=== PATIENT | male | born 1950 | race Caucasian/White ===

== ENCOUNTER → 2017-10-31 08:17 | Outpatient (CLI) | payer MEDICARE, OTHER, SELFPAY ==
[2017-10-31 10:15] LABS: Absolute Neutrophil Count 2.2 X10^3/uL (2.0-7.7); Basophil# 0.02 X10^3/uL; Basophil% 0.5 % (0-1); Eosinophil# 0.15 X10^3/uL; Eosinophils% 3.7 % (0-5); Hematocrit 39.2 % (40-54); Hemoglobin 13.5 g/dl (13.0-16.5); Lymphocyte % 29.5 % (19-41); Mean Corp Hgb Conc 34.4 g/gl (32-36); Mean Corpuscular Hgb 33.9 pg (27.0-32.0); Mean Corpuscular Volume 98.5 fL (80-94); Mean Platelet Vol. 11.6 fl (6.2-12.0); Monocyte# 0.45 X10^3/uL; Monocyte% 11.1 % (0-10); Neutrophil # 2.24 X10^3/uL (2.7-7.7); Platelet Count 102 K/mm3 (150-450); RBC Distribution Width SD 45.2 fl (35.1-43.9); Red Blood Count 3.98 M/mm3 (4.6-6.2); White Blood Count 4.1 K/mm3 (4.4-11.0)
[2017-10-31 10:28] LABS: POSITIVE COUNT NO; POSITIVE DIFFERENTIAL NO; POSITIVE MORPHOLOGY NO
[2017-10-31 10:29] LABS: Anion Gap 5 (5-15); BUN 17 mg/dL (7-18); BUN/Creat Ratio 14.7 RATIO (10-20); Calcium,Total 9.1 mg/dL (8.5-10.1); Chloride 104 mmol/L (98-107); Cholesterol 194 mg/dL (200); Creatinine, Serum 1.16 mg/dL (0.70-1.30); EST Glomerular Filtration Rate 66 mL/min (>60); Est Glom Filt Rate - Afr Amer 80 mL/min (>60); Glucose 87 mg/dL (74-106); High Density Lipoprotein 56 mg/dL; PSA,Total - Annual Screen 1.18 ng/mL (0.00-4.00); Potassium 4.5 mmol/L (3.5-5.1); Sodium Level 141 mmol/L (136-145); Triglycerides 114 mg/dL; Very Low Density Lipoprotein 23 mg/dL (5-40)
== END ==
PROVIDERS: Family Provider Family Medicine; PCP Family Medicine; Visit Provider Family Medicine
DX: D69.6 Thrombocytopenia, unspecified (principal); E78.00 Pure hypercholesterolemia, unspecified; Z12.5 Encounter for screening for malignant neoplasm of prostate; I34.0 Nonrheumatic mitral (valve) insufficiency
CPT/HCPCS: 36415; 80048; 80061; 84153; 85025; G0103

== ENCOUNTER → 2018-10-27 | Outpatient (CLI) | payer MEDICARE, OTHER, SELFPAY ==
[2018-07-28 15:37] VITALS: BMI 21.4
[2018-10-27 12:14] LABS: Absolute Lymphocyte Count 1.08 X10^3/uL (0.83-4.51); Absolute Neutrophil Count 2.2 X10^3/uL (2.0-7.7); Basophil# 0.02 X10^3/uL; Basophil% 0.5 % (0-1); Eosinophil# 0.15 X10^3/uL; Eosinophils% 3.9 % (0-5); Hematocrit 39.3 % (40-54); Hemoglobin 13.5 g/dL (13.0-16.5); Lymphocyte # 1.08 X10^3/ul (4.0); Lymphocyte % 28.3 % (19-41); Mean Corp Hgb Conc 34.4 g/dL (32-36); Mean Corpuscular Hgb 34.4 pg (27.0-32.0); Mean Platelet Vol. 11.4 fl (6.2-12.0); Monocyte# 0.39 X10^3/uL; Monocyte% 10.2 % (0-10); NRBC Flagged by Analyzer 0 % (0-5); Neutrophil # 2.16 X10^3/uL (2.7-7.7); Neutrophil % 56.8 % (47-70); Platelet Count 94 K/mm3 (150-450); RBC Distribution Width CV 12.6 % (11.6-14.6); RBC Distribution Width SD 46.4 fl (35.1-43.9); Red Blood Count 3.93 M/mm3 (4.6-6.2); White Blood Count 3.8 K/mm3 (4.4-11.0)
[2018-10-27 12:24] LABS: Anion Gap 7 (5-15); BUN 17 mg/dL (7-18); BUN/Creat Ratio 15.9 RATIO (10-20); Calcium,Total 8.7 mg/dL (8.5-10.1); Chloride 104 mmol/L (98-107); Cholesterol 192 mg/dL (200); Creatinine, Serum 1.07 mg/dL (0.70-1.30); EST Glomerular Filtration Rate 73 mL/min (>60); Est Glom Filt Rate - Afr Amer 88 mL/min (>60); Glucose 96 mg/dL (74-106); High Density Lipoprotein 60 mg/dL; Potassium 4.2 mmol/L (3.5-5.1); Sodium Level 141 mmol/L (136-145); Triglycerides 111 mg/dL; Very Low Density Lipoprotein 22 mg/dL (5-40)
== END | disposition home or self-care (01) ==
LOC: MFPLAB 09:54
PROVIDERS: Family Provider Family Medicine; PCP Family Medicine; Referring Provider Family Medicine; Visit Provider Family Medicine
DX: D69.6 Thrombocytopenia, unspecified (principal); I34.0 Nonrheumatic mitral (valve) insufficiency; E78.00 Pure hypercholesterolemia, unspecified
CPT/HCPCS: 36415; 80048; 80061; 85025

== ENCOUNTER → 2018-11-13 | Outpatient (CLI) | payer MEDICARE, OTHER, SELFPAY ==
[2018-07-28 15:37] VITALS: BMI 21.4
[2018-11-13 14:08] LABS: PSA,Total - Annual Screen 1.26 ng/mL (0.00-4.00)
== END | disposition home or self-care (01) ==
LOC: LAB.FUTURE 11:31
PROVIDERS: Family Provider Family Medicine; PCP Family Medicine; Referring Provider Family Medicine; Visit Provider Family Medicine
DX: Z12.5 Encounter for screening for malignant neoplasm of prostate (principal)
CPT/HCPCS: 36415; 84153; G0103

== ENCOUNTER → 2019-08-06 14:35 | Outpatient (CLI) | payer MEDICARE, OTHER, SELFPAY ==
[2019-06-11 15:25] VITALS: BMI 21.3
--- NOTE | 2019-08-06 14:39 | PCM.CR.ITP ---
Diagnosis - General Information Admitting Diagnosis: S/P VALVE REPAIR REPLACEMENT Secondary Diagnosis: I34.0, I27.21, I34.1, I44.0, I45.10, I25.10, Personal Learning Style:: Audio/Visual, Written Barriers to Learning: Cognitive/Learning Impairment, Cultural/Spiritual, Decreased Motivation, Emotional/Anxiety, Hearing Impairment, Language, Low Literacy, Mental Status, No Barriers, Physical Condition/Sensory Deficit, Vision Impairment Gave educational material for:: Treating Heart Disease, Emotions & Heart Disease, Stress Management & Relaxation, Sleep Disorders & Heart Disease, How The Heart Works, What it means to have Heart Disease, How Coronary Artery Disease is Diagnosed, Heart Procedures, What Heart Medications Do, Risk Factors & Modifications, Living an Active Life, Nutrition - Education/Goals Individual Counseling: Initial Assessment: Abnormal Cholesterol Levels, High Blood Pressure Cardiac Rehabilitation Goals: 1. Maintain the individual as the primary focus of care. 2. To improve the patient's quality of life. 3. Identification of cardiac risk factors and provide cardiac risk factor management. 4. Enhance the psychosocial status of the patient. 5. Reconditioning enough to allow the patient to resume customary activities. 6. Control symptoms of cardiac disease Personal Goals: Initial Assessment: Participate in home exercise program, Improve muscle strength and endurance Scale for measuring improvement of personal goals: Enter appropriate number in Comments. 2 = Unchanged. 3 = Slightly Better. 4 = Moderate Improvement. 5 = Met my Goal - Diagnosis & Disease Process Outcomes/Goals: Pt IDs own risk factors & lifestyle modifications by Session 10, Verbalizes symptoms of angina & response by session 3., Pt independently manages Plan/Interventions: Assist Pt to ID & engage in lifestyle modification to reduce CVD risk, Instruct on individual risk factors, Review symptoms of angina & emergency actions, Review secondary diagnosis & identify educational needs. - Safety Referral to Physical Therapy: No Referral to [facility] Case Management: No Fall Risk Assessed:: No Assistive Devices:: None Exercise - Initial Assessment - Visit Date of Eval: 08/06/19 - SCHEDULED OT START CR ON Session #:: 0 - INITIAL EVALUATION. Mets: Pre-: >7 METS for 30 minutes by discharge - Physician Prescribed Exercise Modalities: Treadmill, Rower, Airdyne, NuStep Frequency: 3x/week for 12 weeks [36 sessions] Intensity: 60-80% of age predicted maximum heart rate reserve Current METSs:: 4 Target Heart Rate:: 97-126 Resting Blood Pressure: 112/72 EKG Type: SR W/ 1ST DEGREE AV BLOCK, INCOMPLETE RBBB - Outcomes & Goals Goals:: Verbalizes understanding of THR, RPE & goal METS by session 6, Documents in home exercise log/reports 30 min aerobic 5 day/wk by DC, Demonstrates accurate pulse taking by DC - Intervention & Plan Exercise Program Goals: Instruct on personal THR & RPE, Instruct on MET level & personal MET goal, Show patient to take own pulse /validate performance until accurate, Instruct on home exercise - Physical Activity Home Exercise Physical Activity - Home Exercise: Safe Exercise, Warm-up, Self-monitoring, Cool-Down, Home Exercise > 30 min Daily, Sitting Time <3 hours/daily - Outcomes & Goals Outcomes/Goals: Demonstrates correct Warm-up/exercise Cool-Down (S3) if = 2.5 METs, Verbalizes symptoms of exercise intolerance by Session 3 (S3), Demonstrate safe equipment use (S3) & follows exercise prescrition (6) - Intervention & Plan Plan/Intervention: Instruct warm-up & cool-down if exercising at > 2 METs, Instruct on symptoms of exercise intolerance & actions to take, Instruct & monitor on saf Nutrition - Initial Assessment - Program Goals Nutrition Program Goals: LDL <100 optimal. 100 - 129 Near optimal. 130 - 159 Borderline High. 160 - 189 High. Total Cholesterol <200 desirable. 200 - 239 Borderline High. >/= 240 High. HDL < 40 Low >/=60 High. Triglycerides <150 desirable. <199 optimal. VlDL 5 - 40. HgbA1C <7%. BMI <25 - Visit Date of Assessment:: 08/06/19 Session #:: 0 - INITIAL EVALUATION - Cholesterol/Lipids Triglycerides (mg/dL): 111 Total Cholesterol (mg/dL): 192 LDL Cholesterol (mg/dL): 110 HDL Cholesterol (mg/dL): 60 Determine presence & major risk factors that modify LDL goal: Hypertension or hypertensive medication, Age men > 45 years; women >/= 55 years Outcomes/Goals: Pt IDs own risk factors & lifestyle modifications by Session 10, Verbalizes symptoms of angina & response by session 3., Pt independently manages Intervention/Plan: Instruct on personal lipid levels & lipid goals/NCEP guidelines, Instruct on cholesterol - Diabetes (Other Core Measures) Diabetes Type: Not Applicable - Weight Mgt (Other Care) Not Applicable: Yes Height: 6 ft 1 in Weight:: 162 lb BMI: 21.3 Diagnosis Overweight/Obesity BMI> 30% ICD-10 E66: No Diagnosis High BMI/Morbid Obesity BMI> 35% ICD-10 Z68: No Outcomes/Goals: Pt sets, maintains & shows weight loss goal & trend during rehab Intervention/Plan: Instruct on ideal BMI & set weight loss goal w/patient - Healthy Eating Habits Outcomes/Goals:: Consume diet rich in vegs,fruits,whole grain/high fiber,fish,lean meat, Limit sat/trans fats,cholesterol & added salts & sugars Intervention/Plan:: Assess current eating habits - Education Gave educational materials for:: Healthy eating Medical - Initial Assessment - Visit Date of Eval: 08/06/19 Session #:: 0 - INITIAL EVALUATION - Medication Compliance Preventative Medication(s):: Aspirin, Statin/lipid, Beta shannen H/O mental health issues: depression, anxiety, or addiction?: No Doesn?t believe in the benefits of treatment?: No Believes medications are unnecessary or harmful?: No Has a concern about medication side effects?: No Expresses concern over the cost of medications?: No Outcomes/Goals: Verbalizes medications,desired effect & common side effects @ DC, Pt self-reports following medication regimen, Keeps card in wallet w/medications listed by DC Interventions/plans: Instruct on medication effects & side effects, Review medication list w/patient every two weeks, Instruct importance of taking meds as ordered & assist problem solving - Tobacco Use Tobacco Use: Non-smoker Do you use smokeless tobacco?: No - Hypertension Hypertension Diagnosis:: Hypertension ICD-10 I10 Resting Blood Pressure:: 112/72 Citizen [place] Heart Association Hypertension Guidelines: Citizen [place] Heart Association Hypertension Guidelines. Normal BP Less than 120/80. Elevated BP 120/80. Hypertension Stage 1: BP 130-139/80-89. Hypertesnion Stage 2: BP 140 or higher/90 or higher. Hypertension Crisis: BP higher than 180/120 Outcomes/Goals: Able to verbalize/achieve optimal blood pressure <130/80, Incorporates diet changes & exercise for blood pressure control by DC Interventions/plan: Instruct on optimal blood pressure, hypertension & medications, Instruct on effects of sodium, alcohol, stress, exercise &hypertension - Tobacco Cessation Referral Smoking Cessation Referral:: No Individual Education/Counseling:: No Education Schedule Given:: Yes Psychosocial - Initial Assess - VIsit Date of Eval: 08/06/19 Session #:: 0 - INITIAL EVALUATION Not Applicable: Yes History of previous Mental disease:: No - Target Goals Target Goals: Assess presence or absence of depression. Using a valid screening tool, maximizes coping skills. Positive support system - Psychosocial Test Tool Used:: Jassi Valencia QOL Cardiac, PHQ-9 Questionnaire phq-9 Severity: Severity. 1-4 Minimal Depression. 5-9 Mild Depression. 10-14 Moderate Depression. 15-19 Moderately Sever Depression. 20-27 Severe Depression. Rule: - Referral to Behavioral Health PS - Interventions: Yes Attend Stress Management Classes, No Referral to Behavioral Health if PHQ-9 score >9:, No Referral to [facility], No Referral to Physician if PHQ-9 if score is 5-9: - Outcomes/Goals: See list Psychosocial Outcomes/Goals:: ID's personal stressors & 2 strategies to manage stress by discharge - Intervention/Plan: See List Interventions/Plan:: Assess stressors,coping strategies & signs of derpression on admission Patient Health Questionnaire Initial Assessment 1. Little interest or pleasure in doing things: Not at all 2. Feeling down, depressed, or hopeless: Not at all 3. Trouble falling or staying asleep, or sleeping too much: Not at all 4. Feeling tired or having little energy: Not at all 5. Poor appetite or overeating: Not at all 6. Feeling bad about yourself -- or that you are a failure or have let yourself or your family down: Not at all 7. Trouble concentrating on things, such as reading the newspaper or watching television: Not at all 8. Moving or speaking so slowly that other people could have noticed. Or the opposite - being so fidgety or restless that you have been moving around a lot more than usual: Not at all 9. Thoughts that you would be better off , or of hurting yourself in some way: Not at all How difficult have these problems made it for you to do your work, take care of things at home, or get along with other people?: Not difficult at all Total Score: 0 DOROTEO-Q SV Test - Statements CAD is a disease of the arteries in the heart: False Examples of risk factors for heart disease: True Angina is chest pain or discomfort: I Don't Know The benefits of resistance training include: True Eating more meat and dairy products: False Anti-platelet medications such as aspirin are important: I Don't Know The only effective way to manage stress: False An exercise warm-up slowly increases heart rate: I Don't Know Prepared, processed foods usually have high sodium: True Depression is common after a heart attack: I Don't Know The statin medications lower cholesterol: I Don't Know To control blood pressure, lower the amount of sodium: I Don't Know If someone gets chest discomfort during walking: I Don't Know Transfats are partially hydrogenated vegetable oils: True Sleep apnea that is not treated increases the risk: I Don't Know To control cholesterol, one should become a vegetarian: False Someone knows if he/she is exercising at the right level: I Don't Know Diabetes cannot be prevented with exercise & health eating: False Stress is a large risk for heart attack: I Don't Know A diet that can help lower blood pressure is rich in: True - Total Score Total Correct Responses: 10 Self-Efficacy Initial Assessment We would like to know how confident you are in doing certain activities. Please select your confidence level for:: Select your confidence level for the following using the scale 1-10 where 1 is not at all confident and 10 is totally confident. Your score is the average of all 6 responses. Fatigue: How confident are you that you can keep the fatigue caused by your disease from interfering with the things you want to do? Select Number: 10 Physical Discomfort or Pain: How confident are you that you can keep the physical discomfort or pain of your disease from interfering with the things you want to do? Select Number: 10 Emotional Distress: How confident are you that you can keep the emotional distress caused by your disease from interfering with the things you want to do? Select Number: 10 Other Symptoms or Health Problems: How confident are you that you can keep other symptoms or health problems from interfering with the things you want to do? Select Number: 10 Different Tasks and Activities: How confident are you that you can do the different tasks and activities needed to manage your health condition so as to reduce your need to see a doctor? Select Number: 10 Medication: How confident are you that you can do things other than just taking medication to reduce how much your illness affects your everyday life? Select Number: 10 Total Score:: 10 Nutrition Survey - Nutrition Survey Instructions Scoring Instructions: Scoring is as follows: Yes = 1 points. No = 0 point. Patient score that is >/=12 is considered to be at potential nutritional risk and could benefit from a referral to a registered dietitian. - Nutrition Survey Initial Have you lost >10 lbs over the past 2 months without trying?: No Are you following a special diet at home for diabetes, low fat, or low salt?: Yes Are you interested in meeting with a dietitian for help understanding your diet?: No Do you eat less than 3 meals a day?: No Do you eat fatty meats (barakat, sausage, ribs, etc), fried foods, desserts, large amounts of salad dressings, margarine, butter, or cheese most days?: No Do you have food allergies? [Enter types in comment field]: No Do you eat in restaurants more than 3 times a week?: Yes Do you season food with salt, seasoning salt, or garlic salt?: Yes Do you used canned, boxed, frozen meals, or soups, seasoning packets?: No Total Score:: 3
--- NOTE | 2019-08-06 14:39 | PCM.CR.HP2 ---
CR - History & Physical - General Arrival date:: 08/06/19 Arrival time:: 14:42 Date of Referral:: 05/17/19 Date of CR Evaluation:: 08/06/19 Referring Physician: DR. MICHEAL BRITT Primary Diagnosis: S/P CABG - History of Present Cardiac Event Onset Date: Enter Onset Date of cardiac illnesses in Comment field below Heart valve replacement or repair:: Yes - 05/10/19 Type of Symptoms:: REFERRED TO [facility] FOR REPEAT ECHO LVEF 63%, FOUND SEVERE MITRAL VALVE REGURGITATION, A MYOXATOUS MITRAL VALVE WITH SEVERE POSTERIOR LEAFLET PROLAPSE, DILATED AORTIC ROOT, WENT TO [facility] FOR SECOND OPINION AND HE UNDERWENT MITRAL VALVE REPAIR AND TRICUSPID VALVE REPAIR. - Medications Home Medications: Ambulatory Orders Medication Instructions Recorded Aspirin [Adult Low Dose Aspirin EC] 81 mg PO DAILY 06/29/15 Biotin 1 mg PO DAILY 06/29/15 Cholecalciferol (VIT D3) [Vitamin 1,000 unit PO DAILY 06/29/15 D] Cyanocobalamin [Vitamin B12] 500 mcg PO DAILY@0800 06/29/15 Multivitamin [Daily Multiple 1 ea PO DAILY 06/29/15 Vitamin] Olopatadine HCl [Patanol] 1 drp EACH EYE UD PRN 06/29/15 Sildenafil Citrate [Viagra] 50 mg PO UD 06/29/15 metoprolol tartrate 25 mg tablet 12.5 mg PO BID tab 05/19/19 polysaccharide iron complex 150 mg 150 mg PO BID cap 05/19/19 iron capsule - Allergies Allergies/Adverse Reactions: Allergies No Known Allergies Allergy (Verified 02/16/19 12:46) - Sleep Disorder Evaluation Hx of Sleep Apnea: No Do you snore loudly (louder than talking or can be heard through closed doors)?: Yes Do you often feel tired/ fatigued/ sleepy during daytime?: Yes Has anyone observed you stop breathing during sleep?: No History of Hypertension (for STOP score): Yes STOP Results: Positive Advanced Directives - Advanced Directives 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 DNR Order?:: No - MOLST See MOLST form: No Past Medical History - Past Medical Illness Medical History: Past Medical History (Last Reviewed 06/11/19 @ 15:[address] Micheal Britt MD) Nonrheumatic mitral (valve) insufficiency (Chronic) I34.0 Nonrheumatic mitral (valve) prolapse (Chronic) I34.1 MV repair neochord P2 #35 [place] Band Non-rheumatic tricuspid valve insufficiency (Chronic) I36.1 Secondary pulmonary arterial hypertension (Chronic) I27.21 First degree atrioventricular block by electrocardiogram (Chronic) I44.0 Right bundle branch block (Chronic) I45.10 Nonrheumatic aortic (valve) insufficiency (Inactive) I35.1 Mild per cath 01/2017 @ [facility] Nonrheumatic tricuspid valve regurgitation (Inactive) I36.1 Mild to moderate per cath 01/2017 @ [facility] - Past Surgical History Surgical History: Past Surgical History (Last Reviewed 06/11/19 @ 15:[address] Micheal Britt MD) History of mitral valve repair (Resolved) Onset Date: 05/10/19 Z98.890 MV repair neochord P2 #35 [place] History of tricuspid valve repair (Resolved) Onset Date: 05/10/19 Z98.890 TV repair remodeling annuloplasty #25 [place]rough Band H/O right and left heart catheterization Onset Date: 02/10/17 Z98.890 06/30/2015 and 02/10/17 History of right heart catheterization Onset Date: 06/16/18 Z98.890 - Family History Summary Family History: Family History (Last Reviewed 06/11/19 @ 15:[address] Micheal Britt MD) Mother H/O heart valve replacement with bioprosthetic valve Social History - Smoking History Smoking Status: Former smoker - QUIT IN 1979 NO RECENT TOBACCO USE. - Occupation Occupation (List type of work in comments):: Employed Hours worked per day:: 8 - WORKING FROM HOME. - Hobbies, Recreation, Social Activities Hobbies: Exercise - after 6 weeks post-operative valve surgery began running again. No complications with resuming exercise., Other - golf, run two to three times a week, lift weights. Recreational Activities: I am able to engage in all my recreational activities Social Environment - Status Marital Status: - Current Living Arrangements Living Environment:: Spouse - Children How many children do you have?: 3 - boys Do any of your children live nearby?: Yes - one in area two are out of state. - Safety Do you feel safe in your surroundings?: Yes - Assistance Do you need any assistance at home?: yes Review of Systems - Review of Systems Hints: Right click = Denies (Slash). Left click = Reports ([place]) Review of Present Symptoms: Reports: Shortness of Breath with Exertion - [place] carrying 40# gaolf bag strenuous., Wound Healing, Dizziness/Lightheadedness - only if laying down or planting [place] and stand up rapidly or too rapidly. only happens on occasions not routine., Appetite - Normal, Appetite - Special Diet - had stents years ago and keep danny on a good cardiac based diet.. Denies: Shortness of Breath at Rest, Fatigue - Pain Is Patient Pain Free?: Yes Pain Location: none Pain Level: 0/10 Risk Factor Assessment - Vital Signs Temperature: 97.8 F Respiratory Rate: 16 Pulse Ox: 98 Blood Pressure: 112/70 - Pulse Pulse Rate: 64 Pulse Rhythm: Regular - Hypertension Blood Pressure Sitting - Left Arm: 112/70 - Blood Cholesterol/Lipids Total Cholesterol (mg/dL) Goal = less than 200 mg/dL: 192 HDL Cholesterol (mg/dL) Goal = less than 40 mg/dL: 60 LDL Cholesterol (mg/dL) Goal = less than 70 mg/dL: 110 Triglycerides (mg/dL) Goal = less than 150 mg/dL: 111 - Diabetes Nutrition Referral for Diabetes: No - Obesity Height: 6 ft 1 in Weight:: 162 lb Weight in Pounds: 162.0 lbs Weight Source: Standing Scale Body Mass Index (BMI): 21.3 Nutritional Referral for Obesity: No - Physical Inactivity Physical Inactivity: Recreational activity - Risk Stratification Risk Guidelines: Lowest Risk: Risk Factor for Smoking, Risk Factor for Dyslipidemia, Risk Factor for Diabetes, Risk Factor for Obesity, Risk Factor for Hypertension, Risk Factor for Sedentary Lifestyle, Risk Factor for Depression - For Smoking Smoking Risk Guidelines: Smoking Low Risk: None or quit greater than 6 months ago. Smoking Moderate Risk: Smoker or quit 6 months or less ago. Smoking High Risk: Smoker - For Dyslipidemia Dyslipidemia Risk Guidelines: Low Risk: Moderate Risk: High Risk: 15-25% fat 25.1-29% fat >/= 30% fat. <7% sat fat 7-9% sat fat >9% sat fat. <150 mg chol 150-299 mg chol >/= 300 mg chol. LDL <100 LDL 100-129 LDL >/= 130. Chol/HDL ratio <5.0 Chol/HDL ratio 5.0-6.0 Chol/HDL ratio >6.0. Triglycerides <100 Triglycerides 100-149 Triglycerides >/= 150 - For Diabetes Mellitus Diabetes Risk Guidelines: Diabetes Low Risk: HgA1c <6.5% and/or FBG <120. Diabetes Moderate Risk: HgA1c 6.6-7.9% and/or FBG 120-180. Diabetes High Risk: HgA1c >/= 8% and/or FBG >180 - For Obesity/Overweight Obesity/Overweight Risk Guidelines: Obesity Low Risk: BMI <25.0. Obesity Moderate Risk: BMI 25-29.9. Obesity High Risk: BMI >/= 30.0 - For Hypertension Hypertension Risk Guidelines: Hypertension Low Risk: Systolic <120 and Diastolic <80. Hypertension Moderate Risk: Systolic 120-139 and Diastolic 80-89. Hypertension High Risk: Systolic >/= 140 and Diastolic >/= 90 - For Sedentary Lifestyle Sedentary Lifestyle Risk Guidelines: Sedentary Lifestyle Low Risk: >/= 1,500 kcal/week. Sedentary Lifestyle Moderate Risk: 700-1,499 kcal/week. Sedentary Lifestyle High Risk: < 700 kcal/week - For Depression Depression Risk Guidelines: Depression Low Risk: Not clinically depressed. Depression Moderate Risk: Mildly depressed. Depression High Risk: Clinically depressed - Family History Family History: Family History (Last Reviewed 06/11/19 @ 15:[address] Micheal Britt MD) Mother H/O heart valve replacement with bioprosthetic valve Motivation - Motivation to Participate On a scale of 1 to 10, how prepared are you to commit to attending program?: 6 - More interested in a truncated 4-6 weeks to be able to resume running at home safely. What do you see as barriers to successfully being able to complete the program?: getting back to normal daily ewxercise, running lifting weights at home. Do you have a spouse or signficant other, family or friends who will help support you to complete the program?: yes
[2019-08-06 15:10] VITALS: BP 112/70; PULSE 64; RESP 16; TEMP 36.6; O2SAT 98; BMI 21.3
[2019-08-06 15:31] VITALS: BP 112/72; BMI 21.3
== END ==
PROVIDERS: PCP Family Medicine; Visit Provider Internal Medicine Cardiovascular Disease
DX: I34.0 Nonrheumatic mitral (valve) insufficiency (principal); I27.21 Secondary pulmonary arterial hypertension; I34.1 Nonrheumatic mitral (valve) prolapse; I44.0 Atrioventricular block, first degree; I45.10 Unspecified right bundle-branch block; I25.10 Atherosclerotic heart disease of native coronary artery without angina pectoris; Z95.1 Presence of aortocoronary bypass graft

== ENCOUNTER 2019-08-27 14:15 | Outpatient (RCR) | payer MEDICARE, OTHER, SELFPAY ==
[2019-08-06 15:10] VITALS: BMI 21.3
[2019-08-06 15:31] VITALS: BMI 21.3
== END 2019-08-29 23:59 ==
LOC: CR 14:15
PROVIDERS: PCP Family Medicine; Visit Provider Internal Medicine Cardiovascular Disease
DX: Z95.1 Presence of aortocoronary bypass graft (principal)
CPT/HCPCS: 93798

== ENCOUNTER 2019-08-30 07:06 | Outpatient (RCR) | payer MEDICARE, OTHER, SELFPAY ==
[2019-08-06 15:10] VITALS: BMI 21.3
[2019-08-06 15:31] VITALS: BMI 21.3
== END 2019-09-28 23:59 ==
LOC: CR 07:06
PROVIDERS: PCP Family Medicine; Visit Provider Internal Medicine Cardiovascular Disease
DX: I25.10 Atherosclerotic heart disease of native coronary artery without angina pectoris (principal); I27.21 Secondary pulmonary arterial hypertension; I34.1 Nonrheumatic mitral (valve) prolapse; Z95.1 Presence of aortocoronary bypass graft; I34.0 Nonrheumatic mitral (valve) insufficiency; I44.0 Atrioventricular block, first degree; I45.10 Unspecified right bundle-branch block
CPT/HCPCS: 93798

== ENCOUNTER → 2019-11-03 13:33 | Outpatient (CLI) | payer MEDICARE, OTHER, SELFPAY ==
[2019-08-06 15:10] VITALS: BMI 21.3
[2019-08-06 15:31] VITALS: BMI 21.3
== END ==
PROVIDERS: PCP Family Medicine; Referring Provider Family Medicine; Visit Provider Family Medicine
DX: Z11.59 Encounter for screening for other viral diseases (principal)
CPT/HCPCS: 87635; U0003

== ENCOUNTER → 2020-03-01 10:53 | Outpatient (CLI) | payer MEDICARE, OTHER, SELFPAY ==
[2019-08-06 15:31] VITALS: BMI 21.3
[2019-12-23 15:45] VITALS: BMI 21.2
[2020-03-01 12:38] LABS: Hematocrit 42.4 % (40-54); Hemoglobin 14.1 g/dL (13.0-16.5); Mean Corp Hgb Conc 33.3 g/dL (32-36); Mean Corpuscular Hgb 33.1 pg (27.0-32.0); Mean Corpuscular Volume 99.5 fL (80-94); Mean Platelet Vol. 11.1 fl (6.2-12.0); Platelet Count 120 K/mm3 (150-450); RBC Distribution Width CV 12.7 % (11.6-14.6); RBC Distribution Width SD 46.5 fl (35.1-43.9); Red Blood Count 4.26 M/mm3 (4.6-6.2); White Blood Count 4.4 K/mm3 (4.4-11.0)
[2020-03-01 13:05] LABS: Anion Gap 5 (5-15); BUN 17 mg/dL (7-18); Calcium,Total 9.6 mg/dL (8.5-10.1); Chloride 104 mmol/L (98-107); Cholesterol 193 mg/dL (200); Creatinine, Serum 1.06 mg/dL (0.70-1.30); EST Glomerular Filtration Rate 73 mL/min (>60); Est Glom Filt Rate - Afr Amer 88 mL/min (>60); Glucose 90 mg/dL (74-106); High Density Lipoprotein 57 mg/dL; PSA,Total - Annual Screen 1.17 ng/mL (0.00-4.00); Potassium 4.2 mmol/L (3.5-5.1); Sodium Level 139 mmol/L (136-145); Triglycerides 109 mg/dL; Very Low Density Lipoprotein 22 mg/dL (5-40)
== END ==
PROVIDERS: PCP Family Medicine; Referring Provider Family Medicine; Visit Provider Family Medicine
DX: D69.6 Thrombocytopenia, unspecified (principal); E78.00 Pure hypercholesterolemia, unspecified; Z13.1 Encounter for screening for diabetes mellitus; Z12.5 Encounter for screening for malignant neoplasm of prostate
CPT/HCPCS: 36415; 80048; 80061; 84153; 85027; G0103

== ENCOUNTER → 2021-01-16 12:53 | Outpatient (CLI) | payer MEDICARE, OTHER, SELFPAY ==
[2019-08-06 15:31] VITALS: BMI 21.3
--- NOTE | 2021-01-16 12:57 | ECHOD_ITS ---
Reason For Study: MVP-S/P MV Repair Procedure This was a 2D Doppler, Color Flow transthoracic echocardiogram. Exam performed in department. Left Ventricle Normal LV size. Left ventricular systolic function is normal. The estimated ejection fraction is 65 %. Stage 1 diastolic dysfunction. No regional wall motion abnormalities noted. Right Ventricle Normal RV size. Normal systolic function. Atria Normal left atrium. Normal right atrium. Mitral Valve Status post mitral valve repair with annuloplasty ring. Tricuspid Valve An annuloplasty ring is noted in the tricuspid position. Aortic Valve Trisinus/trileaflet aortic valve. Pulmonic Valve Normal pulmonic valve. Great Vessels Normal aortic root. The pulmonary artery is normal size. Normal inferior vena cava. Pericardium/Pleural No pericardial effusion. MMode/2D Measurements & Calculations LVIDd: 4.1 cm IVSd: 1.2 cm Ao root diam: 3.7 cm LVIDs: 2.1 cm LVPWd: 1.1 cm RVDd: 3.3 cm FS: 47.4 % LAV(MOD-bp): 62.4 ml LVAd ap4: 28.6 cm2 LVAd ap2: 30.0 cm2 LAV(MOD-bp) Indexed: 32.2 ml/m2 LVLd ap4: 8.4 cm LVLd ap2: 8.3 cm LAV(MOD-sp2): 77.7 ml EDV(MOD-sp4): 82.0 ml EDV(MOD-sp2): 90.3 ml LAV(MOD-sp4): 44.3 ml EDV(sp4-el): 82.9 ml EDV(sp2-el): 92.0 ml LVAs ap4: 17.0 cm2 LVAs ap2: 17.2 cm2 LVLs ap4: 7.2 cm LVLs ap2: 7.5 cm ESV(MOD-sp4): 33.4 ml ESV(MOD-sp2): 32.8 ml ESV(sp4-el): 33.9 ml ESV(sp2-el): 33.4 ml EF(MOD-sp4): 59.3 % EF(MOD-sp2): 63.6 % EF(sp4-el): 59.1 % SV(MOD-sp4): 48.6 ml SV(MOD-sp2): 57.5 ml SV(sp4-el): 49.0 ml LA dimension(2D): 4.1 cm LA A4 area: 16.0 cm2 RA A4 area: 20.1 cm2 Doppler Measurements & Calculations MV E max leo: 109.0 cm/sec Lat Peak E' Leo: 9.0 cm/sec Med Peak E' Leo: 5.4 cm/sec MV A max leo: 148.4 cm/sec E/E' lat: 12.1 E/E' med: 20.3 MV E/A: 0.73 MV V2 max: 159.9 cm/sec MV P1/2t max leo: 130.2 cm/sec Ao V2 max: 135.7 cm/sec MV max P.2 mmHg MV P1/2t: 76.7 msec Ao max P.6 mmHg MV V2 mean: 117.0 cm/sec MV dec slope: 496.9 cm/sec2 MV mean P.7 mmHg MV V2 VTI: 35.0 cm MVA(P1/2t): 2.9 cm2 LV V1 max: 130.5 cm/sec PA V2 max: 128.2 cm/sec LV V1 max P.8 mmHg ECHO/Echo Complete Interpretation Summary Status post mitral valve repair with annuloplasty ring. Normal LV size. Left ventricular systolic function is normal. The estimated ejection fraction is 65 %. Stage 1 diastolic dysfunction. Ordering Physician: Micheal Trujillo Referring Physician: Carlitos Johnson MD Performed By: Corina Rasheed RDCS
== END ==
PROVIDERS: PCP Family Medicine; Referring Provider Internal Medicine Cardiovascular Disease; Visit Provider Internal Medicine Cardiovascular Disease
DX: I34.1 Nonrheumatic mitral (valve) prolapse (principal)
CPT/HCPCS: 93306

== ENCOUNTER → 2021-03-06 09:23 | Outpatient (CLI) | payer MEDICARE, OTHER, SELFPAY ==
[2019-08-06 15:31] VITALS: BMI 21.3
[2021-03-06 12:44] LABS: Absolute Lymphocyte Count 1.46 X10^3/uL (0.83-4.51); Absolute Neutrophil Count 2.4 X10^3/uL (2.0-7.7); Basophil# 0.02 X10^3/uL; Basophil% 0.4 % (0-1); Eosinophil# 0.17 X10^3/uL; Eosinophils% 3.8 % (0-5); Hematocrit 41.2 % (40-54); Hemoglobin 13.8 g/dL (13.0-16.5); Lymphocyte # 1.46 X10^3/ul (0.83-4.51); Lymphocyte % 32.3 % (19-41); Mean Corp Hgb Conc 33.5 g/dL (32-36); Mean Corpuscular Hgb 32.9 pg (27.0-32.0); Mean Corpuscular Volume 98.3 fL (80-94); Mean Platelet Vol. 11.3 fl (6.2-12.0); Monocyte# 0.48 X10^3/uL; Monocyte% 10.6 % (0-10); NRBC Flagged by Analyzer 0 % (0-5); Neutrophil # 2.38 X10^3/uL (2.7-7.7); Neutrophil % 52.7 % (47-70); Platelet Count 135 K/mm3 (150-450); RBC Distribution Width CV 13.1 % (11.6-14.6); RBC Distribution Width SD 47.1 fl (35.1-43.9); Red Blood Count 4.19 M/mm3 (4.6-6.2); White Blood Count 4.5 K/mm3 (4.4-11.0)
[2021-03-06 13:10] LABS: ALB/GLOB Ratio 1.1 RATIO (0.9-2.4); AST(SGOT) 20 U/L (15-37); Alanine Aminotransfer ALT/SGPT 22 U/L (16-61); Albumin, Serum 3.7 g/dL (3.2-5.0); Alkaline Phosphatase 58 U/L (45-117); Anion Gap 8 (5-15); BUN 16 mg/dL (7-18); BUN/Creat Ratio 14.4 RATIO (10-20); Calcium,Total 9.1 mg/dL (8.5-10.1); Chloride 103 mmol/L (98-107); Cholesterol 200 mg/dL (200); Creatinine, Serum 1.11 mg/dL (0.70-1.30); EST Glomerular Filtration Rate 69 mL/min (>60); Est Glom Filt Rate - Afr Amer 84 mL/min (>60); Globulin 3.3 g/dL (2.2-4.2); Glucose 96 mg/dL (74-106); High Density Lipoprotein 61 mg/dL; PSA,Total - Annual Screen 1.33 ng/mL (0.00-4.00); Potassium 4.1 mmol/L (3.5-5.1); Sodium Level 139 mmol/L (136-145); Triglycerides 112 mg/dL; Very Low Density Lipoprotein 22 mg/dL (5-40)
== END ==
PROVIDERS: PCP Family Medicine; Referring Provider Family Medicine; Visit Provider Family Medicine
DX: E78.00 Pure hypercholesterolemia, unspecified (principal); D69.6 Thrombocytopenia, unspecified; Z12.5 Encounter for screening for malignant neoplasm of prostate
CPT/HCPCS: 36415; 80053; 80061; 84153; 85025; G0103

== ENCOUNTER → 2022-03-06 | Outpatient (CLI) | payer MEDICARE, OTHER, SELFPAY ==
[2019-08-06 15:31] VITALS: BMI 21.3
[2022-03-06 12:14] LABS: Mean Corp Hgb Conc 33.3 g/dL (32-36); Mean Corpuscular Volume 99.1 fL (80-94); Mean Platelet Vol. 10.9 fl (6.2-12.0); Platelet Count 128 K/mm3 (150-450); RBC Distribution Width SD 46.8 fl (35.1-43.9); Red Blood Count 4.24 M/mm3 (4.6-6.2); White Blood Count 4.6 K/mm3 (4.4-11.0)
[2022-03-06 12:32] LABS: Anion Gap 3 (5-15); BUN 17 mg/dL (7-18); BUN/Creat Ratio 16.3 RATIO (10-20); Calcium,Total 9.5 mg/dL (8.5-10.1); Chloride 103 mmol/L (98-107); Creatinine, Serum 1.04 mg/dL (0.70-1.30); EST Glomerular Filtration Rate 74 mL/min (>60); Est Glom Filt Rate - Afr Amer 90 mL/min (>60); Glucose 114 mg/dL (74-106); PSA,Total - Annual Screen 1.34 ng/mL (0.00-4.00); Potassium 4.6 mmol/L (3.5-5.1); Sodium Level 138 mmol/L (136-145)
== END | disposition home or self-care (01) ==
LOC: MFPLAB 09:56
PROVIDERS: PCP Family Medicine; Referring Provider Family Medicine; Visit Provider Family Medicine
DX: Z13.220 Encounter for screening for lipoid disorders (principal); D69.6 Thrombocytopenia, unspecified; Z12.5 Encounter for screening for malignant neoplasm of prostate; Z13.1 Encounter for screening for diabetes mellitus
CPT/HCPCS: 36415; 80048; 84153; 85027; G0103

== ENCOUNTER → 2023-03-12 | Outpatient (CLI) | payer MEDICARE, OTHER, SELFPAY ==
[2019-08-06 15:31] VITALS: BMI 21.3
[2023-03-12 12:00] LABS: Hematocrit 43.1 % (40-54); Mean Corp Hgb Conc 32.5 g/dL (32-36); Mean Corpuscular Hgb 32.6 pg (27.0-32.0); Mean Corpuscular Volume 100.5 fL (80-94); Mean Platelet Vol. 10.5 fl (6.2-12.0); Platelet Count 166 K/mm3 (150-450); RBC Distribution Width CV 13.2 % (11.6-14.6); Red Blood Count 4.29 M/mm3 (4.6-6.2); White Blood Count 6.4 K/mm3 (4.4-11.0)
[2023-03-12 13:33] LABS: Anion Gap 7 (5-15); BUN 14 mg/dL (7-18); Calcium,Total 9.5 mg/dL (8.5-10.1); Chloride 105 mmol/L (98-107); Cholesterol 220 mg/dL (200); EST Glomerular Filtration Rate 78 mL/min (>60); Est Glom Filt Rate - Afr Amer 94 mL/min (>60); Glucose 93 mg/dL (74-106); High Density Lipoprotein 58 mg/dL; PSA,Total - Annual Screen 1.94 ng/mL (0.00-4.00); Potassium 4.1 mmol/L (3.5-5.1); Sodium Level 140 mmol/L (136-145); Triglycerides 97 mg/dL; Very Low Density Lipoprotein 19 mg/dL (5-40)
== END | disposition home or self-care (01) ==
LOC: LAB 11:17
PROVIDERS: PCP Family Medicine; Referring Provider Family Medicine; Visit Provider Family Medicine
DX: Z13.1 Encounter for screening for diabetes mellitus (principal); D69.6 Thrombocytopenia, unspecified; Z12.5 Encounter for screening for malignant neoplasm of prostate; Z13.220 Encounter for screening for lipoid disorders
CPT/HCPCS: 36415; 80048; 80061; 84153; 85027; G0103

== ENCOUNTER → 2023-07-18 | Outpatient (CLI) | payer MEDICARE, OTHER, SELFPAY ==
[2019-08-06 15:31] VITALS: BMI 21.3
--- NOTE | 2023-07-18 13:55 | ECHOD_ITS ---
Reason For Study: MV repair Procedure This was a 2D Doppler, Color Flow transthoracic echocardiogram. Exam performed in department. Left Ventricle Normal LV size. Left ventricular systolic function is normal. The estimated ejection fraction is 60 %. Stage 1 diastolic dysfunction. No regional wall motion abnormalities noted. Right Ventricle Normal RV size. Normal systolic function. Atria Normal left atrium. Normal right atrium. Mitral Valve Status post mitral valve repair with annuloplasty ring. Tricuspid Valve Normal tricuspid valve. Mild tricuspid valve insufficiency. Pulmonary artery systolic pressure is 24 mmHg. An annuloplasty ring is noted in the tricuspid position. Aortic Valve Normal aortic valve. Trisinus/trileaflet aortic valve. Mild (1+) aortic valve insufficiency. Pulmonic Valve Normal pulmonic valve. Great Vessels Normal aortic root. Pericardium/Pleural No pericardial effusion. MMode/2D Measurements & Calculations LVIDd: 5.1 cm IVSd: 1.1 cm LA dimension: 4.0 cm LVIDs: 3.5 cm LVPWd: 1.1 cm RVDd: 3.7 cm FS: 30.6 % LAV(MOD-bp): 53.5 ml LA A4 area: 17.0 cm2 RA A4 area: 17.1 cm2 LAV(MOD-bp) Indexed: 27.3 ml/m2 LAV(MOD-sp2): 58.9 ml LAV(MOD-sp4): 45.4 ml TAPSE: 1.8 cm Time Measurements MV dec time: 0.38 sec Doppler Measurements & Calculations MV E max leo: 71.4 cm/sec Lat Peak E' Leo: 6.2 cm/sec Med Peak E' Leo: 5.1 cm/sec MV A max leo: 130.0 cm/sec E/E' lat: 11.5 E/E' med: 14.0 MV E/A: 0.55 MV V2 max: 143.9 cm/sec MV P1/2t max leo: 90.8 cm/sec Ao V2 max: 156.1 cm/sec MV max P.3 mmHg MV P1/2t: 130.6 msec Ao max P.8 mmHg MV V2 mean: 74.4 cm/sec Ao V2 mean: 115.9 cm/sec MV mean P.6 mmHg MV dec slope: 203.6 cm/sec2 Ao mean P.1 mmHg MV V2 VTI: 36.9 cm MVA(P1/2t): 1.7 cm2 Ao V2 VTI: 39.2 cm AV (velocity ratio): 0.92 AI max leo: 518.8 cm/sec LV V1 max: 141.8 cm/sec MR max leo: 479.5 cm/sec AI max P.7 mmHg LV V1 max P.1 mmHg MR max P.0 mmHg LV V1 mean P.3 mmHg AI dec slope: 202.3 cm/sec2 LV V1 mean: 110.4 cm/sec AI P1/2t: 750.9 msec LV V1 VTI: 36.0 cm PA V2 max: 68.6 cm/sec TR max leo: 228.7 cm/sec TR max P.9 mmHg ECHO/Echo Complete Interpretation Summary Status post mitral valve repair with annuloplasty ring. Normal LV size. Left ventricular systolic function is normal. Stage 1 diastolic dysfunction. The estimated ejection fraction is 60 %. Mild (1+) aortic valve insufficiency. Ordering Physician: Micheal Trujillo Referring Physician: Micheal Trujillo Performed By: Devon Mena RCS
== END | disposition home or self-care (01) ==
LOC: CVS 13:54
PROVIDERS: PCP Family Medicine; Referring Provider Internal Medicine Cardiovascular Disease; Visit Provider Internal Medicine Cardiovascular Disease
DX: I34.0 Nonrheumatic mitral (valve) insufficiency (principal)
CPT/HCPCS: 93306

== ENCOUNTER 2023-08-11 09:14 | Emergency (ER) | payer MEDICARE, OTHER, SELFPAY ==
[2019-08-06 15:31] VITALS: BMI 21.3
[2023-08-11 09:15] VITALS: BP 147/91; PULSE 68; RESP 18; TEMP 36.4; O2SAT 99; BMI 21.6
--- NOTE | 2023-08-11 09:35 | RAD_ITS ---
INDICATION: FALL EXAMINATION/TECHNIQUE: X-RAY - LEFT XR Forearm 2 Views 2 VIEWS COMPARISON: No relevant prior comparison study available FINDINGS: SOFT TISSUES: No soft tissue swelling or gas. No radiopaque foreign body. BONES/JOINTS: Irregularity in the region of the trapezium which could be due to previous injury. Acute fracture is doubtful. The remainder of the osseous structures appear intact. Normal alignment. Preservation of the joint space.. No sclerotic or destructive changes observed. RAD/Forearm 2 Views IMPRESSION: Irregular trapezium could be due to old injury. Otherwise no evidence of acute fracture. Electronically Signed: Austin Oliveira MD at 10:09 EDT ,
--- NOTE | 2023-08-11 10:07 | EX.ED.UPPERE ---
HPI History of Present Illness HPI Narrative: 73-year-old male with tripped and fell down a step injuring his left forearm. When he fell his forearm hit one of the steps causing a laceration. Tetanus is up-to-date within the last 6 years. Denies any other injuries. Did not hit his head. No LOC. He is on aspirin every other day but no other blood thinners. Chief Complaint: Laceration Informant: patient Occured/Mechanism Mechanism/Context: Yes injury and Yes blunt trauma Onset/Context/Timing Onset: Today and Hours Context: Sudden Onset Timing: Continuous Quality of Pain: Dull Current Severity: Mild Maximum Severity: Mild Associated Symptoms Associated Symptoms: Negative for Parasthesia, Weakness or Loss of Funtion Narrative Tetanus Immunization: 5-10 years Prior similar symptoms: No Recent Illness/Hospitalization: No PFSH PFSH Medical History First degree atrioventricular block by electrocardiogram Non-rheumatic tricuspid valve insufficiency Nonrheumatic aortic (valve) insufficiency Nonrheumatic mitral (valve) insufficiency Nonrheumatic mitral (valve) prolapse 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 pulmonary arterial hypertension Thrombocytopenia due to blood loss (05/13/19) Home Medications cholecalciferol (vitamin D3) 25 mcg (1,000 unit) tablet 1,000 unit PO DAILY 06/29/15 [History Last Taken Unknown] cyanocobalamin (vitamin B-12) 500 mcg tablet 500 mcg PO DAILY@0800 06/29/15 [History Last Taken Unknown] multivitamin 1 ea PO DAILY 06/29/15 [History Last Taken Unknown] ascorbic acid (vitamin C) 500 mg capsule mg PO 12/23/19 [History Last Taken Unknown] sildenafil 50 mg tablet 50 mg PO UD PRN 01/05/21 [History Last Taken Unknown] carboxymethylcellulose sodium 1 % eye liquid gel drops (Lubricant Dry Eye Relief) 1 drp ophthalmic (eye) BID PRN 01/03/22 [History Last Taken Unknown] amoxicillin 500 mg capsule 2,000 mg (4 x 500 mg) PO .COMPLEX #4 caps 06/19/23 [Rx Last Taken Unknown] aspirin 81 mg tablet,delayed release (Adult Aspirin Regimen) 81 mg PO .QOD 06/19/23 [History Last Taken Unknown] biotin 1 mg tablet 5,000 mcg PO DAILY 06/19/23 [History Last Taken Unknown] ipratropium bromide 42 mcg (0.06 %) nasal spray 2 spray intranasal DAILY 06/19/23 [History Last Taken Unknown] Allergy/AdvReac Type Severity Reaction Status Date / Time No Known Allergies Allergy Verified 08/11/23 09:15 Family History Mother H/O heart valve replacement with bioprosthetic valve Surgical History H/O right and left heart catheterization (02/10/17) History of mitral valve repair (05/10/19) History of right heart catheterization (06/16/18) History of tricuspid valve repair (05/10/19) Social History Smoking Status: Former smoker ROS ROS ED ROS Narrative Denies recent illness. Review of Systems ROS Unobtainable: Denies due to encephalopathy Constitutional Constitutional ED: Denies chills or fever(s) Eyes Eyes: Denies blurry vision ENT ENT ED: Denies ear pain Cardiovascular Cardiovascular: Denies chest pain Respiratory/Chest Respiratory/Chest: Denies cough Gastrointestinal Gastrointestinal: Denies abdominal pain Genitourinary Genitourinary ED: Denies dysuria Musculoskeletal Musculoskeletal: Denies back pain Integumentary Denies abscess Neurologic Neurologic: Denies headache(s) Psychiatric Psychiatric: Denies anxiety Endocrine Endocrinology: Denies cold intolerance Hematologic/Lymphatic Hematologic/Lymphatic: Denies easy bleeding or easy bruising Allergic/Immunologic Allergic/Immunologic ED: Denies mouth swelling or tongue swelling EXAM Physical Exam Narrative Exam Narrative: Well-appearing 73-year-old male. Sitting upright in bed. Vital signs stable afebrile. HEENT exam pupils round react light. No facial or scalp trauma. No laceration or hematoma. C-spine and neck nontender normal range of motion. Back and spine nontender. No bruising. Lungs clear to auscultation bilaterally. Heart regular rhythm rate about 70 no murmur. Chest wall and ribs nontender. Abdomen soft nontender. Pelvic girdle intact. He is moving all 4 extremities. 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 Wrist, elbows and shoulders are nontender. Normal range of motion. Left forearm he has a V-shaped laceration along the left mid ulna. Left hand neurovascular intact. There is minimal oozing of blood. No pulsatile bleeding. No large hematoma. No bony tenderness. Hips, knees and ankles are nontender full range of motion. Normal normal dorsi and plantarflexion. Neurologically is awake alert. GCS of 15. Answering questions following commands. No focal motor deficits. Const Vital Signs: 08/11/23 09:15 Temperature 97.6 F L Temperature Source Temporal Pulse Rate 68 Respiratory Rate 18 Blood Pressure 147/91 H Blood Pressure Mean 109 Pulse Ox 99 Oxygen Delivery Method Room Air Positive well nourished and well developed; Negative for obese, cachectic, contractures or unkempt General Appearance ED: well developed and NAD; Negative for unkempt, cachectic, contractures, cyanotic or diaphoretic Nutritional Appearance: Negative for cachectic or obese HEENT Reports moist mucous membranes normocephalic and atraumatic; Negative for trauma or tenderness Eyes PERRL and EOMs intact bilaterally General Eye ED: Negative for other Neck full ROM and supple General: Negative for tenderness Lymph Lymphatic: Negative for other Chest Wall inspection of chest normal and palpation of chest normal Chest: Negative for other Resp normal respiratory effort and clear to auscultation bilaterally Effort and Inspection: Negative for pain with movement Auscultation: Negative for rales, rhonchi, wheezes or diminished lung sounds Cardio regular rate, regular rhythm, S1 normal heart sound, S2 normal heart sound and no murmurs Rate: Negative for bradycardia or tachycardic Rhythm: Negative for abnormal rhythm GI non-tender, non-distended and no masses Inspection: Negative for abdominal distention Auscultation: normoactive bowel sounds Palpation: soft; Negative for tender, guarding or rebound tenderness present Bladder / Kidney Exam: No other Back/Spine no CVA tenderness General Back: Negative for CVA tenderness Cervical Spine: Negative for cervical spine tenderness Thoracic Spine / Upper Back: Negative for thoracic spinal tenderness Lumbar Spine / Lower Back: Negative for lumbar spinal tenderness Extremity full ROM; Negative for normal to inspection Extremity Narrative: Flap laceration left forearm about 7 inches in length. V-shaped. Both upper and lower extremities neurovascular intact. Nontender. No deformity. Normal range of motion. Normal civil engineering designer strength. General Extremety ED: Negative for edema General Extremity: Negative for edema Neuro oriented x3, CN's II-XII intact bilaterally, moves all extremities, no focal motor deficits and no sensory deficits noted Sensorium / Orientation: alert, oriented to person, oriented to place and oriented to time; Negative for orientation impaired, lethargic or stuporous Motor Exam: strength 5/5 throughout Psych mental status grossly normal Appearance: Negative for unkempt Attitude: No agitated Mood & Affect: Negative for depressed, anxious or tearful Skin General Skin Exam: Negative for petechiae Lesions: no lesions Rashes: no rashes Trauma: laceration; Negative for no lacerations or abrasions or abrasion MDM MDM MDM Narrative Medical decision making narrative: 73-year-old male fell on a step injuring his left forearm. X-ray was obtained by nursing. It is negative. Flap laceration will be repaired. His tetanus is up-to-date within the last 6 years. No other complaints. He needs no other x-rays. History & Record Review Discussion w/independent historian: Patient Radiography Diagnostic Testing: Left forearm x-ray 2 views, interpreted by myself shows no acute abnormality. No fracture. No foreign body. No dislocation. Procedures Lacerations Left forearm flap laceration repair:: Length: 7 in Depth: Sub Q Shape: Flap Prep: Shure-Clens Laceration repair: Irrigated, Lidocaine and Local Suture Information: Ethilon, Simple and 4-0 Comment: Left mid forearm laceration flap about 7 inches. Local anesthetic lidocaine. Cleaned with Shur-Clens. Washed and irrigated with saline. Explored. Involve the skin and subcu tissue. No foreign body. No infection. No pulsatile bleeding or hematoma. Closed using 8 simple interrupted 4-0 Ethilon sutures. Proper hemostasis and wound closure is obtained. Discharge Plan Triage Chief Complaint: Laceration ED Provider: Wade Stafford Dx/Rx/DC Orders Clinical Impression: Fall, Forearm laceration Instructions: ED Laceration, All Closures Prescriptions: No Action ascorbic acid (vitamin C) 500 mg capsule PO carboxymethylcellulose sodium [Lubricant Dry Eye Relief] 1 % drops, liquid gel 1 drp ophthalmic (eye) BID PRN aspirin [Adult Aspirin Regimen] 81 mg tablet,delayed release (DR/EC) 81 mg PO .QOD ipratropium bromide 42 mcg (0.06 %) spray,non-aerosol 2 spray intranasal DAILY Patient Comments: [NO ORIGINAL SIG] amoxicillin 500 mg capsule 2,000 mg PO .COMPLEX Qty: 4 3RF Rx Instructions: 2,000 mg PO 1 hour prior to dental appointment; cyanocobalamin (vitamin B-12) 500 MCG tablet 500 mcg PO DAILY@0800 Patient Comments: SUPPLEMENT multivitamin 1 EACH tablet 1 ea PO DAILY Patient Comments: SUPPLEMENT cholecalciferol (vitamin D3) 1,000 UNIT tablet 1,000 unit PO DAILY Patient Comments: SUPPLEMENT sildenafil 50 mg tablet 50 mg PO UD PRN Patient Comments: ERECTILE DYSFUNCTION biotin 1 mg tablet 5,000 mcg PO DAILY Patient Comments: SUPPLEMENT Primary Care Provider: Carlitos Johnson Referrals: Carlitos Johnson MD [Primary Care Provider] - 10 Day for suture removal Activity Restrictions/Additional Instructions: Keep the wound clean and dry. He can get wet just clean it off and dry it well. Clean daily with soap and water or peroxide and water. Apply antibiotic ointment daily. Watch for any signs of infection such as pus, redness, red streaks or fever if seen return. Stitches out in 10 days. Tylenol for pain. Disposition Disposition: Home, Self Care
[2023-08-11] MEDS: Diphth,Pertuss(Acell),Tet Vac 0.5 ML Vial IM (10:50)
== END 2023-08-11 10:58 | disposition home or self-care (01) ==
PROVIDERS: Emergency Provider Emergency Medicine; PCP Family Medicine; Visit Provider Emergency Medicine
DX: S51.812A Laceration without foreign body of left forearm, initial encounter (principal); W10.9XXA Fall (on) (from) unspecified stairs and steps, initial encounter; Z23 Encounter for immunization; Z79.82 Long term (current) use of aspirin; Z87.891 Personal history of nicotine dependence
CPT/HCPCS: 12002; 73090; 90471; 90715; 99284

== ENCOUNTER → 2024-03-26 | Outpatient (CLI) | payer MEDICARE, OTHER, SELFPAY ==
[2019-08-06 15:31] VITALS: BMI 21.3
[2024-03-26 10:21] LABS: Hematocrit 39.1 % (40-54); Hemoglobin 13.1 g/dL (13.0-16.5); Mean Corp Hgb Conc 33.5 g/dL (32-36); Mean Corpuscular Hgb 32.8 pg (27.0-32.0); Mean Platelet Vol. 10.9 fl (6.2-12.0); Platelet Count 144 K/mm3 (150-450); RBC Distribution Width CV 13.1 % (11.6-14.6); RBC Distribution Width SD 46.4 fl (35.1-43.9); Red Blood Count 3.99 M/mm3 (4.6-6.2)
[2024-03-26 11:02] LABS: ALB/GLOB Ratio 1.2 RATIO (0.9-2.4); AST(SGOT) 30 U/L (15-37); Alanine Aminotransfer ALT/SGPT 31 U/L (16-61); Albumin, Serum 3.5 g/dL (3.2-5.0); Alkaline Phosphatase 56 U/L (45-117); Anion Gap 2 (5-15); BUN 17 mg/dL (7-18); BUN/Creat Ratio 17.1 RATIO (10-20); Calcium,Total 9.1 mg/dL (8.5-10.1); Chloride 106 mmol/L (98-107); Cholesterol 209 mg/dL (200); Creatinine, Serum 0.99 mg/dL (0.70-1.30); EST Glomerular Filtration Rate 78 mL/min (>60); Est Glom Filt Rate - Afr Amer 94 mL/min (>60); Glucose 110 mg/dL (74-106); High Density Lipoprotein 64 mg/dL; PSA,Total - Annual Screen 2.33 ng/mL (0.00-4.00); Potassium 4.4 mmol/L (3.5-5.1); Protein, Total 6.5 g/dL (6.4-8.2); Sodium Level 139 mmol/L (136-145); Triglycerides 129 mg/dL; Very Low Density Lipoprotein 26 mg/dL (5-40)
== END | disposition home or self-care (01) ==
LOC: MFPLAB 08:39
PROVIDERS: PCP Family Medicine; Referring Provider Family Medicine; Visit Provider Family Medicine
DX: E78.00 Pure hypercholesterolemia, unspecified (principal); D69.6 Thrombocytopenia, unspecified; Z12.5 Encounter for screening for malignant neoplasm of prostate
CPT/HCPCS: 36415; 80053; 80061; 84153; 85027; G0103

== ENCOUNTER → 2024-06-15 | Outpatient (CLI) | payer MEDICARE, OTHER, SELFPAY ==
[2019-08-06 15:31] VITALS: BMI 21.3
--- NOTE | 2024-06-15 09:20 | VDUE_ITS ---
Reason For Study Reason For Study: Palpable nodule of neck Left Proximal Vascularized structure noted in the neck just left of midline that measures 0.30 x 0.93 cm. Small varicose vein noted above area of concern with venous flow noted. Internal jugular vein is compressible with normal venous flow. Mid CCA, 94.2 cm/sec. Procedure Limited examination per doctor order. Exam performed in department. VL/Venous Duplex US, Unilateral Interpretation Summary A hypoechoic, subcutaneous mass is noted in the neck, left of the midline, rolly uring .30 cm x .93 cm. This may represent a cystic structure, hematoma, or seroma. Clinical correlation is advised. The l eft internal jugular vein appears patent and compressible, with normal flow. A dilated vein is noted in the area. Ordering Physician: Praveen Joel Referring Physician: Carlitos Johnson MD Performed By: Sunshine Mckeon RVT ???
--- NOTE | 2024-06-15 09:20 | US_ITS ---
PROCEDURE: HEAD/NECK SOFT TISSUE REASON FOR EXAM: NODULE OF NECK COMPARISON: None. TECHNIQUE: Sonographic imaging of the left side of the neck was obtained. FINDINGS: The palpable lump corresponds to a 1.1 cm x 0.9 cm x 0.3 cm hypoechoic nodular density just deep to the skin surface. No vascularity is seen. This may represent a sebaceous cyst. US/Head/Neck Soft Tissue IMPRESSION: The palpable lump corresponds to a 1.1 cm x 0.9 cm x 0.3 cm hypoechoic nodular density just deep to the skin surface. This may represent a small sebaceous cyst. Reading Location: [place] [id number]
== END | disposition home or self-care (01) ==
LOC: US 09:17
PROVIDERS: PCP Family Medicine; Referring Provider Surgery; Visit Provider Surgery
DX: I70.92 Chronic total occlusion of artery of the extremities (principal); R22.1 Localized swelling, mass and lump, neck
CPT/HCPCS: 76536; 93971

== ENCOUNTER 2025-03-07 05:54 | Day surgery (SDC) | payer MEDICARE, OTHER, SELFPAY ==
[2019-08-06 15:31] VITALS: BMI 21.3
--- NOTE | 2025-02-22 08:35 | PAT.ANESEVAL ---
Pre-Assessment Diagnosis/Proposed Procedure Planned Operative Procedure(s): (L) Excision, Sebaceous Cyst anterior side neck, Combo with Dr. Crouch (L) Stab Phlebectomy Neck Varicosities Anesthesia History Anesthesia History - emergency room rn: Anesthesia History - emergency room rn Hx Hospitalization No 02/21/25 10:33 Any Problems With Anesthesia No 02/21/25 10:33 Cholinesterase deficiency No 02/21/25 10:33 You/Your Family Experience No 02/21/25 10:33 fever (hyperthermia) with Relationship Recent Exposure to Contagious Disease Does patient have nerve No 02/21/25 10:33 stimulator Patient instructed to have device shut off --Does patient have Pacemaker or ICD? When Was Last Pacemaker Check QUESTION #4 FULL TEXT: You/Your Family Experience fever (hyperthermia) with Anesthesia Last Oral Intake Last Oral intake: Last Oral Intake NPO since Meds taken in AM with sips of water? Meds patient instructed to take am of surgery PONV PONV - emergency room rn: PONV - emergency room rn Female No 02/21/25 10:33 HX of Motion Sickness No 02/21/25 10:33 HX of N/V After Surgery No 02/21/25 10:33 Non-Smoker Yes 02/21/25 10:33 Duration of Surgery greater Yes 02/21/25 10:33 than 60 minutes Number of Risk Factors 2 02/21/25 10:33 PONV Score Moderate Risk 02/21/25 10:33 Height & Weight Height & Weight: Anesthesia: Height & Weight Height 6 ft 1 in 01/12/25 14:02 Respiratory Assessment Respiratory Assessment - emergency room rn: Respiratory Tract Infection Hx - emergency room rn Hx Respiratory Tract Infection No 02/21/25 10:33 STOP Sleep Apnea STOP Sleep Apnea - emergency room rn: STOP Sleep Apnea - emergency room rn Hx Hypertension No 02/21/25 10:33 Hx Sleep Apnea No 02/21/25 10:33 CPAP BIPAP Do you snore loudly (louder No 02/21/25 10:33 than talking or can be heard Do you often feel tired/ No 02/21/25 10:33 fatigued/ sleepy during daytime? Has anyone observed you stop No 02/21/25 10:33 breathing during sleep? STOP Results Negative 02/21/25 10:33 QUESTION #5 FULL TEXT : Do you snore loudly (louder than talking or can be heard through closed doors)? 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 Specify any problems Hx of Preganancy in last 3 N/A 02/21/25 10:33 Months Nurse Filling Out Transfusion JZOLLINGE 02/21/25 10:33 & Questions: Date: 02/21/25 02/21/25 10:33 Time: 10:34 02/21/25 10:33 Patient unable to answer at this time (ie. confused, unrespo /Reproduction History /Reproductive History - emergency room rn: /Reproductive Hx- emergency room rn Hx Now No 02/21/25 10:33 Gestational Age (in weeks): EDC: Hx Hx Para Hx Section SAB No 02/21/25 10:33 Does the father of the baby or his family experience fever w Father of the baby Malignant Hypertension history comment [facility] Medical History (Updated 02/21/25 @ 10:33 by Deidre Hodges) Wears glasses Non-smoker Cardiology follow-up encounter History of echocardiogram Nodule of neck Right bundle branch block (RBBB) with left anterior fascicular block Thrombocytopenia due to blood loss (05/13/19) Non-rheumatic tricuspid valve insufficiency Nonrheumatic mitral (valve) insufficiency Secondary pulmonary arterial hypertension Nonrheumatic aortic (valve) insufficiency Nonrheumatic tricuspid valve regurgitation Nonrheumatic mitral (valve) prolapse First degree atrioventricular block by electrocardiogram Home Medications ?Medication ?Instructions ?Recorded ?Last Taken ?Type cholecalciferol (vitamin D3) 25 1,000 unit PO DAILY 06/29/15 Unknown History mcg (1,000 unit) tablet cyanocobalamin (vitamin B-12) 500 500 mcg PO DAILY@0800 06/29/15 Unknown History mcg tablet multivitamin 1 ea PO DAILY 06/29/15 Unknown History aspirin 81 mg tablet,delayed 81 mg PO .QOD 06/19/23 Unknown History release (Adult Aspirin Regimen) biotin 1 mg tablet 5,000 mcg PO DAILY 06/19/23 Unknown History ipratropium bromide 42 mcg (0.06 2 spray intranasal DAILY 06/19/23 Unknown History %) nasal spray sulfacetamide sodium 10 % topical 1 applic topical QDAY 06/01/24 Unknown History cleanser amoxicillin 500 mg capsule 500 mg PO ONCE PRN prior to dental 12/08/24 Unknown History work Allergy/AdvReac Type Severity Reaction Status Date / Time No Known Allergies Allergy Verified 02/21/25 10:23 Family History Mother H/O heart valve replacement with bioprosthetic valve Surgical History (Updated 02/21/25 @ 10:33 by Diedre Hodges) Hx of colonoscopy with polypectomy History of tricuspid valve repair (05/10/19) History of mitral valve repair (05/10/19) History of right heart catheterization (06/16/18) H/O right and left heart catheterization (02/10/17) Social History Smoking Status: Former smoker how long ago did patient quit smokin alcohol intake: current alcohol intake frequency: a few times a month details: Social on weekends substance use type: does not use caffeine: Yes Type: coffee Number of servings: 2 Audit: Pertinent Findings HISTORY of Pertinent Findings History of Pertinent Findings: He has a history of normal coronary arteries , at least moderate mitral regurgitation secondary to posterior leaflet prolapse and chordal RONA. He was referred to the [facility] where a repeat echocardiogram was performed they were unsure about his pulmonary pressures and thought that he had severe pulmonary hypertension and therefore they ordered a left and right heart catheterization which was done and his pulmonary wedge pressure was noted to be 7 mmHg. He was recently at the [facility] and underwent an echocardiogram which demonstrated an ejection fraction of 63%. 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 His left atrium was noted to be severely dilated. He has remained completely asymptomatic and the decision was made to wait. He also had a mildly dilated aortic root. After his last visit it was decided to get another opinion at the [facility] and this was sought and he underwent mitral valve repair and tricuspid valve repair. He had a 35 mm [place] ring placed on the mitral valve and a 25 mm [place] ring on the tricuspid valve. Postoperative echocardiogram demonstrated ejection fraction of 55% with no regurgitation. Another echocardiogram in December 2020 demonstrating an ejection fraction of 65%, stage I diastolic dysfunction and stable annuloplasty rings. Pertinent Findings EKG Perinent findings: ECG Report Interpretation Sinus Rhythm -Right bundle branch block with left axis -bifascicular block. ABNORMAL Electronically signed on 06/15/2019 at 15:09 by Micheal [employer] Version [id number] Echo (EF%) pertinent findings: Echocardiogram 07/18/2023: Interpretation Summary Status post mitral valve repair with annuloplasty ring. Normal LV size. Left ventricular systolic function is normal. Stage 1 diastolic dysfunction. The estimated ejection fraction is 60 %. Mild (1+) aortic valve insufficiency. Recommendation Anesthesia Recommendation Anesthesia recommendation: F/U recommended (Needs cardiac clearance, EKG on DOS)
--- NOTE | 2025-02-22 12:30 | PAT.ANE_ITS ---
Pre-Assessment Diagnosis/Proposed Procedure Planned Operative Procedure(s): (L) Excision, Sebaceous Cyst anterior side neck, Combo with Dr. Coruch (L) Stab Phlebectomy Neck Varicosities Anesthesia History Anesthesia History - clearance representative: Anesthesia History - clearance representative Hx Hospitalization No 02/21/25 10:33 Any Problems With Anesthesia No 02/21/25 10:33 Cholinesterase deficiency No 02/21/25 10:33 You/Your Family Experience No 02/21/25 10:33 fever (hyperthermia) with Relationship Recent Exposure to Contagious Disease Does patient have nerve No 02/21/25 10:33 stimulator Patient instructed to have device shut off --Does patient have Pacemaker or ICD? When Was Last Pacemaker Check QUESTION #4 FULL TEXT: You/Your Family Experience fever (hyperthermia) with Anesthesia Last Oral Intake Last Oral intake: Last Oral Intake NPO since Meds taken in AM with sips of water? Meds patient instructed to take am of surgery PONV PONV - clearance representative: PONV - clearance representative Female No 02/21/25 10:33 HX of Motion Sickness No 02/21/25 10:33 HX of N/V After Surgery No 02/21/25 10:33 Non-Smoker Yes 02/21/25 10:33 Duration of Surgery greater Yes 02/21/25 10:33 than 60 minutes Number of Risk Factors 2 02/21/25 10:33 PONV Score Moderate Risk 02/21/25 10:33 Height & Weight Height & Weight: Anesthesia: Height & Weight Height 6 ft 1 in 01/12/25 14:02 Respiratory Assessment Respiratory Assessment - clearance representative: Respiratory Tract Infection Hx - clearance representative Hx Respiratory Tract Infection No 02/21/25 10:33 STOP Sleep Apnea STOP Sleep Apnea - clearance representative: STOP Sleep Apnea - clearance representative Hx Hypertension No 02/21/25 10:33 Hx Sleep Apnea No 02/21/25 10:33 CPAP BIPAP Do you snore loudly (louder No 02/21/25 10:33 than talking or can be heard Do you often feel tired/ No 02/21/25 10:33 fatigued/ sleepy during daytime? Has anyone observed you stop No 02/21/25 10:33 breathing during sleep? STOP Results Negative 02/21/25 10:33 QUESTION #5 FULL TEXT : Do you snore loudly (louder than talking or can be heard through closed doors)? 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 Specify any problems Hx of Preganancy in last 3 N/A 02/21/25 10:33 Months Nurse Filling Out Transfusion JZOLLINGE 02/21/25 10:33 & Questions: Date: 02/21/25 02/21/25 10:33 Time: 10:34 02/21/25 10:33 Patient unable to answer at this time (ie. confused, unrespo /Reproduction History /Reproductive History - clearance representative: /Reproductive Hx- clearance representative Hx Now No 02/21/25 10:33 Gestational Age (in weeks): EDC: Hx Hx Para Hx Section SAB No 02/21/25 10:33 Does the father of the baby or his family experience fever w Father of the baby Malignant Hypertension history comment [facility] Medical History (Updated 02/21/25 @ 10:33 by Deidre Hodges) Wears glasses Non-smoker Cardiology follow-up encounter History of echocardiogram Nodule of neck Right bundle branch block (RBBB) with left anterior fascicular block Thrombocytopenia due to blood loss (05/13/19) Non-rheumatic tricuspid valve insufficiency Nonrheumatic mitral (valve) insufficiency Secondary pulmonary arterial hypertension Nonrheumatic aortic (valve) insufficiency Nonrheumatic tricuspid valve regurgitation Nonrheumatic mitral (valve) prolapse First degree atrioventricular block by electrocardiogram Home Medications ?Medication ?Instructions ?Recorded ?Last Taken ?Type cholecalciferol (vitamin D3) 25 1,000 unit PO DAILY Unknown History mcg (1,000 unit) tablet cyanocobalamin (vitamin B-12) 500 500 mcg PO DAILY@080 0 06/29/15 Unknown History mcg tablet multivitamin 1 ea PO DAILY 06/29/15 Unkno wn History aspirin 81 mg tablet,delayed 81 mg PO .QOD 06/19/23 Un known History release (Adult Aspirin Regimen) biotin 1 mg tablet 5,000 mcg PO DAILY 06/19/23 Unknown History ipratropium bromide 42 mcg (0.06 2 spray intranasal DA ANGELA 06/19/23 Unknown History %) nasal spray sulfacetamide sodium 10 % topical 1 applic topical QDA Y 06/01/24 Unknown History cleanser amoxicillin 500 mg capsule 500 mg PO ONCE PRN prior to dental 12/08/24 Unknown History work Allergy/AdvReac Type Severity Reaction Status Date / Time No Known Allergies Allergy Verified 02/21/25 10:23 Family History Mother H/O heart valve replacement with bioprosthetic valve Surgical History (Updated 02/21/25 @ 10:33 by Deidre Hodges) Hx of colonoscopy with polypectomy History of tricuspid valve repair (05/10/19) History of mitral valve repair (05/10/19) History of right heart catheterization (06/16/18) H/O right and left heart catheterization (02/10/17) Social History Smoking Status: Former smoker how long ago did patient quit smokin alcohol intake: current alcohol intake frequency: a few times a month details: Social on weekends substance use type: does not use caffeine: Yes Type: coffee Number of servings: 2 Audit: Pertinent Findings HISTORY of Pertinent Findings History of Pertinent Findings: EKG Pertinent Findings EKG Perinent findings ECG Report Interpretation 02/22/25 08:37 Sinus Rhythm -Right bundle branch block with left axis -bifascicular block. ABNORMAL Electronically signed on at 15:09 by Micheal [employer] Version [id number] Echo Pertinent Findings Echo (EF%) pertinent findings Echocardiogram 07/18/2023: 02/22/25 08:37 Interpretation Summary Status post mitral valve repair with annuloplasty ring. Normal LV size. Left ventricular systolic function is normal. Stage 1 diastolic dysfunction. The estimated ejection fraction is 60 %. Mild (1+) aortic valve insufficiency. Recommendation Anesthesia Recommendation Anesthesia recommendation: OPTIMIZED for anesthesia
[2025-03-01 13:17] LABS: Hematocrit 41.3 % (40-54); Hemoglobin 14.2 g/dL (13.0-16.5); Mean Corp Hgb Conc 34.4 g/dL (32-36); Mean Corpuscular Volume 97.6 fL (80-94); Mean Platelet Vol. 10.0 fl (6.2-12.0); Platelet Count 121 K/mm3 (150-450); RBC Distribution Width CV 13.1 % (11.6-14.6); RBC Distribution Width SD 46.4 fl (35.1-43.9); Red Blood Count 4.23 M/mm3 (4.6-6.2); White Blood Count 4.7 K/mm3 (4.4-11.0)
[2025-03-01 14:22] LABS: Anion Gap 10 (5-15); BUN 15 mg/dL (4-19); BUN/Creat Ratio 13.6 RATIO (10-20); Calcium,Total 9.8 mg/dL (7.6-11.0); Carbon Dioxide 27.8 mmol/L (21.0-32.0); Chloride 102 mmol/L (98-108); Glucose 130 mg/dL (70-99); Potassium 4.4 mmol/L (3.3-5.1)
[2025-03-07] VITALS (9 sets, daily range): BP systolic 128–149; BP diastolic 60–90; PULSE 53–68; RESP 16–20; TEMP 36.1–36.8; O2SAT 94–99; BMI 22.1
--- OUTSIDE RECORDS SUMMARY | 2025-03-07 05:56 | XMS RPT_ITS | CCD ---
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 Joni Johnson Primary Care Provider Dr. Joni Johnson Referring Provider Dr. Micheal Trujillo Attending Provider [phone] Carlitos Johnson Primary Care Provider Dr. Carlitos Johnson Referring Provider Dr. Micheal Trujillo Attending Provider [phone] Isra AVALOS, CARTOGRAPHIC AIDEShanelC Thania Attending Provider Ronnie SCOTT, Micheal Devine Unavailable Carlitos Johnson MD Primary Care Provider Alex SCOTT, Dr. Urbina Primary Care Provider Dr. Carlitos Johnson MD Attending Provider Dr. Carlitos Johnson MD Referring Provider [phone] Dr. Praveen Joel MD Attending Provider Wisam SCOTT, Dr. Praveen Amezquita Referring Provider Alex SCOTT, Dr. Urbina Primary Care Provider Dr. Carlitos Johnson MD Referring Provider Jean SCOTT, Dr. Neil Amezquita Attending Provider Willa SCOTT, Dr. Moon Attending Provider [phone] Elina Paredes Attending Provider [phone] Carlitos Johnson MD Primary Care Provider Dr. Carlitos Johnson MD Referring Provider Lily SALMERON, Annalise Lozano Attending Provider [phone] Alex SCOTT, Dr. Urbina Primary Care Physicia n Alex SCOTT, Dr. Urbina Referring Provider [phone] Annalise Ro Attending Physician Willa SCOTT, Dr. Moon Attending Physician [phone] Alex, Reginadlopher Primary Care Unavailable WanekPraveen A Attending Unavailable Ranney, Christopher Referring Unavailable Ranney, Christopher Primary Care Unavailable Wanek, Praveen Amezquita Attending Unavailable Ranney, Christopher Referring Unavailable Adele Castro Attending Un[facility] Ranney, Christopher Referring Unavailable Ranney, Christopher Primary Care Unavailable Red Crouch Attending Unavailable Annalise Bautista NP Attending Unavailable Ranrissa, Carlitos Referring Unavailable Ranney, Christopher Primary Care Unavailable Elina De La Fuente Attending Unavailable Ranrissa, Christopher Referring Unavailable [facility], [facility] Unavailable Wanek, Praveen A Referring Unavailable Ranney, Christopher Primary Care Unavailable Red Crouch Attending Unavailable Ranney, Christopher Referring Unavailable Ranney, Christopher Primary Care Unavailable Wanek, Praveen A Attending Unavailable Wanek, Praveen A Referring Unavailable [facility], [facility] Unavailable Wanek, Praveen A Attending Unavailable Ranney, [facility] Unavailable Ranrissa, Carlitos Attending Unavailable Ranrissa, Christopher Referring Unavailable Adele Quiles PA-C Attending Physician Medications Current Medications Medication Drug Class(es) Dates Sig (Normalized) Sig (Original) aspirin 81 mg delayed release oral tablet (19 sources) Platelet Aggregation Inhibitor, Nonsteroidal Anti-inflammatory Drug Start: 06-19-2023 take 1 tablet by mouth every other day Start: 06-29-2015 End: 01-03-2022 take 1 tablet by mouth once daily Aspirin 81 MG tablet,delayed release (DR/EC) Discontinued 81 mg PO DAILY June 29, 2015 12:00am January 03, 2022 3:38pm biotin 1 mg oral tablet (19 sources) Start: 06-19-2023 Start: 06-19-2023 take 5000 ug by mout h once daily Biotin Active 5000 MCG PO DAILY June 19, 2023 11:15am Start: 05-06-2019 take 5000 ug by mout h once daily BIOTIN ORAL Take 5,000 mcg by mouth once daily. 05/06/2019 Active Start: 06-29-2015 End: 06-19-2023 take 1 tablet by mouth once daily Biotin 1 MG tablet Discontinued 1 mg PO DAILY June 29, 2015 12:00am June 19, 2023 11:16am Carboxymethylcellulose Sodium (Lubricant Dry Eye Relief) 1 % drops, liquid gel (1 source) Start: 01-03-2022 apply 1 drop(s) into the eye(s) twice daily Carboxymethylcellulose Sodium (Lubricant Dry Eye Relief) 1 % drops, liquid gel Active 1 DRP OPHTHALMIC TWICE A DAY January 02, 2022 11:00pm cholecalciferol 0.025 mg oral tablet (12 sources) Vitamin D Start: 06-29-2015 take 1 tablet by mouth once daily Cholecalciferol, Vitamin D3, (VITAMIN D) 1,000 unit ORAL Tab Take 185 mg by mouth once daily. Active ipratropium bromide 0.042 mg /actuat metered dose nasal spray (4 sources) Anticholinergic Start: 06-19-2023 Start: 06-19-2023 Ipratropium Br omide Active 2 SPRAY INTRANASAL DAILY June 19, 2023 12:00am Ipratropium [place] 42 mcg ( 0.06 %) spray,non-aerosol (3 sources) Start: 06-19-2023 Ipratropium Br omide 42 mcg (0.06 %) spray,non-aerosol Active 2 NMA INTRANASAL DAILY June 19, 2023 12:00am Multivitamin 1 EACH tablet (5 sources) Start: 06-29-2015 Start: 06-29-2015 Multivitamin 1 EACH tablet Active 1 NMA PO DAILY June 29, 2015 12:00am Complies with drug therapy Start: 06-29-2015 Multivitamin 1 EACH tablet Active 1 NMA PO DAILY June 29, 2015 12:00am Multivitamin preparation (4 sources) Start: 06-29-2015 Multivitamin A ctive 1 EACH PO DAILY June 29, 2015 12:00am Start: 06-29-2015 Multivitamin A ctive 1 EACH PO DAILY June 28, 2015 11:00pm sulfacetamide sodium 100 mg/ml medicated liquid soap (5 sources) Sulfonamide Antibacterial Start: 06-01-2024 sulfacetamide sodium 100 mg/ml / sulfur 50 mg/ml topical lotion (3 sources) Sulfonamide Antibacterial Start: 02-27-2010 Sulfacetamide Sodium-Sulfur 10-5 % TOPICAL Lotn Apply to nose once daily. 2 02/27/2010 Active THERAPEUTIC MULTIVITAMIN TAB (3 sources) Start: 01-29-2006 THERAPEUTIC MULTIVITAMIN TAB Take one(1) tablet daily. 0 01/29/2006 Active vitamin b12 0.5 mg oral tablet (12 sources) Vitamin B12 Start: 06-29-2015 take 1 tablet by mouth once daily Completed/Discontinued Medications Medication Drug Class(es) Dates Sig (Normalized) Sig (Original) amoxicillin 500 mg oral capsule (20 sources) Penicillin-class Antibacterial Start: 08-11-2019 End: 12-08-2024 take 4 capsules by mouth every hour Amoxicillin 500 mg capsule Discontinued 500 mg PO .COMPLEX 4 October 18, 2024 12:00am December 08, 2024 1:44pm 500 mg orally 4 capsules (2 grams) 1 hour prior to dental appointment; Start: 08-11-2019 End: 06-19-2023 take 2000 mg by mouth every hour Amoxicillin Discontinued 2000 MG PO .COMPLEX 4 April 22, 2022 9:12am June 19, 2023 11:19am 2,000 mg PO 1 hour prior to dental appointment; Start: 07-28-2017 End: 07-28-2018 take 2 g by mouth every hour Amoxicillin 500 mg capsul e Discontinued 2 g PO .COMPLEX 4 4 July 28, 2017 12:00am July 28, 2018 3:38pm 2 g PO 1 hour prior to dental appt. Start: 07-28-2017 End: 07-28-2018 take 2 g by mouth every hour Amoxicillin Discontinued 2 GM PO .COMPLEX 4 July 28, 2017 12:00am July 28, 2018 3:38pm 2 g PO 1 hour prior to dental appt. ascorbic acid 500 mg oral capsule (9 sources) Vitamin C Start: 12-23-2019 End: 06-01-2024 Ascorbic Acid (Vitamin C) 50 0 mg capsule Discontinued mg PO December 23, 2019 12:00am June 01, 2024 10:08am Start: 12-23-2019 Ascorbic Acid (Vitamin C) Active MG PO December 23, 2019 12:00am carboxymethylcellulose 0.01 mg/mg ophthalmic gel (8 sources) Start: 01-03-2022 End: 12-08-2024 apply 1 drop(s) into the eye(s) twice daily as needed Carboxymethylcellulose Sodium (Lubricant Dry Eye Relief) 1 % drops, liquid gel Discontinued 1 NMA OPHTHALMIC TWICE A DAY as needed January 03, 2022 12:00am December 08, 2024 1:36pm Start: 01-03-2022 apply 1 drop(s) into the eye(s) twice daily Carboxymethylcellulose Sodium (Lubricant Dry Eye Relief) 1 % drops, liquid gel Active 1 DRP OPHTHALMIC TWICE A DAY January 03, 2022 12:00am loteprednol etabonate 2 mg/m l ophthalmic suspension (9 sources) Start: 12-23-2019 End: 01-03-2022 Loteprednol Etabonate 0.2 % drops,suspension Discontinued OPHTHALMIC December 23, 2019 12:00am January 03, 2022 3:39pm Start: 12-23-2019 End: 01-03-2022 Loteprednol Etabonate Discon tinued OPHTHALMIC December 23, 2019 12:00am January 03, 2022 3:39pm metoprolol tartrate 25 mg oral tablet (9 sources) beta-Adrenergic Shannen Start: 05-19-2019 End: 12-23-2019 Metoprolol Tartrate 25 mg tablet Discontinued 12.5 mg PO TWICE A DAY May 19, 2019 1:00am December 23, 2019 3:51pm Start: 05-19-2019 End: 12-23-2019 take 12.5 mg by mouth twice daily Metoprolol Tartrate Discontinued 12.5 MG PO TWICE A DAY May 19, 2019 1:00am December 23, 2019 3:51pm olopatadine 1 mg/ml ophthalmic solution (9 sources) Histamine-1 Receptor Inhibitor Start: 06-29-2015 End: 01-03-2022 Olopatadine 1 DROP bottle Discontinued 1 NMA EACH EYE DIRECTED as needed for Dry Eyes June 29, 2015 12:00am January 03, 2022 3:40pm Start: 06-29-2015 End: 01-03-2022 Olopatadine Discontinued 1 D RP EACH EYE DIRECTED June 29, 2015 12:00am January 03, 2022 3:40pm polysaccharide iron complex 150 mg oral capsule (9 sources) Start: 05-19-2019 End: 12-23-2019 Polysaccharide Iron Complex (Ferrex 150) 150 mg iron capsule Discontinued 150 mg PO TWICE A DAY May 19, 2019 1:00am December 23, 2019 3:51pm avoid dairy/calcium-containing products and/or antacids for at least 2 hrs before and after dose sildenafil 50 mg oral tablet (20 sources) Phosphodiesterase 5 Inhibitor Start: 06-29-2015 End: 12-08-2024 Sildenafil 50 mg tablet Discontinued 50 mg PO DIRECTED as needed January 05, 2021 1:53pm December 08, 2024 1:37pm Problems Active Problems Problem Classification Problem Date Documented Date Episodic/Chronic Coagulation and hemorrhagic disorders (3 sources) Thrombocytopenic disorder; Translations: [Thrombocytopenia, unspecified] Onset: 02-27-2010 05-13-2019 Chronic Conduction disorders (18 sources) 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; Translations: [Atrioventricular block, first degree] 01-04-2021 Chronic Disorders of lipid metabolism (1 source) Pure hypercholesterolemia, unspecified; Translations: [Pure hypercholesterolemia, unspecified] Onset: 04-22-2024 Chronic E Codes: Fall (6 sources) Fall; Translations: [Unspecified fall, initial encounter] 08-11-2023 Episodic Heart valve disorders (20 sources) Aortic incompetence, non-rheumatic ; Translations: [Nonrheumatic aortic (valve) insufficiency] Onset: 05-06-2019 02-15-2019 Chronic Comment on above: Mild per cath 7 @ [facility] MV repair neochord P 2 #35 [place] TV repair remodeling annuloplasty #25 [place] Mild to moderate per cath 01/2017 @ [facility] Open wounds of extremities (6 sources) Laceration of forearm; Translations: [Laceration without foreign body of unspecified forearm, initial encounter] 08-11-2023 Episodic Other and unspecified benign neoplasm (3 sources) History of polyp of colon; Translations: [Personal history of colon polyps, unspecified] 01-26-2024 Episodic Other diseases of veins and lymphatics (9 sources) Varicose veins of other specified sites; Translations: [Varicose veins of upper extremity] 08-02-2024 Episodic Other skin disorders (9 sources) Mass of neck; Translations: [Localized swelling, mass and lump, neck] 06-01-2024 Episodic Peripheral and visceral atherosclerosis (1 source) Chronic total occlusion of artery of the extremities; Translations: [Chronic total occlusion of artery of the extremities] Onset: 06-21-2024 Chronic Pulmonary heart disease (9 sources) Pulmonary arterial hypertension; Translations: [Secondary pulmonary arterial hypertension] 01-04-2021 Chronic Unclassified (2 sources) Varicose veins of both lower extremities; Translations: [I83.93 - Asymptomatic varicose veins of bilateral lower extremities] Past or Other Problems Problem Classification Problem Date Documented Date Episodic/Chronic Acute posthemorrhagic anemia (3 sources) Acute posthemorrhagic anemia; Translations: [Acute posthemorrhagic anemia] Onset: 05-13-2019 05-14-2019 Episodic Administrative/social admission (3 sources) Discharge status; Translations: [Other problems related to medical facilities and other health care] Onset: 04-28-2019 05-13-2019 Episodic Coagulation and hemorrhagic disorders (9 sources) Thrombocytopenia due to blood loss; Translations: [Other secondary thrombocytopenia] Onset: 05-13-2019 01-04-2021 Episodic Diabetes mellitus without complication (3 sources) Metabolic stress hyperglycemia; Translations: [Hyperglycemia, unspecified] Onset: 05-10-2019 Resolved: 05-13-2019 05-13-2019 Episodic Fluid and electrolyte disorders (6 sources) Hypervolemia; Translations: [Fluid overload, unspecified] Onset: 05-10-2019 Resolved: 2019 05-13-2019 Episodic Other and unspecified benign neoplasm (3 sources) Adenomatous polyp of colon ; Translations: [Benign neoplasm of colon, unspecified] Onset: 11-25-2016 11-25-2016 Episodic Other nervous system disorders (3 sources) Postoperative pain ; Translations: [Other acute postprocedural pain] Onset: 05-10-2019 05-13-2019 Episodic Other skin disorders (1 source) Localized swelling, mass and lump, neck; Translations: [Localized swelling, mass and lump, neck] Onset: 06-01-2024 Episodic Pleurisy; pneumothorax; pulmonary collapse (3 sources) Atelectasis; Translations: [Atelectasis] Onset: 05-11-2019 05-13-2019 Episodic Residual codes; unclassified (12 sources) History of repair of mitral valve; Translations: [Other specified postprocedural states] Onset: 05-10-2019 05-19-2019 Episodic Comment on above: MV repair neochord P 2 #35 [place] Residual codes; unclassified (12 sources) History of tricuspid valve repair; Translations: [Other specified postprocedural states] Onset: 05-10-2019 05-19-2019 Episodic Comment on above: TV repair remodeling annuloplasty #25 [place] Residual codes; unclassified (6 sources) Other specified postprocedural states; Translations: [Personal history of surgery to heart and great vessels, presenting hazards to health] Onset: 05-10-2019 Episodic Residual codes; unclassified (3 sources) Transition of care; Translations: [Other specified health status] Onset: 2019 05-14-2019 Episodic Respiratory failure; insufficiency; arrest (adult) (3 sources) Ventilator finding; Translations: [Dependence on respirator [ventilator] status] Onset: 05-10-2019 Resolved: 05-11-2019 05-11-2019 Chronic Results Test Name Value Interpretation Reference Range Facility Surgery Visit Reporton 01-12 Surgery Visit Report [facility] [address] [place] [address] OFFICE VISIT Date of Service: 01/12/25 MR#: [id number] Acct: [id number] Name: KEESHA BOSE Rep #: [id number] : 1950 Provider: QUYNH bone Age/Sex: 74/M Location: [facility] Status: Signed Intake Vital Signs 12/08/24 13:30 01/12/25 14:02 Height 6 ft 1 in 6 ft 1 in Weight: 164 lb 167 lb 6 oz BMI 21.6 22.1 BP 131/80 H 164/84 H Blood Pressure Location Lt brachial Rt brachial Position Sitting Sitting Respiration 16 18 Pulse 54 L 58 L Pulse Source Monitor Monitor Temp 97.6 F L Temp Source Temporal Pulse Oximetry (%) 98 98 Oxygen Delivery Method room air room air Intake Visit Reasons: UPDATE H P Chief Complaint: update H P Is patient in pain?: No Allergies No Known Allergies Allergy (Verified 01/12/25 14:03) Medications ???Medication ???Instructions ???Recorded ???Confirmed ???Type cholecalciferol (vitamin D3) 25 1,000 unit PO DAILY 06/29/1501/12 History mcg (1,000 unit) tablet cyanocobalamin (vitamin B-12) 500 500 mcg PO DAILY@0800 06/29/15 History mcg tablet multivitamin 1 ea PO DAILY 06/29/15 01/12/25 Hi story aspirin 81 mg tablet,delayed 81 mg PO .QOD 06/19/23 01/12/25 Hi story release (Adult Aspirin Regimen) biotin 1 mg tablet 5,000 mcg PO DAILY 06/19/23 History ipratropium bromide 42 mcg (0.06 2 spray intranasal DAILY 06/19/23 01/12/25 History %) nasal spray sulfacetamide sodium 10 % topical 1 applic topical QDAY 06/01/24 History cleanser amoxicillin 500 mg capsule 500 mg PO ONCE PRN 12/08/24 History Have you fallen in the past year?: No PFSH Medical History Nodule of neck Right bundle branch block (RBBB) with left anterior fascicular block Thrombocytopenia due to blood loss (05/13/19) Non-rheumatic tricuspid valve insufficiency Nonrheumatic mitral (valve) insufficiency Secondary pulmonary arterial hypertension Nonrheumatic aortic (valve) insufficiency Nonrheumatic tricuspid valve regurgitation Nonrheumatic mitral (valve) prolapse First degree atrioventricular block by electrocardiogram Surgical History History of tricuspid valve repair (05/10/19) History of mitral valve repair (05/10/19) History of right heart catheterization (06/16/18) H/O right and left heart catheterization (02/10/17) Family History Mother H/O heart valve replacement with bioprosthetic valve Social History Smoking Status: Former smoker how long ago did patient quit smokin alcohol intake: current alcohol intake frequency: a few times a month details: Social on weekends substance use type: does not use caffeine: Yes Type: coffee Number of servings: 2 HPI HPI HPI: Patient is a 74 y/o M who presents for an update history and physical for an upcoming elective excision of a 1 cm left anterior neck sebaceous cyst by Dr. Joel. Patient denies any recent hospitalizations or illnesses since his last visit with our office. Patient denies any previous myocardial infarctions, strokes or blood clots. He notes having a repair of the mitral and tricuspid valves in 2019. He follows with Dr. Trujillo. He is currently on an 81 mg aspirin every other day. He denies any current chest pain or shortness of breath. He denies any complications or side effects from anesthesia. Patient's previous history per Dr. Joel: The patient is a 74-year-old male who is being seen today in follow-up regarding varicosities of his neck as well as a subcutaneous mass involving the neck. I had him undergo a recent ultrasound that showed numerous dilated blood vessels as well as about a 1 cm sebaceous cyst. He states that he had a surgery several years ago in which similar cyst/blood vessels were excised. He returns today to discuss results of an ultrasound and develop a treatment plan. He denies any new issues or complaints. Soft tissue u/s of the neck on 06/15/24 demonstrated: IMPRESSION: The palpable lump corresponds to a 1.1 cm x 0.9 cm x 0.3 cm hypoechoic nodular density just deep to the skin surface. This may represent a small sebaceous cyst. ROS General General: No weight change, appetite, fatigue, colon cancer, breast cancer or weakness HEENT HEENT: No difficulty swallowing, eye injury, eye surgery, swollen glands or hoarseness Endo Endocrine: No thyroid disease, diabetes mellitus, thyroid cancer, Hair loss, heat intolerance or cold intolerance Skin Skin: No rash or changing moles Musc Musculoskeletal: Yes back (more content not included)... Normal [facility] 12-29-2024 /[place] [facility] [address] [place] [address] OFFICE VISIT Date of Service: 12/29/24 MR#: [id number] Acct: [id number] Name: JUICEKEESHA Rep #: [id number] : 1950 Provider: Dr. Red Crouch MD Age/Sex: 74/M [place] [facility] Status: Signed Intake Vital Signs 07/01/24 14:00 12/08/24 13:30 12/29/24 15:31 Height 6 ft 1 in 6 ft 1 in Weight: 164 lb 166 lb BMI 21.6 BP 131/80 H 149/78 H Blood Pressure Location Lt brachial Lt brachial Position Sitting Sitting Respiration 16 14 Pulse 54 L 53 L Pulse Source Monitor Monitor Temp 97.8 F Temp Source Temporal Pulse Oximetry (%) 98 100 Oxygen Delivery Method room air room air Intake Visit Reasons: 3 M FU Is patient in pain?: No Allergies No Known Allergies Allergy (Verified 12/29/24 15:32) Medications ???Medication ???Instructions ???Recorded ???Confirmed ???Type cholecalciferol (vitamin D3) 25 1,000 unit PO DAILY 06/29/1512/29 History mcg (1,000 unit) tablet cyanocobalamin (vitamin B-12) 500 500 mcg PO DAILY@0800 06/29/15 History mcg tablet multivitamin 1 ea PO DAILY 06/29/15 12/29/24 Hi story aspirin 81 mg tablet,delayed 81 mg PO .QOD 06/19/23 12/29/24 Hi story release (Adult Aspirin Regimen) biotin 1 mg tablet 5,000 mcg PO DAILY 06/19/23 History ipratropium bromide 42 mcg (0.06 2 spray intranasal DAILY 06/19/23 12/29/24 History %) nasal spray sulfacetamide sodium 10 % topical 1 applic topical QDAY 06/01/24 History cleanser amoxicillin 500 mg capsule 500 mg PO ONCE PRN 12/08/24 History Have you fallen in the past year?: No PFSH Medical History Nodule of neck Right bundle branch block (RBBB) with left anterior fascicular block Thrombocytopenia due to blood loss (05/13/19) Non-rheumatic tricuspid valve insufficiency Nonrheumatic mitral (valve) insufficiency Secondary pulmonary arterial hypertension Nonrheumatic aortic (valve) insufficiency Nonrheumatic tricuspid valve regurgitation Nonrheumatic mitral (valve) prolapse First degree atrioventricular block by electrocardiogram Surgical History History of tricuspid valve repair (05/10/19) History of mitral valve repair (05/10/19) History of right heart catheterization (06/16/18) H/O right and left heart catheterization (02/10/17) Family History Mother H/O heart valve replacement with bioprosthetic valve Social History Smoking Status: Former smoker how long ago did patient quit smokin alcohol intake: current alcohol intake frequency: a few times a month details: Social on weekends substance use type: does not use caffeine: Yes Type: coffee Number of servings: 2 HPI HPI HPI: KEESHA BOSE, is a 74 M who presents to the office today for follow up of neck varicose veins/reticular veins. He also has a neck cyst that general surgery is considering removing. No new medical diagnoses or illnesses since last being seen. ROS General General: No weight change, appetite, fatigue, colon cancer, breast cancer or weakness HEENT HEENT: No difficulty swallowing, eye injury, eye surgery, swollen glands or hoarseness Endo Endocrine: No thyroid disease, diabetes mellitus, thyroid cancer, Hair loss, heat intolerance or cold intolerance Skin Skin: No rash or changing moles Musc Musculoskeletal: Yes back problems; No arthritis, rheumatoid arthritis, gout or joint pain Cardio Cardiovascular: Yes murmur and heart disease; No pacemaker, atrial fibrillation, high blood pressure, heart attack, heart stent, palpitations, shortness of breath with exertion or chest pain Additional Details: h/o valve repair Psych Psychiatric: No depression, anxiety or hearing voices Resp Respiratory: No shortness of breath, No sleep apnea, No cough, No COPD, No asthma, No emphysema and No wheezing Gastro Gastrointestinal: No abdominal pain, No nausea or vomiting, No diarrhea, No constipation, No blood in stool, No acid reflux, Yes hemorrhoids, No ulcers, No gallbladder problem and No black,tarry stools Gonzalo Hematologic: Yes blood thinners, No blood disorders, No bleeding, Yes anemia and No blood clots Neuro Neurologic: No system reviewed and no additional complaints, except as documented, No as per HPI, No abnormal gait, Yes abnormal hearing, No abnormal movements, No abnormal speech, No behavioral changes, No burning sensations, No confusion, No convulsions, No disequilibrium, No dizziness, No localized weakness, No frequent falls, No headache(s), No lack of coordinat (more content not included)... Normal [facility] Cardiology Visit Reporton Cardiology Visit Report [facility] [address] [place] [address] OFFICE VISIT Date of Service: 12/08/24 MR#: [id number] Acct: [id number] Name: KEESHA BOSE Rep #: [id number] : 1950 Provider: JARON reynolds Age/Sex: 74/M [place] [facility] Status: Signed HPI HPI History of Present Illness Details: KEESHA BOSE, is a 74 M who presents to the office today for a follow-up visit. He has a history of normal coronary arteries , at least moderate mitral regurgitation secondary to posterior leaflet prolapse and chordal RONA. He was referred to the [facility] where a repeat echocardiogram was performed they were unsure about his pulmonary pressures and thought that he had severe pulmonary hypertension and therefore they ordered a left and right heart catheterization which was done and his pulmonary wedge pressure was noted to be 7 mmHg. He was recently at the [facility] and underwent an echocardiogram which demonstrated an ejection fraction of 63%. 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 His left atrium was noted to be severely dilated. He has remained completely asymptomatic and the decision was made to wait. He also had a mildly dilated aortic root. After his last visit it was decided to get another opinion at the [facility] and this was sought and he underwent mitral valve repair and tricuspid valve repair. He had a 35 mm Kimbrough ring placed on the mitral valve and a 25 mm Emy ring on the tricuspid valve. Postoperative echocardiogram demonstrated ejection fraction of 55% with no regurgitation. Another echocardiogram in December 2020 demonstrating an ejection fraction of 65%, stage I diastolic dysfunction and stable annuloplasty rings. He denies chest, arm, jaw, or neck discomfort. He denies palpitations. He denies bilateral lower extremity edema. He denies claudication. He denies shortness of breath with activity, shortness of breath at rest, orthopnea, or PND. He denies chronic cough. He denies significant, sudden weight gain. He denies lightheadedness, dizziness, near-syncope, or syncope. He denies blood in urine, blood in stool, or epistaxis. He denies fever with chills. He denies myalgia. He denies fatigue. His exercise level has remained stable with regular golfing, walking, and running. 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 Accompanied by: Self Is patient in pain?: No Allergies No Known Allergies Allergy (Verified 12/08/24 13:35) Medications ???Medication ???Instructions ???Recorded ???Confirmed ???Type cholecalciferol (vitamin D3) 25 1,000 unit PO DAILY 06/29/1512/08 History mcg (1,000 unit) tablet cyanocobalamin (vitamin B-12) 500 500 mcg PO DAILY@0800 06/29/15 History mcg tablet multivitamin 1 ea PO DAILY 06/29/15 12/08/24 Hi story aspirin 81 mg tablet,delayed 81 mg PO .QOD 06/19/23 12/08/24 Hi story release (Adult Aspirin Regimen) biotin 1 mg tablet 5,000 mcg PO DAILY 06/19/23 History ipratropium bromide 42 mcg (0.06 2 spray intranasal DAILY 06/19/23 12/08/24 History %) nasal spray sulfacetamide sodium 10 % topical 1 applic topical QDAY 06/01/24 History cleanser amoxicillin 500 mg capsule 500 mg PO ONCE PRN 12/08/24 Histo ry Ejection fraction %: 60 Have you fallen in the past year?: No PFSH Medical History Nodule of neck Right bundle branch block (RBBB) with left anterior fascicular block Thrombocytopenia due to blood loss (05/13/19) Non-rheumatic tricuspid valve insufficiency Nonrheumatic mitral (valve) insufficiency Secondary pulmonary arterial hypertension Nonrheumatic aortic (valve) insufficiency Nonrheumatic tricuspid valve regurgitation Nonrheumatic mitral (valve) prolapse 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 [facility] MR/BMS.BVSon 08-18-2024 MR/BMS.BVS [facility] [address] [place] [address] OFFICE VISIT Date of Service: 08/18/24 MR#: [id number] Acct: [id number] Name: KEESHA BOSE Rep #: [id number] : 1950 Provider: YEMI Villalobos Age/Sex: 74/M [place] [facility] Status: Signed Intake Vital Signs 07/01/24 14:00 08/18/24 16:00 Height 6 ft 1 in Weight: 163 lb 170 lb BMI 21.4 BP 128/81 H 148/88 H Blood Pressure Location Rt brachial Rt brachial Position Sitting Sitting Respiration 18 18 Pulse 59 L 52 L Pulse Source Monitor Monitor Temp 96.0 F L 98 F Temp Source Temporal Temporal Pulse Oximetry (%) 98 99 Oxygen Delivery Method room air room air Intake Visit Reasons: 2 WK FU Chief Complaint: subcutaneous nodule on neck/Discuss ultrasound results Is patient in pain?: No Allergies No Known Allergies Allergy (Verified 08/18/24 16:00) Medications ???Medication ???Instructions ???Recorded ???Confirmed ???Type cholecalciferol (vitamin D3) 25 1,000 unit PO DAILY 06/29/1508/18 History mcg (1,000 unit) tablet cyanocobalamin (vitamin B-12) 500 500 mcg PO DAILY@0800 06/29/15 History mcg tablet multivitamin 1 ea PO DAILY 06/29/15 08/18/24 Hi story sildenafil 50 mg tablet 50 mg PO UD PRN 01/05/21 08/18/24 History carboxymethylcellulose sodium 1 % 1 drp ophthalmic (eye) BID PRN 08/18/24 History eye liquid gel drops (Lubricant Dry Eye Relief) amoxicillin 500 mg capsule 2,000 mg (4 x 500 mg) PO .COMPLEX 06/19/23 08/18/24 Rx #4 caps aspirin 81 mg tablet,delayed 81 mg PO .QOD 06/19/23 08/18/24 Hi story release (Adult Aspirin Regimen) biotin 1 mg tablet 5,000 mcg PO DAILY 06/19/23 History ipratropium bromide 42 mcg (0.06 2 spray intranasal DAILY 06/19/23 08/18/24 History %) nasal spray sulfacetamide sodium 10 % topical 1 applic topical QDAY 06/01/24 History cleanser Have you fallen in the past year?: No PFSH Medical History Nodule of neck Right bundle branch block (RBBB) with left anterior fascicular block Thrombocytopenia due to blood loss (05/13/19) Non-rheumatic tricuspid valve insufficiency Nonrheumatic mitral (valve) insufficiency Secondary pulmonary arterial hypertension Nonrheumatic aortic (valve) insufficiency Nonrheumatic tricuspid valve regurgitation Nonrheumatic mitral (valve) prolapse First degree 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 ROS General General: No weight change, appetite, fatigue, colon cancer, breast cancer or weakness HEENT HEENT: No difficulty swallowing, eye injury, eye surgery, swollen glands or hoarseness Endo Endocrine: No thyroid disease, diabetes mellitus, thyroid cancer, Hair loss, heat intolerance or cold intolerance Skin Skin: No rash or changing moles Musc Musculoskeletal: No back problems, arthritis, rheumatoid arthritis, gout or joint pain Cardio Cardiovascular: Yes murmur and heart disease; No pacemaker, atrial fibrillation, high blood pressure, heart attack, heart stent, palpitations, shortness of breath with exertion or chest pain Additional Details: h/o valve repair Psych Psychiatric: No depression, anxiety or hearing voices Resp Respiratory: No shortness of breath, No sleep apnea, No cough, No COPD, No asthma, No emphysema and No wheezing Gastro Gastrointestinal: No abdominal pain, No nausea or vomiting, No diarrhea, No constipation, No blood in stool, No acid reflux, Yes hemorrhoids, No ulcers, No gallbladder problem and No black,tarry stools Gonzalo Hematologic: Yes blood thinners, No blood disorders, No bleeding, Yes anemia and No blood clots Neuro Neurologic: No system reviewed and no additional complaints, except as documented, No as per HPI, No abnormal gait, Yes abnormal hearing, No abnormal movements, No abnormal speech, No behavioral changes, No burning sensations, No confusion, No convulsions, No disequilibrium, No dizziness, No localized weakness, No frequent falls, No headache(s), No lack of coordination, No loss of vision, No memory loss, No numbness, No other visual disturbances (more content not included)... [facility] /Shane 08-02-2024 MR/CORIN.DEEPIKA [facility] [address] [place] [address] OFFICE VISIT Date of Service: 08/02/24 MR#: [id number] Acct: [id number] Name: KEESHA BOSE Rep #: [id number] : 1950 Provider: Dr. Red Crouch MD Age/Sex: 74/M Location[place] [facility] Status: Signed Intake Vital Signs 07/01/24 14:00 08/02/24 15:34 Height 6 ft 1 in Weight: 163 lb 170 lb BMI 21.4 BP 128/81 H 163/82 H Blood Pressure Location Rt brachial Lt brachial Position Sitting Sitting Respiration 18 16 Pulse 59 L 60 Pulse Source Monitor Monitor Temp 96.0 F L 97.7 F L Temp Source Temporal Temporal Pulse Oximetry (%) 98 98 Oxygen Delivery Method room air room air Intake Visit Reasons: Varicosities of the neck, associated w/ neck mass Chief Complaint: subcutaneous nodule on neck/Discuss ultrasound results Is patient in pain?: No Allergies No Known Allergies Allergy (Verified 08/02/24 15:36) Medications ???Medication ???Instructions ???Recorded ???Confirmed ???Type cholecalciferol (vitamin D3) 25 1,000 unit PO DAILY 06/29/1508/02 History mcg (1,000 unit) tablet cyanocobalamin (vitamin B-12) 500 500 mcg PO DAILY@0800 06/29/15 History mcg tablet multivitamin 1 ea PO DAILY 06/29/15 08/02/24 Hi story sildenafil 50 mg tablet 50 mg PO UD PRN 01/05/21 08/02/24 History carboxymethylcellulose sodium 1 % 1 drp ophthalmic (eye) BID PRN 08/02/24 History eye liquid gel drops (Lubricant Dry Eye Relief) amoxicillin 500 mg capsule 2,000 mg (4 x 500 mg) PO .COMPLEX 06/19/23 08/02/24 Rx #4 caps aspirin 81 mg tablet,delayed 81 mg PO .QOD 06/19/23 08/02/24 Hi story release (Adult Aspirin Regimen) biotin 1 mg tablet 5,000 mcg PO DAILY 06/19/23 History ipratropium bromide 42 mcg (0.06 2 spray intranasal DAILY 06/19/23 08/02/24 History %) nasal spray sulfacetamide sodium 10 % topical 1 applic topical QDAY 06/01/24 History cleanser Have you fallen in the past year?: No PFSH Medical History Nodule of neck Right bundle branch block (RBBB) with left anterior fascicular block Thrombocytopenia due to blood loss (05/13/19) Non-rheumatic tricuspid valve insufficiency Nonrheumatic mitral (valve) insufficiency Secondary pulmonary arterial hypertension Nonrheumatic aortic (valve) insufficiency Nonrheumatic tricuspid valve regurgitation Nonrheumatic mitral (valve) prolapse First degree 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 He has had clusters removed in the past on 3 occasions. He also has a subcutaneous cyst adjacent to one cluster of reticular veins on the left that he is considering having removed. ROS General General: No weight change, appetite, fatigue, colon cancer, breast cancer or weakness HEENT HEENT: No difficulty swallowing, eye injury, eye surgery, swollen glands or hoarseness Endo Endocrine: No thyroid disease, diabetes mellitus, thyroid cancer, Hair loss, heat intolerance or cold intolerance Skin Skin: No rash or changing moles Musc Musculoskeletal: No back problems, arthritis, rheumatoid arthritis, gout or joint pain Cardio Cardiovascular: Yes murmur and heart disease; No pacemaker, atrial fibrillation, high blood pressure, heart attack, heart stent, palpitations, shortness of breath with exertion or chest pain Additional Details: h/o valve repair Psych Psychiatric: No depression, anxiety or hearing voices Resp Respiratory: No shortness of breath, No sleep apnea, No cough, No COPD, No asthma, No emphysema and No wheezing Gastro Gastrointestinal: No abdominal pain, No nausea or vomiting, No diarrhea, No constipation, No blood in stool, No acid reflux, Yes hemorrhoids, No ulcers, No gallbladder problem and No black,tarry stools Gonzalo Hematologic: Yes blood thinners, No blood disorders, No bleeding, Yes anemia and No blood clots Neuro Neurologic: No system reviewed and no additional complaints, except as documented, No as per HPI, No abnormal gait, Yes abn (more content not included)... [facility] Surgery Visit Reporton 07-01 Surgery Visit Report [facility] [address] [place] [address] OFFICE VISIT Date of Service: 07/01/24 MR#: [id number] Acct: [id number] Name: KEESHA BOSE Rep #: [id number] : 1950 Provider: Dr. 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 Is patient in pain?: No Allergies No Known Allergies Allergy (Verified 07/01/24 14:02) Medications ???Medication ???Instructions ???Recorded ???Confirmed ???Type cholecalciferol (vitamin D3) 25 1,000 unit PO DAILY 06/29/1507/01 History mcg (1,000 unit) tablet cyanocobalamin (vitamin B-12) 500 500 mcg PO DAILY@0800 06/29/15 History mcg tablet multivitamin 1 ea PO DAILY 06/29/15 07/01/24 Hi story sildenafil 50 mg tablet 50 mg PO UD PRN 01/05/21 07/01/24 History carboxymethylcellulose sodium 1 % 1 drp ophthalmic (eye) BID PRN 07/01/24 History eye liquid gel drops (Lubricant Dry Eye Relief) amoxicillin 500 mg capsule 2,000 mg (4 x 500 mg) PO .COMPLEX 06/19/23 07/01/24 Rx #4 caps aspirin 81 mg tablet,delayed 81 mg PO .QOD 06/19/23 07/01/24 Hi story release (Adult Aspirin Regimen) biotin 1 mg tablet 5,000 mcg PO DAILY 06/19/23 History ipratropium bromide 42 mcg (0.06 2 spray intranasal DAILY 06/19/23 07/01/24 History %) nasal spray sulfacetamide sodium 10 % topical 1 applic topical QDAY 06/01/24 History cleanser Have you fallen in the past year?: No PFSH Medical History Nodule of neck Right bundle branch block (RBBB) with left anterior fascicular block Thrombocytopenia due to blood loss (05/13/19) Non-rheumatic tricuspid valve insufficiency Nonrheumatic mitral (valve) insufficiency Secondary pulmonary arterial hypertension Nonrheumatic aortic (valve) insufficiency Nonrheumatic tricuspid valve regurgitation Nonrheumatic mitral (valve) prolapse First degree 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 I had him undergo a recent ultrasound that showed numerous dilated blood vessels as well as about a 1 cm sebaceous cyst. He states that he had a surgery several years ago in which similar cyst/blood vessels were excised. He returns today to discuss results of an ultrasound and develop a treatment plan. He denies any new issues or complaints. ROS General General: No weight change, appetite, fatigue, colon cancer, breast cancer or weakness HEENT HEENT: No difficulty swallowing, eye injury, eye surgery, swollen glands or hoarseness Endo Endocrine: No thyroid disease, diabetes mellitus, thyroid cancer, Hair loss, heat intolerance or cold intolerance Skin Skin: No rash or changing moles Musc Musculoskeletal: No back problems, arthritis, rheumatoid arthritis, gout or joint pain Cardio Cardiovascular: Yes heart disease; No murmur, pacemaker, atrial fibrillation, high blood pressure, heart attack, heart stent, palpitations, shortness of breath with exertion or chest pain Additional Details: h/o valve repair Psych Psychiatric: No depression, anxiety or hearing voices Resp Respiratory: No shortness of breath, No sleep apnea, No cough, No COPD, No asthma, No emphysema and No wheezing Gastro Gastrointestinal: No abdominal pain, No nausea or vomiting, No diarrhea, No constipation, No blood in stool, No acid reflux, No hemorrhoids, No ulcers, No gallbladder problem and No black,tarry stools Gonzalo Hematologic: No blood thinners, No blood disorders, No bleeding, No anemia and No blo (more content not included)... [facility] Venous duplex ultrasound rep ortOrdered By: Neil Pena on 06-16-2024 US Vein [facility] [address] [place] [address] Venous Duplex US, Unilateral 06/15/24 1006 MR#: [id number] Acct: [id number] Name: KEESHA BOSE Rep #:[id number] : 1950 74 From: Neil Pena MD Attending Dr: Dr. Praveen Joel MD Status: REG CLI Ordering Dr: Praveen Joel MD Date: 06/15/24 Location: US Sex: M C Admitted: Reason For Study Reason For Study: Palpable nodule of neck Left Proximal Vascularized structure noted in the neck just left of midline that measures 0.30 x 0.93 cm. Small varicose vein noted above area of concern with venous flow noted. Internal jugular vein is compressible with normal venous flow. Mid CCA, 94.2 cm/sec. Procedure Limited examination per doctor order. Exam performed in department. VL/Venous Duplex US, Unilateral Interpretation Summary A hypoechoic, subcutaneous mass is noted in the neck, left of the midline, measuring .30 cm x .93 cm. This may represent a cystic structure, hematoma, or seroma. Clinical correlation is advised. The left internal jugular vein appears patent and compressible, with normal flow. A dilated vein is noted in the area. Ordering Physician: Praveen Joel Referring Physician: Carlitos Johnson MD Performed By: Sunshine Mckeon RVT ??? 06/16/24 1446 Date _ Neil Pena MD CC: Dr. Carlitos Johnson MD; Dr. Praveen Joel MD ~ Date Dictated: 06/15/24 1006 Date Transcribed: 06/16/[address] Manager: Signed [facility] Other Phone: Head/Neck Soft Tissueon 05-29 Head/Neck Soft Tissue [facility] Imaging Services [address] [place] [id number] Head/Neck Soft Tissue MR#: [id number] Acct: [id number] Name: KEESHA BOSE Rep #: [id number] : 1950 M 74 From: Alphonso coyle MD PCP: Dr. Carlitos Johnson MD Status: [facility] Study: Head/Neck Soft Tissue Date of Exam: 06/15/24 Exam# [id number] Ordering Dr: Praveen Joel MD PROCEDURE: HEAD/NECK SOFT TISSUE REASON FOR EXAM: NODULE OF NECK COMPARISON: None. TECHNIQUE: Sonographic imaging of the left side of the neck was obtained. FINDINGS: The palpable lump corresponds to a 1.1 cm x 0.9 cm x 0.3 cm hypoechoic nodular density just deep to the skin surface. No vascularity is seen. This may represent a sebaceous cyst. US/Head/Neck Soft Tissue IMPRESSION: The palpable lump corresponds to a 1.1 cm x 0.9 cm x 0.3 cm hypoechoic nodular density just deep to the skin surface. This may represent a small sebaceous cyst. Reading Location: [place] [address] CC: Dr. Carlitos Johnson MD; Dr. Praveen Joel MD Ct Manager: Signed [facility] Venous Duplex US, Unilateral on 06-15-2024 Venous Duplex US, Unilateral [facility] [address] [place] [address] Venous Duplex US, Unilateral 06/15/24 1006 MR#: [id number] Acct: [id number] Name: KEESHA BOSE Rep #: [id number] : 1950 74 From: Neil Pena MD Attending Dr: Dr. Praveen Joel MD Status: RE G CLI Ordering Dr: Praveen Joel MD Date: 06/15/24 Location: US Sex: M C Admitted: Reason For Study Reason For Study: Palpable nodule of neck Left Proximal Vascularized structure noted in the neck just left of midline that measures 0.30 x 0.93 cm. Small varicose vein noted above area of concern with venous flow noted. Internal jugular vein is compressible with normal venous flow. Mid CCA, 94.2 cm/sec. Procedure Limited examination per doctor order. Exam performed in department. VL/Venous Duplex US, Unilateral Interpretation Summary A hypoechoic, subcutaneous mass is noted in the neck, left of the midline, measuring .30 cm x .93 cm. This may represent a cystic structure, hematoma, or seroma. Clinical correlation is advised. The left internal jugular vein appears patent and compressible, with normal flow. A dilated vein is noted in the area. Ordering Physician: Praveen Joel Referring Physician: Carlitos Johnson MD Performed By: Sunshine Mckeon RVT ??? 06/16/24 1446 Date Neil Pena MD CC: Dr. Carlitos Johnson MD; Dr. Praveen Joel MD Date Dictated: 06/15/24 1006 Date Transcribed: 06/16/[address] Manager: Signed [facility] Surgery Visit Reporton 06-01 Surgery Visit Report [facility] [address] [place] [address]. [address] [place] [address] OFFICE VISIT Date of Service: 06/01/24 MR#: [id number] Acct: [id number] Name: KEESHA BOSE Rep #: [id number] : 1950 Provider: Dr. Praveen dempsey MD Age/Sex: 74/M Location: [facility] Status: Signed Intake Vital Signs 08/11/23 09:15 06/01/24 09:05 Height 6 ft 1 in 6 ft 1 in Weight: 170 lb BMI 22.4 BP 138/81 H Blood Pressure Location Rt brachial Position Sitting Respiration 17 Pulse 58 L Pulse Source Monitor Pulse Oximetry (%) 100 Oxygen Delivery Method room air Intake Visit Reasons: SUBCUTANEOUS NODULE ON NECK Chief Complaint: subcutaneous nodule on neck Is patient in pain?: No Allergies No Known Allergies Allergy (Verified 06/01/24 09:07) Medications ???Medication ???Instructions ???Recorded ???Confirmed ???Type cholecalciferol (vitamin D3) 25 1,000 unit PO DAILY 06/29/1506/01 History mcg (1,000 unit) tablet cyanocobalamin (vitamin B-12) 500 500 mcg PO DAILY@0800 06/29/15 History mcg tablet multivitamin 1 ea PO DAILY 06/29/15 06/01/24 Hi story sildenafil 50 mg tablet 50 mg PO UD PRN 01/05/21 06/01/24 History carboxymethylcellulose sodium 1 % 1 drp ophthalmic (eye) BID PRN 06/01/24 History eye liquid gel drops (Lubricant Dry Eye Relief) amoxicillin 500 mg capsule 2,000 mg (4 x 500 mg) PO .COMPLEX 06/19/23 06/19/23 Rx #4 caps aspirin 81 mg tablet,delayed 81 mg PO .QOD 06/19/23 06/01/24 Hi story release (Adult Aspirin Regimen) biotin 1 mg tablet 5,000 mcg PO DAILY 06/19/23 History ipratropium bromide 42 mcg (0.06 2 spray intranasal DAILY 06/19/23 06/01/24 History %) nasal spray sulfacetamide sodium 10 % topical 1 applic topical QDAY 06/01/24 History cleanser Have you fallen in the past year?: No PFSH Medical History Right bundle branch block (RBBB) with left anterior fascicular block Thrombocytopenia due to blood loss (05/13/19) Non-rheumatic tricuspid valve insufficiency Nonrheumatic mitral (valve) insufficiency Secondary pulmonary arterial hypertension Nonrheumatic aortic (valve) insufficiency Nonrheumatic tricuspid valve regurgitation Nonrheumatic mitral (valve) prolapse First degree 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 He states that he has had these pop up periodically most of his adult life. He has had a couple surgeries to have these excised. He states that about a couple weeks ago a new lesion developed on the left side of his neck. He states that this was associated with some bruising. ROS General General: No weight change, appetite, fatigue, colon cancer, breast cancer or weakness HEENT HEENT: No difficulty swallowing, eye injury, eye surgery, swollen glands or hoarseness Endo Endocrine: No thyroid disease, diabetes mellitus, thyroid cancer, Hair loss, heat intolerance or cold intolerance Skin Skin: No rash or changing moles Musc Musculoskeletal: No back problems, arthritis, rheumatoid arthritis, gout or joint pain Cardio Cardiovascular: Yes heart disease; No murmur, pacemaker, atrial fibrillation, high blood pressure, heart attack, heart stent, palpitations, shortness of breat with exertion or chest pain Additional Details: h/o valve repair Psych Psychiatric: No depression, anxiety or hearing voices Resp Respiratory: No shortness of breath, No sleep apnea, No cough, No COPD, No asthma, No emphysema and No wheezing Gastro Gastrointestinal: No abdominal pain, No nausea or vomiting, No diarrhea, No constipation, No blood in stool, No acid reflux, No hemorrhoids, No ulcers, No gallbladder problem and No black,tarry stools Gonzalo Hematologic: No blood thinners, No blood disorders, No bleeding, No anemia and No blood clots Neuro Neurologic: No system reviewed and no additional complaints, except as documented, No as per HPI, No abnormal gait, No abnormal hearing, No abnormal movements, No abnormal speech, No behavioral changes, No burning sensations, No confusion, No convulsions, No disequilibrium, No dizz (more content not included)... Normal [facility] Albumin to globulin ratioOrd ered By: Carlitos Johnson on 03-26-2024 Albumin/Globulin [Mass ratio] 1.2 {ratio} 0.9-2.4 [facility] Bilirubin, totalOrdered By: Carlitos Johnson on 12-27-2024 Bilirubin [Mass/Vol] 0.70 mg/dL 0.20-1.00 [facility] Comment on above: For patients on eltr ombopag therapy, use of Dimension [place] TBIL is not recommended. Blood urea nitrogen (BUN)/cr eatinine ratioOrdered By: Carlitos Johnson on 03-26-2024 Urea nitrogen/Creatinine [Mass ratio] 17.1 mg/mg 10-20 [facility] CBC-Complete Blood Cnt No Di ffon 03-26-2024 Erythrocyte distribution width (RBC) [Ratio] 13.1 % Normal 11.6-14.6 [facility] Comment on above: Order Comment: Order Date: 03/15/24 Order Info: [id number] - CBC Performed By: #### L 100.0500 #### [facility] [address] [place], [address] Hematocrit (Bld) [Volume fraction] 39.1 % Low 40-54 [facility] Comment on above: Order Comment: Order Date: 03/15/24 Order Info: [id number] - CBC Performed By: #### L 100.0500 #### [facility] [address] [place], [address] Hemoglobin (Bld) [Mass/Vol] 13.1 g/dL Normal 13.0-16.5 [facility] Comment on above: Order Comment: Order Date: 03/15/24 Order Info: [id number] - CBC Performed By: #### L 100.0500 #### [facility] [address] [place], [address] MCH (RBC) [Entitic mass] 32.8 pg High 27.0-32.0 [facility] Comment on above: Order Comment: Order Date: 03/15/24 Order Info: [id number] - CBC Performed By: #### L 100.0500 #### [facility] [address] [place], [address] MCHC (RBC) [Mass/Vol] 33.5 g/dL Normal 32-36 [facility] Comment on above: Order Comment: Order Date: 03/15/24 Order Info: [id number] - CBC Performed By: #### L 100.0500 #### [facility] [address] [place], [address] MCV (RBC) [Entitic vol] 98.0 fL High 80-94 [facility] Comment on above: Order Comment: Order Date: 03/15/24 Order Info: [id number] - CBC Performed By: #### L 100.0500 #### [facility] [address] [place], [address] Platelet mean volume (Bld) [Entitic vol] 10.9 fL Normal 6.2-12.0 [facility] Comment on above: Order Comment: Order Date: 03/15/24 Order Info: [id number] - CBC Performed By: #### L 100.0500 #### [facility] [address] [place], [address] Platelets (Bld) [#/Vol] 144 10*3/uL Low 150-450 [facility] Comment on above: Order Comment: Order Date: 03/15/24 Order Info: [id number] - CBC Performed By: #### L 100.0500 #### [facility] [address] [place], [address] RBC (Bld) [#/Vol] 3.99 10*6/uL Low 4.6-6.2 [facility] Comment on above: Order Comment: Order Date: 03/15/24 Order Info: [id number] - CBC Performed By: #### L 100.0500 #### [facility] [address] [place], [address] RDW SD 46.4 fl High 35.1-43.9 [facility] Comment on above: Order Comment: Order Date: 03/15/24 Order Info: [id number] - CBC Performed By: #### L 100.0500 #### [facility] [address] [place], [address] WBC (Bld) [#/Vol] 5.0 10*3/uL Normal 4.4-11.0 [facility] Comment on above: Order Comment: Order Date: 03/15/24 Order Info: [id number] - CBC Performed By: #### L 100.0500 #### [facility] [address] [place], [address] Carbon dioxide measurementOr dered By: Carlitos Johnson on 03-26-2024 CO2 [Moles/Vol] 31.0 mmol/L 21.0-32.0 [facility] Chloride measurementOrdered By: Carlitos Johnson on 03-26-2024 Chloride [Moles/Vol] 106 mmol/L 98-107 [facility] Comprehensive Metabolic Prof ilon 03-26-2024 Albumin [Mass/Vol] 3.5 g/dL Normal 3.2-5.0 [facility] Comment on above: Order Comment: Order Date: 03/15/24 Order Info: [id number] - CMP Order Info: [id number] - LIPID Order Info: [id number] - PSA Performed By: #### L 500.4050, L500.4100, L501.9910 #### [facility] [address] [place], [address] Albumin/Globulin [Mass ratio] 1.2 {ratio} Normal 0.9-2.4 [facility] Comment on above: Order Comment: Order Date: 03/15/24 Order Info: [id number] - CMP Order Info: [id number] - LIPID Order Info: [id number] - PSA Performed By: #### L 500.4050, L500.4100, L501.9910 #### [facility] [address] [place], [address] ALK P 56 U/L Normal 45-117 [facility] Comment on above: Order Comment: Order Date: 03/15/24 Order Info: [id number] - CMP Order Info: [id number] - LIPID Order Info: [id number] - PSA Performed By: #### L 500.4050, L500.4100, L501.9910 #### [facility] [address] [place], [address] ALT [Catalytic activity/Vol] 31 U/L Normal 16-61 [facility] Comment on above: Order Comment: Order Date: 03/15/24 Order Info: [id number] - CMP Order Info: [id number] - LIPID Order Info: [id number] - PSA Performed By: #### L 500.4050, L500.4100, L501.9910 #### [facility] [address] [place], [address] AST [Catalytic activity/Vol] 30 U/L Normal 15-37 [facility] Comment on above: Order Comment: Order Date: 03/15/24 Order Info: [id number] - CMP Order Info: [id number] - LIPID Order Info: [id number] - PSA Performed By: #### L 500.4050, L500.4100, L501.9910 #### [facility] [address] [place], [address] Bilirubin [Mass/Vol] 0.70 mg/dL Normal 0.20-1.00 [facility] Comment on above: Order Comment: Order Date: 03/15/24 Order Info: [id number] - CMP Order Info: [id number] - LIPID Order Info: [id number] - PSA Result Comment: For patients on eltrombopag therapy, use of Dimension [place] TBIL is not recommended. Performed By: #### L 500.4050, L500.4100, L501.9910 #### [facility] [address] [place], [address] BUN/CRE 17.1 RATIO Normal 10-20 [facility] Comment on above: Order Comment: Order Date: 03/15/24 Order Info: [id number] - CMP Order Info: [id number] - LIPID Order Info: [id number] - PSA Performed By: #### L 500.4050, L500.4100, L501.9910 #### [facility] [address] [place], [address] CA,Total 9.1 mg/dL Normal 8.5-10.1 [facility] Comment on above: Order Comment: Order Date: 03/15/24 Order Info: [id number] - CMP Order Info: - LIPID Order Info: [id number] - PSA Performed By: #### L 500.4050, L500.4100, L501.9910 #### [facility] [address] [place], [address] Chloride [Moles/Vol] 106 mmol/L Normal 98-107 [facility] Comment on above: Order Comment: Order Date: 03/15/24 Order Info: [id number] - CMP Order Info: [id number] - LIPID Order Info: [id number] - PSA Performed By: #### L 500.4050, L500.4100, L501.9910 #### [facility] [address] [place], [address] CO2 [Moles/Vol] 31.0 mmol/L Normal 21.0-32.0 [facility] Comment on above: Order Comment: Order Date: 03/15/24 Order Info: [id number] - CMP Order Info: [id number] - LIPID Order Info: [id number] - PSA Performed By: #### L 500.4050, L500.4100, L501.9910 #### [facility] [address] [place], [address] Creatinine [Mass/Vol] 0.99 mg/dL Normal 0.70-1.30 [facility] Comment on above: Order Comment: Order Date: 03/15/24 Order Info: [id number] - CMP Order Info: [id number] - LIPID Order Info: [id number] - PSA Result Comment: The validity of the calculated GFR GFRAA in patients over 70 years has not been determined. Clinical correlation is essential. Performed By: #### L 500.4050, L500.4100, L501.9910 #### [facility] [address] [place], [address] EST GFR - AA 94 mL/min Normal >60 [facility] Comment on above: Order Comment: Order Date: 03/15/24 Order Info: [id number] - CMP Order Info: [id number] - LIPID Order Info: [id number] - PSA Result Comment: Afri can [place] GFR Calc Performed By: #### L 500.4050, L500.4100, L501.9910 #### [facility] [address] [place], [address] GAP 2 Low 5-15 [facility] Comment on above: Order Comment: Order Date: 03/15/24 Order Info: [id number] - CMP Order Info: [id number] - LIPID Order Info: [id number] - PSA Performed By: #### L 500.4050, L500.4100, L501.9910 #### [facility] [address] [place], [address] GFR/1.73 sq M.predicted among non-blacks MDRD (S/P/Bld) [Vol rate/Area] 78 mL/min/{1.73_m2} Normal >60 [facility] Comment on above: Order Comment: Order Date: 03/15/24 Order Info: [id number] - CMP Order Info: [id number] - LIPID Order Info: [id number] - PSA Result Comment: Non- GFR Calc Performed By: #### L 500.4050, L500.4100, L501.9910 #### [facility] [address] [place], [address] Globulin (S) [Mass/Vol] 3.0 g/dL Normal 2.2-4.2 [facility] Comment on above: Order Comment: Order Date: 03/15/24 Order Info: [id number] - CMP Order Info: [id number] - LIPID Order Info: [id number] - PSA Performed By: #### L 500.4050, L500.4100, L501.9910 #### [facility] [address] [place], [address] Glucose [Mass/Vol] 110 mg/dL High 74-106 [facility] Comment on above: Order Comment: Order Date: 03/15/24 Order Info: [id number] - CMP Order Info: [id number] - LIPID Order Info: [id number] - PSA Result Comment: Fast ing Glucose result from 100 to 125 mg/dL suggests IMPAIRED HOMEOSTASIS per A.D.A. criteria. Performed By: #### L 500.4050, L500.4100, L501.9910 #### [facility] [address] [place], [address] Potassium [Moles/Vol] 4.4 mmol/L Normal 3.5-5.1 [facility] Comment on above: Order Comment: Order Date: 03/15/24 Order Info: [id number] - CMP Order Info: [id number] - LIPID Order Info: [id number] - PSA Performed By: #### L 500.4050, L500.4100, L501.9910 #### [facility] [address] [place], [address] Sodium [Moles/Vol] 139 mmol/L Normal 136-145 [facility] Comment on above: Order Comment: Order Date: 03/15/24 Order Info: [id number] - CMP Order Info: [id number] - LIPID Order Info: [id number] - PSA Performed By: #### L 500.4050, L500.4100, L501.9910 #### [facility] [address] [place], [address] T PROT 6.5 g/dL Normal 6.4-8.2 [facility] Comment on above: Order Comment: Order Date: 03/15/24 Order Info: [id number] - CMP Order Info: [id number] - LIPID Order Info: [id number] - PSA Performed By: #### L 500.4050, L500.4100, L501.9910 #### [facility] [address] [place], [place], [address] Urea nitrogen [Mass/Vol] 17 mg/dL Normal 7-18 [facility] Comment on above: Order Comment: Order Date: 03/15/24 Order Info: [id number] - CMP Order Info: [id number] - LIPID Order Info: [id number] - PSA Performed By: #### L 500.4050, L500.4100, L501.9910 #### [facility] [address] [place], [place], [address] Erythrocyte distribution wid th ratioOrdered By: Carlitos Johnson on 03-26-2024 Erythrocyte distribution width (RBC) [Ratio] 13.1 % 11.6-14.6 [facility] Erythrocyte distribution wid th standard deviationOrdered By: Carlitos Johnson on 03-26-2024 Erythrocyte distribution width (RBC) [Entitic vol] 46.4 fL High 35.1-43.9 [facility] Estimated glomerular filtrat ion rate (GFR) AmericanOrdered By: Carlitos Johnson on 03-26-2024 Estimated GFR (MDRD) Amer 94 mL/min >60 [facility] Comment on above: GFR Calc Glomerular filtration rate ( GFR) estimationOrdered By: Carlitos Johnson on 03-26-2024 Estimated GFR (MDRD) Non-Af Amer 78 mL/min >60 [facility] Comment on above: Non- GFR Calc Glucose measurementOrdered B y: Carlitos Johnson on 03-26-2024 Glucose [Mass/Vol] 110 mg/dL High 74-106 [facility] Comment on above: Fasting Glucose resu lt from 100 to 125 mg/dL suggests IMPAIRED HOMEOSTASIS per A.D.A. criteria. Hematocrit Auto (Bld) [Volum e fraction]Ordered By: Carlitos Johnson on 03-26-2024 Hematocrit (Bld) [Volume fraction] 39.1 % Low 40-54 [facility] Hemoglobin measurementOrdere d By: Carlitos Johnson on 03-26-2024 Hemoglobin (Bld) [Mass/Vol] 13.1 g/dL 13.0-16.5 [facility] High density lipoprotein (HD L) measurementOrdered By: Carlitos Johnson on 03-26-2024 Cholesterol in HDL [Mass/Vol] 64 mg/dL >40 [facility] Comment on above: The drugs N-Acetylcy steine and Metamizole may falsely depress this assay. Reference Range HDL <40 mg/dL Low HDL Cholesterol HDL >or= 60 mg/dL High HDL Cholesterol Laboratory - Chemistry and C hemistry - challengeOrdered By: Carlitos Johnson on 03-26-2024 AST [Catalytic activity/Vol] 30 U/L 15- [facility] Lipid Profileon 03-26-2024 Cholesterol [Mass/Vol] 209 mg/dL High 200 [facility] Comment on above: Order Comment: Order Date: 03/15/24Order Info: [id number] - CMPOrder Info: [id number] - LIPIDOrder Info: [id number] - PSA Result Comment: <200 mg/dL Desirable 200-240 mg/dL Borderline >240 mg/dL High Risk Performed By: #### L 500.4050, L500.4100, L501.9910 ####[facility] [address] [place], [address] Cholesterol in HDL [Mass/Vol] 64 mg/dL Normal [facility] Comment on above: Order Comment: Order Date: 03/15/24Order Info: [id number] - CMPOrder Info: [id number] - LIPIDOrder Info: [id number] - PSA Result Comment: The drugs N-Acetylcysteine and Metamizole may falsely depress this assay. Reference Range HDL <40 mg/dL Low HDL Cholesterol HDL >or= 60 mg/dL High HDL Cholesterol Performed By: #### L 500.4050, L500.4100, L501.9910 ####[facility] [address] [place], [address] Cholesterol in LDL [Mass/Vol] 119 mg/dL Normal 0-130 [facility] Comment on above: Order Comment: Order Date: 03/15/24Order Info: [id number] - CMPOrder Info: [id number] - LIPIDOrder Info: [id number] - PSA Performed By: #### L 500.4050, L500.4100, L501.9910 ####[facility] [address] [place], [address] Cholesterol in VLDL [Mass/Vol] 26 mg/dL Normal 5-40 [facility] Comment on above: Order Comment: Order Date: 03/15/24Order Info: [id number] - CMPOrder Info: [id number] - LIPIDOrder Info: [id number] - PSA Performed By: #### L 500.4050, L500.4100, L501.9910 ####[facility] [address] [place], [address] Triglyceride [Mass/Vol] 129 mg/dL Normal [facility] Comment on above: Order Comment: Order Date: 03/15/24Order Info: [id number] - CMPOrder Info: [id number] - LIPIDOrder Info: [id number] - PSA Result Comment: The drugs N-Acetylcysteine and Metamizole may falsely depress this assay. Serum Triglycerides Reference Interval Normal <150 mg/dL Borderline high 150 - 199 mg/dL High 200 - 499 mg/dL Very High > or = 500 mg/dL Performed By: #### L 500.4050, L500.4100, L501.9910 ####[facility] [address] [place], [address] Low density lipoprotein (LDL ) cholesterol measurementOrdered By: Carlitos Johnson on 03-26-2024 Cholesterol in LDL [Mass/Vol] 119 mg/dL 0-130 [facility] MCV (mean corpuscular volume ) determinationOrdered By: Carlitos Johnson on 03-26-2024 MCV (RBC) [Entitic vol] 98.0 fL High 80-94 [facility] [place] Mean corpuscular hemoglobin (MCH) determinationOrdered By: Carlitos Johnson on 03-26-2024 MCH (RBC) [Entitic mass] 32.8 pg High 27.0-32.0 [facility] Mean corpuscular hemoglobin concentration (MCHC) determinationOrdered By: Carlitos Johnson on 03-26-2024 MCHC (RBC) [Mass/Vol] 33.5 g/dL 32-36 [facility] Mean platelet volume determi nationOrdered By: Carlitos Johnson on 03-26-2024 Platelet mean volume (Bld) [Entitic vol] 10.9 fL 6.2-12.0 [facility] PSA,Total - Annual Screenon 03-26-2024 PSA,TOT SCREEN 2.33 ng/mL Normal 0.00-4.00 [facility] Comment on above: Order Comment: Order Date: 03/15/24Order Info: [id number] - CMPOrder Info: [id number] - LIPIDOrder Info: [id number] - PSA Result Comment: This test was performed using the TPSA assay method for the [employer] chemistry system. Values obtained with different assay methods cannot be used interchangably. When changing PSA assays in the course of monitoring a patient, additional sequential testing should be carried out to confirm baseline values. Performed By: #### L 500.4050, L500.4100, L501.9910 ####[facility] [address] [place], [address] Platelet countOrdered By: Hosea Johnson on 03-26-2024 Platelets (Bld) [#/Vol] 144 10*3/uL Low 150-450 [facility] Potassium measurementOrdered By: Carlitos Johnson on 03-26-2024 Potassium [Moles/Vol] 4.4 mmol/L 3.5-5.1 [facility] RBC Auto (Bld) [#/Vol]Ordere d By: Carlitos Johnson on 03-26-2024 RBC (Bld) [#/Vol] 3.99 10*6/uL Low 4.6-6.2 [facility] Screening prostate specific antigen (PSA) measurementOrdered By: Carlitos Johnson on 03-26-2024 Prostate Specific Antigen Screen 2.33 ng/mL 0.00-4.00 [facility] Comment on above: This test was perfor med using the TPSA assay method for the[employer] chemistry system. Values obtained with differentassay methods cannot be used interchangably.When changing PSA assays in the course of monitoring apatient, additional sequential testing should be carriedout to confirm baseline values. Serum anion gap measurementO rdered By: Carlitos Johnson on 03-26-2024 Anion gap [Moles/Vol] 2 mmol/L Low 5-15 [facility] Serum globulin measurementOr dered By: Carlitos Johnson on 03-26-2024 Globulin (S) [Mass/Vol] 3.0 g/dL 2.2-4.2 [facility] Serum or plasma alanine elena otransferase (ALT) measurementOrdered By: Carlitos Johnson on 03-26-2024 ALT [Catalytic activity/Vol] 31 U/L 16-61 [facility] Serum or plasma albumin rolly urement (mass/volume)Ordered By: Carlitos Johnson on 03-26-2024 Albumin [Mass/Vol] 3.5 g/dL 3.2-5.0 [facility] Serum or plasma alkaline aubrie sphatase measurementOrdered By: [facility] Johnson on 03-26-2024 ALP [Catalytic activity/Vol] 56 U/L 45-117 [facility] Serum or plasma calcium rolly urement (mass/volume)Ordered By: Carlitos Johnson on 03-26-2024 Calcium [Mass/Vol] 9.1 mg/dL 8.5-10.1 [facility] Serum or plasma cholesterol measurement (mass/volume)Ordered By: Carlitos Johnson on 03-26-2024 Cholesterol [Mass/Vol] 209 mg/dL High <200 [facility] Comment on above: <200 mg/dL Desirable 200-240 mg/dL Borderline >240 mg/dL High Risk Serum or plasma creatinine m easurement (mass/volume)Ordered By: Carlitos Johnson on 03-26-2024 Creatinine [Mass/Vol] 0.99 mg/dL 0.70-1.30 [facility] Comment on above: The validity of the calculated GFR & GFRAA in patients over 70 years has not been determined. Clinical correlation is essential. Serum or plasma urea nitroge n measurement (mass/volume)Ordered By: Carlitos Johnson on 03-26-2024 Urea nitrogen [Mass/Vol] 17 mg/dL 7-18 [facility] Sodium levelOrdered By: Alexandra Johnson on 03-26-2024 Sodium [Moles/Vol] 139 mmol/L 136-145 [facility] Total proteinOrdered By: Tobin Johnson on 03-26-2024 Protein [Mass/Vol] 6.5 g/dL 6.4-8.2 [facility] Triglycerides measurementOrd ered By: Carlitos Johnson on 03-26-2024 Triglyceride [Mass/Vol] 129 mg/dL <199 [facility] Comment on above: The drugs N-Acetylcy steine and Metamizole may falsely depress this assay.Serum Triglycerides Reference Interval Normal <150 mg/dL Borderline high 150 - 199 mg/dL High 200 - 499 mg/dL Very High > or = 500 mg/dL Very low density lipoprotein (VLDL) cholesterol measurementOrdered By: Carlitos Johnson on 03-26-2024 VLDL Cholesterol 26 mg/dL 5-40 [facility] White blood cell (WBC) count Ordered By: Carlitos Johnson on 03-26-2024 WBC (Bld) [#/Vol] 5.0 10*3/uL 4.4-11.0 [facility] Colonoscopy Study observatio non 03-03-2024 [facility] Radiology Study observation (narrative) [facility] Basophil percentageOrdered B y: Joni Johnson on 03-12-2023 Chloride [Moles/Vol] 105 mmol/L 98-107 [facility] Cholesterol [Mass/Vol] 220 mg/dL <200 [facility] Comment on above: <200 mg/dL Desirable 200-240 mg/dL Borderline >240 mg/dL High Risk Glucose [Mass/Vol] 93 mg/dL 74-106 [facility] Potassium [Moles/Vol] 4.1 mmol/L 3.5-5.1 [facility] Sodium [Moles/Vol] 140 mmol/L 136-145 [facility] Triglyceride [Mass/Vol] 97 mg/dL <199 [facility] [place] Comment on above: The drugs N-Acetylcy steine and Metamizole may falsely depress this assay.Serum Triglycerides Reference Interval Normal <150 mg/dL Borderline high 150 - 199 mg/dL High 200 - 499 mg/dL Very High > or = 500 mg/dL WBC (Bld) [#/Vol] 6.4 10*3/uL 4.4-11.0 [facility] Blood erythrocytes count (nu mber/volume)Ordered By: Joni Johnson on 03-12-2023 RBC (Bld) [#/Vol] 4.29 10*6/uL 4.6-6.2 [facility] Blood hemoglobin measurement (mass/volume)Ordered By: Joni Johnson on 03-12-2023 Hemoglobin (Bld) [Mass/Vol] 14.0 g/dL 13.0-16.5 [facility] Blood platelet mean volumeOr dered By: Joni Johnson on 03-12-2023 Platelet mean volume (Bld) [Entitic vol] 10.5 fL 6.2-12.0 [facility] Determination of erythrocyte mean corpuscular volume (MCV)Ordered By: Joni Johnson on 03-12-2023 MCV (RBC) [Entitic vol] 100.5 fL 80-94 [facility] [place] Hematocrit Auto (Bld) [Volum e fraction]Ordered By: Joni Johnson on 03-12-2023 Hematocrit (Bld) [Volume fraction] 43.1 % 40-54 [facility] - Chemistry and C hemistry - challengeOrdered By: Joni Johnson on 03-12-2023 CO2 [Moles/Vol] 28.0 mmol/L 21.0-32.0 [facility] Urea nitrogen/Creatinine [Mass ratio] 14.0 mg/mg 10-20 [facility] - Hematology and Cell countsOrdered By: Joni Johnson on 03-12-2023 Erythrocyte distribution width (RBC) [Entitic vol] 49.0 fL 35.1-43.9 [facility] Erythrocyte distribution width (RBC) [Ratio] 13.2 % 11.6-14.6 [facility] MCH (RBC) [Entitic mass] 32.6 pg 27.0-32.0 [facility] MCHC Auto (RBC) [Mass/Vol]Or dered By: Joni Johnson on 03-12-2023 MCHC (RBC) [Mass/Vol] 32.5 g/dL 32-36 [facility] No Panel InformationOrdered By: Joni Johnson on 03-12-2023 Estimated GFR (MDRD) Amer 94 mL/min >60 [facility] Comment on above: GFR Calc Estimated GFR (MDRD) Non-Af Amer 78 mL/min >60 [facility] Comment on above: Non- GFR Calc Prostate Specific Antigen Screen 1.94 ng/mL 0.00-4.00 [facility] Comment on above: This test was perfor med using the TPSA assay method for [employer] chemistry system. Values obtained with differentassay methods cannot be used interchangably.When changing PSA assays in the course of monitoring apatient, additional sequential testing should be carriedout to confirm baseline values. Platelets bldOrdered By: Tobin Johnson on 03-12-2023 Platelets (Bld) [#/Vol] 166 10*3/uL 150-450 [facility] Serum or plasma calcium rolly urement (mass/volume)Ordered By: Joni Johnson on 03-12-2023 Calcium [Mass/Vol] 9.5 mg/dL 8.5-10.1 [facility] Serum or plasma cholesterol in HDL measurement (mass/volume)Ordered By: Joni Johnson on 03-12-2023 Cholesterol in HDL [Mass/Vol] 58 mg/dL >40 [facility] Comment on above: The drugs N-Acetylcy steine and Metamizole may falsely depress this assay. Reference Range HDL <40 mg/dL Low HDL Cholesterol HDL >or= 60 mg/dL High HDL Cholesterol Serum or plasma cholesterol in VLDL measurement (mass/volume)Ordered By: Joni Johnson on 03-12-2023 Cholesterol in VLDL [Mass/Vol] 19 mg/dL 5-40 [facility] Serum or plasma creatinine m easurement (mass/volume)Ordered By: Joni Johnson on 03-12-2023 Creatinine [Mass/Vol] 1.00 mg/dL 0.70-1.30 [facility] Comment on above: The validity of the calculated GFR & GFRAA in patients over 70 years has not been determined. Clinical correlation is essential. Serum or plasma low density lipoprotein (LDL) cholesterol measurement (mass/volume)Ordered By: Joni Johnson on 03-12-2023 Cholesterol in LDL [Mass/Vol] 143 mg/dL 0-130 [facility] Serum or plasma urea nitroge n measurement (mass/volume)Ordered By: Joni Johnson on 03-12-2023 Urea nitrogen [Mass/Vol] 14 mg/dL 7-18 [facility] Thin prep Papanicolaou smear with manual screeningOrdered By: Joni Johnson on 03-12-2023 Thin prep Papanicolaou smear with manual screening 7 5-15 [facility] Basophil percentageon 2021 Chloride [Moles/Vol] 103 mmol/L 98-107 [facility] Work Phone: Glucose [Mass/Vol] 114 mg/dL 74-106 [facility] Work Phone: Comment on above: Fasting Glucose resu lt from 100 to 125 mg/dL suggests IMPAIRED HOMEOSTASIS per A.D.A. criteria. Potassium [Moles/Vol] 4.6 mmol/L 3.5-5.1 [facility] Work Phone: Sodium [Moles/Vol] 138 mmol/L 136-145 [facility] Work Phone: WBC (Bld) [#/Vol] 4.6 10*3/uL 4.4-11.0 [facility] Work Phone: [phone] Blood erythrocytes count (nu mber/volume)on 03-06-2022 RBC (Bld) [#/Vol] 4.24 10*6/uL 4.6-6.2 [facility] Work Phone: [phone] Blood hemoglobin measurement (mass/volume)on 03-06-2022 Hemoglobin (Bld) [Mass/Vol] 14.0 g/dL 13.0-16.5 [facility] Work Phone: [phone] Blood platelet mean volumeon 03-06-2022 Platelet mean volume (Bld) [Entitic vol] 10.9 fL 6.2-12.0 [facility] Work Phone: [phone] Determination of erythrocyte mean corpuscular volume (MCV)on 03-06-2022 MCV (RBC) [Entitic vol] 99.1 fL 80-94 [facility] Work Phone: [phone] Hematocrit Auto (Bld) [Volum e fraction]on 03-06-2022 Hematocrit (Bld) [Volume fraction] 42.0 % 40-54 [facility] Work Phone: [phone] Laboratory - Chemistry and C hemistry - challengeon 03-06-2022 CO2 [Moles/Vol] 32.0 mmol/L 21.0-32.0 [facility] Work Phone: [phone] Urea nitrogen/Creatinine [Mass ratio] 16.3 mg/mg 10-20 [facility] Work Phone: [phone] Laboratory - Hematology and Cell countson 03-06-2022 Erythrocyte distribution width (RBC) [Entitic vol] 46.8 fL 35.1-43.9 [facility] Work Phone: [phone] Erythrocyte distribution width (RBC) [Ratio] 13.0 % 11.6-14.6 [facility] Work Phone: [phone] MCH (RBC) [Entitic mass] 33.0 pg 27.0-32.0 [facility] Work Phone: [phone] MCHC Auto (RBC) [Mass/Vol]on 03-06-2022 MCHC (RBC) [Mass/Vol] 33.3 g/dL 32-36 [facility] Work Phone: [phone] No Panel Informationon 03-06 Estimated GFR (MDRD) Amer 90 mL/min >60 [facility] Work Phone: [phone] Comment on above: GFR Calc Estimated GFR (MDRD) Non-Af Amer 74 mL/min >60 [facility] Work Phone: [phone] Comment on above: Non- GFR Calc Prostate Specific Antigen Screen 1.34 ng/mL 0.00-4.00 [facility] Work Phone: Comment on above: This test was perfor med using the TPSA assay method for [employer] chemistry system. Values obtained with differentassay methods cannot be used interchangably.When changing PSA assays in the course of monitoring apatient, additional sequential testing should be carriedout to confirm baseline values. Platelets bldon 03-06-2022 Platelets (Bld) [#/Vol] 128 10*3/uL 150-450 [facility] Work Phone: Serum or plasma calcium rolly urement (mass/volume)on 03-06-2022 Calcium [Mass/Vol] 9.5 mg/dL 8.5-10.1 [facility] Work Phone: Serum or plasma creatinine m easurement (mass/volume)on 03-06-2022 Creatinine [Mass/Vol] 1.04 mg/dL 0.70-1.30 [facility] Work Phone: Comment on above: The validity of the calculated GFR & GFRAA in patients over 70 years has not been determined. Clinical correlation is essential. Serum or plasma urea nitroge n measurement (mass/volume)on 03-06-2022 Urea nitrogen [Mass/Vol] 17 mg/dL 7-18 [facility] Work Phone: Thin prep Papanicolaou smear with manual screeningon 03-06-2022 Thin prep Papanicolaou smear with manual screening 3 5-15 [facility] Work Phone: CNPNalini 06-16-2019 CNPN Telephone (CARCMN) KEESHA BOSE ([id number]) 1950 M Date Time Provider Department 06/16/19 CHRIS MORENO CARCMN During your visit today, we recorded the following information about you: Inez Mack, RN, RN 06/16/2019 12:14 PM Signed ----- Message from Chris Moreno sent at 06/16/2019 11:39 AM EDT ----- Plz notify patient of his results. Looking good., Thanks. Inez Mack, RN, RN 06/16/2019 12:15 PM Signed Called and spoke with patient. Informed him of Dr. Moreno's message below. Patient verbalized understanding. Inez Mcak RN Allergies As of Date: 06/16/2019 (No Known Allergies) Date Reviewed: 06/15/2019 Reviewed by: Karuna Bustamante - Fully Assessed Reason for Visit: Results [95] Prescriptions as of 06/16/2019 Sig: ASPIRIN 81 MG TABLET,DELAYED * Take 81 mg by mouth once samson* * CHOLECALCIFEROL (VITAMIN D3) * Take 185 mg by mouth once renetta* * CYANOCOBALAMIN (VIT B-12) 500* Take one(1) tablet daily. * BIOTIN ORAL Take 5,000 mcg by mouth once * * SILDENAFIL 50 MG TABLET Take 50 mg by mouth as needed* * SULFACETAMIDE SODIUM-SULFUR 1* Apply to nose once daily. * THERAPEUTIC MULTIVITAMIN TABL* Take one(1) tablet daily. Problem List As Of Date 06/16/2019 Noted Resolved Thrombocytopenia (HCC) [D69.6] 02/27/2010 More... 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 Nonrheumatic mitral valve regurgitation [I34.0] 05/06/2019 More... Pre-op testing [Z01.818] 05/06/2019 05/13/2019 More... On mechanically assisted ventilation (HCC) [Z99*05/10/2019 05/11/2019 More... Postoperative pain [G89.18] 05/10/2019 More... Stress hyperglycemia [R73.9] 05/10/2019 05/13/2019 More... Tricuspid regurgitation [I07.1] 05/10/2019 More... Hypovolemia [E86.1] 05/10/2019 2019 More... Atelectasis [J98.11] 05/11/2019 More... Transition of care performed with sharing of cl*2019 More... Acute blood loss anemia [D62] 05/13/2019 More... Volume overload [E87.70] 05/13/2019 More... Encounter Status:Closed by INEZ MACK on 06/16/19 Normal [facility] Basic Metabolic Panlon 06-14 Anion gap [Moles/Vol] 10 mmol/L Normal 9-18 [facility] Comment on above: Performed By: #### U A #### [facility] [employer] [address] [place], [place] [address] Calcium [Mass/Vol] 9.8 mg/dL Normal 8.5-10.2 [facility] Comment on above: Performed By: #### U A #### [facility] [employer] [address] [place], [place] [address] Chloride [Moles/Vol] 101 mmol/L Normal 97-105 [facility] Comment on above: Performed By: #### U A #### [facility] [employer] [address] [place], [place] [address] CO2 [Moles/Vol] 28 mmol/L Normal 22-30 [facility] Comment on above: Performed By: #### U A #### [facility] [employer] [address] [place], [place] [address] Creatinine [Mass/Vol] 0.95 mg/dL Normal 0.73-1.22 [facility] Comment on above: Performed By: #### U A #### [facility] [employer] [address] [place], [place] [address] eGFR- Amer. >60 Normal [facility] Comment on above: Performed By: #### U A #### [facility] [employer] [address] [place], [place] [address] GFR/1.73 sq M predicted among non-blacks MDRD (S/P/Bld) [Vol rate/Area] mL/min/{1.73_m2} Normal [facility] Comment on above: Result Comment: eGFR (Estimated GFR) Units of measure: mL/min/1.73 meters squared eGFR is derived from the reexpressed MDRD Study equation using the following parameters: serum creatinine, age, gender and race. The creatinine assay has been calibrated to be traceable to IDMS. An eGFR <60 mL/min/1.73m2 for >3 months is consistent with chronic kidney disease. Refer to KDOQI guidelines for clinical interpretation. In patients with unstable renal function, e.g. those with acute kidney injury, the eGFR may not accurately reflect actual GFR. Performed By: #### U A #### [facility] [employer] [address] [place], [place] [address] Glucose [Mass/Vol] 73 mg/dL Low 74-99 [facility] Comment on above: Result Comment: The [place] [employer] (ADA) provides guidance for cutoff values for fasting glucose and random glucose. The ADA defines fasting as no caloric intake for at least 8 hours. Fasting plasma glucose results between 100 to 125 mg/dL indicate increased risk for diabetes (prediabetes). Fasting plasma glucose results greater than or equal to 126 mg/dL meet the criteria for diagnosis of diabetes. In the absence of unequivocal hyperglycemia, results should be confirmed by repeat testing. In a patient with classic symptoms of hyperglycemia or hyperglycemic crisis, random plasma glucose results greater than or equal to 200 mg/dL meet the criteria for diagnosis of diabetes. Reference: Standards of Medical Care in Diabetes 2016, [place] [employer]. Diabetes Care. 2016.39(Suppl 1). Performed By: #### U A #### [facility] [employer] [address] [place], [place] [address] Potassium [Moles/Vol] 4.3 mmol/L Normal 3.7-5.1 [facility] Comment on above: Performed By: #### U A #### [facility] [employer] [address] [place], [place] [address] Sodium [Moles/Vol] 139 mmol/L Normal 136-144 [facility] Comment on above: Performed By: #### U A #### [address] [place], [place] [address] Urea nitrogen [Mass/Vol] 14 mg/dL Normal 9-24 [facility] Comment on above: Performed By: #### U A #### [address] [address] CBCon 06-15-2019 Absolute nRBC <0.01 Normal <0.01 [facility] Comment on above: Performed By: #### U A #### [address] [address] Erythrocyte distribution width (RBC) [Ratio] 13.6 % Normal 11.5-15.0 [facility] Comment on above: Performed By: #### U A #### [address] [address] Hematocrit (Bld) [Volume fraction] 39.2 % Normal 39.0-51.0 [facility] Comment on above: Performed By: #### U A #### [address] [address] Hemoglobin (Bld) [Mass/Vol] 12.6 g/dL Low 13.0-17.0 [facility] Comment on above: Performed By: #### U A #### [address] [address] MCH (RBC) [Entitic mass] 33.2 pG Normal 26.0-34.0 [facility] Comment on above: Performed By: #### U A #### [address] [address] MCHC (RBC) [Mass/Vol] 32.1 g/dL Normal 30.5-36.0 [facility] Comment on above: Performed By: #### U A #### [address] [address] MCV (RBC) [Entitic vol] 103.4 fL High 80.0-100.0 [facility] Comment on above: Performed By: #### U A #### [facility] [address] [place], [place] [address] Platelet mean volume (Bld) [Entitic vol] 11.2 fL Normal 9.0-12.7 [facility] Comment on above: Performed By: #### U A #### [address] [place] [address] Platelets (Bld) [#/Vol] 124 10*3/uL Low 150-400 [facility] Comment on above: Result Comment: Resu lt checked and verified No clot detected. Performed By: #### U A #### [facility] [address] [place], [place] [address] RBC (Bld) [#/Vol] 3.79 10*6/uL Low 4.20-6.00 [facility] Comment on above: Performed By: #### U A #### [address] [place], [place] [address] WBC (Bld) [#/Vol] 4.48 10*3/uL Normal 3.70-11.00 [facility] Comment on above: Performed By: #### U A #### [address] [place], [place] [address] Jeff 06-15-2019 CNOV Office Visit (CARCMN ) KEESHA BOSE ([id number]) 1950 M Date Time Provider Department 06/15/19 2:15 PM CHRIS MORENO CARCMN During your visit today, we recorded the following information about you: Pulse Respiration Blood pressure Weight 70/minute 12/minute 120/72 72.6 kg Height 1.829 m Chris Moreno MD 06/15/2019 2:05 PM Signed [facility] [place] [facility]ey Gutierrez Department of Cardiovascular Medicine SECTION OF CLINICAL CARDIOLOGY OUTPATIENT VISIT DATE June 15, 2019 OUTPATIENT VISIT TYPE ESTABLISHED PRIMARY CARE PHYSICIAN: Carlitos Johnson MD ([facility]) [address] [place] [address] CHIEF COMPLAINT: Cardiology follow-up HISTORY OF PRESENT ILLNESS: Mr. Bose is a 69 year old male who presents today for a cardiovascular medicine follow-up visit . He's been doing good since his surgery, exercising feeling great wound is healing well he is off his medications except for the aspirin. Echocardiogram today looks okay PAST MEDICAL HISTORY Diagnosis Date - Mitral valve disease - Thrombocytopenia (HCC) 2009 PAST SURGICAL HISTORY Procedure Laterality Date - PAST SURGICAL HISTORY OF Pt states lumpy tissue removed from neck x 2 - REMOVAL OF TONSILS,<12 Y/O Tonsillectomy - VASECTOMY 1984 SOCIAL HISTORY Social History Tobacco Use - Smoking status: Former Smoker Packs/day: 2.00 Years: 10.00 Pack years: 20.00 Types: Cigarettes Last attempt to quit: 03/31/1979 Years since quittin.2 - Smokeless tobacco: Never Used Substance Use Topics - Alcohol use: Yes Frequency: 2-3 times a week Drinks per session: 1 or 2 Binge frequency: Never - Drug use: Never FAMILY HISTORY Problem Relation Age of Onset - other (Valve Disease) Mother Unknown valve replacement - Dementia Father - Thyroid Cancer Father - other (Other) Brother Was in poor health ( at age 66) ALLERGIES: ALLERGIES No Known Allergies MEDICATIONS: aspirin, enteric coated (ASPIRIN, ENTERIC COATED) 81 mg EC tablet Take 81 mg by mouth once daily. Cholecalciferol, Vitamin D3, (VITAMIN D) 1,000 unit ORAL Tab Take 185 mg by mouth once daily. cyanocobalamin (VITAMIN B-12) 500 mcg ORAL Tab Take one(1) tablet daily. BIOTIN ORAL Take 5,000 mcg by mouth once daily. sildenafil (VIAGRA) 50 mg ORAL tablet Take 50 mg by mouth as needed. Sulfacetamide Sodium-Sulfur 10-5 % TOPICAL Lotn Apply to nose once daily. THERAPEUTIC MULTIVITAMIN TAB Take one(1) tablet daily. REVIEW OF SYSTEMS:positives in bold GENERAL: Negative for: Weight loss or gain, Fever or Chills, Weakness and Sleep difficulties. HEENT: Negative for: Headache, Impaired Vision, Glasses, Hearing Impairment, Ringing in Ears, Nosebleeds, Poor dental care, Bleeding Gums, Dentures NECK: Negative for: Swelling, Pain, Stiffness RESPIRATORY: Negative for: Cough, Blood in Sputum, Shortness of breath, Wheezing, Apnea GASTROINTESTINAL: Negative for: Trouble swallowing, Heartburn, Change in bowel habits, Blood in stool, Dark black stools MUSCULOSKELETAL: Negative for: Muscle or joint pain, Stiffness , Joint swelling NEUROLOGIC/PSYCHIATRIC : Negative for: Weakness, Paralysis, Numbness, Tingling, Tremor, Nervousness, Depressed mood, Memory loss SKIN: Negative for: Rashes, Itching HEMATOLOGICAL/LYMPHATI C: Negative for: Easy bruising , Easy bleeding ENDOCRINE: Negative for: Heat or cold intolerance, Excessive sweating, Frequent urination, Frequent thirst PHYSICAL EXAMINATION: BP 120/72 Pulse 70 Resp 12 Ht 182.9 cm (6') Wt 72.6 kg (160 lb) SpO2 100% BMI 21.70 kg/m? No edmea RRR CARDIOVASCULAR MEDICINE TESTING: ECHO 05-13-2019 CONCLUSIONS: - Technically difficult exam due to post op and suboptimal positioning. Limited parasternal images due to bandages. - Exam indication: S/p MV/TV repair (05/10/2019) - The left ventricle is normal in size. Left ventricular systolic function is normal. EF = 55 ? 5% (visual est.) Left ventricular diastolic function was not evaluated due to MVr. - The right ventricle is normal in size. Right ventricular systolic function is normal. - Post mitral valve repair. Kimbrough Mitral Valve Annuloplasty Ring (size #35). There ?is trace mitral valve regurgitation. The peak gradient is 5 mmHg and the mean gradient is 2 mmHg. - Post tricuspid valve repair. Kimbrough Tricuspid Valve Annuloplasty Ring (size #25). ?There is trace tricuspid valve regurgitation. The peak gradient is 4 mmHg and the ?mean gradient is 2 mmHg. - Exam was compared with the prior echocardiographic exam performed on 05/10/2019 (OR Echo). Interval MV/TV repair. Problem List Items Addressed This Visit None IMPRESSION PLAN AND RECOMMENDATIONS:: #1 severe mitral valve regurgitation, s/p MVr andTVr. #2 thrombo-cytopenia, stable Plan to follow-up on severe with an echocardiogram with meals with his local [employer] automobile. I personally interviewed, confirmed and edited the above information as obtained by others. CONTACT INFORMATION: Chris Moreno MD, MHCM, MSc, FAC, MAGAN Trevino and Amanda Gutierrez Department of Cardiovascular Medicine [facility] [place] - Desk [address] [address] Office Office Appointments: [phone] This note was partially generated using [employer] voice recognition system, and there may be some incorrect words, spellings, and punctuation that were not noted in checking the note before saving. Referring Provider: Alirio DANG [[id number]] Allergies As of Date: 06/15/2019 (No Known Allergies) Date Reviewed: 06/15/2019 Reviewed by: Karuna Mark) Dianna - Fully Assessed Primary Visit Diagnosis:Nonrheumatic mitral valve regurgitation [I34.0] Other Visit Diagnosis:Nonrheumatic tricuspid valve regurgitation [I36.1] Prescriptions as of 06/15/2019 Sig: ASPIRIN 81 MG TABLET,DELAYED * Take 81 mg by mouth once samson* * CHOLECALCIFEROL (VITAMIN D3) * Take 185 mg by mouth once renetta* * CYANOCOBALAMIN (VIT B-12) 500* Take one(1) tablet daily. * BIOTIN ORAL Take 5,000 mcg by mouth once * * SILDENAFIL 50 MG TABLET Take 50 mg by mouth as needed* * SULFACETAMIDE SODIUM-SULFUR 1* Apply to nose once daily. * THERAPEUTIC MULTIVITAMIN TABL* Take one(1) tablet daily. Problem List As Of Date 06/15/2019 Noted Resolved Thrombocytopenia (HCC) [D69.6] 02/27/2010 More... 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 Nonrheumatic mitral valve regurgitation [I34.0] 05/06/2019 More... Pre-op testing [Z01.818] 05/06/2019 05/13/2019 More... On mechanically assisted ventilation (HCC) [Z99*05/10/2019 05/11/2019 More... Postoperative pain [G89.18] 05/10/2019 More... Stress hyperglycemia [R73.9] 05/10/2019 05/13/2019 More... Tricuspid regurgitation [I07.1] 05/10/2019 More... Hypovolemia [E86.1] 05/10/2019 2019 More... Atelectasis [J98.11] 05/11/2019 More... Transition of care performed with sharing of cl*2019 More... Acute blood loss anemia [D62] 05/13/2019 More... Volume overload [E87.70] 05/13/2019 More... Medications Discontinued During This Encounter acetaminophen (TYLENOL) 500 mg tablet 05/14/2019 06/15/2019 Class: OTC Route: ORAL Sig: Take 1-2 tablets by mouth every 6 hours as needed for Pain or Fever. Disc: Course of therapy completed iron polysaccharide complex (FERREX-* 28 c* 0 05/14/2019 06/15/2019 Cmt: pt. requests bedside side delivery Route: ORAL Sig: Take 1 capsule by mouth twice daily for 14 days. Disc: Discontinued by Patient metoprolol tartrate, short acting, (* 30 t* 1 05/14/2019 06/15/2019 Cmt: pt. requests bedside side delivery Route: ORAL Sig: Take 0.5 tablets by mouth twice daily. Disc: Discontinued by another Health Care Provider senna-docusate (SENNA-S) 8.6-50 mg p* 28 t* 0 05/14/2019 06/15/2019 Cmt: pt. requests bedside side delivery Route: ORAL Sig: Take 1 tablet by mouth twice daily as needed for Constipation. Disc: Course of therapy completed Encounter Status:Closed by CHRIS MORENO MD on 06/15/19 Normal [facility] ECG COMPLETEon 06-15-2019 ECG COMPLETE NAME : KEESHA BOSE PID : [id number] : 1950 Gender : Male Race : ORD : [id number] Procedure Date : Jun 15 2019 12:00:09 Edit Date : Jun 30 2019 08:01:38 Diagnosis:SINUS RHYTHM 2ND DEGREE AV BLOCK (MOBITZ I) LEFT AXIS DEVIATION COMPLETE RIGHT BUNDLE BRANCH BLOCK ABNORMAL ECG Confirmed by ANNALISE LEON MD ([id number]) on 06/30/2019 8:01:35 AM Ventricular Rate : 49 BPM Atrial Rate : 63 BPM QRS Duration : 124 ms Q-T Interval : 444 ms QTC Calculation(Bazett) : 401 ms P Gilbert : 41 degrees R Gilbert : -37 degrees T Gilbert : 49 degrees Test Reason : Location : 119 : A17 A17 Overread By : ANNALISE LEON MD Edited By : ANNALISE LEON MD Referred By : CHRIS MORENO Acquired by : Sussy Resendez [facility] PROGRESSon 06-15-2019 PROGRESS HNO ID: [id number] Author: Chris Moreno Service: ? Author Type: Physician Type: Progress Notes Filed: 06/15/2019 2:05 PM Note Text: [facility] [place] [facility] Gut[facility] Department of Cardiovascular Medicine SECTION OF CLINICAL CARDIOLOGY OUTPATIENT VISIT DATE June 15, 2019 OUTPATIENT VISIT TYPE ESTABLISHED PRIMARY CARE PHYSICIAN: Carlitos Johnson MD ([facility]) [address] [place] [address] CHIEF COMPLAINT: Cardiology follow-up HISTORY OF PRESENT ILLNESS: Mr. Bose is a 69 year old male who presents today for a cardiovascular medicine follow-up visit . He's been doing good since his surgery, exercising feeling great wound is healing well he is off his medications except for the aspirin. Echocardiogram today looks okay PAST MEDICAL HISTORY Diagnosis Date - Mitral valve disease - Thrombocytopenia (HCC) 2009 PAST SURGICAL HISTORY Procedure Laterality Date - PAST SURGICAL HISTORY OF Pt states lumpy tissue removed from neck x 2 - REMOVAL OF TONSILS,<12 Y/O Tonsillectomy - VASECTOMY 1985 SOCIAL HISTORY Social History Tobacco Use - Smoking status: Former Smoker Packs/day: 2.00 Years: 10.00 Pack years: 20.00 Types: Cigarettes Last attempt to quit: 03/31/1979 Years since quittin.2 - Smokeless tobacco: Never Used Substance Use Topics - Alcohol use: Yes Frequency: 2-3 times a week Drinks per session: 1 or 2 Binge frequency: Never - Drug use: Never FAMILY HISTORY Problem Relation Age of Onset - other (Valve Disease) Mother Unknown valve replacement - Dementia Father - Thyroid Cancer Father - other (Other) Brother Was in poor health ( at age 66) ALLERGIES: ALLERGIES No Known Allergies MEDICATIONS: aspirin, enteric coated (ASPIRIN, ENTERIC COATED) 81 mg EC tablet Take 81 mg by mouth once daily. Cholecalciferol, Vitamin D3, (VITAMIN D) 1,000 unit ORAL Tab Take 185 mg by mouth once daily. cyanocobalamin (VITAMIN B-12) 500 mcg ORAL Tab Take one(1) tablet daily. BIOTIN ORAL Take 5,000 mcg by mouth once daily. sildenafil (VIAGRA) 50 mg ORAL tablet Take 50 mg by mouth as needed. Sulfacetamide Sodium-Sulfur 10-5 % TOPICAL Lotn Apply to nose once daily. THERAPEUTIC MULTIVITAMIN TAB Take one(1) tablet daily. REVIEW OF SYSTEMS:positives in bold GENERAL: Negative for: Weight loss or gain, Fever or Chills, Weakness and Sleep difficulties. HEENT: Negative for: Headache, Impaired Vision, Glasses, Hearing Impairment, Ringing in Ears, Nosebleeds, Poor dental care, Bleeding Gums, Dentures NECK: Negative for: Swelling, Pain, Stiffness RESPIRATORY: Negative for: Cough, Blood in Sputum, Shortness of breath, Wheezing, Apnea GASTROINTESTINAL: Negative for: Trouble swallowing, Heartburn, Change in bowel habits, Blood in stool, Dark black stools MUSCULOSKELETAL: Negative for: Muscle or joint pain, Stiffness , Joint swelling NEUROLOGIC/PSYCHIATRIC : Negative for: Weakness, Paralysis, Numbness, Tingling, Tremor, Nervousness, Depressed mood, Memory loss SKIN: Negative for: Rashes, Itching HEMATOLOGICAL/LYMPHATI C: Negative for: Easy bruising , Easy bleeding ENDOCRINE: Negative for: Heat or cold intolerance, Excessive sweating, Frequent urination, Frequent thirst PHYSICAL EXAMINATION: BP 120/72 Pulse 70 Resp 12 Ht 182.9 cm (6') Wt 72.6 kg (160 lb) SpO2 100% BMI 21.70 kg/m? No edmea RRR CARDIOVASCULAR MEDICINE TESTING: ECHO 05-13-2019 CONCLUSIONS: - Technically difficult exam due to post op and suboptimal positioning. Limited parasternal images due to bandages. - Exam indication: S/p MV/TV repair (05/10/2019) - The left ventricle is normal in size. Left ventricular systolic function is normal. EF = 55 ? 5% (visual est.) Left ventricular diastolic function was not evaluated due to MVr. - The right ventricle is normal in size. Right ventricular systolic function is normal. - Post mitral valve repair. Kimbrough Mitral Valve Annuloplasty Ring (size #35). There ?is trace mitral valve regurgitation. The peak gradient is 5 mmHg and the mean gradient is 2 mmHg. - Post tricuspid valve repair. Kimbrough Tricuspid Valve Annuloplasty Ring (size #25). ?There is trace tricuspid valve regurgitation. The peak gradient is 4 mmHg and the ?mean gradient is 2 mmHg. - Exam was compared with the prior echocardiographic exam performed on 05/10/2019 (OR Echo). Interval MV/TV repair. Problem List Items Addressed This Visit None IMPRESSION PLAN AND RECOMMENDATIONS:: #1 severe mitral valve regurgitation, s/p MVr andTVr. #2 thrombo-cytopenia, stable Plan to follow-up on severe with an echocardiogram with meals with his local [employer]. I personally interviewed, confirmed and edited the above information as obtained by others. CONTACT INFORMATION: Chris Moreno MD, MHCM, MSc, FACC, MAGAN Trevino and Amanda Gutierrez Department of Cardiovascular Medicine [facility] [place] - Desk [place] [address] Office Office Appointments: [phone] This note was partially generated using Lotaris voice recognition system, and there may be some incorrect words, spellings, and punctuation that were not noted in checking the note before saving. Normal [facility] Tahir 06-14-2019 CNPN Telephone (HVICTR) KEESHA BOSE ([id number]) 1950 M Date Time Provider Department 06/14/19 Alirio DANG HVICTR During your visit today, we recorded the following information about you: Kathrin Rodríguez, RN, RN 06/14/2019 9:53 AM Signed [facility] Contact Center Inbound Phone Encounter DATE of SERVICE: 06/14/2019 TIME of SERVICE: 9:52 AM Status: FYI Service/Provider: Cardiac Surgery Sandro Dang M.D. Reason for call: Education Reinforcement and Follow-up Appointment Contact information: [phone] Resolution: Reinforced education Comments: Pt calling post discharge line with questions/concerns on follow up appt for tomorrow May and COVID 19. Educated on topic. Pt will discuss further with spouse and provided appt center # for any additional needs. Kathrin Rodríguez RN Date of Resolution: 06/14/2019 Time of Resolution 9:52 AM Allergies As of Date: 06/14/2019 (No Known Allergies) Date Reviewed: 05/20/2019 Reviewed by: Chemo Mark) Aries - Fully Assessed Reason for Visit: Post Dc Program Call - Fyi [[id number]] Prescriptions as of 06/14/2019 Sig: ACETAMINOPHEN 500 MG TABLET Take 1-2 tablets by mouth gabriela* POLYSACCHARIDE IRON COMPLEX 1* Take 1 capsule by mouth twice* METOPROLOL TARTRATE 25 MG TAB* Take 0.5 tablets by mouth twi* SENNOSIDES 8.6 MG-DOCUSATE SO* Take 1 tablet by mouth twice * ASPIRIN 81 MG TABLET,DELAYED * Take 81 mg by mouth once samson* * CHOLECALCIFEROL (VITAMIN D3) * Take 185 mg by mouth once renetta* * CYANOCOBALAMIN (VIT B-12) 500* Take one(1) tablet daily. * BIOTIN ORAL Take 5,000 mcg by mouth once * * SILDENAFIL 50 MG TABLET As directed. * SULFACETAMIDE SODIUM-SULFUR 1* Apply to nose once daily. * THERAPEUTIC MULTIVITAMIN TABL* Take one(1) tablet daily. Problem List As Of Date 06/14/2019 Noted Resolved Thrombocytopenia (HCC) [D69.6] 02/27/2010 More... 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 Nonrheumatic mitral valve regurgitation [I34.0] 05/06/2019 More... Pre-op testing [Z01.818] 05/06/2019 05/13/2019 More... On mechanically assisted ventilation (HCC) [Z99*05/10/2019 05/11/2019 More... Postoperative pain [G89.18] 05/10/2019 More... Stress hyperglycemia [R73.9] 05/10/2019 05/13/2019 More... Tricuspid regurgitation [I07.1] 05/10/2019 More... Hypovolemia [E86.1] 05/10/2019 2019 More... Atelectasis [J98.11] 05/11/2019 More... Transition of care performed with sharing of cl*2019 More... Acute blood loss anemia [D62] 05/13/2019 More... Volume overload [E87.70] 05/13/2019 More... Encounter Status:Closed by KATHRIN RODRÍGUEZ on 06/14/19 Normal [facility] CBCon 05-20-2019 Absolute nRBC <0.01 Normal <0.01 [facility] Comment on above: Performed By: #### C BC, CMP ####[address] [phone] Erythrocyte distribution width (RBC) [Ratio] 14.6 % Normal 11.5-15.0 [facility] Comment on above: Performed By: #### C BC, CMP ####[address] [phone] Hematocrit (Bld) [Volume fraction] 30.7 % Low 39.0-51.0 [facility] Comment on above: Performed By: #### C BC, CMP ####[address] [phone] Hemoglobin (Bld) [Mass/Vol] 9.9 g/dL Low 13.0-17.0 [facility] Comment on above: Performed By: #### C BC, CMP ####[address] [phone] MCH (RBC) [Entitic mass] 34.4 pG High 26.0-34.0 [facility] Comment on above: Performed By: #### C BC, CMP ####[place] [id number], [place] [phone] MCHC (RBC) [Mass/Vol] 32.2 g/dL Normal 30.5-36.0 [facility] Comment on above: Performed By: #### C BC, CMP ####[facility], [place] [phone] MCV (RBC) [Entitic vol] 106.6 fL High 80.0-100.0 [facility] Comment on above: Performed By: #### C BC, CMP ####[place] [address], [place] [phone] Platelet mean volume (Bld) [Entitic vol] 10.1 fL Normal 9.0-12.7 [facility] Comment on above: Performed By: #### C BC, CMP ####[place] [address] [address], [place] [phone] Platelets (Bld) [#/Vol] 268 10*3/uL Normal 150-400 [facility] Comment on above: Performed By: #### C BC, CMP ####[place] [address] [address], [place] [phone] RBC (Bld) [#/Vol] 2.88 10*6/uL Low 4.20-6.00 [facility] Comment on above: Performed By: #### C BC, CMP ####[place] [address], [place] [phone] WBC (Bld) [#/Vol] 6.83 10*3/uL Normal 3.70-11.00 [facility] Comment on above: Performed By: #### C BC, CMP ####[facility], [place] [phone] CNOVon 05-20-2019 CNOV Office Visit ([facility] KEESHA BOSE ([id number]) 1950 M Date Time Provider Department 05/20/19 2:30 PM ONI SU During your visit today, we recorded the following information about you: Temperature Pulse Blood pressure Weight 98.5 degrees 74/minute 106/64 70.8 kg Height 1.829 m Oni Su APRN.[facility] 05/21/2019 1:49 PM Signed [facility] [place] CTS Post op Follow up Keesha Bose is a 69 year old male who presents who is here for post operative follow up HPI: S/P on 05/10/2019 [facility] Surgeon: Sandro Dang MD SURGERY: MV repair (neochord P2, #35 Kimbrough band), TV repair (remodeling annuloplasty #25 Kimbrough band) Post op echo: CONCLUSIONS: - Technically difficult exam due to post op and suboptimal positioning. Limited parasternal images due to bandages. - Exam indication: S/p MV/TV repair (05/10/2019) - The left ventricle is normal in size. Left ventricular systolic function is normal. EF = 55 ? 5% (visual est.) Left ventricular diastolic function was not evaluated due to MVr. - The right ventricle is normal in size. Right ventricular systolic function is normal. - Post mitral valve repair. Kimbrough Mitral Valve Annuloplasty Ring (size #35). There ?is trace mitral valve regurgitation. The peak gradient is 5 mmHg and the mean gradient is 2 mmHg. - Post tricuspid valve repair. Kimbrough Tricuspid Valve Annuloplasty Ring (size #25). ?There is trace tricuspid valve regurgitation. The peak gradient is 4 mmHg and the ?mean gradient is 2 mmHg. - Exam was compared with the prior echocardiographic exam performed on 05/10/2019 (OR Echo). Interval MV/TV repair. ? Discharged on 05/14/2019 PAST MEDICAL HISTORY Diagnosis Date - Mitral valve disease - Thrombocytopenia (HCC) 2009 PAST SURGICAL HISTORY Procedure Laterality Date - PAST SURGICAL HISTORY OF Pt states lumpy tissue removed from neck x 2 - REMOVAL OF TONSILS,<12 Y/O Tonsillectomy - VASECTOMY 1984 ALLERGIES No Known Allergies Current Outpatient Medications Medication Sig - acetaminophen (TYLENOL) 500 mg tablet Take 1-2 tablets by mouth every 6 hours as needed for Pain or Fever. - iron polysaccharide complex (FERREX-150) 150 mg iron capsule Take 1 capsule by mouth twice daily for 14 days. - metoprolol tartrate, short acting, (LOPRESSOR) 25 mg tablet Take 0.5 tablets by mouth twice daily. - oxyCODONE IR (ROXICODONE) 5 mg immediate release tablet Take 1 tablet by mouth every 6 hours as needed for Pain for up to 7 days. - senna-docusate (SENNA-S) 8.6-50 mg per tablet Take 1 tablet by mouth twice daily as needed for Constipation. - aspirin, enteric coated (ASPIRIN, ENTERIC COATED) 81 mg EC tablet Take 81 mg by mouth once daily. - iv contrast (will be provided with radiology test) CT Cardiac - No IV access, insert saline lock prior to the sedation, infusion, injection for imaging exam. Discontinue saline lock post exam. If Pt. has a central line or IVAD, may access for administration according to line specific nursing protocol. Once exam is complete flush line and de-access according to line specific nursing protocol in the CT contrast administration guidelines link. - Cholecalciferol, Vitamin D3, (VITAMIN D) 1,000 unit ORAL Tab Take 185 mg by mouth once daily. - cyanocobalamin (VITAMIN B-12) 500 mcg ORAL Tab Take one(1) tablet daily. - BIOTIN ORAL Take 5,000 mcg by mouth once daily. - sildenafil (VIAGRA) 50 mg ORAL tablet As directed. - Sulfacetamide Sodium-Sulfur 10-5 % TOPICAL Lotn Apply to nose once daily. - THERAPEUTIC MULTIVITAMIN TAB Take one(1) tablet daily. No current facility-administered medications for this visit. Chief Complaints: I feel good Discharge Post Operative Course: Pain scale :Yes generalized soreness well managed Appetite: improving Activity: Walking ad yolanda around the house Elimination: normal, no constipation , urination is normal Sleep: difficulty staying asleep Mood: normal and good Incisions/Wounds: healing Review of Systems: HEENT: Negative for fevers since discharge, chills, night sweats and blurry vision Cardiac: Denies significant problems, chest pain, Arrhythmia and leg edema Respiratory: denies dyspnea, cough, orthopnea Musculoskeletal: No history of joint swelling, joint pain, or loss of range of motion. Neuro: Denies neurological complaints Physical Exam: BP 106/64 (BP Site: Left Arm, BP Position: Sitting, BP Cuff Size: Regular Adult) Pulse 74 Temp 36.9 ?C (98.5 ?F) (Temporal) Ht 182.9 cm (6') Wt 70.8 kg (156 lb) SpO2 100% BMI 21.16 kg/m? Appearance: well groomed, thin, white male, in no acute distress Neck: No neck vein distention Cardiac: regular S1, S2, No murmur, No rub Lungs: Clear breath sounds bilaterally without wheeze or dullness Abdomen: soft, non tender, Normal bowel sounds Extremities: No edema Sternum: stable, no click Sternotomy site: healing, clean, dry and intact Wound: NA Procedures: N/A IMPRESSION AND PLAN: 1.S/P on 05/10/2019 [facility] Surgeon: Sandro Dang MD SURGERY: MV repair (neochord P2, #35 Kimbrough band), TV repair (remodeling annuloplasty #25 Kimbrough band) Discharged on 05/14/2019 EC05/20/2019 Diagnosis:SINUS RHYTHM WITH 1ST DEGREE AV BLOCK COMPLETE RIGHT BUNDLE BRANCH BLOCK MINIMAL VOLTAGE CRITERIA FOR LVH, MAY BE NORMAL VARIANT ABNORMAL ECG ? Ventricular Rate : 67 ?BPM Atrial Rate : 67 ?BPM 2. Atelectasis/FVO - improving - weight: down 6lbs since discharge - encouraged to continue deep breathing exercises and walking CXR:05/20/19 RESULT: Lines, tubes, and devices: ?None. Lungs and pleura: ?No consolidation. No lung mass. ?Interval resolution of small bilateral pleural effusions and mild bilateral basilar atelectases. ?Interval resolution of small right apical pneumothorax. No left pneumothorax. Cardiomediastinal silhouette: ?Normal cardiomediastinal silhouette. ? Stable mitral and tricuspid annuloplasty. Bones and soft tissues: ?Unremarkable. 4. Anemia/Thrombocytopeni a - pre op platelet baseline 108k - currently resolved - continue to monitor locally LABS:05/20/2019 Component Latest Ref Rng AND Units 05/14/2019 05/20/2019 Glucose 74 - 99 mg/dL 118 (H) 75 BUN 9 - 24 mg/dL 12 17 Creatinine 0.73 - 1.22 mg/dL 0.88 1.13 Sodium 136 - 144 mmol/L 137 141 Potassium 3.7 - 5.1 mmol/L 4.0 4.7 Component Latest Ref Rng AND Units 05/14/2019 05/20/2019 WBC 3.70 - 11.00 k/uL 4.76 6.83 RBC 4.20 - 6.00 m/uL 2.05 (L) 2.88 (L) Hemoglobin 13.0 - 17.0 g/dL 7.1 (L) 9.9 (L) Hematocrit 39.0 - 51.0 % 20.2 (L) 30.7 (L) Platelet Count 150 - 400 k/uL 70 (L) 268 Summary: See above Follow up with PCP next week cbc and cmp Follow up with [employer] in 4-6 weeks. Call CTS OPD with any issues, concerns or worsening surgical symptoms. Post op care and discharge orders reviewed with the patient- all questions were answered. Surgical sites healing without complication Discussed new medications, dosage, route of administration and side effects Reviewed walking program at home Reviewed diet guidelines for recovery from surgery Return to the clinic prn with signs or symptoms of infection, fevers, SOB, or pleural effusion SBE prophylaxis reviewed Discussed wound care Oni Su APRN.[facility] Referring Provider: Alirio DANG [[id number]] Allergies As of Date: 05/20/2019 (No Known Allergies) Date Reviewed: 05/20/2019 Reviewed by: Chemo Chris - Fully Assessed Reason for Visit: Post Op [[id number]] Primary Visit Diagnosis:S/P MVR (mitral valve repair) [Z98.890] Other Visit Diagnosis:S/P TVR (tricuspid valve repair) [Z98.890] Prescriptions as of 05/20/2019 Sig: ACETAMINOPHEN 500 MG TABLET Take 1-2 tablets by mouth gabriela* POLYSACCHARIDE IRON COMPLEX 1* Take 1 capsule by mouth twice* METOPROLOL TARTRATE 25 MG TAB* Take 0.5 tablets by mouth twi* SENNOSIDES 8.6 MG-DOCUSATE SO* Take 1 tablet by mouth twice * ASPIRIN 81 MG TABLET,DELAYED * Take 81 mg by mouth once samson* * CHOLECALCIFEROL (VITAMIN D3) * Take 185 mg by mouth once renetta* * CYANOCOBALAMIN (VIT B-12) 500* Take one(1) tablet daily. * BIOTIN ORAL Take 5,000 mcg by mouth once * * SULFACETAMIDE SODIUM-SULFUR 1* Apply to nose once daily. * THERAPEUTIC MULTIVITAMIN TABL* Take one(1) tablet daily. OXYCODONE 5 MG TABLET Take 1 tablet by mouth every * Patient not taking: Reported on 05/20/2019 * SILDENAFIL 50 MG TABLET As directed. Problem List As Of Date 05/20/2019 Noted Resolved Thrombocytopenia (HCC) [D69.6] 02/27/2010 More... 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 Nonrheumatic mitral valve regurgitation [I34.0] 05/06/2019 More... Pre-op testing [Z01.818] 05/06/2019 05/13/2019 More... On mechanically assisted ventilation (HCC) [Z99*05/10/2019 05/11/2019 More... Postoperative pain [G89.18] 05/10/2019 More... Stress hyperglycemia [R73.9] 05/10/2019 05/13/2019 More... Tricuspid regurgitation [I07.1] 05/10/2019 More... Hypovolemia [E86.1] 05/10/2019 2019 More... Atelectasis [J98.11] 05/11/2019 More... Transition of care performed with sharing of cl*2019 More... Acute blood loss anemia [D62] 05/13/2019 More... Volume overload [E87.70] 05/13/2019 More... Medications Discontinued During This Encounter iv contrast (will be provided with r* 1 Ea* 0 05/04/2019 05/20/2019 Class: In Office Sig: CT Cardiac - No IV access, insert saline lock prior to the sedation, infusion, injection for imaging exam. Discontinue saline lock post exam. If Pt. has a central line or IVAD, may access for administration according to line specific nursing protocol. Once exam is complete flush line and de-access according to line specific nursing protocol in the CT contrast administration guidelines link. Disc: Course of therapy completed Encounter Status:Closed by ONI SU CNP on 05/21/19 Normal [facility] Comp Metabolic Panelon 05-20 Albumin [Mass/Vol] 4.0 g/dL Normal 3.9-4.9 [facility] Comment on above: Performed By: #### C BC, CMP ####[place] [address] [place], [place] [phone] ALP [Catalytic activity/Vol] 70 U/L Normal 38-113 [facility] Comment on above: Performed By: #### C BC, CMP ####[address] [phone] ALT [Catalytic activity/Vol] 22 U/L Normal 10-54 [facility] Comment on above: Performed By: #### C BC, CMP ####[place] [address] [place], [place] [phone] Anion gap [Moles/Vol] 13 mmol/L Normal 9-18 [facility] Comment on above: Performed By: #### C BC, CMP ####[address] [phone] AST [Catalytic activity/Vol] 22 U/L Normal 14-40 [facility] Comment on above: Performed By: #### C BC, CMP ####[place] [address] [place], [place] [phone] Bilirubin [Mass/Vol] 0.4 mg/dL Normal 0.2-1.3 [facility] Comment on above: Performed By: #### C BC, CMP ####[address] [phone] Calcium [Mass/Vol] 9.7 mg/dL Normal 8.5-10.2 [facility] Comment on above: Performed By: #### C BC, CMP ####[facility] [place], [place] [phone] Chloride [Moles/Vol] 100 mmol/L Normal 97-105 [facility] Comment on above: Performed By: #### C BC, CMP ####[facility] [place], [place] [phone] CO2 [Moles/Vol] 28 mmol/L Normal 22-30 [facility] Comment on above: Performed By: #### C BC, CMP ####[place] [address] [place], [place] [phone] Creatinine [Mass/Vol] 1.13 mg/dL Normal 0.73-1.22 [facility] Comment on above: Performed By: #### C BC, CMP ####[place] [address] [address] [place], [place] [phone] eGFR- Amer. >60 Normal [facility] Comment on above: Performed By: #### C BC, CMP ####[place] [address] [address] [place], [place] [phone] GFR/1.73 sq M predicted among non-blacks MDRD (S/P/Bld) [Vol rate/Area] mL/min/{1.73_m2} Normal [facility] Comment on above: Result Comment: eGFR (Estimated GFR) Units of measure: mL/min/1.73 meters squared eGFR is derived from the reexpressed MDRD Study equation using the following parameters: serum creatinine, age, gender and race. The creatinine assay has been calibrated to be traceable to IDMS. An eGFR <60 mL/min/1.73m2 for >3 months is consistent with chronic kidney disease. Refer to KDOQI guidelines for clinical interpretation. In patients with unstable renal function, e.g. those with acute kidney injury, the eGFR may not accurately reflect actual GFR. Performed By: #### C BC, CMP ####[facility] [place], [place] [phone] Glucose [Mass/Vol] 75 mg/dL Normal 74-99 [facility] Comment on above: Result Comment: The [place] [employer] (ADA) provides guidance for cutoff values for fasting glucose and random glucose. The ADA defines fasting as no caloric intake for at least 8 hours. Fasting plasma glucose results between 100 to 125 mg/dL indicate increased risk for diabetes (prediabetes). Fasting plasma glucose results greater than or equal to 126 mg/dL meet the criteria for diagnosis of diabetes. In the absence of unequivocal hyperglycemia, results should be confirmed by repeat testing. In a patient with classic symptoms of hyperglycemia or hyperglycemic crisis, random plasma glucose results greater than or equal to 200 mg/dL meet the criteria for diagnosis of diabetes. Reference: Standards of Medical Care in Diabetes 2016, [place] [employer]. Diabetes Care. 2016.39(Suppl 1). Performed By: #### C BC, CMP ####[facility] [place], [place] [phone] Potassium [Moles/Vol] 4.7 mmol/L Normal 3.7-5.1 [facility] Comment on above: Performed By: #### C BC, CMP ####[facility] [address] [place], [place] [phone] Protein [Mass/Vol] 6.8 g/dL Normal 6.3-8.0 [facility] Comment on above: Performed By: #### C BC, CMP ####[facility] [place], [place] [phone] Sodium [Moles/Vol] 141 mmol/L Normal 136-144 [facility] Comment on above: Performed By: #### C BC, CMP ####[facility] [address] [place], [place] [phone] Urea nitrogen [Mass/Vol] 17 mg/dL Normal 9-24 [facility] Comment on above: Performed By: #### C BC, CMP ####[facility] [place], [place] [phone] ECG COMPLETEon 05-20-2019 ECG COMPLETE NAME : KEESHA BOSE PID : [id number] : 1950 Gender : Male Race : ORD : [id number] Procedure Date : May 20 2019 13:45:30 Edit Date : May 24 2019 20:47:40 Diagnosis:SINUS RHYTHM WITH 1ST DEGREE AV BLOCK COMPLETE RIGHT BUNDLE BRANCH BLOCK ABNORMAL ECG Confirmed by MD CAMACHO, PhD, UDAY ([id number]) on 05/24/2019 8:47:36 PM Ventricular Rate : 67 BPM Atrial Rate : 67 BPM P-R Interval : 354 ms QRS Duration : 122 ms Q-T Interval : 426 ms QTC Calculation(Bazett) : 450 ms P Gilbert : 53 degrees R Gilbert : -13 degrees T Gilbert : 65 degrees Test Reason : Location : 314 : J14 J14 Overread By : MD CAMACHO, PhD,UDAY Edited By : MD CAMACHO, PhD,UDAY Referred By : Alirio DANG Acquired by : CANDELARIA BENOIT Normal [facility] Lipid Panel, Basic 020 Cholesterol [Mass/Vol] 144 mg/dL Normal <200 [facility] Comment on above: Result Comment: <200 mg/dL, Desirable 200-239 mg/dL, Borderline high >239 mg/dL, High Performed By: #### U A #### [facility] [employer] [address] [place], [place] [address] Cholesterol in HDL [Mass/Vol] 39 mg/dL Low >39 [facility] Comment on above: Result Comment: 40-5 9 mg/dL, Acceptable >59 mg/dL, High: Negative risk factor for coronary heart disease <40 mg/dL, Low: Positive risk factor for coronary heart disease Performed By: #### U A #### [facility] [employer] [address] [place], [place] [address] Cholesterol in LDL [Mass/Vol] 74 mg/dL Normal <100 [facility] Comment on above: Result Comment: <100 mg/dL, Optimal 100-129 mg/dL, Near optimal/above optimal 130-159 mg/dL, Borderline high 160-189 mg/dL, High >189 mg/dL, Very high Secondary prevention optimal LDL Cholesterol levels are recommended to be < 70 mg/dL Performed By: #### U A #### [facility] [address] [place] [address] Fasting Time 0 hrs Normal [facility] Comment on above: Result Comment: Elvia ected on 05/20 AT 1408: Previously reported as 12 Performed By: #### U A #### [place] [address] [place] [address] LDL:HDL Ratio 1.90 Normal <2.54 [facility] Comment on above: Result Comment: Refe rence: 1. National Cholesterol Education Program ATP III Guideline At-A-Glance Quick Desk Reference: National Heart, Lung, and Blood [place]. National Institutes of Health. 2001: NIH Publication No. 01-3305. 2. An International Atherosclerosis Society position paper: global recommendations for the management of dyslipidemia: executive summary, Atherosclerosis. 2014: 232(2):410-413. Performed By: #### U A #### [place] [address] [place] [phone] Non HDL Cholesterol 105 mg/dL Normal <130 [facility] Comment on above: Result Comment: <130 mg/dL, Optimal 130-159 mg/dL, Near optimal/above optimal 160-189 mg/dL, Borderline high 190-219 mg/dL, High >219 mg/dL, Very high Secondary prevention optimal non HDL Cholesterol levels are recommended to be < 100 mg/dL Performed By: #### U A #### [place] [id number] [place] [address] TC:HDL Ratio 3.69 Normal <5.10 [facility] Comment on above: Performed By: #### U A #### [facility] [employer] [address] [place] [address] Triglyceride [Mass/Vol] 156 mg/dL High <150 [facility] Comment on above: Result Comment: <150 mg/dL, Normal 150-199 mg/dL, Borderline high 200-499 mg/dL, High >499 mg/dL, Very high Performed By: #### U A #### [facility] [employer] [address], [place] [address] VLDL Cholesterol 31 mg/dL High <30 [facility] Comment on above: Performed By: #### U A #### [facility] [employer] [address] [place], [place] [address] PROGRESSon 05-20-2019 PROGRESS HNO ID: [id number] Author: Oni Su Service: ? Author Type: Nurse Practitioner Type: Progress Notes Filed: 05/21/2019 1:49 PM Note Text: [facility] [place] CTS Post op Follow up Keesha Bose is a 69 year old male who presents who is here for post operative follow up HPI: S/P on 05/10/2019 [facility] Surgeon: Sandro Dang MD SURGERY: MV repair (neochord P2, #35 Kimbrough band), TV repair (remodeling annuloplasty #25 Kimbrough band) Post op echo: CONCLUSIONS: - Technically difficult exam due to post op and suboptimal positioning. Limited parasternal images due to bandages. - Exam indication: S/p MV/TV repair (05/10/2019) - The left ventricle is normal in size. Left ventricular systolic function is normal. EF = 55 ? 5% (visual est.) Left ventricular diastolic function was not evaluated due to MVr. - The right ventricle is normal in size. Right ventricular systolic function is normal. - Post mitral valve repair. Kimbrough Mitral Valve Annuloplasty Ring (size #35). There ?is trace mitral valve regurgitation. The peak gradient is 5 mmHg and the mean gradient is 2 mmHg. - Post tricuspid valve repair. Kimbrough Tricuspid Valve Annuloplasty Ring (size #25). ?There is trace tricuspid valve regurgitation. The peak gradient is 4 mmHg and the ?mean gradient is 2 mmHg. - Exam was compared with the prior CC echocardiographic exam performed on 05/10/2019 (OR Echo). Interval MV/TV repair. ? Discharged on 05/14/2019 PAST MEDICAL HISTORY Diagnosis Date - Mitral valve disease - Thrombocytopenia (HCC) 2009 PAST SURGICAL HISTORY Procedure Laterality Date - PAST SURGICAL HISTORY OF Pt states lumpy tissue removed from neck x 2 - REMOVAL OF TONSILS,<12 Y/O Tonsillectomy - VASECTOMY 1984 ALLERGIES No Known Allergies Current Outpatient Medications Medication Sig - acetaminophen (TYLENOL) 500 mg tablet Take 1-2 tablets by mouth every 6 hours as needed for Pain or Fever. - iron polysaccharide complex (FERREX-150) 150 mg iron capsule Take 1 capsule by mouth twice daily for 14 days. - metoprolol tartrate, short acting, (LOPRESSOR) 25 mg tablet Take 0.5 tablets by mouth twice daily. - oxyCODONE IR (ROXICODONE) 5 mg immediate release tablet Take 1 tablet by mouth every 6 hours as needed for Pain for up to 7 days. - senna-docusate (SENNA-S) 8.6-50 mg per tablet Take 1 tablet by mouth twice daily as needed for Constipation. - aspirin, enteric coated (ASPIRIN, ENTERIC COATED) 81 mg EC tablet Take 81 mg by mouth once daily. - iv contrast (will be provided with radiology test) CT Cardiac - No IV access, insert saline lock prior to the sedation, infusion, injection for imaging exam. Discontinue saline lock post exam. If Pt. has a central line or IVAD, may access for administration according to line specific nursing protocol. Once exam is complete flush line and de-access according to line specific nursing protocol in the CT contrast administration guidelines link. - Cholecalciferol, Vitamin D3, (VITAMIN D) 1,000 unit ORAL Tab Take 185 mg by mouth once daily. - cyanocobalamin (VITAMIN B-12) 500 mcg ORAL Tab Take one(1) tablet daily. - BIOTIN ORAL Take 5,000 mcg by mouth once daily. - sildenafil (VIAGRA) 50 mg ORAL tablet As directed. - Sulfacetamide Sodium-Sulfur 10-5 % TOPICAL Lotn Apply to nose once daily. - THERAPEUTIC MULTIVITAMIN TAB Take one(1) tablet daily. No current facility-administered medications for this visit. Chief Complaints: I feel good Discharge Post Operative Course: Pain scale :Yes generalized soreness well managed Appetite: improving Activity: Walking ad yolanda around the house Elimination: normal, no constipation , urination is normal Sleep: difficulty staying asleep Mood: normal and good Incisions/Wounds: healing Review of Systems: HEENT: Negative for fevers since discharge, chills, night sweats and blurry vision Cardiac: Denies significant problems, chest pain, Arrhythmia and leg edema Respiratory: denies dyspnea, cough, orthopnea Musculoskeletal: No history of joint swelling, joint pain, or loss of range of motion. Neuro: Denies neurological complaints Physical Exam: BP 106/64 (BP Site: Left Arm, BP Position: Sitting, BP Cuff Size: Regular Adult) Pulse 74 Temp 36.9 ?C (98.5 ?F) (Temporal) Ht 182.9 cm (6') Wt 70.8 kg (156 lb) SpO2 100% BMI 21.16 kg/m? Appearance: well groomed, thin, white male, in no acute distress Neck: No neck vein distention Cardiac: regular S1, S2, No murmur, No rub Lungs: Clear breath sounds bilaterally without wheeze or dullness Abdomen: soft, non tender, Normal bowel sounds Extremities: No edema Sternum: stable, no click Sternotomy site: healing, clean, dry and intact Wound: NA Procedures: N/A IMPRESSION AND PLAN: 1.S/P on 05/10/2019 [facility] Surgeon: Sandro Dang MD SURGERY: MV repair (neochord P2, #35 Kimbrough band), TV repair (remodeling annuloplasty #25 Kimbrough band) Discharged on 05/14/2019 EC05/20/2019 Diagnosis:SINUS RHYTHM WITH 1ST DEGREE AV BLOCK COMPLETE RIGHT BUNDLE BRANCH BLOCK MINIMAL VOLTAGE CRITERIA FOR LVH, MAY BE NORMAL VARIANT ABNORMAL ECG ? Ventricular Rate : 67 ?BPM Atrial Rate : 67 ?BPM 2. Atelectasis/FVO - improving - weight: down 6lbs since discharge - encouraged to continue deep breathing exercises and walking CXR:05/20/19 RESULT: Lines, tubes, and devices: ?None. Lungs and pleura: ?No consolidation. No lung mass. ?Interval resolution of small bilateral pleural effusions and mild bilateral basilar atelectases. ?Interval resolution of small right apical pneumothorax. No left pneumothorax. Cardiomediastinal silhouette: ?Normal cardiomediastinal silhouette. ? Stable mitral and tricuspid annuloplasty. Bones and soft tissues: ?Unremarkable. 4. Anemia/Thrombocytopeni a - pre op platelet baseline 108k - currently resolved - continue to monitor locally LABS:05/20/2019 Component Latest Ref Rng AND Units 05/14/2019 05/20/2019 Glucose 74 - 99 mg/dL 118 (H) 75 BUN 9 - 24 mg/dL 12 17 Creatinine 0.73 - 1.22 mg/dL 0.88 1.13 Sodium 136 - 144 mmol/L 137 141 Potassium 3.7 - 5.1 mmol/L 4.0 4.7 Component Latest Ref Rng AND Units 05/14/2019 05/20/2019 WBC 3.70 - 11.00 k/uL 4.76 6.83 RBC 4.20 - 6.00 m/uL 2.05 (L) 2.88 (L) Hemoglobin 13.0 - 17.0 g/dL 7.1 (L) 9.9 (L) Hematocrit 39.0 - 51.0 % 20.2 (L) 30.7 (L) Platelet Count 150 - 400 k/uL 70 (L) 268 Summary: See above Follow up with PCP next week cbc and cmp Follow up with [employer] in 4-6 weeks. Call CTS OPD with any issues, concerns or worsening surgical symptoms. Post op care and discharge orders reviewed with the patient- all questions were answered. Surgical sites healing without complication Discussed new medications, dosage, route of administration and side effects Reviewed walking program at home Reviewed diet guidelines for recovery from surgery Return to the clinic prn with signs or symptoms of infection, fevers, SOB, or pleural effusion SBE prophylaxis reviewed Discussed wound care Oni Su APRN.[facility] Normal [facility] PROGRESS HNO ID: [id number] Author: Saad Lemus (Tech) Service: Radiology Author Type: Wheel And Axle Inspector Type: Progress Notes Filed: 05/20/2019 1:52 PM Note Text: Radiology Service Progress Note PATIENT NAME: Keesha Bose DATE OF SERVICE: May 20, 2019 TIME: 1:52 PM PATIENT IDENTITY VERIFICATION COMPLETED USING TWO (2) IDENTIFIERS: Name and Date of confirmed by patient verbally. PATIENT GENDER DATA: Male PATIENT RELEVANT IMPLANT DATA REVIEWED: Not Applicable RADIOLOGY DEPARTMENT: General X-ray: Exam(s) Completed: Chest X-Ray PERIPHERAL IV DATA: Not applicable SIGNED BY: Saad Lemus May 20, 2019 1:52 PM Normal [facility] XR CHEST 2V FRONTAL/LATon XR CHEST 2V FRONTAL/LAT * * *Final Repor t* * * DATE OF EXAM: May 20 2019 1:53PM CLARISA [id number] - XR CHEST 2V FRONTAL/LAT / PROCEDURE REASON: Follow-up examination following surgery * * * * Physician Interpretation * * * * EXAMINATION: CHEST RADIOGRAPH (2 VIEW FRONTAL and LATERAL) CLINICAL HISTORY: Follow-up examination following surgery MQ: [id number] EXAM DATE/TIME: 05/20/2019 1:53 PM COMPARISON: 05/13/2019 RESULT: Lines, tubes, and devices: None. Lungs and pleura: No consolidation. No lung mass. Interval resolution of small bilateral pleural effusions and mild bilateral basilar atelectases. Interval resolution of small right apical pneumothorax. No left pneumothorax. Cardiomediastinal silhouette: Normal cardiomediastinal silhouette. Stable mitral and tricuspid annuloplasty. Bones and soft tissues: Unremarkable. IMPRESSION: Interval resolution of small bilateral pleural effusions and right apical pneumothorax. No acute radiographic abnormality. Ct Manager: EVERARDO Transcribe Date/Time: May 20 2019 2:59P Dictated by : SUE COOMBS MD This examination was interpreted and the report reviewed and electronically signed by: SUE COOMBS MD on May 20 2019 3:00PM EST [id number] Normal [facility] CNCOon 05-18-2019 CNCO Letter Text Normal [facility] CBCon 05-14-2019 Absolute nRBC <0.01 Normal <0.01 [facility] Comment on above: Performed By: #### C YOUNG, CMP ####[facility] [place], [place] [phone] Erythrocyte distribution width (RBC) [Ratio] 12.8 % Normal 11.5-15.0 [facility] Comment on above: Performed By: #### C YOUNG, CMP ####[facility] [place], [place] [phone] Hematocrit (Bld) [Volume fraction] 20.2 % Low 39.0-51.0 [facility] Comment on above: Performed By: #### C YOUNG, CMP ####[facility] [place], [place] [phone] Hemoglobin (Bld) [Mass/Vol] 7.1 g/dL Low 13.0-17.0 [facility] Comment on above: Performed By: #### C BC, CMP ####[facility], [place] [phone] MCH (RBC) [Entitic mass] 34.6 pG High 26.0-34.0 [facility] Comment on above: Performed By: #### C BC, CMP ####[facility], [place] [phone] MCHC (RBC) [Mass/Vol] 35.1 g/dL Normal 30.5-36.0 [facility] Comment on above: Performed By: #### C BC, CMP ####[place] [address], [place] [phone] MCV (RBC) [Entitic vol] 98.5 fL Normal 80.0-100.0 [facility] Comment on above: Performed By: #### C BC, CMP ####[facility], [place] [phone] Platelet mean volume (Bld) [Entitic vol] 11.2 fL Normal 9.0-12.7 [facility] Comment on above: Performed By: #### C BC, CMP ####[place] [address], [place] [phone] Platelets (Bld) [#/Vol] 70 10*3/uL Low 150-400 [facility] Comment on above: Result Comment: Resu lt checked and verified No clot detected. Performed By: #### C BC, CMP ####[facility], [place] [phone] RBC (Bld) [#/Vol] 2.05 10*6/uL Low 4.20-6.00 [facility] Comment on above: Performed By: #### C BC, CMP ####[facility], [place] [phone] WBC (Bld) [#/Vol] 4.76 10*3/uL Normal 3.70-11.00 [facility] Comment on above: Performed By: #### C BC, CMP ####[place] [address], [place] [phone] Comp Metabolic Panelon 05-14 Albumin [Mass/Vol] 3.3 g/dL Low 3.9-4.9 [facility] Comment on above: Performed By: #### C BC, CMP ####[place] [address], [place] [phone] ALP [Catalytic activity/Vol] 43 U/L Normal 38-113 [facility] Comment on above: Performed By: #### C BC, CMP ####[place] [address], [place] [phone] ALT [Catalytic activity/Vol] 13 U/L Normal 10-54 [facility] Comment on above: Performed By: #### C BC, CMP ####[place] [address], [place] [phone] Anion gap [Moles/Vol] 10 mmol/L Normal 9-18 [facility] Comment on above: Performed By: #### C BC, CMP ####[place] [address], [place] [phone] AST [Catalytic activity/Vol] 28 U/L Normal 14-40 [facility] Comment on above: Performed By: #### C BC, CMP ####[place] [address], [place] [phone] Bilirubin [Mass/Vol] 0.5 mg/dL Normal 0.2-1.3 [facility] Comment on above: Performed By: #### C BC, CMP ####[place] [address], [place] [phone] Calcium [Mass/Vol] 8.7 mg/dL Normal 8.5-10.2 [facility] Comment on above: Performed By: #### C BC, CMP ####[facility] [place], [place] [phone] Chloride [Moles/Vol] 101 mmol/L Normal 97-105 [facility] Comment on above: Performed By: #### C BC, CMP ####[facility] [place], [place] [phone] CO2 [Moles/Vol] 26 mmol/L Normal 22-30 [facility] Comment on above: Performed By: #### C BC, CMP ####[place] [address] [place] [phone] Creatinine [Mass/Vol] 0.88 mg/dL Normal 0.73-1.22 [facility] Comment on above: Performed By: #### C BC, CMP ####[place] [address] [place], [place] [phone] eGFR- Amer. >60 Normal [facility] Comment on above: Performed By: #### C BC, CMP ####[place] [address] [place] [phone] GFR/1.73 sq M predicted among non-blacks MDRD (S/P/Bld) [Vol rate/Area] mL/min/{1.73_m2} Normal [facility] Comment on above: Result Comment: eGFR (Estimated GFR) Units of measure: mL/min/1.73 meters squared eGFR is derived from the reexpressed MDRD Study equation using the following parameters: serum creatinine, age, gender and race. The creatinine assay has been calibrated to be traceable to IDMS. An eGFR <60 mL/min/1.73m2 for >3 months is consistent with chronic kidney disease. Refer to KDOQI guidelines for clinical interpretation. In patients with unstable renal function, e.g. those with acute kidney injury, the eGFR may not accurately reflect actual GFR. Performed By: #### C BC, CMP ####[place] [address] [place], [place] [phone] Glucose [Mass/Vol] 118 mg/dL High 74-99 [facility] Comment on above: Result Comment: The [place] [employer] (ADA) provides guidance for cutoff values for fasting glucose and random glucose. The ADA defines fasting as no caloric intake for at least 8 hours. Fasting plasma glucose results between 100 to 125 mg/dL indicate increased risk for diabetes (prediabetes). Fasting plasma glucose results greater than or equal to 126 mg/dL meet the criteria for diagnosis of diabetes. In the absence of unequivocal hyperglycemia, results should be confirmed by repeat testing. In a patient with classic symptoms of hyperglycemia or hyperglycemic crisis, random plasma glucose results greater than or equal to 200 mg/dL meet the criteria for diagnosis of diabetes. Reference: Standards of Medical Care in Diabetes 2016, [place] [employer]. Diabetes Care. 2016.39(Suppl 1). Performed By: #### C BC, CMP ####[address] [phone] Potassium [Moles/Vol] 4.0 mmol/L Normal 3.7-5.1 [facility] Comment on above: Performed By: #### C BC, CMP ####[address] [phone] Protein [Mass/Vol] 5.5 g/dL Low 6.3-8.0 [facility] Comment on above: Performed By: #### C BC, CMP ####[address] [phone] Sodium [Moles/Vol] 137 mmol/L Normal 136-144 [facility] Comment on above: Performed By: #### C BC, CMP ####[address] [phone] Urea nitrogen [Mass/Vol] 12 mg/dL Normal 9-24 [facility] Comment on above: Performed By: #### C BC, CMP ####[address] [phone] Hematocriton 02-14-2020 Hematocrit (Bld) [Volume fraction] 22.7 % Low 39.0-51.0 [facility] Comment on above: Performed By: #### H CT, HGB ####[facility] [address] [place], [place] [phone] Hemoglobinon 05-14-2019 Hemoglobin (Bld) [Mass/Vol] 7.9 g/dL Low 13.0-17.0 [facility] Comment on above: Performed By: #### H CT, HGB ####[facility] [address] [place], [place] [phone] PLAN OF CAREon 05-14-2019 PLAN OF CARE HNO ID: [id number] Author: Nayla Tang (Spanish Literature Professor) Service: Pharmacy Author Type: ? Type: Plan of Care Filed: 05/14/2019 4:07 PM Note Text: PHARMACY BEDSIDE DELIVERY SERVICE Patient Name: Keesha Bose The marked outpatient medications were Filled at: [facility] and delivered to the patient's bedside to patient Medication List START taking these medications acetaminophen 500 mg tablet Commonly known as: TYLENOL Take 1-2 tablets by mouth every 6 hours as needed for Pain or Fever. otc iron polysaccharide complex 150 mg iron capsule Commonly known as: FERREX-150 Take 1 capsule by mouth twice daily for 14 days. Out of stock, script put on file metoprolol tartrate (short acting) 25 mg tablet Commonly known as: LOPRESSOR Take 0.5 tablets by mouth twice daily. X oxyCODONE IR 5 mg immediate release tablet Commonly known as: ROXICODONE Take 1 tablet by mouth every 6 hours as needed for Pain for up to 7 days. Paper script given to patient, pt unsure if they want ot fill it senna-docusate 8.6-50 mg per tablet Commonly known as: SENNA-S Take 1 tablet by mouth twice daily as needed for Constipation. X CONTINUE taking these medications aspirin, enteric coated 81 mg EC tablet Commonly known as: ASPIRIN, ENTERIC COATED BIOTIN ORAL cholecalciferol 1,000 unit Tab tablet Commonly known as: Vitamin D cyanocobalamin 500 mcg Tab tab(s) Commonly known as: VITAMIN B-12 iv contrast (will be provided with radiology test) CT Cardiac - No IV access, insert saline lock prior to the sedation, infusion, injection for imaging exam. Discontinue saline lock post exam. If Pt. has a central line or IVAD, may access for administration according to line specific nursing protocol. Once exam is complete flush line and de-access according to line specific nursing protocol in the CT contrast administration guidelines link. sildenafil 50 mg tablet Commonly known as: VIAGRA Sulfacetamide Sodium-Sulfur 10-5 % Lotn therapeutic multivitamin tablet Commonly known as: THERA VITAMIN You might also be taking other medications not listed above. If you have questions about any of your other medications, talk to the person who prescribed them or your Primary Care Provider. STOP taking these medications mupirocin 2% Oint Commonly known as: BACTROBAN Nayla Tang (Mevio) PAGER: May 14, 2019 2:20 pm [facility] PLAN [facility] HNO ID: [id number] Author: Nayla Tang (Mevio) Service: Pharmacy Author Type: ? Type: Plan of Care Filed: 05/14/2019 12:08 PM Note Text: Pharmacy Discharge Medication Service: This patient has elected to receive their discharge prescriptions through the [facility] Bedside Prescription Delivery program. The prescriptions are currently being processed. A follow-up note will be entered once the prescriptions have been filled and delivered to the patient. Please contact me with any questions or updates to the patient's discharge medications. Nayla Tang (Mevio) DCT Contact Info: [facility] HNO ID: [id number] Author: Nayla Tang (Mevio) Service: Pharmacy Author Type: ? Type: Plan of Care Filed: 05/14/2019 12:07 PM Note Text: SALES OFFICER BEDSIDE DELIVERY SURVEY 1. Patient to use [facility] Bedside Delivery - YES Insurance Information as follows: 2. Insurance card on file - YES 3. Credit card for payment - N/A [facility] PROCEDUREon 05-14-2019 PROCEDURE HNO ID: [id number] Author: Angelita Garibay Service: Cardiac Surgery Author Type: Nurse Practitioner Type: Procedures Filed: 05/14/2019 10:43 AM Note Text: Platelet Count 70 05/14/2019 Platelet Count 59 05/13/2019 Platelet Count 62 2019 Platelet Count 81 05/11/2019 PT INR 1.1 05/10/2019 PT INR 1.0 05/05/2019 rhythm normal sinus rhythm 2 ventricular wires were discontinued (PULLED) without difficulty Mr. Keesha Bose and bedside RN aware of 30 min bedrest restriction. BP cuff applied and cycled for frequent VS monitoring. Angelita Garibay, ELECTRICIAN SUBSTATION.[facility] Normal [facility] PROGRESSon 05-14-2019 PROGRESS HNO ID: [id number] Author: Angelita Maravilla (Jb) Lani Service: Cardiac Surgery Author Type: Nurse Practitioner Type: Progress Notes Filed: 05/14/2019 10:55 AM Note Text: [facility] POSTOP PROGRESS NOTE Day of Surgery:05/10/2019 Surgeon: Sandro Dang MD S/P SURGERY: MV repair (neochord P2, #35 Kimbrough band), TV repair (remodeling annuloplasty #25 Kimbrough band) INTERVAL EVENTS / PERTINENT ROS: POD#4 No acute events overnight. Remains hemodynamically stable. Will remove PMW today. PLT count improved to 70k today. H/H down-trend to 7.1/20.2 on am labs without signs of active bleeding and pt. completely asymptomatic, feels well and hemodynamically stable. Repeat h/h 7.9/22.7; which is stable from yesterday. Per CTS, holding off on transfusion and starting Iron. Echo completed yesterday and WNL. Cleared for dc later day and pt. agreeable. Rhythm: NSR with 1st degree HB Intake/Output Summary (Last 24 hours) at 05/14/2019 0702 Last data filed at 05/13/20192128 Gross per 24 hour Intake 800 ml Output 250 ml Net 550 ml EKG: most recent image reviewed, most recent report reviewed TELE: most recent recordings reviewed CXR: most recent image reviewed, most recent report reviewed Echocardiogram: most recent report reviewed PHYSICAL EXAM: BP 129/61 Pulse 69 Temp 37.2 ?C (99 ?F) (Oral) Resp 18 Ht 182.9 cm (6') Wt 75.9 kg (167 lb 4.8 oz) SpO2 97% BMI 22.69 kg/m? Neuro: AANDO x 3 moves all extremities with no apparent weakness. Family at bedside. Ambulating about room independently. Up in chair. CV: no jugular venous distention Heart Exam: RRR without murmur, gallop, or rubs. No ectopy. Temporary pacer wires intact. Resp: clear to auscultation bilaterally. On room air. Abd: The abdomen is soft, nontender, nondistended; BS normal; no masses or organomegaly noted. Last BM 05/13 Skin: Skin color, texture, turgor normal, no suspicious rashes or lesions Ext: no edema. + pulses. Wearing bianka hose. Surgical incisions: MSI clean, dry and intact Chest tube: No Pacer wires: Yes, V wires grounded HISTORY, ASSESSMENT AND PLAN: Problem Transition of Care Performed With Sharing of Clinical Summary Indication for Surgery: Mitral regurgitation, tricuspid regurgitation Preop LVEF: 65% RVF: Normal CARDS: Carmelo Moreno CATH: negative EKG: SB w/ 1st degree HB Postop LVEF: Normal RVF: Normal Important/Relevant PMH/PSH: MR, ex smoker Airway Difficulty: Grade I - No special instrumentation Pacing wires: Yes: Ventricular: When discontinuing pacing wires: Pull all pacing wires Chronological list of Surgeries and Major Events 05/10/2019: MV repair (neochord P2, #35 Kimbrough band), TV repair (remodeling annuloplasty #25 Kimbrough band) A/P of Major Active ICU Problems Cardiac: Maintain MAP 70-80. Resp: Tolerating RA. BPH, OOB and Pep. Uro: Garcia replaced 05/11 d/t urinary retention; removed 05/12 Transferred to floor 05/12 To do or to watch: POD#4. No tubes + PMW (remove today). SR w/ 1st degree HB. On room air. - S/p MVr, TVr: ASA. BB. No surg path. Post-op echo completed 05/13: EF 55%, trace MR, trace TR, no pericardial effusion. - FVO: Improving. Up 2.1kg. Continue Lasix inpatient; not needed for dc. - Thrombocytopenia: Trended as low as 59k (05/13). Baseline 108k. Now improving top 70k. Resume ASA. - ABL anemia: Trended as low as 7.1/20.2 (05/14). No bleeding; asymptomatic and hemodynamically stable. Repeat H/H 05/14: 7.9/22.7. No transfusion and starting Iron. - urinary retention: symptoms resolved. - Dispo: 69 yo male from [facility]. CM following. PT rec home. No skilled needs. [facility] f[facility]u scheduled. Pt. 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 Cleared for dc home 05/14 if stable after PMW removal Discharge Planning: Anticipated Discharge Date: 05/14/2019 Barriers to Discharge: No Barriers to Discharge Care Management Discharge Needs: Needs Prior to Discharge: None ' Acute Blood Loss Anemia History: post OHS. Assessment: HANDH down-trending to 7.1/20.2 on am labs; asymptomatic and hemodynamically stable. No evidence of bleeding. Repeat H/H 7.9/22.7 (similar to yesterday's values) Plan: Pt. completely asymptomatic. No transfusion at this time per Dr. Dang. Starting Iron. DAILY STEP DOWN CHECKLIST FOR CATHETER RELATED INFECTION PREVENTION CVC, PICC, Yves and/or Permacath present? No Does the patient have a urinary catheter beyond POD 2? No VTE Risk Assessment: High risk VTE Mechanical and/or Pharmacologic Prophylaxis: IPC Device and GCS Labs and medications reviewed in Epic Case discussed in depth with: Dr. Spears and Dr. Dang SIGNATURE: Angelita Garibay APRN.CNP PATIENT NAME: Keesha Bose DATE: May 14, 2019 TIME: 10:15 AM PAGER/CONTACT #: [phone] ETX#[id number] [facility] Type and Screenon 05-14-2019 ABO/RH(D) Positive [facility] Comment on above: Performed By: #### T SCR ####[facility] [address] [place], [place] [phone] ALLIED HEALTHon 05-13-2019 ALLIED HEALTH HNO ID: [id number] Author: Annalise (Ex Phys) Tawanda Service: Cardiovascular Medicine Author Type: Canvas Cutter Machine Type: Allied Health Filed: 05/13/2019 4:16 PM Note Text: CARDIAC REHABILITATION PHASE I ASSESSMENT PATIENT NAME: Keesha Bose SERVICE DATE: May 13, 2019 SESSION TIME: 3:30 pm BP HR SpO2 % Flow/Rate L/min Pain (0-10) Supine No N/A N/A N/A N/A N/A Seated (edge of bed > 30 sec) Yes 101/51 68 98 RA 0 Sit --> Stand (stand unassisted > 30 sec) Yes N/A N/A N/A RA 0 Ambulation (>10? unassisted) No 132/62 76 98 RA 0 Post No N/A N/A N/A N/A N/A Pre-Exercise Assessment 1. Ankle Pumps x 5: Left - Yes Right - Yes 2. Point Pain in Calf: Left - No Right - No 3. Dorsiflex: Left - Yes Right - Yes 4. Overhead Reach x 3: Left - Yes Right - Yes 5. Unstable Sternum: No 6. Shoulder Pain: Left - No Right - No Exercise Distance: ~500 feet Duration: 3-5 minutes Assistance: Standby supervision Device: Walker RECOMMENDATIONS: Ambulate: with supervision Oxygen: without O2 Assist Device: yes - walker COMMENTS: Pt seen seated near bedside and agreed to ambulate. Ambulated ~500 ft with use of the walker and SBA. Tolerated activity well. No complaints throughout assessment. Pt returned to seated position following assessment. Instructed on continued increased ambulation as tolerated 4-6 times per day. Reviewed signs and symptoms of exercise intolerance. Phase 2 cardiac rehab order given and discussed. Encouraged pt/family to attend Home Activity Guidelines class (M,W,F 3:00-3:30pm) in room [address] [place] [address]. Home Program: Provided and reviewed home activity guidelines as outlined below. Frequency: 4 - 6 days/week Intensity: 3 - 4/10 RPE Type: walking - start at 3 - 5 minutes/4 - 6 x day Duration: 20 - 30 minutes -----> 45 + minutes Annalise Neff, Ex Phys Phone: [phone] May 13, 2019 4:13 PM [facility] CASE MANAGEM HNO ID: [id number] Author: Edilia (Rn) Guerrero RN Service: Care Management Author Type: Registered Nurse Type: Care Mgt Progress Note Filed: 05/13/2019 11:33 AM Note Text: CARE MANAGEMENT PROGRESS NOTE SERVICE DATE: May 13, 2019 SERVICE TIME: 11:30 AM LOS: 3 days Needs Prior to Discharge: None Pt transferred from ICU to [facility] s/p MVr, TVr. Met with pt at bedside. Pt lying in bed, echo in progress. 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 Plan for discharge home with basic needs when medically ready for discharge. SIGNATURE: Edilia Masters RN PATIENT NAME: Keesha Bose DATE: May 13, 2019 TIME: 11:30 AM PAGER/CONTACT #: [phone] [facility] CBCon 05-13-2019 Absolute nRBC <0.01 Normal <0.01 [facility] Comment on above: Performed By: #### C BC, CMP ####[address] [phone] Erythrocyte distribution width (RBC) [Ratio] 12.8 % Normal 11.5-15.0 [facility] Comment on above: Performed By: #### C BC, CMP ####[address] [phone] Hematocrit (Bld) [Volume fraction] 22.0 % Low 39.0-51.0 [facility] Comment on above: Performed By: #### C BC, CMP ####[address] [phone] Hemoglobin (Bld) [Mass/Vol] 7.5 g/dL Low 13.0-17.0 [facility] Comment on above: Performed By: #### C BC, CMP ####[address] [phone] MCH (RBC) [Entitic mass] 33.5 pG Normal 26.0-34.0 [facility] Comment on above: Performed By: #### C BC, CMP ####[address] [phone] MCHC (RBC) [Mass/Vol] 34.1 g/dL Normal 30.5-36.0 [facility] Comment on above: Performed By: #### C BC, CMP ####[facility], [place] [phone] MCV (RBC) [Entitic vol] 98.2 fL Normal 80.0-100.0 [facility] Comment on above: Performed By: #### C BC, CMP ####[facility], [place] [phone] Platelet mean volume (Bld) [Entitic vol] 12.1 fL Normal 9.0-12.7 [facility] Comment on above: Performed By: #### C BC, CMP ####[place] [id number], [place] [phone] Platelets (Bld) [#/Vol] 59 10*3/uL Low 150-400 [facility] Comment on above: Result Comment: No c lot detected. Performed By: #### C BC, CMP ####[facility], [place] [phone] RBC (Bld) [#/Vol] 2.24 10*6/uL Low 4.20-6.00 [facility] Comment on above: Performed By: #### C BC, CMP ####[facility], [place] [phone] WBC (Bld) [#/Vol] 5.53 10*3/uL Normal 3.70-11.00 [facility] Comment on above: Performed By: #### C BC, CMP ####[facility], [place] [phone] Comp Metabolic Panelon 05-13 Albumin [Mass/Vol] 3.1 g/dL Low 3.9-4.9 [facility] Comment on above: Performed By: #### C BC, CMP ####[facility], [place] [phone] ALP [Catalytic activity/Vol] 38 U/L Normal 38-113 [facility] Comment on above: Performed By: #### C BC, CMP ####[place] [address], [place] [phone] ALT [Catalytic activity/Vol] 8 U/L Low 10-54 [facility] Comment on above: Performed By: #### C BC, CMP ####[place] [address], [place] [phone] Anion gap [Moles/Vol] 9 mmol/L Normal 9-18 [facility] Comment on above: Performed By: #### C BC, CMP ####[place] [address], [place] [phone] AST [Catalytic activity/Vol] 28 U/L Normal 14-40 [facility] Comment on above: Performed By: #### C BC, CMP ####[place] [address], [place] [phone] Bilirubin [Mass/Vol] 0.6 mg/dL Normal 0.2-1.3 [facility] Comment on above: Performed By: #### C BC, CMP ####[place] [address], [place] [phone] Calcium [Mass/Vol] 8.7 mg/dL Normal 8.5-10.2 [facility] Comment on above: Performed By: #### C BC, CMP ####[place] [address], [place] [phone] Chloride [Moles/Vol] 101 mmol/L Normal 97-105 [facility] Comment on above: Performed By: #### C BC, CMP ####[place] [address], [place] [phone] CO2 [Moles/Vol] 26 mmol/L Normal 22-30 [facility] Comment on above: Performed By: #### C BC, CMP ####[place] [address] [place], [place] [phone] Creatinine [Mass/Vol] 1.02 mg/dL Normal 0.73-1.22 [facility] Comment on above: Performed By: #### C YOUNG, CMP ####[facility] [place], [place] [phone] eGFR- Amer. >60 Normal [facility] Comment on above: Performed By: #### C YOUNG, CMP ####[address] [phone] GFR/1.73 sq M predicted among non-blacks MDRD (S/P/Bld) [Vol rate/Area] mL/min/{1.73_m2} Normal [facility] Comment on above: Result Comment: eGFR (Estimated GFR) Units of measure: mL/min/1.73 meters squared eGFR is derived from the reexpressed MDRD Study equation using the following parameters: serum creatinine, age, gender and race. The creatinine assay has been calibrated to be traceable to IDMS. An eGFR <60 mL/min/1.73m2 for >3 months is consistent with chronic kidney disease. Refer to KDOQI guidelines for clinical interpretation. In patients with unstable renal function, e.g. those with acute kidney injury, the eGFR may not accurately reflect actual GFR. Performed By: #### C YOUNG, CMP ####[facility] [place], [place] [phone] Glucose [Mass/Vol] 97 mg/dL Normal 74-99 [facility] Comment on above: Result Comment: The [place] [employer] (ADA) provides guidance for cutoff values for fasting glucose and random glucose. The ADA defines fasting as no caloric intake for at least 8 hours. Fasting plasma glucose results between 100 to 125 mg/dL indicate increased risk for diabetes (prediabetes). Fasting plasma glucose results greater than or equal to 126 mg/dL meet the criteria for diagnosis of diabetes. In the absence of unequivocal hyperglycemia, results should be confirmed by repeat testing. In a patient with classic symptoms of hyperglycemia or hyperglycemic crisis, random plasma glucose results greater than or equal to 200 mg/dL meet the criteria for diagnosis of diabetes. Reference: Standards of Medical Care in Diabetes 2016, [place] [employer]. Diabetes Care. 2016.39(Suppl 1). Performed By: #### C BC, CMP ####[place] [address] [place], [place] [phone] Potassium [Moles/Vol] 4.0 mmol/L Normal 3.7-5.1 [facility] Comment on above: Performed By: #### C BC, CMP ####[address] [phone] Protein [Mass/Vol] 5.2 g/dL Low 6.3-8.0 [facility] Comment on above: Performed By: #### C BC, CMP ####[place] [address] [place], [place] [phone] Sodium [Moles/Vol] 136 mmol/L Normal 136-144 [facility] Comment on above: Performed By: #### C BC, CMP ####[address] [phone] Urea nitrogen [Mass/Vol] 15 mg/dL Normal 9-24 [facility] Comment on above: Performed By: #### C BC, CMP ####[facility] [place], [place] [phone] ECG COMPLETEon 05-13-2019 ECG COMPLETE NAME : KEESHA BOSE PID : [id number] : 1950 Gender : Male Race : ORD : [id number] Procedure Date : May 13 2019 08:09:08 Edit Date : May 17 2019 09:36:09 Diagnosis:SINUS RHYTHM WITH 1ST DEGREE AV BLOCK COMPLETE RIGHT BUNDLE BRANCH BLOCK ST & ANTERIOR T WAVE ABNORMALITY ABNORMAL ECG Confirmed by MD CAMACHO, PhD, UDAY ([id number]) on 05/17/2019 9:36:07 AM Ventricular Rate : 70 BPM Atrial Rate : 70 BPM P-R Interval : 250 ms QRS Duration : 122 ms Q-T Interval : 400 ms QTC Calculation(Bazett) : 432 ms P Gilbert : 19 degrees R Gilbert : 17 degrees T Gilbert : 14 degrees Test Reason : Post-OP Location : 353 : J53 [id number] Overread By : MD CAMACHO, PhD,UDAY Edited By : MD CAMACHO, PhD,UDAY Referred By : , Acquired by : EDUARDA ALEX [facility] PROGRESSon 05-13-2019 PROGRESS HNO ID: [id number] Author: Luis Matute (Rt) Saad Cochran Service: Radiology Author Type: Wheel And Axle Inspector Type: Progress Notes Filed: 05/13/2019 2:24 PM Note Text: Radiology Service Progress Note PATIENT NAME: Keesha Bose DATE OF SERVICE: May 13, 2019 TIME: 2:24 PM PATIENT IDENTITY VERIFICATION COMPLETED USING TWO (2) IDENTIFIERS: Name and Date of confirmed by identification band. PATIENT GENDER DATA: Male PATIENT RELEVANT IMPLANT DATA REVIEWED: Yes RADIOLOGY DEPARTMENT: General X-ray: Exam(s) Completed: Chest X-Ray PERIPHERAL IV DATA: Not applicable SIGNED BY: RT Liat May 13, 2019 2:24 PM [facility] PROGRESS HNO ID: [id number] Author: Angelita Maravilla (Roundhouse Supervisor) Lani Service: Cardiac Surgery Author Type: Nurse Practitioner Type: Progress Notes Filed: 05/13/2019 11:25 AM Note Text: [facility] POSTOP PROGRESS NOTE Day of Surgery:05/10/2019 Surgeon: Sandro Dang MD S/P SURGERY: MV repair (neochord P2, #35 Kimbrough band), TV repair (remodeling annuloplasty #25 Kimbrough band) INTERVAL EVENTS / PERTINENT ROS: POD#3. Transferred to floor last evening. No acute events and remains hemodynamically stable. FVO present. Weight up 4.2kg. Will begin diuresis. Thrombocytopenia persisting with PLT count down-trending to 59k. H/H also down to 7.5/22. Holding SQ heparin and ASA. No evidence of bleeding and hemodynamically stable. Starting low dose beta-shannen. Mobilize now that on tele. Has PT/OT eval ordered. Post-op echo ordered. Rhythm: NSR with 1st degree HB Intake/Output Summary (Last 24 hours) at 05/13/2019 0739 Last data filed at 05/13/2019 0700 Gross per 24 hour Intake 880 ml Output 2035 ml Net -1155 ml EKG: most recent image reviewed, most recent report reviewed TELE: most recent recordings reviewed CXR: most recent image reviewed, most recent report reviewed Echocardiogram: most recent report reviewed PHYSICAL EXAM: BP 112/57 Pulse 73 Temp 37.5 ?C (99.5 ?F) (Oral) Resp 18 Ht 182.9 cm (6') Wt 75.9 kg (167 lb 4.8 oz) SpO2 96% BMI 22.69 kg/m? Neuro: AANDO x 3 moves all extremities with no apparent weakness. Family at bedside. Up in chair. CV: no jugular venous distention Heart Exam: RRR without murmur, gallop, or rubs. No ectopy. Temporary pacer wires intact. Resp: clear to auscultation bilaterally upper lobes and diminished breath sounds right lung base. On room air. Abd: The abdomen is soft, nontender, nondistended; BS normal; no masses or organomegaly noted. Skin: Skin color, texture, turgor normal, no suspicious rashes or lesions Ext: no edema. + pulses. Wearing bianka hose. Surgical incisions: MSI clean, dry and intact Chest tube: No Pacer wires: Yes, V wires grounded HISTORY, ASSESSMENT AND PLAN: Problem Transition of Care Performed With Sharing of Clinical Summary Indication for Surgery: Mitral regurgitation, tricuspid regurgitation Preop LVEF: 65% RVF: Normal CARDS: Carmelo Moreno CATH: negative EKG: SB w/ 1st degree HB Postop LVEF: Normal RVF: Normal Important/Relevant PMH/PSH: MR, ex smoker Airway Difficulty: Grade I - No special instrumentation Pacing wires: Yes: Ventricular: When discontinuing pacing wires: Pull all pacing wires Chronological list of Surgeries and Major Events 05/10/2019: MV repair (neochord P2, #35 Kimbrough band), TV repair (remodeling annuloplasty #25 Kimbrough band) A/P of Major Active ICU Problems Cardiac: Maintain MAP 70-80. Resp: Tolerating RA. BPH, OOB and Pep. Uro: Garcia replaced 05/11 d/t urinary retention; removed 05/12 Transferred to floor 05/12 To do or to watch: POD#3. No tubes + PMW. NSR w/ 1st degree HB. On room air. - S/p MVr, TVr: ASA. Starting low dose BB. No surg path. Post-op echo ordered. - FVO: Up 4.2kg. Start IV lasix - Thrombocytopenia: Trended as low as 59k (05/13). Baseline 108k. Holding ASA, SQ Heparin. (last toradol 05/12) - ABL anemia: Trended as low as 7.5/22 (05/13). No bleeding; asymptomatic. No transfusion for now. - urinary retention: symptoms resolved. - Dispo: 69 yo male from [facility]. CM following. PT/OT eval in progress but pt. is ambulatory and now skilled needs anticipated. [facility] f[facility]u requested. Pt. 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 No surg path. Plan: Holding ASA (d/t thrombocytopenia). Start low dose BB. Post-op echo ordered. Tricuspid Regurgitation History: mild (1+) tricuspid valve regurgitation Assessment: s/p 05/10/19 TVr. No surg path. Plan: Holding ASA (d/t thrombocytopenia). Post-op echo ordered. Acute Blood Loss Anemia History: post OHS. Assessment: HANDH down-trending to 7.5/22; asymptomatic and hemodynamically stable. No evidence of bleeding. + FVO. Plan: monitor for s/sx of bleeding. Some dilutional component - diurese. No transfusion at this time. Thrombocytopenia (HCC) History: Post-op problem. Down-trended as low as 59k. Baseline plt 108 Assessment: Continues to slightly down-trend today (59k today). No signs of bleeding. Plan: Holding ASA and continue to hold SQ heparin. Monitor trend. Volume Overload History: Post-op problem. Weight up as much as 4.2 kg Assessment: up 4.2 kg. I/O -470. BUN/CR pending. K pending Plan: Start IV diuretics. Optimize electrolytes. Montior labs, I/O. Monitor daily weight. Continue fluid restriction. Mobilize. Atelectasis History: Postop problem. Assessment: Bibasilar on CXR 05/12. Awaiting 2V CXR 05/13. Stable oxygenation on RA. + FVO Plan: Mobilize now that on tele. Encourage PEP, cough and deep breathing. Pain control. Diurese as tolerated. Postoperative Pain History: post OHS Assessment: pain is well controlled with current regimen. Plan: Continue current regimen with Tylenol, Oxycodone. Add prn Tramadol. Avoiding Toradol/Ibuprofen given thrombocytopenia. Bowel regimen in place. Discharge Planning Issues 69 yo male from [facility]. CM following. PT/OT eval in progress but pt. is ambulatory and now skilled needs anticipated. [facility] and [facility] cards f/u requested. Pt. 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 Interactive Heart Surgery Program (IHSP) DAILY STEP DOWN CHECKLIST FOR CATHETER RELATED INFECTION PREVENTION CVC, PICC, Yves and/or Permacath present? No Does the patient have a urinary catheter beyond POD 2? No VTE Risk Assessment: High risk VTE Mechanical and/or Pharmacologic Prophylaxis: IPC Device and GCS Labs and medications reviewed in Epic Case discussed in depth with: Dr. Spears and Dr. Dang SIGNATURE: Angelita Garibay APRN.JB PATIENT NAME: Keesha Bose DATE: May 13, 2019 TIME: 9:45 AM PAGER/CONTACT #: [phone] ETX#[id number] [facility] THERAPY NTon 05-13-2019 THERAPY NT HNO ID: [id number] Author: Adele (PtFrancisca Bedoya Service: Physical Therapy Author Type: Physical Therapist Type: Therapy (PT/OT/Speech/Resp) Filed: 05/13/2019 3:06 PM Note Text: Physical Therapy Evaluation SERVICE DATE: 05/13/2019 SERVICE TIME: 3910 to 1410 ROOM: [place] [address] Recommended Discharge Disposition: Home Anticipated Discharge Needs: Undetermined PT Recommendations to Nursing: Ambulate with device;To bathroom;In halls;OOB for Meals(Encouraged ambulation on unit 4-6x/day) Device: Wheeled Walker(progress to ambulation without AD) PT 6 Clicks Score: 23 Precautions/Activity Restrictions: Sternal ASSESSMENT : Pt presents supervision with all functional mobility. Educated on sternal precautions and walking program. Educated on stair management and decreased frequency with stairs initially at home. Rec d/c home with PRN and outpt cardiac rehab when cleared by MD. No further skilled PT needs. Will d/c PT consult. Patient Disposition at Start of Session: OOB in Chair Patient Disposition at End of Session: OOB in Chair Tolerated Full Session Physical Therapy Problem List: Education Deficit Patient /Caregiver Goals: Go Home Goals for Plan of Care: Able to perform HEP with: Independent Progress Toward Goals: Progressing as expected Rehab Potential: Excellent PLAN: Treatment Frequency (times per week): Discontinue Therapy Services Reasons Therapy Services Discontinued: Goals met;No skilled needs Current admission Treatment Interventions: Education Plan of Care developed with: Patient TREATMENT INTERVENTIONS: Therapy Diagnosis: Reduced mobility-other Interventions Provided: Evaluation $ Evaluation-Low (94847) Billed Units: 1 unit Total Treatment Time (minutes): 15 SUBJECTIVE: Current Hospital Course: Chart reviewed; 05/10/19 S/P SURGERY: MV repair (neochord P2, #35 Kimbrough band), TV repair (remodeling annuloplasty #25 Kimbrough band) Relevant Past Medical History: MR Patient Report: I am not ready to give up the walker yet Home Environment Patient Lives With: Spouse Assistance Available: time piece repairer Entry To Home: Stairs;With Rail Number Of Stairs Into Home: 2 Number Of Stairs To Bed/Bath: 0(2 story home, master first floor, one step to living room ) Tub/Shower Type: walk in shower Laundry: main floor- spouse can assist Equipment Owned: Wheeled Walker;Hand Held Shower Prior Functional Level: Within Functional Limits Prior Functional Level Comments: per pt report: I with ADLs/IADLS, + 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,+ 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, 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, active running and golf, ambulates wtihout device OBJECTIVE: CURRENT FUNCTIONAL STATUS: Current Functional Mobility Assist Level Additional Information Rolling Supervision Supine to Sit Supervision Sit to Supine Supervision Scooting Supervision Sit to Stand Supervision Stand to Sit Supervision Bed to Chair Supervision Bed To Chair Transfer Type: Stand Pivot Toilet/Commode Gait Supervision Gait Device: Wheeled Walker Gait Distance (feet): 800 ft Stairs Curb Step Car Transfer General Gait Deviations: Step length decreased -HLM: 8: Walk 250 feet or more Please see discipline specific clinical documentation flowsheet for complete details for this therapy evaluation/treatment. SIGNATURE: Adele Bdeoya PT PATIENT NAME: Keesha Bose DATE: May 13, 2019 TIME: 3:01 PM [facility] XR CHEST 2V FRONTAL/LATon XR CHEST 2V FRONTAL/LAT * * *Final Repor t* * * DATE OF EXAM: May 13 2019 2:26PM [id number] - XR CHEST 2V FRONTAL/LAT / PROCEDURE REASON: Post-operative / post-procedure assessment, asymptomatic * * * * Physician Interpretation * * * * EXAMINATION: CHEST RADIOGRAPH (2 VIEW FRONTAL and LATERAL) Clinical History: Post-operative / post-procedure assessment, asymptomatic M: XC2_4 Comparison: Portable AP CXR dated 2019 RESULT: Lines, tubes, and devices: None. Lungs and pleura: Interval decrease in size without resolution of a right pneumothorax. There are small bilateral pleural effusions with associated bibasilar atelectasis. The left pleural effusion has likely decreased in size since the prior exam. Cardiomediastinal silhouette: Stable cardiomediastinal silhouette. Status post median sternotomy and mitral and tricuspid annuloplasty. The heart size is within normal limits. There are mottled retrosternal lucencies consistent with nonspecific postoperative changes. Other: There are mild degenerative changes in thoracic spine. IMPRESSION: Compared to 2019, 1. Interval decrease in size without resolution of a right pneumothorax. 2. There are small bilateral pleural effusions with associated bibasilar atelectasis. The left pleural effusion has likely decreased in size since the prior exam. 3. There are mottled retrosternal lucencies consistent with nonspecific postoperative changes. Ct Manager: PSCB Transcribe Date/Time: May 13 2019 3:09P Dictated by : J LUIS PAT MD This examination was interpreted and the report reviewed and electronically signed by: J LUIS PAT MD on May 13 2019 3:11PM EST [id number] Normal [facility] CBCon 02-12-2020 Absolute nRBC <0.01 Normal <0.01 [facility] Comment on above: Performed By: #### P T, PTT, CBCDIF, CMP, LD6 #### [address] [address] Erythrocyte distribution width (RBC) [Ratio] 12.9 % Normal 11.5-15.0 [facility] Comment on above: Performed By: #### P T, PTT, CBCDIF, CMP, LD6 #### [address] [address] Hematocrit (Bld) [Volume fraction] 24.5 % Low 39.0-51.0 [facility] Comment on above: Performed By: #### P T, PTT, CBCDIF, CMP, LD6 #### [address] [address] Hemoglobin (Bld) [Mass/Vol] 8.5 g/dL Low 13.0-17.0 [facility] Comment on above: Performed By: #### P T, PTT, CBCDIF, CMP, LD6 #### [address] [address] MCH (RBC) [Entitic mass] 33.9 pG Normal 26.0-34.0 [facility] Comment on above: Performed By: #### P T, PTT, CBCDIF, CMP, LD6 #### [address] [address] MCHC (RBC) [Mass/Vol] 34.7 g/dL Normal 30.5-36.0 [facility] Comment on above: Performed By: #### P T, PTT, CBCDIF, CMP, LD6 #### [address] [place], [place] [address] MCV (RBC) [Entitic vol] 97.6 fL Normal 80.0-100.0 [facility] Comment on above: Performed By: #### P T, PTT, CBCDIF, CMP, LD6 #### [address] [place], [place] [address] Platelet mean volume (Bld) [Entitic vol] 11.4 fL Normal 9.0-12.7 [facility] Comment on above: Performed By: #### P T, PTT, CBCDIF, CMP, LD6 #### [address] [place] [address] Platelets (Bld) [#/Vol] 62 10*3/uL Low 150-400 C [facility] Comment on above: Result Comment: Resu lt checked and verified No clot detected. Performed By: #### P T, PTT, CBCDIF, CMP, LD6 #### [address] [address] RBC (Bld) [#/Vol] 2.51 10*6/uL Low 4.20-6.00 [facility] Comment on above: Performed By: #### P T, PTT, CBCDIF, CMP, LD6 #### [address] [address] WBC (Bld) [#/Vol] 7.79 10*3/uL Normal 3.70-11.00 [facility] Comment on above: Performed By: #### P T, PTT, CBCDIF, CMP, LD6 #### [address] [address] Comp Metabolic Panelon 05-12 Albumin [Mass/Vol] 3.0 g/dL Low 3.9-4.9 [facility] Comment on above: Performed By: #### P T, PTT, CBCDIF, CMP, LD6 #### [address] [address] ALP [Catalytic activity/Vol] 32 U/L Low 38-113 [facility] Comment on above: Performed By: #### P T, PTT, CBCDIF, CMP, LD6 #### [facility] [address] [place], [place] [address] ALT [Catalytic activity/Vol] 11 U/L Normal 10-54 [facility] Comment on above: Performed By: #### P T, PTT, CBCDIF, CMP, LD6 #### [facility] [address] [place], [place] [address] Anion gap [Moles/Vol] 6 mmol/L Low 9-18 [facility] Comment on above: Performed By: #### P T, PTT, CBCDIF, CMP, LD6 #### [address] [place], [place] [address] AST [Catalytic activity/Vol] 39 U/L Normal 14-40 [facility] Comment on above: Performed By: #### P T, PTT, CBCDIF, CMP, LD6 #### [facility] [address] [place], [place] [address] Bilirubin [Mass/Vol] 0.6 mg/dL Normal 0.2-1.3 [facility] Comment on above: Performed By: #### P T, PTT, CBCDIF, CMP, LD6 #### [facility] [address] [place], [place] [address] Calcium [Mass/Vol] 7.9 mg/dL Low 8.5-10.2 [facility] Comment on above: Performed By: #### P T, PTT, CBCDIF, CMP, LD6 #### [facility] [address] [place], [place] [address] Chloride [Moles/Vol] 100 mmol/L Normal 97-105 [facility] Comment on above: Performed By: #### P T, PTT, CBCDIF, CMP, LD6 #### [facility] [address] [place], [place] [address] CO2 [Moles/Vol] 26 mmol/L Normal 22-30 [facility] Comment on above: Performed By: #### P T, PTT, CBCDIF, CMP, LD6 #### [facility] [address] [place] [address] Creatinine [Mass/Vol] 0.86 mg/dL Normal 0.73-1.22 [facility] Comment on above: Performed By: #### P T, PTT, CBCDIF, CMP, LD6 #### [facility] [address] [place] [address] eGFR- Amer. >60 Normal [facility] Comment on above: Performed By: #### P T, PTT, CBCDIF, CMP, LD6 #### [facility] [address] [place] [address] GFR/1.73 sq M predicted among non-blacks MDRD (S/P/Bld) [Vol rate/Area] mL/min/{1.73_m2} Normal [facility] Comment on above: Result Comment: eGFR (Estimated GFR) Units of measure: mL/min/1.73 meters squared eGFR is derived from the reexpressed MDRD Study equation using the following parameters: serum creatinine, age, gender and race. The creatinine assay has been calibrated to be traceable to IDMS. An eGFR <60 mL/min/1.73m2 for >3 months is consistent with chronic kidney disease. Refer to KDOQI guidelines for clinical interpretation. In patients with unstable renal function, e.g. those with acute kidney injury, the eGFR may not accurately reflect actual GFR. Performed By: #### P T, PTT, CBCDIF, CMP, LD6 #### [facility] [address] [place] [id number] Glucose [Mass/Vol] 142 mg/dL High 74-99 [facility] Comment on above: Result Comment: The [place] [employer] (ADA) provides guidance for cutoff values for fasting glucose and random glucose. The ADA defines fasting as no caloric intake for at least 8 hours. Fasting plasma glucose results between 100 to 125 mg/dL indicate increased risk for diabetes (prediabetes). Fasting plasma glucose results greater than or equal to 126 mg/dL meet the criteria for diagnosis of diabetes. In the absence of unequivocal hyperglycemia, results should be confirmed by repeat testing. In a patient with classic symptoms of hyperglycemia or hyperglycemic crisis, random plasma glucose results greater than or equal to 200 mg/dL meet the criteria for diagnosis of diabetes. Reference: Standards of Medical Care in Diabetes 2016, [place] [employer]. Diabetes Care. 2016.39(Suppl 1). Performed By: #### P T, PTT, CBCDIF, CMP, LD6 #### [address] [place] [address] Potassium [Moles/Vol] 4.1 mmol/L Normal 3.7-5.1 [facility] Comment on above: Performed By: #### P T, PTT, CBCDIF, CMP, LD6 #### [place] [address] Protein [Mass/Vol] 4.6 g/dL Low 6.3-8.0 [facility] Comment on above: Performed By: #### P T, PTT, CBCDIF, CMP, LD6 #### [address] [place] [address] Sodium [Moles/Vol] 132 mmol/L Low 136-144 [facility] Comment on above: Performed By: #### P T, PTT, CBCDIF, CMP, LD6 #### [place] [address] Urea nitrogen [Mass/Vol] 14 mg/dL Normal 9-24 [facility] Comment on above: Performed By: #### P T, PTT, CBCDIF, CMP, LD6 #### [place] [address] NURSING PROGon 2019 NURSING PROG HNO ID: [id number] Author: Aishwarya MendozaRn) TERRI Cleaning Service: ? Author Type: Registered Nurse Type: Nursing Progress Note Filed: 2019 6:52 PM Note Text: Nursing Progress Note Patient Name: Keesha Bose Patient Location: [address]07-31-14 __ Transfer Note: Patient transferred into room/unit J53-15 via wheelchair. in stable condition. Actions taken: pt oriented to room and call system, as well as fall plan, pt verbalized understanding. skin assessed with Ethel Sung RN, no skin breakdown noted. This note was completed by: Aishwarya Cleaning RN [facility] PROGRESSon 2019 PROGRESS HNO ID: [id number] Author: Opal Abdalla Service: Critical Care Author Type: Nurse Practitioner Type: Progress Notes Filed: 2019 7:12 AM Note Text: [facility] Note Name: Keesha Bose Coordination of Care Note: Indication for Surgery: Mitral regurgitation, tricuspid regurgitation Preop LVEF: 65% RVF: Normal Postop LVEF: Normal RVF: Normal Important/Relevant PMH/PSH: MR, ex smoker Preoperative Hospital Course (narrative or log of major events): Airway Difficulty: Grade I - No special instrumentation Pacing wires: Yes: Ventricular: When discontinuing pacing wires: Pull all pacing wires Chronological list of Surgeries and Major Events (diagnosis): (Surgeries in bold characters) 05/10/2019: MVr, TVr_ A/P of Major Active Problems (excluding routine care and common problems): Cardiac: Maintain MAP 70-80. Resp: Tolerating RA. BPH, OOB and Pep. : Garcia replaced d/t urinary retention. Monitor output. Heme: Thrombocytopenia - PLT 62K. No s/s bleeding. 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 Stable oxygenation on RA. Plan: Continue BPH, OOB daily and Pep. 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 Plan: SSI to maintain BG <150. Thrombocytopenia (HCC) Assessment: PLT 62K this am, no s/s active bleeding. Plan: Continue to monitor/trend. Hold SQ heparin today. PHYSICAL EXAM: Neuro: Awake, Follows commands, Alert and oriented x 3 and [place] Cardiovascular: Rhythm: regular rate and rhythm and Rate:sinus bradycardia, 1st degree AVB Pulmonary: Clear to auscultation and Breath sounds equal Ventilator: N/A, patient is extubated CXR Findings: Atelectasis Bilateral and CXR personally viewed and interpreted by ICU staff Nurse Practitioner Gastrointestinal: Abdominal: Soft, Non-tender and Bowel sounds yes DAILY CVICU CHECKLIST VTE Prophylaxis: Pharmacologic No - because thrombocytopenia VTE Prophylaxis: Mechanical: Yes Line infection prevention: Can CVC, PAC or arterial line be removed: Not indicated Continued need for urinary catheter: Yes - clinical indication: Patient post major surgery requiring fluid balance and input and output measurement. Restraints needed: No SIGNATURE: Opal Abdalla APRN.CNP DATE of SERVICE: 2019 TIME of SERVICE: 7:09 AM Normal [facility] THERAPY NTon 2019 THERAPY NT HNO ID: [id number] Author: Kandace No/Jo Smart Service: Occupational Therapy Author Type: Occupational Therapist Type: Therapy (PT/OT/Speech/Resp) Filed: 2019 9:50 AM Note Text: Occupational Therapy Evaluation SERVICE DATE: 2019 SERVICE TIME: 834 to 927 ROOM: [place] [address] Recommended Discharge Disposition: Deferred due to ICU status Anticipated Discharge Needs: Undetermined OT Recommendations to Nursing: Transfer to Chair;With assist of 1 person;OOB for meals;Edge of bed ADL?s OT 6 Clicks Score: 21 Precautions/Activity Restrictions: Cardiac;Sternal;Lines/ Tubes/Drains ASSESSMENT: Pt received OOB in chair, family present for session, communicated with RN prior to session. Pt reported mild dizziness first sit <> stand improved with rest break and denied dizziness for remainder of session with functional mobility in room around bedside. Patient presents with impaired Strength/Tone, Balance, Functional Mobility and Activity Tolerance and ADLs, impacting the ability to function without assistance from caregivers. Patient requires CGA-SBA with all ADLs demonstrating good safety awareness, pt appears to be at baseline for cognition. Functional mobility and transfers completed with SBA-CGA min extra time for line management and mild unsteady gait, no LOB observed during the session. Pt also requires monitoring of vital signs due to fluctuations with activity and instructions/ education regarding safe activity dosing. Pt requires skilled therapy to address current functional limitations, identify coping skills to progress through current impairments as well as to increase independence with ADLs within safe limits. Anticipate good progression towards goals in preparation of discharge home, pt reports concerns with completing stairs. Patient Disposition at Start of Session: OOB in Chair;Call Luevano in Reach;SCDs;Family Present Patient Disposition at End of Session: OOB in Chair;Call Luevano in Reach;Family Present;Nursing Personnel Present Tolerated Full Session Occupational Therapy Problem List: Safety Deficits;Decreased Activity Tolerance;Impaired Self Care;Functional Mobility Impairment;Decreased Strength;Balance Impaired Patient /Caregiver Goals: Go Home;Care For Self Goals for Plan of Care: Able to perform HEP with: Modified Independent Grooming with: Modified Independent Upper Body Bathing with: Modified Independent Upper Body Dressing with: Modified Independent Lower Body Bathing with: Modified Independent Lower Body Dressing with: Modified Independent Toilet Hygiene with: Modified Independent Chair Transfer with: Modified Independent Toilet Transfer with: Modified Independent Shower Transfer with: Modified Independent Tolerate (minutes of functional activity): 20 Functional Activity with: Modified Independent Demonstrate Competence With Education with: Modified Independent Progress Toward Goals: Progressing as expected Rehab Potential: Good PLAN: Treatment Frequency (times per week): 2(2) Current admission Treatment Interventions: Education;Self Care / Home Management;Energy Conservation Training;Strengthening ;Functional Mobility Training;Balance Training Plan of Care developed with: Patient;Family TREATMENT INTERVENTIONS: Therapy Diagnosis: Reduced mobility-other;Decreas ed activities of daily living (ADL);Muscle Weakness (generalized) Interventions Provided: Evaluation;Self Chcf Management (91476) $ Evaluation-Low (26814) Billed Units: 1 unit Self Chcf Management (09105) Treatment Minutes: 38 3 units Skilled Intervention(s): - Educated pt on log roll technique and provided handout -Educated pt on cardiac precautions and guidelines, as well as sternal precautions via explanation, printed material review, and provided functional examples of activities contraindicated vs allowed. Pt verbalized understanding of precautions. Provided printed handout detailing information for further review. Instructed in energy conservation for ADL and IADL completion, issued and reviewed handout in detail Provided instruction, cuing and facilitation for lower body dressing provided demonstration and teach back for use of figure 4 techniquefor improved indpendence and body mechanics for completion of LB ADLs Provided instruction, cuing and facilitation for bathing recommended use of shower chair for improved safety, fall prevention, and fatigue managment, recommended use of long handled sponge. Education in OT role, POC, and discharge recommendations -Instructed in post-op/procedural instructions for safe ADLs, and encouraged promoting independence with self care including: -Provided SBA for hand/oral hygiene while seated to complete at tray table. Min seated rest breaks d/t fatigue/dizziness. support/positioning strategies, and promoting use of bilateral upper extremities. -Additional time provided and encouragement for taking frequent rest breaks, maintaining awareness of body's response to physical exertion during ADLs, overhead activity, and coordinating rest breaks/therapeutic breathing appropriately. ?-Facilitated and provided education on importance of warming up prior to mobilizing/ambulating to improve blood circulation and oxygenation to muscles, facilitated completion of 1 x 10 repetitions for: ankle pumps, knee flex/ext and educated on maintaining awareness of numbing/tingling in LE to decrease risk of falls/injury. -Provided skilled assist for multi line management, room setup, bed functions, and portable monitor setup for safe functional transfers/mobility. -Provided SBA-CGA and instruction in safe technique for sit to stand technique with proper hand placement and body positioning at edge of chair to short distanced functional mobility at bedside. -Pt required min standing rest breaks d/t fatigue and encouraged pt maintain awareness of body's physiological response to activity by self-initiating rest breaks. -Completed safety assessment during distanced ambulation through: *assessment of pt's ability to visually anchor within the environment -(educated on purpose - for safety and to reduce risk of falls) *assessment of pt's ability to maintain attention to task *assessment of pt's ability to follow multi-step directions, pt requiring no cueing. -Assessed environmental hazards during functional mobility, ensured safety during ambulation, educated pt family and staff on functional importance of safety assessment during community ambulations on IADLs/ADLs, and for improving cardiovascular endurance and hemodynamic tolerance to upright activities. Provided answers to pt and family questions related to discharge planning, level of activity, progression goals. Discussed RPE scale and pt agreeable to walking program with nursing. 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 Entry To Home: Stairs;With Rail Number Of Stairs Into Home: 2 Number Of Stairs To Bed/Bath: 0(2 story home, master first floor, one step to living room ) Tub/Shower Type: walk in shower Laundry: main floor- spouse can assist Equipment Owned: Wheeled Walker;Hand Held Shower Prior Functional Level: Within Functional Limits Prior Functional Level Comments: per pt report: I with ADLs/IADLS, + 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,+ 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, 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, active running and golf, ambulates wtihout device OBJECTIVE: Cognition/Communicatio n Deficits Orientation Deficits: (AANDO x4 ) Responsiveness: Awake;Alert Follows Commands: 3-step Commands Hand Dominance: Right Range of Motion: WFL Strength: WFL Vital Signs Pre Assessment: BP Pre BP: 96/50 Pre BP Position: Sitting Intra Assessment 1: BP Intra 1 Intra BP 1: 99/51 Intra BP Position 1: Sitting CURRENT FUNCTIONAL STATUS: Current Activities of Daily Living Assist Level Feeding Independent Grooming Stand By Assistance(in standing ) Bathing Upper Body Supervision Bathing Lower Body Contact Guard Assistance Dressing Upper Body Stand By Assistance Dressing Lower Body Contact Guard Assistance Toileting Contact Guard Assistance Instrumental Activities of Daily Living Assist Level Meal/Beverage Prep Light Cleaning Laundry Medication Management with Strategies Functional Mobility Assist Level Rolling Supine to Sit Sit to Supine Scooting Sit to Stand Stand By Assistance Stand to Sit Stand By Assistance Bed to Chair Toilet/Commode Functional Mobility Contact Guard Assistance Hand Held Assist Balance: Static Sitting;Dynamic Sitting;Static Standing Static Sitting Balance: Good Able to maintain balance against moderate resistance Dynamic Sitting Balance: Good Able to sit unsupported AND weight shift across midline moderately Static Standing Balance: Fair Able to stand unsupported without UE support and without LOB for 1 - 2 min Activity Tolerance: Sitting Activity;Standing Activity Sitting Activity: sitting in chair for ADLs and warm up Sitting Activity Tolerance (in minutes): 35 Standing Activity: sit <> stand x3 functional mobility short distances in room at bedside Standing Activity Tolerance (in minutes): 4(4 min x 2, static standing 2 minutes ) Please see discipline specific clinical documentation flowsheet for complete details for this therapy evaluation/treatment. SIGNATURE: Kandace Smart OT/Claudia PATIENT NAME: Keesha Bose DATE: 2019 TIME: 9:43 AM Normal [facility] XR CHEST 1V FRONTAL PORTon 0 2019 XR CHEST 1V FRONTAL PORT * * *Final Repo rt* * * DATE OF EXAM: 2019 11:53AM [id number] - XR CHEST 1V FRONTAL PORT / PROCEDURE REASON: Post-operative / post-procedure assessment, asymptomatic * * * * Physician Interpretation * * * * EXAMINATION: CHEST RADIOGRAPH (PORTABLE SINGLE VIEW AP) Exam Date/Time: 2019 11:53 AM Clinical History: Post-operative / post-procedure assessment, asymptomatic MQ: [id number] Comparison: 1 day prior RESULT: Lines, tubes, and devices: The patient is status post median sternotomy for both mitral and tricuspid valve repair. The previously seen right IJ catheter and mediastinal drain have been removed. Lungs and pleura: There are small pleural effusions, left greater than right, which appear either new or increased in size in the interval. Adjacent bibasilar opacities are probably due to atelectasis. A small right apical pneumothorax appears mildly larger and should be assessed on follow-up. No substantial left-sided pneumothorax. No new consolidative opacity or pulmonary edema. Cardiomediastinal silhouette: Stable cardiomediastinal silhouette. Other: . IMPRESSION: See result. Ct Manager: EVERARDO Transcribe Date/Time: 2019 1:43P Dictated by : PAZ MELVIN MD This examination was interpreted and the report reviewed and electronically signed by: PAZ MELVIN MD on 2019 1:44PM EST [id number] Normal [facility] ANES Alyse 05-11-2019 ANES POST HNO ID: [id number] Author: Nitesh Sosa Service: Anesthesiology Author Type: Anesthesiologist Type: Anesthesia PostOp Filed: 05/11/2019 1:16 PM Note Text: POST ANESTHESIA EVALUATION NOTE SERVICE DATE: 05/11/2019 SERVICE TIME: 1315 : 1948 Vitals: 05/10/19 2310 05/11/19 0300 05/11/19 0710 05/11/19 1100 Temp: 36.9 ?C (98.4 ?F) 36.8 ?C (98.2 ?F) 37.1 ?C (98.8 ?F) 36.9 ?C (98.4 ?F) 05/11/19 0950 05/11/19 1030 05/11/19 1050 05/11/19 1130 Arterial BP 1: BP: 122/60 110/57 116/58 119/58 05/11/19 1050 05/11/19 1110 05/11/19 1130 05/11/19 1206 Pulse: (!) 50 (!) 50 (!) 52 (!) 55 05/11/19 1050 05/11/19 1110 05/11/19 1130 05/11/19 1206 Resp: 05/11/19 1050 05/11/19 1110 05/11/19 1130 05/11/19 1206 SpO2: 98% 98% 100% 99% Validated Vital Signs: Yes POST ANES STATUS: No apparent anesthetic complications. The patient is appropriately hydrated with stable respiratory and cardiovascular status. Patient has safe and adequate airway control. The patient has appropriate pain relief and no significant post operative nausea or vomiting. The patient has achieved baseline mental status. Intra-Operative Events: No Significant Anesthesia Events Further assessment by Anesthesia Service: None Other Remarks: SIGNATURE: Nitesh Sosa MD PATIENT NAME: Keesha Bose DATE: May 11, 2019 TIME: 1:16 PM PAGER/CONTACT #: Gabi [facility] CASE MGT INIT Nila 2019 CASE MGT INIT LE HNO ID: [id number] Author: Prachi Richardson (Sw) Service: Care Management Author Type: Coater Slate Type: Care Mgt Initial Assessment Filed: 05/11/2019 11:29 AM Note Text: CARE MANAGEMENT: ASSESSMENT AND DISCHARGE PLAN SERVICE DATE: May 11, 2019 SERVICE TIME: 10:50 AM PRIMARY CARE PHYSICIAN: Carlitos Johnson MD ADMISSION STATUS: Inpatient Needs Prior to Discharge: To Be Determined;OT/PT Evaluation 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 Last discharge within 30 days: No Advance Directive: Current Advance Directive: Health Care Power of Marine Erector;Living Will In Chart: Yes Up To Date and Valid: Yes Health LiteracyHow often do you need to have someone help you when you read instructions, pamphlets, or other written material from your doctor or pharmacy? : 1 - Never How confident are you filling out medical forms by yourself?: 2 - Quite a bit Prior to Admission: Baseline Mental Status: Alert AND Oriented Prior to this illness, has anyone described the patient having any of the following behaviors? Not Applicable Relationship of the information to the patient:: Self Functional Status: Independent Does Patient Currently Receive Any Community Services or Home Care?: None Equipment Prior to Admission: None SOCIAL: Living Arrangements: Home(Spouse) Financial Resources: EmployedPrimary Contact: Extended Emergency Contact Information Primary Emergency Contact: SONAL BOSE Address: [address] [place] [id number] Relation: Spouse Supportive Patient Contact:: Yes Contact Resources: Family Social Needs Food insecurity Worry: Not on file Inability: Not on file Resources Needed: No Social Needs Financial resource strain: Not on file N/A Social Needs Transportation needs Medical: Not on file Non-medical: Not on file Caregiver AssessmentCaregiver is ready, willing and able to meet the patient's needs as recommended by the inter-professional team:: Yes Does the patient have an acute stroke diagnosis, or has the patient had a stroke during this admission?: No Family Name/Phone: Pito, Spouse, Patient's perception of need for this admission: Not asked at this time. Are you interested in bedside delivery of your medications? No ASSESSMENT AND PLAN: Medical Needs: Medical Needs: None Psychosocial Needs: Psychosocial Needs: None FREEDOM OF CHOICE EXPLAINED: [employer] of Choice Given: No Reason Not Given: Unable to complete with this assessment - revisit POTENTIAL TRANSITION PLANS Home;Home Care;Home OT/PT;To Be Determined Pt is a 68 year old male from [place], [place] who is currently in the CVICU s/p MVr, TVr on 05/10/2019. Sw spoke with pt at the bedside; introduced self and explained role. Pt was living independently with his spouse, Sonal, and working prior to this admission. Pt and Sonal have 3 children; 1 nearby, 1 in [place], and 1 in [place]. Pt has transportation home once he is medically ready. Discharge needs to be determined at this time. Case Management will continue to follow medical course and plan discharge accordingly. SIGNATURE: CALEB Archibald PATIENT NAME: Keesha Bose DATE: May 11, 2019 TIME: 11:27 AM PAGER/CONTACT #: [phone] Normal [facility] CBCon 05-11-2019 Absolute nRBC <0.01 Normal <0.01 [facility] Comment on above: Performed By: #### P T, PTT, CBCDIF, CMP, LD6 #### [facility] [employer] [address] [place], [place] [address] Erythrocyte distribution width (RBC) [Ratio] 12.9 % Normal 11.5-15.0 [facility] Comment on above: Performed By: #### P T, PTT, CBCDIF, CMP, LD6 #### [facility] [employer] [address] [place], [place] [address] Hematocrit (Bld) [Volume fraction] 31.6 % Low 39.0-51.0 [facility] Comment on above: Performed By: #### P T, PTT, CBCDIF, CMP, LD6 #### [address] [place], [place] [address] Hemoglobin (Bld) [Mass/Vol] 10.8 g/dL Low 13.0-17.0 [facility] Comment on above: Performed By: #### P T, PTT, CBCDIF, CMP, LD6 #### [address] [place], [place] [address] MCH (RBC) [Entitic mass] 33.2 pG Normal 26.0-34.0 [facility] Comment on above: Performed By: #### P T, PTT, CBCDIF, CMP, LD6 #### [address] [address] MCHC (RBC) [Mass/Vol] 34.2 g/dL Normal 30.5-36.0 [facility] Comment on above: Performed By: #### P T, PTT, CBCDIF, CMP, LD6 #### [address] [place], [place] [address] MCV (RBC) [Entitic vol] 97.2 fL Normal 80.0-100.0 [facility] Comment on above: Performed By: #### P T, PTT, CBCDIF, CMP, LD6 #### [address] [place], [place] [address] Platelet mean volume (Bld) [Entitic vol] 11.4 fL Normal 9.0-12.7 [facility] Comment on above: Performed By: #### P T, PTT, CBCDIF, CMP, LD6 #### [address] [place], [place] [address] Platelets (Bld) [#/Vol] 81 10*3/uL Low 150-400 [facility] Comment on above: Result Comment: Resu lt checked and verified No clot detected. Performed By: #### P T, PTT, CBCDIF, CMP, LD6 #### [address] [place], [place] [id number] RBC (Bld) [#/Vol] 3.25 10*6/uL Low 4.20-6.00 [facility] Comment on above: Performed By: #### P T, PTT, CBCDIF, CMP, LD6 #### [address] [place], [place] [address] WBC (Bld) [#/Vol] 11.43 10*3/uL High 3.70-11.00 [facility] Comment on above: Performed By: #### P T, PTT, CBCDIF, CMP, LD6 #### [address] [address] Comp Metabolic Panelon 05-11 Albumin [Mass/Vol] 3.2 g/dL Low 3.9-4.9 [facility] Comment on above: Performed By: #### P T, PTT, CBCDIF, CMP, LD6 #### [address] [place], [place] [address] ALP [Catalytic activity/Vol] 36 U/L Low 38-113 [facility] Comment on above: Performed By: #### P T, PTT, CBCDIF, CMP, LD6 #### [facility] [address] [place], [place] [address] ALT [Catalytic activity/Vol] 13 U/L Normal 10-54 [facility] Comment on above: Performed By: #### P T, PTT, CBCDIF, CMP, LD6 #### [address] [place], [place] [address] Anion gap [Moles/Vol] 7 mmol/L Low 9-18 [facility] Comment on above: Performed By: #### P T, PTT, CBCDIF, CMP, LD6 #### [facility] [address] [place] [address] AST [Catalytic activity/Vol] 49 U/L High 14-40 [facility] Comment on above: Performed By: #### P T, PTT, CBCDIF, CMP, LD6 #### [address] [place] [address] Bilirubin [Mass/Vol] 0.7 mg/dL Normal 0.2-1.3 [facility] Comment on above: Performed By: #### P T, PTT, CBCDIF, CMP, LD6 #### [place] [address] Calcium [Mass/Vol] 7.9 mg/dL Low 8.5-10.2 [facility] Comment on above: Performed By: #### P T, PTT, CBCDIF, CMP, LD6 #### [address] [place] [address] Chloride [Moles/Vol] 107 mmol/L High 97-105 [facility] Comment on above: Performed By: #### P T, PTT, CBCDIF, CMP, LD6 #### [address] [place] [address] CO2 [Moles/Vol] 26 mmol/L Normal 22-30 [facility] Comment on above: Performed By: #### P T, PTT, CBCDIF, CMP, LD6 #### [address] [place] [address] Creatinine [Mass/Vol] 0.86 mg/dL Normal 0.73-1.22 [facility] Comment on above: Performed By: #### P T, PTT, CBCDIF, CMP, LD6 #### [place] [address] eGFR- Amer. >60 Normal [facility] Comment on above: Performed By: #### P T, PTT, CBCDIF, CMP, LD6 #### [facility] [employer] [address] [place] [address] GFR/1.73 sq M predicted among non-blacks MDRD (S/P/Bld) [Vol rate/Area] mL/min/{1.73_m2} Normal [facility] Comment on above: Result Comment: eGFR (Estimated GFR) Units of measure: mL/min/1.73 meters squared eGFR is derived from the reexpressed MDRD Study equation using the following parameters: serum creatinine, age, gender and race. The creatinine assay has been calibrated to be traceable to IDMS. An eGFR <60 mL/min/1.73m2 for >3 months is consistent with chronic kidney disease. Refer to KDOQI guidelines for clinical interpretation. In patients with unstable renal function, e.g. those with acute kidney injury, the eGFR may not accurately reflect actual GFR. Performed By: #### P T, PTT, CBCDIF, CMP, LD6 #### [facility] [address] [place] [address] Glucose [Mass/Vol] 124 mg/dL High 74-99 [facility] Comment on above: Result Comment: The [place] [employer] (ADA) provides guidance for cutoff values for fasting glucose and random glucose. The ADA defines fasting as no caloric intake for at least 8 hours. Fasting plasma glucose results between 100 to 125 mg/dL indicate increased risk for diabetes (prediabetes). Fasting plasma glucose results greater than or equal to 126 mg/dL meet the criteria for diagnosis of diabetes. In the absence of unequivocal hyperglycemia, results should be confirmed by repeat testing. In a patient with classic symptoms of hyperglycemia or hyperglycemic crisis, random plasma glucose results greater than or equal to 200 mg/dL meet the criteria for diagnosis of diabetes. Reference: Standards of Medical Care in Diabetes 2016, [place] [employer]. Diabetes Care. 2016.39(Suppl 1). Performed By: #### P T, PTT, CBCDIF, CMP, LD6 #### [facility] [address] [place], [place] [address] Potassium [Moles/Vol] 4.3 mmol/L Normal 3.7-5.1 [facility] Comment on above: Performed By: #### P T, PTT, CBCDIF, CMP, LD6 #### [address] [place], [place] [address] Protein [Mass/Vol] 4.7 g/dL Low 6.3-8.0 [facility] Comment on above: Performed By: #### P T, PTT, CBCDIF, CMP, LD6 #### [address] [address] Sodium [Moles/Vol] 140 mmol/L Normal 136-144 [facility] Comment on above: Performed By: #### P T, PTT, CBCDIF, CMP, LD6 #### [address] [address] Urea nitrogen [Mass/Vol] 13 mg/dL Normal 9-24 [facility] Comment on above: Performed By: #### P T, PTT, CBCDIF, CMP, LD6 #### [address] [address] GASA + All FOR RADIANCE USE ONLYon 05-11-2019 Calcium [Mass/Vol] 1.19 mmol/L Normal 1.08-1.30 [facility] Comment on above: Performed By: #### P T, PTT, CBCDIF, CMP, LD6 #### [address] [place], [place] [address] Carboxyhemoglobin,Art 1.5 % Normal <2.1 [facility] Comment on above: Performed By: #### P T, PTT, CBCDIF, CMP, LD6 #### [address] [place], [place] [address] Glucose [Mass/Vol] 117 mg/dL High 60-105 [facility] Comment on above: Performed By: #### P T, PTT, CBCDIF, CMP, LD6 #### [facility] [address] [place] [phone] Hematocrit (Bld) [Volume fraction] 33.6 % Low 39.0-51.0 [facility] Comment on above: Performed By: #### P T, PTT, CBCDIF, CMP, LD6 #### [address] [place] [phone] Hemoglobin (Bld) [Mass/Vol] 10.9 g/dL Low 13.0-17.0 [facility] Comment on above: Performed By: #### P T, PTT, CBCDIF, CMP, LD6 #### [place] [phone] Methemoglobin 1.4 % Normal <1.6 [facility] Comment on above: Performed By: #### P T, PTT, CBCDIF, CMP, LD6 #### [address] [place] [address] Oxygen (Bld) [Partial pressure] 142 mm Hg High 85-95 [facility] Comment on above: Performed By: #### P T, PTT, CBCDIF, CMP, LD6 #### [address] [place] [phone] Oxyhemoglobin, Art. 96 % Normal 95-98 [facility] Comment on above: Performed By: #### P T, PTT, CBCDIF, CMP, LD6 #### [address] [place] [phone] pCO2 43 mm Hg Normal 34-46 [facility] Comment on above: Performed By: #### P T, PTT, CBCDIF, CMP, LD6 #### [address] [place] [phone] pCO2, Temp Correct 43 mm Hg Normal 34-46 [facility] Comment on above: Performed By: #### P T, PTT, CBCDIF, CMP, LD6 #### [facility] [address] [place] [address] pO2, Temp Corrected 142 mm Hg High 85-95 [facility] Comment on above: Performed By: #### P T, PTT, CBCDIF, CMP, LD6 #### [address] [place] [address] Potassium [Moles/Vol] 4.4 mmol/L Normal 3.5-5.0 [facility] Comment on above: Performed By: #### P T, PTT, CBCDIF, CMP, LD6 #### [address] [place] [address] Sodium [Moles/Vol] 137 mmol/L Normal 136-144 [facility] Comment on above: Performed By: #### P T, PTT, CBCDIF, CMP, LD6 #### [address] [place] [address] Base Excess 2 mmol/L Normal [facility] Comment on above: Performed By: #### P T, PTT, CBCDIF, CMP, LD6 #### [address] [place], [place] [address] Blood Gas Comm, Art . Normal [facility] Comment on above: Performed By: #### P T, PTT, CBCDIF, CMP, LD6 #### [address] [place] [address] Calcium [Mass/Vol] 1.18 mmol/L Normal 1.08-1.30 [facility] Comment on above: Performed By: #### P T, PTT, CBCDIF, CMP, LD6 #### [place] [address] Carboxyhemoglobin,Art 1.2 % Normal <2.1 [facility] Comment on above: Performed By: #### P T, PTT, CBCDIF, CMP, LD6 #### [facility] [address] [place], [place] [address] CO2 [Moles/Vol] 27 mmol/L Normal 22.0-28.0 [facility] Comment on above: Performed By: #### P T, PTT, CBCDIF, CMP, LD6 #### [address] [place] [address] Glucose [Mass/Vol] 122 mg/dL High 60-105 [facility] Comment on above: Performed By: #### P T, PTT, CBCDIF, CMP, LD6 #### [address] [place] [address] HCO3 (Bld) [Moles/Vol] 26 mmol/L Normal 22-26 [facility] Comment on above: Performed By: #### P T, PTT, CBCDIF, CMP, LD6 #### [address] [place], [place] [address] Hematocrit (Bld) [Volume fraction] 34.9 % Low 39.0-51.0 [facility] Comment on above: Performed By: #### P T, PTT, CBCDIF, CMP, LD6 #### [address] [place], [place] [address] Hemoglobin (Bld) [Mass/Vol] 11.3 g/dL Low 13.0-17.0 [facility] Comment on above: Performed By: #### P T, PTT, CBCDIF, CMP, LD6 #### [address] [place], [place] [address] Lactate [Moles/Vol] 1.1 mmol/L Normal 0.5-2.2 [facility] Comment on above: Performed By: #### P T, PTT, CBCDIF, CMP, LD6 #### [facility] [address] [place] [address] Methemoglobin 0.7 % Normal <1.6 [facility] Comment on above: Performed By: #### P T, PTT, CBCDIF, CMP, LD6 #### [facility] [address] [place] [address] Oxygen (Bld) [Partial pressure] 160 mm Hg High 85-95 [facility] Comment on above: Performed By: #### P T, PTT, CBCDIF, CMP, LD6 #### [address] [place] [address] Oxyhemoglobin, Art. 98 % Normal 95-98 [facility] Comment on above: Performed By: #### P T, PTT, CBCDIF, CMP, LD6 #### [place] [phone] pCO2 42 mm Hg Normal 34-46 [facility] Comment on above: Performed By: #### P T, PTT, CBCDIF, CMP, LD6 #### [address] [place] [address] pCO2, Temp Correct 42 mm Hg Normal 34-46 [facility] Comment on above: Performed By: #### P T, PTT, CBCDIF, CMP, LD6 #### [place] [address] pH (Bld) 7.40 [pH] Normal 7.35-7.45 [facility] Comment on above: Performed By: #### P T, PTT, CBCDIF, CMP, LD6 #### [place] [address] pH, Temp Corrected 7.40 Normal 7.35-7.45 [facility] Comment on above: Performed By: #### P T, PTT, CBCDIF, CMP, LD6 #### [place] [address] [place] [address] pO2, Temp Corrected 160 mm Hg High 85-95 [facility] Comment on above: Performed By: #### P T, PTT, CBCDIF, CMP, LD6 #### [facility] [address] [place], [place] [address] Potassium [Moles/Vol] 4.2 mmol/L Normal 3.5-5.0 [facility] Comment on above: Performed By: #### P T, PTT, CBCDIF, CMP, LD6 #### [address] [place] [address] Sodium [Moles/Vol] 138 mmol/L Normal 136-144 [facility] Comment on above: Performed By: #### P T, PTT, CBCDIF, CMP, LD6 #### [place] [address] Base Excess 1 mmol/L Normal [facility] Comment on above: Performed By: #### P T, PTT, CBCDIF, CMP, LD6 #### [address] [place] [address] Blood Gas Comm, Art . Normal [facility] Comment on above: Performed By: #### P T, PTT, CBCDIF, CMP, LD6 #### [address] [place] [address] Calcium [Mass/Vol] 1.17 mmol/L Normal 1.08-1.30 [facility] Comment on above: Performed By: #### P T, PTT, CBCDIF, CMP, LD6 #### [address] [place], [place] [address] Carboxyhemoglobin,Art 1.3 % Normal <2.1 [facility] Comment on above: Performed By: #### P T, PTT, CBCDIF, CMP, LD6 #### [facility] [address] [place], [place] [address] CO2 [Moles/Vol] 26 mmol/L Normal 22.0-28.0 [facility] Comment on above: Performed By: #### P T, PTT, CBCDIF, CMP, LD6 #### [facility] [address] [place], [place] [address] Glucose [Mass/Vol] 136 mg/dL High 60-105 [facility] Comment on above: Performed By: #### P T, PTT, CBCDIF, CMP, LD6 #### [address] [place], [place] [address] HCO3 (Bld) [Moles/Vol] 25 mmol/L Normal 22-26 [facility] Comment on above: Performed By: #### P T, PTT, CBCDIF, CMP, LD6 #### [address] [place], [place] [address] Hematocrit (Bld) [Volume fraction] 35.4 % Low 39.0-51.0 [facility] Comment on above: Performed By: #### P T, PTT, CBCDIF, CMP, LD6 #### [facility] [address] [place], [place] [address] Hemoglobin (Bld) [Mass/Vol] 11.5 g/dL Low 13.0-17.0 [facility] Comment on above: Performed By: #### P T, PTT, CBCDIF, CMP, LD6 #### [facility] [address] [place], [place] [address] Lactate [Moles/Vol] 1.9 mmol/L Normal 0.5-2.2 [facility] Comment on above: Performed By: #### P T, PTT, CBCDIF, CMP, LD6 #### [facility] [address] [place], [place] [address] Methemoglobin 1.1 % Normal <1.6 [facility] Comment on above: Performed By: #### P T, PTT, CBCDIF, CMP, LD6 #### [facility] [address] [place], [place] [address] Oxygen (Bld) [Partial pressure] 180 mm Hg High 85-95 [facility] Comment on above: Performed By: #### P T, PTT, CBCDIF, CMP, LD6 #### [address] [place] [address] Oxyhemoglobin, Art. 97 % Normal 95-98 [facility] Comment on above: Performed By: #### P T, PTT, CBCDIF, CMP, LD6 #### [address] [place] [address] pCO2 42 mm Hg Normal 34-46 [facility] Comment on above: Performed By: #### P T, PTT, CBCDIF, CMP, LD6 #### [address] [place] [address] pCO2, Temp Correct 42 mm Hg Normal 34-46 [facility] Comment on above: Performed By: #### P T, PTT, CBCDIF, CMP, LD6 #### [facility] [address] [place] [address] pH (Bld) 7.39 [pH] Normal 7.35-7.45 [facility] Comment on above: Performed By: #### P T, PTT, CBCDIF, CMP, LD6 #### [facility] [address] [place] [address] pH, Temp Corrected 7.39 Normal 7.35-7.45 [facility] Comment on above: Performed By: #### P T, PTT, CBCDIF, CMP, LD6 #### [address] [place], [place] [address] pO2, Temp Corrected 180 mm Hg High 85-95 [facility] Comment on above: Performed By: #### P T, PTT, CBCDIF, CMP, LD6 #### [facility] [address] [place] [address] Potassium [Moles/Vol] 4.2 mmol/L Normal 3.5-5.0 [facility] Comment on above: Performed By: #### P T, PTT, CBCDIF, CMP, LD6 #### [facility] [address] [place] [address] Sodium [Moles/Vol] 137 mmol/L Normal 136-144 [facility] Comment on above: Performed By: #### P T, PTT, CBCDIF, CMP, LD6 #### [facility] [address] [place] [address] PROGRESSon 05-11-2019 PROGRESS HNO ID: [id number] Author: Opal Abdalla Service: Critical Care Author Type: Nurse Practitioner Type: Progress Notes Filed: 05/11/2019 7:46 AM Note Text: [facility] Note Name: Keesha Bose Coordination of Care Note: Indication for Surgery: Mitral regurgitation, tricuspid regurgitation Preop LVEF: 65% RVF: Normal Postop LVEF: Normal RVF: Normal Important/Relevant PMH/PSH: MR, ex smoker Preoperative Hospital Course (narrative or log of major events): Airway Difficulty: Grade I - No special instrumentation Pacing wires: Yes: Ventricular: When discontinuing pacing wires: Pull all pacing wires Chronological list of Surgeries and Major Events (diagnosis): (Surgeries in bold characters) 05/10/2019: MVr, TVr_ A/P of Major Active Problems (excluding routine care and common problems): Cardiac: Maintain MAP 70-80. IVF resuscitation prn. Resp: Tolerating 3L NC. BPH, OOB and Pep. 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 Good gas exchange on 3L NC. Plan: Continue BPH, OOB daily and Pep. Wean O2 as able. 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 Plan: Transition to SSI to maintain BG <150. Hypovolemia Assessment: Postop fluid shifts Plan: IVF resuscitation prn PHYSICAL EXAM: Neuro: Awake, Follows commands, Alert and oriented x 3 and [place] Cardiovascular: Rhythm: regular rate and rhythm and Rate:sinus bradycardia Pulmonary: Clear to auscultation, Breath sounds equal and Diminished breath sounds, bilateral bases Ventilator: N/A, patient is extubated CXR Findings: Atelectasis Bilateral, Pleural effusion Bilateral and CXR personally viewed and interpreted by ICU staff Nurse Practitioner Gastrointestinal: Abdominal: Soft, Non-tender and Bowel sounds yes DAILY CVICU CHECKLIST VTE Prophylaxis: Pharmacologic Yes VTE Prophylaxis: Mechanical: Yes Line infection prevention: Can CVC, PAC or arterial line be removed: Yes - Remove arterial line and Remove Central venous catheter Continued need for urinary catheter: No - Remove urinary catheter Restraints needed: No SIGNATURE: Opal Abdalla APRN.CNP DATE of SERVICE: 05/11/2019 TIME of SERVICE: 7:45 AM Normal [facility] Staph aureus PCRon 0 MRSA PCR Negative Normal [facility] Comment on above: Performed By: #### P T, PTT, CBCDIF, CMP, LD6 #### [facility] [address] [place] [address] S aureus Spec Source Nasal Normal [facility] Comment on above: Performed By: #### P T, PTT, CBCDIF, CMP, LD6 #### [facility] [employer] [address] [place], [place] [address] Staph aureus PCR Negative Normal [facility] Comment on above: Performed By: #### P T, PTT, CBCDIF, CMP, LD6 #### [facility] [employer] [address] [place], [place] [address] Troponin Ton 05-11-2019 Troponin T.cardiac [Mass/Vol] 0.976 ng/mL High 0.000-0.029 [facility] Comment on above: Result Comment: Call ed to and read back by: Lilia Loaiza RN Q50 05/11/19 0158 Lilia Presley Performed By: #### P T, PTT, CBCDIF, CMP, LD6 #### [facility] [address] [place], [place] [address] XR CHEST 1V FRONTAL PORTon 0 05-11-2019 XR CHEST 1V FRONTAL PORT * * *Final Repo rt* * * DATE OF EXAM: May 11 2019 3:37AM [id number] - XR CHEST 1V FRONTAL PORT / PROCEDURE REASON: Post-operative / post-procedure assessment, asymptomatic * * * * Physician Interpretation * * * * EXAMINATION: CHEST RADIOGRAPH (PORTABLE SINGLE VIEW AP) Exam Date/Time: 05/11/2019 3:37 AM Clinical History: Post-operative / post-procedure assessment, asymptomatic MQ: [id number] Comparison: 1 day prior RESULT: Lines, tubes, and devices: Right internal jugular venous catheter is in stable position. Interval removal of endotracheal tube, NG/OG tube and one of the 2 mediastinal drains. Retained epicardial leads. Lungs and pleura: Hazy densities persist in the lower lung zones, possibly secondary to atelectasis. Stable appearance of small right apical pneumothorax. Cardiomediastinal silhouette: Patient is status post median sternotomy and mitral valve annuloplasty. Stable cardiomediastinal silhouette. Other: . IMPRESSION: See result. Ct Manager: EVERARDO Transcribe Date/Time: May 11 2019 10:43A Dictated by : JUAN CORCORAN MD This examination was interpreted and the report reviewed and electronically signed by: GREYSON CALDWELL MD on May 11 2019 11:20AM EST [id number] Normal [facility] APTTon 05-10-2019 aPTT Coag (Bld) [Time] 24.6 s Normal 23.0-32.4 Cl [facility] Comment on above: Result Comment: Unfr actionated Heparin Therapeutic Ranges: Standard Heparin Nomogram: 53 to 78 seconds (anti-Xa level of 0.3 to 0.7 U/ml) Low Dose/ACS Nomogram: 49 to 67 seconds (anti-Xa level of 0.2 to 0.5 U/ml) Stroke Treatment Nomogram: 49 to 67 seconds (anti-Xa level of 0.2 to 0.5 U/ml) Note: The APTT therapeutic range has been determined for the current lot of laboratory APTT reagent in use throughout the [facility]. Performed By: #### P T, PTT, CBCDIF, CMP, LD6 #### [address] [place], [place] [address] CBCon 05-10-2019 Absolute nRBC <0.01 Normal <0.01 [facility] Comment on above: Performed By: #### P T, PTT, CBCDIF, CMP, LD6 #### [address] [place], [place] [address] Erythrocyte distribution width (RBC) [Ratio] 12.8 % Normal 11.5-15.0 [facility] Comment on above: Performed By: #### P T, PTT, CBCDIF, CMP, LD6 #### [facility] [address] [place], [place] [address] Hematocrit (Bld) [Volume fraction] 34.5 % Low 39.0-51.0 [facility] Comment on above: Performed By: #### P T, PTT, CBCDIF, CMP, LD6 #### [address] [place], [place] [address] Hemoglobin (Bld) [Mass/Vol] 12.1 g/dL Low 13.0-17.0 [facility] Comment on above: Performed By: #### P T, PTT, CBCDIF, CMP, LD6 #### [address] [place], [place] [address] MCH (RBC) [Entitic mass] 34.1 pG High 26.0-34.0 [facility] Comment on above: Performed By: #### P T, PTT, CBCDIF, CMP, LD6 #### [place] [address] MCHC (RBC) [Mass/Vol] 35.1 g/dL Normal 30.5-36.0 [facility] Comment on above: Performed By: #### P T, PTT, CBCDIF, CMP, LD6 #### [place] [address] MCV (RBC) [Entitic vol] 97.2 fL Normal 80.0-100.0 C [facility] Comment on above: Performed By: #### P T, PTT, CBCDIF, CMP, LD6 #### [place] [address] Platelet mean volume (Bld) [Entitic vol] 11.5 fL Normal 9.0-12.7 [facility] Comment on above: Performed By: #### P T, PTT, CBCDIF, CMP, LD6 #### [address] [address] Platelets (Bld) [#/Vol] 84 10*3/uL Low 150-400 C [facility] Comment on above: Result Comment: Resu lt checked and verified No clot detected. Performed By: #### P T, PTT, CBCDIF, CMP, LD6 #### [address] [address] RBC (Bld) [#/Vol] 3.55 10*6/uL Low 4.20-6.00 [facility] Comment on above: Performed By: #### P T, PTT, CBCDIF, CMP, LD6 #### [facility] [employer] [address] [place], [place] [id number] WBC (Bld) [#/Vol] 11.61 10*3/uL High 3.70-11.00 [facility] Comment on above: Performed By: #### P T, PTT, CBCDIF, CMP, LD6 #### [facility] [employer] [address] [place], [place] [address] CNCOon 05-10-2019 CNCO Letter Text Normal [facility] EKG1on 05-10-2019 EKG1 NAME : KEESHA BOSE PID : [id number] : 1950 Gender : Male Race : ORD : Procedure Date : May 10 2019 17:06:42 Edit Date : May 14 2019 09:22:20 Diagnosis:SINUS RHYTHM WITH 1ST DEGREE AV BLOCK COMPLETE RIGHT BUNDLE BRANCH BLOCK ABNORMAL ECG Confirmed by MD CAMACHO, PhD, UDAY ([id number]) on 05/14/2019 9:22:19 AM Ventricular Rate : 64 BPM Atrial Rate : 64 BPM P-R Interval : 234 ms QRS Duration : 124 ms Q-T Interval : 446 ms QTC Calculation(Bazett) : 460 ms P Gilbert : 83 degrees R Gilbert : -1 degrees T Gilbert : 50 degrees Test Reason : Location : 549 : Q5NS Overread By : MD CAMACHO, PhD,UDAY Edited By : MD CAMACHO, PhD,UDAY Referred By : , Acquired by : [id number], Normal [facility] Fibrinogenon 05-10-2019 Fibrinogen 196 mg/dL Low 200-400 [facility] Comment on above: Performed By: #### P T, PTT, CBCDIF, CMP, LD6 #### [facility] [employer] [address] [place], [place] [address] GASA + All FOR RADIANCE USE ONLYon 05-10-2019 Base Excess 1 mmol/L Normal [facility] Comment on above: Performed By: #### P T, PTT, CBCDIF, CMP, LD6 #### [facility] [address] [place], [place] [address] Blood Gas Comm, Art . Normal [facility] Comment on above: Performed By: #### P T, PTT, CBCDIF, CMP, LD6 #### [address] [place] [address] Calcium [Mass/Vol] 1.12 mmol/L Normal 1.08-1.30 [facility] Comment on above: Performed By: #### P T, PTT, CBCDIF, CMP, LD6 #### [place] [address] Carboxyhemoglobin,Art 1.5 % Normal <2.1 [facility] Comment on above: Performed By: #### P T, PTT, CBCDIF, CMP, LD6 #### [place] [address] CO2 [Moles/Vol] 23 mmol/L Normal 22.0-28.0 [facility] Comment on above: Performed By: #### P T, PTT, CBCDIF, CMP, LD6 #### [address] [place], [place] [address] Glucose [Mass/Vol] 158 mg/dL High 60-105 [facility] Comment on above: Performed By: #### P T, PTT, CBCDIF, CMP, LD6 #### [address] [place], [place] [address] HCO3 (Bld) [Moles/Vol] 22 mmol/L Normal 22-26 [facility] Comment on above: Performed By: #### P T, PTT, CBCDIF, CMP, LD6 #### [address] [place], [place] [address] Hematocrit (Bld) [Volume fraction] 37.0 % Low 39.0-51.0 [facility] Comment on above: Performed By: #### P T, PTT, CBCDIF, CMP, LD6 #### [address] [place] [phone] Hemoglobin (Bld) [Mass/Vol] 12.0 g/dL Low 13.0-17.0 [facility] Comment on above: Performed By: #### P T, PTT, CBCDIF, CMP, LD6 #### [place] [phone] Lactate [Moles/Vol] 1.9 mmol/L Normal 0.5-2.2 [facility] Comment on above: Performed By: #### P T, PTT, CBCDIF, CMP, LD6 #### [place] [phone] Methemoglobin 1.1 % Normal <1.6 [facility] Comment on above: Performed By: #### P T, PTT, CBCDIF, CMP, LD6 #### [place] [phone] Oxygen (Bld) [Partial pressure] 183 mm Hg High 85-95 [facility] Comment on above: Performed By: #### P T, PTT, CBCDIF, CMP, LD6 #### [place] [phone] Oxyhemoglobin, Art. 97 % Normal 95-98 [facility] Comment on above: Performed By: #### P T, PTT, CBCDIF, CMP, LD6 #### [place] [phone] pCO2 25 mm Hg Low 34-46 [facility] Comment on above: Performed By: #### P T, PTT, CBCDIF, CMP, LD6 #### [place] [phone] pCO2, Temp Correct 25 mm Hg Low 34-46 [facility] Comment on above: Performed By: #### P T, PTT, CBCDIF, CMP, LD6 #### [address] [place] [address] pH (Bld) 7.55 [pH] High 7.35-7.45 [facility] Comment on above: Performed By: #### P T, PTT, CBCDIF, CMP, LD6 #### [address] [place] [address] pH, Temp Corrected 7.55 High 7.35-7.45 [facility] Comment on above: Performed By: #### P T, PTT, CBCDIF, CMP, LD6 #### [place] [address] pO2, Temp Corrected 183 mm Hg High 85-95 [facility] Comment on above: Performed By: #### P T, PTT, CBCDIF, CMP, LD6 #### [place] [address] Potassium [Moles/Vol] 3.7 mmol/L Normal 3.5-5.0 [facility] Comment on above: Performed By: #### P T, PTT, CBCDIF, CMP, LD6 #### [place] [address] Sodium [Moles/Vol] 136 mmol/L Normal 136-144 [facility] Comment on above: Performed By: #### P T, PTT, CBCDIF, CMP, LD6 #### [place] [address] Base Excess Negative Normal [facility] Comment on above: Performed By: #### P T, PTT, CBCDIF, CMP, LD6 #### [address] [address] Blood Gas Comm, Art . Normal [facility] Comment on above: Performed By: #### P T, PTT, CBCDIF, CMP, LD6 #### [address] [place] [address] Calcium [Mass/Vol] 1.16 mmol/L Normal 1.08-1.30 [facility] Comment on above: Performed By: #### P T, PTT, CBCDIF, CMP, LD6 #### [place] [address] Carboxyhemoglobin,Art 0.9 % Normal <2.1 [facility] Comment on above: Performed By: #### P T, PTT, CBCDIF, CMP, LD6 #### [place] [address] CO2 [Moles/Vol] 24 mmol/L Normal 22.0-28.0 [facility] Comment on above: Performed By: #### P T, PTT, CBCDIF, CMP, LD6 #### [place] [address] Glucose [Mass/Vol] 166 mg/dL High 60-105 [facility] Comment on above: Performed By: #### P T, PTT, CBCDIF, CMP, LD6 #### [place] [address] HCO3 (Bld) [Moles/Vol] 23 mmol/L Normal 22-26 [facility] Comment on above: Performed By: #### P T, PTT, CBCDIF, CMP, LD6 #### [place] [address] Hematocrit (Bld) [Volume fraction] 36.6 % Low 39.0-51.0 [facility] Comment on above: Performed By: #### P T, PTT, CBCDIF, CMP, LD6 #### [address] [place], [place] [address] Hemoglobin (Bld) [Mass/Vol] 11.9 g/dL Low 13.0-17.0 [facility] Comment on above: Performed By: #### P T, PTT, CBCDIF, CMP, LD6 #### [place] [address] Lactate [Moles/Vol] 1.4 mmol/L Normal 0.5-2.2 [facility] Comment on above: Performed By: #### P T, PTT, CBCDIF, CMP, LD6 #### [place] [phone] Methemoglobin 1.2 % Normal <1.6 [facility] Comment on above: Performed By: #### P T, PTT, CBCDIF, CMP, LD6 #### [place] [address] O2 Administered 40% Normal [facility] Comment on above: Performed By: #### P T, PTT, CBCDIF, CMP, LD6 #### [place] [address] Oxygen (Bld) [Partial pressure] 188 mm Hg High 85-95 [facility] Comment on above: Performed By: #### P T, PTT, CBCDIF, CMP, LD6 #### [place] [address] Oxyhemoglobin, Art. 97 % Normal 95-98 [facility] Comment on above: Performed By: #### P T, PTT, CBCDIF, CMP, LD6 #### [place] [address] pCO2 44 mm Hg Normal 34-46 [facility] Comment on above: Performed By: #### P T, PTT, CBCDIF, CMP, LD6 #### [facility] [address] [place], [place] [address] pCO2, Temp Correct 44 mm Hg Normal 34-46 [facility] Comment on above: Performed By: #### P T, PTT, CBCDIF, CMP, LD6 #### [facility] [address] [place], [place] [address] pH (Bld) 7.34 [pH] Low 7.35-7.45 [facility] Comment on above: Performed By: #### P T, PTT, CBCDIF, CMP, LD6 #### [address] [place], [place] [address] pH, Temp Corrected 7.34 Low 7.35-7.45 [facility] Comment on above: Performed By: #### P T, PTT, CBCDIF, CMP, LD6 #### [address] [place] [address] pO2, Temp Corrected 188 mm Hg High 85-95 [facility] Comment on above: Performed By: #### P T, PTT, CBCDIF, CMP, LD6 #### [address] [place] [address] Potassium [Moles/Vol] 4.2 mmol/L Normal 3.5-5.0 [facility] Comment on above: Performed By: #### P T, PTT, CBCDIF, CMP, LD6 #### [address] [place], [place] [address] Sodium [Moles/Vol] 136 mmol/L Normal 136-144 [facility] Comment on above: Performed By: #### P T, PTT, CBCDIF, CMP, LD6 #### [address] [place], [place] [address] Base Excess Negative Normal [facility] Comment on above: Performed By: #### P T, PTT, CBCDIF, CMP, LD6 #### [facility] [address] [place], [place] [address] Blood Gas Comm, Art . Normal [facility] Comment on above: Performed By: #### P T, PTT, CBCDIF, CMP, LD6 #### [address] [place], [place] [address] Calcium [Mass/Vol] 1.13 mmol/L Normal 1.08-1.30 [facility] Comment on above: Performed By: #### P T, PTT, CBCDIF, CMP, LD6 #### [address] [place], [place] [address] Carboxyhemoglobin,Art 1.5 % Normal <2.1 [facility] Comment on above: Performed By: #### P T, PTT, CBCDIF, CMP, LD6 #### [address] [address] CO2 [Moles/Vol] 22 mmol/L Normal 22.0-28.0 [facility] Comment on above: Performed By: #### P T, PTT, CBCDIF, CMP, LD6 #### [address] [place], [place] [address] Glucose [Mass/Vol] 159 mg/dL High 60-105 [facility] Comment on above: Performed By: #### P T, PTT, CBCDIF, CMP, LD6 #### [address] [place], [place] [address] HCO3 (Bld) [Moles/Vol] 21 mmol/L Low 22-26 [facility] Comment on above: Performed By: #### P T, PTT, CBCDIF, CMP, LD6 #### [address] [place], [place] [address] Hematocrit (Bld) [Volume fraction] 35.1 % Low 39.0-51.0 [facility] Comment on above: Performed By: #### P T, PTT, CBCDIF, CMP, LD6 #### [address] [place] [address] Hemoglobin (Bld) [Mass/Vol] 11.4 g/dL Low 13.0-17.0 [facility] Comment on above: Performed By: #### P T, PTT, CBCDIF, CMP, LD6 #### [address] [place] [phone] Lactate [Moles/Vol] 2.3 mmol/L High 0.5-2.2 [facility] Comment on above: Performed By: #### P T, PTT, CBCDIF, CMP, LD6 #### [place] [phone] Methemoglobin 1.2 % Normal <1.6 [facility] Comment on above: Performed By: #### P T, PTT, CBCDIF, CMP, LD6 #### [place] [address] O2 Administered 40% Normal [facility] Comment on above: Performed By: #### P T, PTT, CBCDIF, CMP, LD6 #### [address] [place] [address] Oxygen (Bld) [Partial pressure] 170 mm Hg High 85-95 [facility] Comment on above: Performed By: #### P T, PTT, CBCDIF, CMP, LD6 #### [address] [place] [address] Oxyhemoglobin, Art. 97 % Normal 95-98 [facility] Comment on above: Performed By: #### P T, PTT, CBCDIF, CMP, LD6 #### [place] [phone] pCO2 31 mm Hg Low 34-46 [facility] Comment on above: Performed By: #### P T, PTT, CBCDIF, CMP, LD6 #### [facility] [address] [place], [place] [address] pCO2, Temp Correct 31 mm Hg Low 34-46 [facility] Comment on above: Performed By: #### P T, PTT, CBCDIF, CMP, LD6 #### [address] [place] [address] pH (Bld) 7.45 [pH] Normal 7.35-7.45 [facility] Comment on above: Performed By: #### P T, PTT, CBCDIF, CMP, LD6 #### [address] [place] [address] pH, Temp Corrected 7.45 Normal 7.35-7.45 [facility] Comment on above: Performed By: #### P T, PTT, CBCDIF, CMP, LD6 #### [address] [place] [address] pO2, Temp Corrected 170 mm Hg High 85-95 [facility] Comment on above: Performed By: #### P T, PTT, CBCDIF, CMP, LD6 #### [address] [place] [address] Potassium [Moles/Vol] 4.2 mmol/L Normal 3.5-5.0 [facility] Comment on above: Performed By: #### P T, PTT, CBCDIF, CMP, LD6 #### [facility] [address] [place], [place] [address] Sodium [Moles/Vol] 137 mmol/L Normal 136-144 [facility] Comment on above: Performed By: #### P T, PTT, CBCDIF, CMP, LD6 #### [facility] [address] [place] [phone] Base Excess Negative Normal [facility] Comment on above: Performed By: #### P T, PTT, CBCDIF, CMP, LD6 #### [facility] [address] [place], [place] [address] Blood Gas Comm, Art . Normal [facility] Comment on above: Performed By: #### P T, PTT, CBCDIF, CMP, LD6 #### [address] [place] [address] Calcium [Mass/Vol] 1.18 mmol/L Normal 1.08-1.30 [facility] Comment on above: Performed By: #### P T, PTT, CBCDIF, CMP, LD6 #### [place] [address] Carboxyhemoglobin,Art 1.1 % Normal <2.1 [facility] Comment on above: Performed By: #### P T, PTT, CBCDIF, CMP, LD6 #### [place] [address] CO2 [Moles/Vol] 25 mmol/L Normal 22.0-28.0 [facility] Comment on above: Performed By: #### P T, PTT, CBCDIF, CMP, LD6 #### [address] [place] [address] Glucose [Mass/Vol] 145 mg/dL High 60-105 [facility] Comment on above: Performed By: #### P T, PTT, CBCDIF, CMP, LD6 #### [address] [place] [address] HCO3 (Bld) [Moles/Vol] 24 mmol/L Normal 22-26 [facility] Comment on above: Performed By: #### P T, PTT, CBCDIF, CMP, LD6 #### [address] [place] [address] Hematocrit (Bld) [Volume fraction] 37.6 % Low 39.0-51.0 [facility] Comment on above: Performed By: #### P T, PTT, CBCDIF, CMP, LD6 #### [place] [address] Hemoglobin (Bld) [Mass/Vol] 12.2 g/dL Low 13.0-17.0 [facility] Comment on above: Performed By: #### P T, PTT, CBCDIF, CMP, LD6 #### [place] [phone] Lactate [Moles/Vol] 1.3 mmol/L Normal 0.5-2.2 [facility] Comment on above: Performed By: #### P T, PTT, CBCDIF, CMP, LD6 #### [place] [phone] Methemoglobin 1.0 % Normal <1.6 [facility] Comment on above: Performed By: #### P T, PTT, CBCDIF, CMP, LD6 #### [place] [phone] O2 Administered 40% Normal [facility] Comment on above: Performed By: #### P T, PTT, CBCDIF, CMP, LD6 #### [place] [phone] Oxygen (Bld) [Partial pressure] 166 mm Hg High 85-95 [facility] Comment on above: Performed By: #### P T, PTT, CBCDIF, CMP, LD6 #### [address] [place] [phone] Oxyhemoglobin, Art. 97 % Normal 95-98 [facility] Comment on above: Performed By: #### P T, PTT, CBCDIF, CMP, LD6 #### [place] [phone] pCO2 41 mm Hg Normal 34-46 [facility] Comment on above: Performed By: #### P T, PTT, CBCDIF, CMP, LD6 #### [address] [place] [address] pCO2, Temp Correct 40 mm Hg Normal 34-46 [facility] Comment on above: Performed By: #### P T, PTT, CBCDIF, CMP, LD6 #### [address] [place] [address] pH (Bld) 7.38 [pH] Normal 7.35-7.45 [facility] Comment on above: Performed By: #### P T, PTT, CBCDIF, CMP, LD6 #### [place] [address] pH, Temp Corrected 7.39 Normal 7.35-7.45 [facility] Comment on above: Performed By: #### P T, PTT, CBCDIF, CMP, LD6 #### [place] [address] pO2, Temp Corrected 164 mm Hg High 85-95 [facility] Comment on above: Performed By: #### P T, PTT, CBCDIF, CMP, LD6 #### [place] [address] Potassium [Moles/Vol] 4.2 mmol/L Normal 3.5-5.0 [facility] Comment on above: Performed By: #### P T, PTT, CBCDIF, CMP, LD6 #### [place] [address] Sodium [Moles/Vol] 137 mmol/L Normal 136-144 [facility] Comment on above: Performed By: #### P T, PTT, CBCDIF, CMP, LD6 #### [place] [phone] Base Excess 1 mmol/L Normal [facility] Comment on above: Performed By: #### P T, PTT, CBCDIF, CMP, LD6 #### [address] [place] [address] Blood Gas Comm, Art . Normal [facility] Comment on above: Performed By: #### P T, PTT, CBCDIF, CMP, LD6 #### [place] [address] Calcium [Mass/Vol] 1.14 mmol/L Normal 1.08-1.30 [facility] Comment on above: Performed By: #### P T, PTT, CBCDIF, CMP, LD6 #### [place] [address] Carboxyhemoglobin,Art 1.5 % Normal <2.1 [facility] Comment on above: Performed By: #### P T, PTT, CBCDIF, CMP, LD6 #### [place] [address] CO2 [Moles/Vol] 27 mmol/L Normal 22.0-28.0 [facility] Comment on above: Performed By: #### P T, PTT, CBCDIF, CMP, LD6 #### [address] [place] [address] Glucose [Mass/Vol] 177 mg/dL High 60-105 [facility] Comment on above: Performed By: #### P T, PTT, CBCDIF, CMP, LD6 #### [place] [address] HCO3 (Bld) [Moles/Vol] 26 mmol/L Normal 22-26 [facility] Comment on above: Performed By: #### P T, PTT, CBCDIF, CMP, LD6 #### [address], [place] [address] Hematocrit (Bld) [Volume fraction] 29.6 % Low 39.0-51.0 [facility] Comment on above: Performed By: #### P T, PTT, CBCDIF, CMP, LD6 #### [address] [address] Hemoglobin (Bld) [Mass/Vol] 9.6 g/dL Low 13.0-17.0 [facility] Comment on above: Performed By: #### P T, PTT, CBCDIF, CMP, LD6 #### [place] [address] Lactate [Moles/Vol] 1.5 mmol/L Normal 0.5-2.2 [facility] Comment on above: Performed By: #### P T, PTT, CBCDIF, CMP, LD6 #### [place] [address] Methemoglobin 1.3 % Normal <1.6 [facility] Comment on above: Performed By: #### P T, PTT, CBCDIF, CMP, LD6 #### [place] [address] Oxygen (Bld) [Partial pressure] 265 mm Hg High 85-95 [facility] Comment on above: Performed By: #### P T, PTT, CBCDIF, CMP, LD6 #### [place] [address] Oxyhemoglobin, Art. 97 % Normal 95-98 [facility] Comment on above: Performed By: #### P T, PTT, CBCDIF, CMP, LD6 #### [place] [address] pCO2 47 mm Hg High 34-46 [facility] Comment on above: Performed By: #### P T, PTT, CBCDIF, CMP, LD6 #### [facility] [address] [place], [place] [address] pCO2, Temp Correct 47 mm Hg High 34-46 [facility] Comment on above: Performed By: #### P T, PTT, CBCDIF, CMP, LD6 #### [address] [place], [place] [address] pH (Bld) 7.36 [pH] Normal 7.35-7.45 [facility] Comment on above: Performed By: #### P T, PTT, CBCDIF, CMP, LD6 #### [address] [place] [address] pH, Temp Corrected 7.36 Normal 7.35-7.45 [facility] Comment on above: Performed By: #### P T, PTT, CBCDIF, CMP, LD6 #### [place] [address] pO2, Temp Corrected 265 mm Hg High 85-95 [facility] Comment on above: Performed By: #### P T, PTT, CBCDIF, CMP, LD6 #### [place] [address] Potassium [Moles/Vol] 4.2 mmol/L Normal 3.5-5.0 [facility] Comment on above: Performed By: #### P T, PTT, CBCDIF, CMP, LD6 #### [address] [place], [place] [address] Sodium [Moles/Vol] 137 mmol/L Normal 136-144 [facility] Comment on above: Performed By: #### P T, PTT, CBCDIF, CMP, LD6 #### [address] [place] [phone] Base Excess 1 mmol/L Normal [facility] Comment on above: Performed By: #### P T, PTT, CBCDIF, CMP, LD6 #### [facility] [address] [place], [place] [id number] Blood Gas Comm, Art . Normal [facility] Comment on above: Performed By: #### P T, PTT, CBCDIF, CMP, LD6 #### [address] [place], [place] [address] Calcium [Mass/Vol] 1.11 mmol/L Normal 1.08-1.30 [facility] Comment on above: Performed By: #### P T, PTT, CBCDIF, CMP, LD6 #### [address] [place] [place], [place] [address] Carboxyhemoglobin,Art 1.3 % Normal <2.1 [facility] Comment on above: Performed By: #### P T, PTT, CBCDIF, CMP, LD6 #### [place] [address] CO2 [Moles/Vol] 29 mmol/L High 22.0-28.0 [facility] Comment on above: Performed By: #### P T, PTT, CBCDIF, CMP, LD6 #### [address] [place], [place] [address] Glucose [Mass/Vol] 210 mg/dL High 60-105 [facility] Comment on above: Performed By: #### P T, PTT, CBCDIF, CMP, LD6 #### [address] [place], [place] [address] HCO3 (Bld) [Moles/Vol] 27 mmol/L High 22-26 [facility] Comment on above: Performed By: #### P T, PTT, CBCDIF, CMP, LD6 #### [address] [place], [place] [address] Hematocrit (Bld) [Volume fraction] 29.7 % Low 39.0-51.0 [facility] Comment on above: Performed By: #### P T, PTT, CBCDIF, CMP, LD6 #### [facility] [employer] [address] [place] [phone] Hemoglobin (Bld) [Mass/Vol] 9.6 g/dL Low 13.0-17.0 [facility] Comment on above: Performed By: #### P T, PTT, CBCDIF, CMP, LD6 #### [place] [address] [place] [phone] Lactate [Moles/Vol] 1.1 mmol/L Normal 0.5-2.2 [facility] Comment on above: Performed By: #### P T, PTT, CBCDIF, CMP, LD6 #### [place] [phone] Methemoglobin 1.1 % Normal <1.6 [facility] Comment on above: Performed By: #### P T, PTT, CBCDIF, CMP, LD6 #### [address] [place] [address] Oxygen (Bld) [Partial pressure] 295 mm Hg High 85-95 [facility] Comment on above: Performed By: #### P T, PTT, CBCDIF, CMP, LD6 #### [place] [address] [place] [phone] Oxyhemoglobin, Art. 98 % Normal 95-98 [facility] Comment on above: Performed By: #### P T, PTT, CBCDIF, CMP, LD6 #### [facility] [address] [place] [phone] pCO2 52 mm Hg High 34-46 [facility] [facility] Comment on above: Performed By: #### P T, PTT, CBCDIF, CMP, LD6 #### [facility] [address] [place] [phone] pCO2, Temp Correct 52 mm Hg High 34-46 [facility] Comment on above: Performed By: #### P T, PTT, CBCDIF, CMP, LD6 #### [facility] [address] [place] [address] pH (Bld) 7.34 [pH] Low 7.35-7.45 [facility] Comment on above: Performed By: #### P T, PTT, CBCDIF, CMP, LD6 #### [place] [address] [place] [address] pH, Temp Corrected 7.34 Low 7.35-7.45 [facility] Comment on above: Performed By: #### P T, PTT, CBCDIF, CMP, LD6 #### [place] [address] [place] [address] pO2, Temp Corrected 295 mm Hg High 85-95 [facility] Comment on above: Performed By: #### P T, PTT, CBCDIF, CMP, LD6 #### [place] [address] [place] [address] Potassium [Moles/Vol] 4.7 mmol/L Normal 3.5-5.0 [facility] Comment on above: Performed By: #### P T, PTT, CBCDIF, CMP, LD6 #### [place] [address] [place] [address] Sodium [Moles/Vol] 135 mmol/L Low 136-144 [facility] Comment on above: Performed By: #### P T, PTT, CBCDIF, CMP, LD6 #### [place] [address] [place] [address] Base Excess 3 mmol/L Normal [facility] Comment on above: Performed By: #### P T, PTT, CBCDIF, CMP, LD6 #### [place] [address] [place] [address] Blood Gas Comm, Art . Normal [facility] Comment on above: Performed By: #### P T, PTT, CBCDIF, CMP, LD6 #### [place] [address] [place] [address] Calcium [Mass/Vol] 1.11 mmol/L Normal 1.08-1.30 [facility] Comment on above: Performed By: #### P T, PTT, CBCDIF, CMP, LD6 #### [place] [address] Carboxyhemoglobin,Art 1.3 % Normal <2.1 [facility] Comment on above: Performed By: #### P T, PTT, CBCDIF, CMP, LD6 #### [place] [address] CO2 [Moles/Vol] 28 mmol/L Normal 22.0-28.0 [facility] Comment on above: Performed By: #### P T, PTT, CBCDIF, CMP, LD6 #### [place] [address] Glucose [Mass/Vol] 139 mg/dL High 60-105 [facility] Comment on above: Performed By: #### P T, PTT, CBCDIF, CMP, LD6 #### [place] [address] HCO3 (Bld) [Moles/Vol] 26 mmol/L Normal 22-26 [facility] Comment on above: Performed By: #### P T, PTT, CBCDIF, CMP, LD6 #### [place] [address] Hematocrit (Bld) [Volume fraction] 32.3 % Low 39.0-51.0 [facility] Comment on above: Performed By: #### P T, PTT, CBCDIF, CMP, LD6 #### [address], [place] [address] Hemoglobin (Bld) [Mass/Vol] 10.5 g/dL Low 13.0-17.0 [facility] Comment on above: Performed By: #### P T, PTT, CBCDIF, CMP, LD6 #### [place] [address] [place], [place] [address] Lactate [Moles/Vol] 1.2 mmol/L Normal 0.5-2.2 [facility] Comment on above: Performed By: #### P T, PTT, CBCDIF, CMP, LD6 #### [address] [address] Methemoglobin 1.0 % Normal <1.6 [facility] Comment on above: Performed By: #### P T, PTT, CBCDIF, CMP, LD6 #### [place] [address] Oxygen (Bld) [Partial pressure] 301 mm Hg High 85-95 [facility] Comment on above: Performed By: #### P T, PTT, CBCDIF, CMP, LD6 #### [address] [place] [place], [place] [address] Oxyhemoglobin, Art. 98 % Normal 95-98 [facility] Comment on above: Performed By: #### P T, PTT, CBCDIF, CMP, LD6 #### [place] [address] [place], [place] [address] pCO2 39 mm Hg Normal 34-46 [facility] Comment on above: Performed By: #### P T, PTT, CBCDIF, CMP, LD6 #### [facility] [address] [place], [place] [address] pCO2, Temp Correct 39 mm Hg Normal 34-46 [facility] Comment on above: Performed By: #### P T, PTT, CBCDIF, CMP, LD6 #### [address] [place] [place], [place] [address] pH (Bld) 7.44 [pH] Normal 7.35-7.45 [facility] Comment on above: Performed By: #### P T, PTT, CBCDIF, CMP, LD6 #### [place] [place], [place] [address] pH, Temp Corrected 7.44 Normal 7.35-7.45 [facility] Comment on above: Performed By: #### P T, PTT, CBCDIF, CMP, LD6 #### [place] [address] [place] [address] pO2, Temp Corrected 301 mm Hg High 85-95 [facility] Comment on above: Performed By: #### P T, PTT, CBCDIF, CMP, LD6 #### [place] [address] Potassium [Moles/Vol] 4.5 mmol/L Normal 3.5-5.0 [facility] Comment on above: Performed By: #### P T, PTT, CBCDIF, CMP, LD6 #### [place] [address] [place] [address] Sodium [Moles/Vol] 138 mmol/L Normal 136-144 [facility] Comment on above: Performed By: #### P T, PTT, CBCDIF, CMP, LD6 #### [place] [address] [place] [address] Base Excess 2 mmol/L Normal [facility] Comment on above: Performed By: #### P T, PTT, CBCDIF, CMP, LD6 #### [place] [address] [place] [address] Blood Gas Comm, Art . Normal [facility] Comment on above: Performed By: #### P T, PTT, CBCDIF, CMP, LD6 #### [facility] [address] [place], [place] [address] Calcium [Mass/Vol] 1.22 mmol/L Normal 1.08-1.30 [facility] Comment on above: Performed By: #### P T, PTT, CBCDIF, CMP, LD6 #### [place] [address] [place], [place] [address] Carboxyhemoglobin,Art 1.4 % Normal <2.1 [facility] Comment on above: Performed By: #### P T, PTT, CBCDIF, CMP, LD6 #### [place] [address] [place] [address] CO2 [Moles/Vol] 27 mmol/L Normal 22.0-28.0 [facility] Comment on above: Performed By: #### P T, PTT, CBCDIF, CMP, LD6 #### [place] [address] Glucose [Mass/Vol] 90 mg/dL Normal 60-105 [facility] Comment on above: Performed By: #### P T, PTT, CBCDIF, CMP, LD6 #### [place] [address] [place] [id number] HCO3 (Bld) [Moles/Vol] 25 mmol/L Normal 22-26 [facility] Comment on above: Performed By: #### P T, PTT, CBCDIF, CMP, LD6 #### [place] [address] [place], [place] [address] Hematocrit (Bld) [Volume fraction] 41.2 % Normal 39.0-51.0 [facility] Comment on above: Performed By: #### P T, PTT, CBCDIF, CMP, LD6 #### [address] [place] [address] [place], [place] [address] Hemoglobin (Bld) [Mass/Vol] 13.4 g/dL Normal 13.0-17.0 [facility] Comment on above: Performed By: #### P T, PTT, CBCDIF, CMP, LD6 #### [facility] [address] [place], [place] [address] Lactate [Moles/Vol] 0.8 mmol/L Normal 0.5-2.2 [facility] Comment on above: Performed By: #### P T, PTT, CBCDIF, CMP, LD6 #### [facility] [address] [place] [address] Methemoglobin 0.8 % Normal <1.6 [facility] Comment on above: Performed By: #### P T, PTT, CBCDIF, CMP, LD6 #### [place] [address] [place], [place] [address] Oxygen (Bld) [Partial pressure] 112 mm Hg High 85-95 [facility] Comment on above: Performed By: #### P T, PTT, CBCDIF, CMP, LD6 #### [facility] [address] [place], [place] [address] Oxyhemoglobin, Art. 97 % Normal 95-98 [facility] Comment on above: Performed By: #### P T, PTT, CBCDIF, CMP, LD6 #### [facility] [address] [place], [place] [address] pCO2 40 mm Hg Normal 34-46 [facility] Comment on above: Performed By: #### P T, PTT, CBCDIF, CMP, LD6 #### [facility] [address] [place], [place] [address] pCO2, Temp Correct 40 mm Hg Normal 34-46 [facility] Comment on above: Performed By: #### P T, PTT, CBCDIF, CMP, LD6 #### [facility] [address] [place], [place] [address] pH (Bld) 7.42 [pH] Normal 7.35-7.45 [facility] Comment on above: Performed By: #### P T, PTT, CBCDIF, CMP, LD6 #### [place] [address] [place] [address] pH, Temp Corrected 7.42 Normal 7.35-7.45 [facility] Comment on above: Performed By: #### P T, PTT, CBCDIF, CMP, LD6 #### [place] [address] [place] [address] pO2, Temp Corrected 112 mm Hg High 85-95 [facility] Comment on above: Performed By: #### P T, PTT, CBCDIF, CMP, LD6 #### [place] [address] [place] [address] Potassium [Moles/Vol] 4.0 mmol/L Normal 3.5-5.0 [facility] Comment on above: Performed By: #### P T, PTT, CBCDIF, CMP, LD6 #### [place] [address] [place] [address] Sodium [Moles/Vol] 139 mmol/L Normal 136-144 [facility] Comment on above: Performed By: #### P T, PTT, CBCDIF, CMP, LD6 #### [place] [address] [place] [address] GASV + ALLon 05-10-2019 Base Excess 3 mmol/L Normal [facility] Comment on above: Performed By: #### P T, PTT, CBCDIF, CMP, LD6 #### [place] [address] [place] [address] Blood Gas Comm, Alvarado . Normal [facility] Comment on above: Performed By: #### P T, PTT, CBCDIF, CMP, LD6 #### [place] [address] [place] [address] Calcium [Mass/Vol] 1.12 mmol/L Normal 1.08-1.30 [facility] Comment on above: Performed By: #### P T, PTT, CBCDIF, CMP, LD6 #### [address] [place] [place], [place] [address] Carboxyhemoglobin,Alvarado 1.3 % Normal <2.1 [facility] Comment on above: Performed By: #### P T, PTT, CBCDIF, CMP, LD6 #### [place] [address] CO2 [Moles/Vol] 30 mmol/L High 25-29 [facility] Comment on above: Performed By: #### P T, PTT, CBCDIF, CMP, LD6 #### [place] [address] Glucose [Mass/Vol] 136 mg/dL High 60-105 [facility] Comment on above: Performed By: #### P T, PTT, CBCDIF, CMP, LD6 #### [address] [place] [place], [place] [address] HCO3 (Bld) [Moles/Vol] 28 mmol/L Normal 24-28 [facility] Comment on above: Performed By: #### P T, PTT, CBCDIF, CMP, LD6 #### [address] [place] [address] [place] [address] Hematocrit (Bld) [Volume fraction] 32.5 % Low 39.0-51.0 [facility] Comment on above: Performed By: #### P T, PTT, CBCDIF, CMP, LD6 #### [address] [place] [address] [place], [place] [address] Hemoglobin (Bld) [Mass/Vol] 10.5 g/dL Low 13.0-17.0 [facility] Comment on above: Performed By: #### P T, PTT, CBCDIF, CMP, LD6 #### [facility] [address] [place] [address] Lactate [Moles/Vol] 1.2 mmol/L Normal 0.5-2.2 [facility] Comment on above: Performed By: #### P T, PTT, CBCDIF, CMP, LD6 #### [place] [address] [place] [address] Methemoglobin 1.0 % Normal <1.6 [facility] Comment on above: Performed By: #### P T, PTT, CBCDIF, CMP, LD6 #### [address] [place] [address] [place] [address] Oxygen (Bld) [Partial pressure] 50 mm Hg High 35-45 [facility] Comment on above: Performed By: #### P T, PTT, CBCDIF, CMP, LD6 #### [place] [address] Oxyhemoglobin, Alvarado. 81 % Normal 60-85 [facility] Comment on above: Performed By: #### P T, PTT, CBCDIF, CMP, LD6 #### [place] [address] [place] [address] pCO2 47 mm Hg Normal 42-55 [facility] Comment on above: Performed By: #### P T, PTT, CBCDIF, CMP, LD6 #### [place] [address] [place] [address] pCO2, Temp Correct 47 mm Hg Normal 42-55 [facility] Comment on above: Performed By: #### P T, PTT, CBCDIF, CMP, LD6 #### [address] [place] [place], [place] [address] pH (Bld) 7.39 [pH] Normal 7.32-7.42 [facility] Comment on above: Performed By: #### P T, PTT, CBCDIF, CMP, LD6 #### [facility] [address] [place] [address] pH, Temp Corrected 7.39 Normal 7.32-7.42 [facility] Comment on above: Performed By: #### P T, PTT, CBCDIF, CMP, LD6 #### [facility] [address] [place] [address] pO2, Temp Corrected 50 mm Hg High 35-45 [facility] Comment on above: Performed By: #### P T, PTT, CBCDIF, CMP, LD6 #### [place] [address] [place] [address] Potassium [Moles/Vol] 4.4 mmol/L Normal 3.5-5.0 [facility] Comment on above: Performed By: #### P T, PTT, CBCDIF, CMP, LD6 #### [place] [address] [place] [address] Sodium [Moles/Vol] 139 mmol/L Normal 136-144 [facility] Comment on above: Performed By: #### P T, PTT, CBCDIF, CMP, LD6 #### [facility] [address] [place] [address] OPERATIVE NOon 05-10-2019 OPERATIVE NO HNO ID: [id number] Author: Lavon Randle Service: Cardiac Surgery Author Type: Physician Type: Operative Report Filed: 05/10/2019 4:55 PM Note Text: Attestation signed by Alirio Dang at 05/11/2019 8:54 AM ok [facility] OPERATIVE/PROCEDURE REPORT LOG ID: [id number] SURGERY/PROCEDURE DATE: 05/10/2019 INCISION/PROCEDURE START TIME: 2:16 PM INCISION CLOSE/PROCEDURE END TIME: 4:47 PM SURGEON(S)/PROCEDURALI ST(S) AND CORRECTIONAL MAINTENANCE TECHNICIAN(S): Surgeon(s) and Role: * Alirio Dang - Primary * Lavon Randle - Assisting Registered Nurse Commercial Account Manager: Altagracia (Rn) TERRI Rojas ANESTHESIA: General CARDIAC SURGERY OP REPORT PROCEDURE: Mitral Valve Repair + Tricuspid valve repair PREOPERATIVE DIAGNOSIS: Mitral Valve Regurgitation and Dilated tricuspid annulus POSTOPERATIVE DIAGNOSIS: Same as preop DESCRIPTION OF PROCEDURE: Operative Approach: Full Conventional Sternotomy PUMP: ON PUMP Arterial Cannulation: Aortic Venous Cannulation: Bicaval CARDIOPLEGIA: Buckberg Cardioplegia Delivery: Antegrade and Retrograde MITRAL VALVE: Repair Type: Posterior Leaflet and Annuloplasty Posterior Leaflet Type: Neochord P2 Annuloplasty Type: #35 Kimbrough Band Mitral Valve Findings: P2 prolapse, moderate risk of RONA TRICUSPID VALVE: Remodeling annuloplasty with #25 Kimbrough Band POST-BYPASS Aortic Occlusion: Aortic cross clamp PACING WIRES: Right ventricle which can be pulled CHEST TUBES/DRAINS: Right chest tube and Mediastinal chest tube CLOSURE: Routine with sternal wires POST-PROCEDURE DETAILS Patient Tolerance of Procedure: Tolerated well, no immediate complications Sponge/Instrument/Need le Counts: Final Counts Correct Estimated Blood Loss: 500 mL of shed blood was preserved by cardiopulmonary bypass pump and the cell saver. Specimens: None SURGEON/CORRECTIONAL MAINTENANCE TECHNICIAN PARTICIPATION: No qualified Resident/Fellow was available.The following were completed without direct supervision but with primary surgeon/proceduralist readily available and the remainder of the procedure was performed by the primary surgeon/proceduralist with assistance: Cupola Mechanic: Opened and closed Second Assist: Closed and opened COMPLETED BY: Lavon Randle MD PATIENT NAME: Keesha Bose DATE: May 10, 2019 TIME: 4:52 PM AGE: [age] year old Normal [facility] PROGRESSon 05-10-2019 PROGRESS HNO ID: [id number] Author: Opal Abdalla Service: Critical Care Author Type: Nurse Practitioner Type: Progress Notes Filed: 05/10/2019 5:44 PM Note Text: [facility] Admission Note Name: Keesha Bose Principal Diagnosis: Nonrheumatic mitral valve regurgitation Indication for Surgery: Mitral regurgitation, tricuspid regurgitation Preop LVEF: 65% RVF: Normal Postop LVEF: Normal RVF: Normal Important/Relevant PMH/PSH: MR, ex smoker Preoperative Hospital Course (narrative or log of major events): Airway Difficulty: Grade I - No special instrumentation Pacing wires: Yes: Ventricular: When discontinuing pacing wires: Pull all pacing wires Chronological list of Surgeries and Major Events (diagnosis): (Surgeries in bold characters) 05/10/2019: MVr, TVr_ A/P of Major Active Problems (excluding routine care and common problems): Neuro: Wean sedation as able Cardiac: Maintain MAP 70-80. IVF resuscitation prn. 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 Plan: Control blood glucose with insulin infusion per CVICU protocol Hypovolemia Assessment: Postop fluid shifts Plan: IVF resuscitation prn Infusions: Propofol CVICU Admission ECG: Reviewed CVICU Admission CXR: Reviewed Neuro: intubated and sedated . Cardiovascular: Rhythm: regular rate and rhythm and Rate:normal sinus rhythm MAP: 61 mmHg Cardiac Index: N/A Pacemaker : None ICD: No Peripheral pulses present: All present Pulmonary: Clear to auscultation, Breath sounds equal and Diminished breath sounds, bilateral bases Ventilator: Intubated Potential prolonged intubation : No Abdominal: Soft and OG Tube yes Continued need for urinary catheter: Yes - clinical indication: Patient post major surgery requiring fluid balance and input and output measurement. DAY OF SURGERY PLAN: Standard Protocol, intubated patient: Cardiovascular monitoring, stabilization of blood pressure and cardiac function, wean to extubate when ready per protocol. Pain control, glycemic control, DVT prophylaxis, antibiotic prophylaxis. SIGNATURE: Opal Abdalla APRN.CNP DATE of SERVICE: 05/10/2019 TIME of SERVICE: 5:37 PM Normal [facility] PT EDon 05-10-2019 PT ED HNO ID: [id number] Author: Cristal Bishop) TERRI Schmitt Service: ? Author Type: Registered Nurse Type: Patient Education Filed: 05/10/2019 9:20 AM Note Text: PRE OP LEARNING ASSESSMENT PROCEDURE/SURGERY: MVR READINESS TO LEARN COGNITIVE ABILITY: Alert and oriented MOTIVATION TO LEARN: Eager FAMILY SUPPORT: High - Very involved in pt care PATIENT LEARNS BEST BY: Multiple Methods FACTORS AFFECTING LEARNING: None PHYSICAL LIMITATIONS AFFECTING LEARNING: None Electronically Signed By: Cristal Schmitt RN In Department: [id number] Normal [facility] Protimeon 05-10-2019 PT Coag (PPP) [Time] 12.3 s Normal 9.7-13.0 [facility] Comment on above: Performed By: #### P T, PTT, CBCDIF, CMP, LD6 #### [facility] [employer] [address] [place], [place] [address] PT Coag (PPP) [Time] 1.1 s Normal 0.9-1.3 [facility] Comment on above: Result Comment: Amber min K Antagonist (VKA) Therapeutic Range: INR 2 to 3 (Target INR of 2.5) Note: For patients treated with VKA drugs, such as warfarin, the [employer] [employer] 2012 Guideline recommends a therapeutic INR range of 2 to 3 (target INR of 2.5). This recommendation includes high-risk patients with antiphospholipid syndrome with previous arterial or venous thromboembolism, current-generation mechanical or bioprosthetic aortic heart valve replacement. Note: Patients with mechanical aortic valve replacement and additional risk factors for thromboembolic events (atrial fibrillation, previous thromboembolism, LV dysfunction, hypercoagulable conditions) or an older generation mechanical AVR (i.e., ball in-Cage) or any mechanical MVR should have a INR therapeutic range of 2.5 to 3.5 (target INR of 3). Derek GH, et al. Chest 2012, 141:7S-47S [place] RA, et al. [facility] 2017, 70: 252-289 Performed By: #### P T, PTT, CBCDIF, CMP, LD6 #### [facility] [employer] [address] [place], [place] [address] XR CHEST 1V FRONTAL PORTon 0 05-10-2019 XR CHEST 1V FRONTAL PORT * * *Final Repo rt* * * DATE OF EXAM: May 10 2019 5:44PM [id number] - XR CHEST 1V FRONTAL PORT / PROCEDURE REASON: Post-operative / post-procedure assessment, asymptomatic * * * * Physician Interpretation * * * * EXAMINATION: CHEST RADIOGRAPH (PORTABLE SINGLE VIEW AP) Exam Date/Time: 05/10/2019 5:44 PM Clinical History: Post-operative / post-procedure assessment, asymptomatic MQ: [id number] Comparison: 5 days prior RESULT: Lines, tubes, and devices: Interval median sternotomy. Support devices are unremarkable. Lungs and pleura: Development of tiny apical pneumothoraces, right more than left. Increase of partial atelectasis at the medial bases. Cardiomediastinal silhouette: Stable cardiomediastinal silhouette. Other: . IMPRESSION: See result. Ct Manager: PSCB Transcribe Date/Time: May 10 2019 7:41P Dictated by : EMILIANA SULLIVAN MD This examination was interpreted and the report reviewed and electronically signed by: EMILIANA SULLIVAN MD on May 10 2019 7:41PM EST [id number] Normal [facility] CNCNPATEDon 05-06-2019 CNCNPATED Education (CARTMN) KEESHA BOSE ([id number]) 1950 M Date Time Provider Department 05/06/19 HUNTER WATSON Reason for Visit: Patient Education [91] Progress Notes: Hunter Watson APRN.CNP 05/06/2019 10:33 AM Signed AMBULATORY PATIENT EDUCATION READINESS TO LEARN Cognitive Ability: Alert and oriented Motivation To Learn: Interested Family Support: High - Very involved in pt care Instruction Provided To: Patient AND Family Patient Learns Best By: Multiple Methods Factors Affecting Learning: None Physical Limitations Affecting Learning: None LEARNING RESPONSE Diagnosis: MVR Education Topic: Pre-Op Open Heart Surgery Instructions Teaching Points: Logistics / Protocols /Complication Prevention How prepared do you feel you are for this visit: Instruction/Supplement al Materials: Cardiac Surgery Information Binder Video Individual Instruction Patient/Family Response: Somewhat Follow up plan: Patient/Family to call [facility] with any further questions Referral (Recommendation): None Teach completed, topic: bactroban During your visit today, we recorded the following information about you: Allergies As of Date: 05/06/2019 (No Known Allergies) Date Reviewed: 05/06/2019 Reviewed by: Hunter Watson - Fully Assessed Prescriptions as of 05/06/2019 Sig: ASPIRIN 81 MG TABLET,DELAYED * Take 81 mg by mouth once samson* MUPIROCIN 2 % NASAL OINTMENT * Place on each nostril the nig* IV CONTRAST (RADIOLOGY PROCED* CT Cardiac - No IV access, in* * CHOLECALCIFEROL (VITAMIN D3) * Take 185 mg by mouth once renetta* * CYANOCOBALAMIN (VIT B-12) 500* Take one(1) tablet daily. * BIOTIN ORAL Take 5,000 mcg by mouth once * * SILDENAFIL 50 MG TABLET As directed. * SULFACETAMIDE SODIUM-SULFUR 1* Apply to nose once daily. * THERAPEUTIC MULTIVITAMIN TABL* Take one(1) tablet daily. Encounter Status:Closed by HUNTER MONTOYA CNP on 05/06/19 [facility] CNCOon 05-06-2019 CNCO Letter Text Normal [facility] CNOVon 05-06-2019 CNOV Office Visit (TOHSMN ) KEESHA BOSE ([id number]) 1950 M Date Time Provider Department 05/06/19 12:30 PM Alirio DANG [facility] During your visit today, we recorded the following information about you: Alirio Dang MD 05/06/2019 10:27 AM Signed CHART COPY DO NOT DISCARD Patient Type: Consult Visit to determine Surgery: Yes PCP: Carlitos Johnson MD (Dr) [address] [place] [address] Referring Physician: Micheal Trujillo MD (Dr) [address] [place], [place] [id number] HPI: Mr. Keesha Bose is a 68 year old male seen in consultation at the request of Micheal Trujillo for opinion regarding treatment options for Mitral Insufficiency. He is currently asymptomatic Comorbidities include low platelets. Based on my evaluation he is a high risk for open heart surgery and cardiac surgery. Impression: Mitral Insufficiency Plan: Full Sternotomy with limited skin. MV repair or SJ Biocor. Note low platelets. Bicaval cannulation. Buckberg antegrade and retrograde. Pettersson retrograde. Iced slush. NOHELIA. Amicar. I spent 30 minutes in this visit, with more than 50% of the time devoted to patient counseling. Alirio Dang MD Referring Provider: MICHEAL TRUJILLO [[id number]] Allergies As of Date: 05/06/2019 (No Known Allergies) Date Reviewed: 05/06/2019 Reviewed by: Hunter Watson - Fully Assessed Primary Visit Diagnosis:Mitral valve disorder [I05.9] Prescriptions as of 05/06/2019 Sig: ASPIRIN 81 MG TABLET,DELAYED * Take 81 mg by mouth once samson* IV CONTRAST (RADIOLOGY PROCED* CT Cardiac - No IV access, in* * CHOLECALCIFEROL (VITAMIN D3) * Take 185 mg by mouth once renetta* * CYANOCOBALAMIN (VIT B-12) 500* Take one(1) tablet daily. * BIOTIN ORAL Take 5,000 mcg by mouth once * * SILDENAFIL 50 MG TABLET As directed. * SULFACETAMIDE SODIUM-SULFUR 1* Apply to nose once daily. * THERAPEUTIC MULTIVITAMIN TABL* Take one(1) tablet daily. 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 Nonrheumatic mitral valve regurgitation [I34.0] 05/06/2019 Encounter Status:Closed by Alirio DANG MD on 05/06/19 Normal [facility]OV Office Visit (CARTMN ) KEESHA BOSE ([id number]) 1950 M Date Time Provider Department 05/06/19 10:00 AM ANESTHESIA CLEARANCE CARTMN During your visit today, we recorded the following information about you: Candelaria Ayoub MD 05/06/2019 10:17 AM [facility] PRE[facility] EVALUATION CARDIOTHORACIC ANESTHESIA CARDIAC SURGERY SERVICE DATE: 05/06/2019 SERVICE TIME: 9:22 AM Proposed Surgical Procedure: Mitral Valve Surgery Re-do: No ASA Class: 4 Surgeon: Aldo Surgery Date: 05/10/19 Last Wt 05/06/19 : 73.8 kg (162 lb 12.8 oz) Last Ht 05/06/19 : 182.9 cm (6') Estimated body mass index is 22.08 kg/m? as calculated from the following: Height as of an earlier encounter on 05/06/19: 182.9 cm (6'). Weight as of an earlier encounter on 05/06/19: 73.8 kg (162 lb 12.8 oz). Joseph body weight: 77.6 kg (171 lb 1.2 oz) Estimated body surface area is 1.94 meters squared as calculated from the following: Height as of an earlier encounter on 05/06/19: 182.9 cm (6'). Weight as of an earlier encounter on 05/06/19: 73.8 kg (162 lb 12.8 oz). Keesha is a 68 year old male with a history of mitral valve regurgitation presenting for mitral valve surgery. PAST MEDICAL HISTORY Diagnosis Date - Mitral valve disease PAST SURGICAL HISTORY Procedure Laterality Date - PAST SURGICAL HISTORY OF Pt states lumpy tissue removed from neck x 2 - REMOVAL OF TONSILS,<12 Y/O Tonsillectomy - VASECTOMY 1984 Social History Tobacco Use - Smoking status: Former Smoker Packs/day: 2.00 Years: 10.00 Pack years: 20.00 Types: Cigarettes Last attempt to quit: 03/31/1979 Years since quittin.1 - Smokeless tobacco: Never Used Substance Use Topics - Alcohol use: Yes Frequency: 2-3 times a week Drinks per session: 1 or 2 Binge frequency: Never - Drug use: Never ALLERGIES No Known Allergies REVIEW OF SYSTEMS: Neuro: No Hx of stroke or seizures Respiratory: No history of current cough or dyspnea, or pneumonia in the past 6 weeks. No history of respiratory/pulmonary symptoms or problems Cardiovascular: See HPI GI: No history of GI symptoms or problems. No history of esophageal varices, recent ascites, or ETOH greater than 2 drinks per day. Endocrine: No history of diabetes. Has not taken steroids within the past 30 days. No history of endocrinological symptoms or problems. Hematology: Thrombocytopenia. Idiopathic. Currently 108k ANESTHETIC HISTORY: History of general anesthesia without complications. AIRWAY ASSESSMENT: Airway History: No abnormal airway history Airway Exam: General: Normal appearance Mallampati Score: CLASS II Dentition: Intact Mouth: Normal tongue size Temporo-Mandibular Displacement Test: Position A (lower teeth can be advanced beyond upper teeth) Thyromental Distance: 9 cm Neck Circumference: 39 cm Cervical Mobility: Normal Facial Hair: Yes, Full Fritz-No ANTICIPATED DIFFICULT AIRWAY: NO PHYSICAL EXAM: VITALS: There were no vitals taken for this visit. CARDIAC: Regular rate and rhythm. LUNGS: Lungs clear to auscultation. Good air entry bilaterally. LABS: Lab Results Past 6 Months Component Value Date HB 13.7 05/05/2019 HCT 40.7 05/05/2019 PLT 108 (L) 05/05/2019 WBC 4.50 05/05/2019 NA 141 05/05/2019 K 4.4 05/05/2019 CREAT 1.10 05/05/2019 CREAT 1.06 05/05/2019 CA 10.1 05/05/2019 APTT 26.0 05/05/2019 INR 1.0 05/05/2019 Lab Results Past 6 Months Component Value Date GLUC 99 05/05/2019 K 4.4 05/05/2019 NA 141 05/05/2019 CHLOR 102 05/05/2019 CO2 28 05/05/2019 CREAT 1.10 05/05/2019 CREAT 1.06 05/05/2019 BUN 12 05/05/2019 ANION 11 05/05/2019 CA 10.1 05/05/2019 TPROT 6.9 05/05/2019 ALB 4.5 05/05/2019 TBILI 0.8 05/05/2019 ALKPHOS 61 05/05/2019 AST 32 05/05/2019 ALT 27 05/05/2019 ABO/RH(D) (no units) Date Value 05/05/2019 O POSITIVE Antibody Screen (no units) Date Value 05/05/2019 NEG Historical Ab Scr Status (no units) Date Value 05/05/2019 NEGATIVE Anticipated Blood Products Ordered: No blood product orders needed. Will the Patient Accept Blood: Yes IMAGING AND TESTS: TTE MEASUREMENTS: ? Value ?Indexed ? ?Normal Max aortic dimension ? ?3.8 cm ?Ao < 3.8 Left atrium diameter ? ?5.3 cm (M-Mode) Left atrial volume ? ? ?112 ml (biplane A-L) 57 ml/m? ? Honey <= 34 LV end diastolic volume 135 ml (2D 4-ch.) ? ?69.0 ml/m? 34<=EDVi<75 LV end diastolic volume 135 ml (2D biplane) ?69.2 ml/m? 34<=EDVi<75 Ejection Fraction ? ? ? 65 % (visual est.) ?EF > 52 FINDINGS: ? LEFT VENTRICLE The left ventricle is normal in size. Left ventricular systolic function is normal. Left ventricular diastolic function was not evaluated due to severe MR. Mitral annular lateral E/e': 17.4. Mitral annular septal E/e': 24.5. Wall Motion: All scored segments are normal. ? RIGHT VENTRICLE The right ventricle is normal in size. Right ventricular systolic function is normal. RV systolic tissue Doppler velocity ?is 13.4 cm/s. Estimated right ventricular systolic pressure is likely underestimated due to a weak or incomplete tricuspid regurgitation signal and is, at least, 33 mmHg consistent with normal pulmonary artery pressures. Estimated right atrial pressure ?is 3 mmHg based on IVC assessment. ? LEFT ATRIUM The left atrial cavity is dilated. Pulmonary?Veins: The pulmonary venous pattern showed reversed systolic flow. RIGHT ATRIUM The right atrial cavity is normal in size. Inferior Vena Cava: The inferior vena cava appears normal measuring 1.4 cm. The vessel decreases greater than 50 percent with inspiration. 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 There is a anteriorly directed regurgitant jet and a medially directed regurgitant jet. There is mild thickening of the anterior and posterior mitral leaflets. There is severe prolapse of the posterior mitral leaflet. Regurgitant orifice area (PISA) is 0.52 cm?. The pressure half time is 60 ?msec. The peak mitral E/A ratio is 2.04. The average mitral E/e' ratio is 21.0. The mitral flow deceleration time is 206 msec. ? TRICUSPID VALVE There is mild (1+) tricuspid valve regurgitation. There is mild thickening. ? AORTIC VALVE There is trace aortic valve regurgitation. Tricuspid aortic valve. There is mild thickening. ? fibrinous strand on LVOT side (clip #98). Not evident in other views. ? PULMONIC VALVE The pulmonic valve was not seen or not interrogated. There is mild (1+) pulmonic valve regurgitation. ? AORTA The visualized aorta is borderline dilated. Measurements - Sinus: 3.8 cm. Mid ascending aorta 3.4 cm. PULMONARY ARTERIES The pulmonary arteries are unseen or not interrogated. ? PERICARDIUM There is an epicardial fat pad. ? CONCLUSIONS: - Exam indication: Pre op MV repair - The left ventricle is normal in size. Left ventricular systolic function is normal. EF = 65 ? 5% (visual est.) - The right ventricle is normal in size. Right ventricular systolic function is normal. - The left atrial cavity is dilated. - The visualized aorta is borderline dilated with a maximal dimension of 3.8 cm. 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 Regurgitant orifice area (PISA) is 0.52 cm?. Posterior leaflet prolapse. - The patient has not had a prior CC echocardiographic exam for comparison. 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 ?There is otherwise normal caliber thoracic and abdominal aorta with minimal calcification at the arch and mild to moderate calcification in the tortuous infrarenal segment. ?No acute aortic pathology identified. ?The pelvic arteries, including the common femoral arteries are normal in caliber with mild calcification in the left common iliac artery and right common femoral artery. ?The minimal luminal caliber throughout = 9 mm. CHEST: The chest wall is unremarkable. ?There is no significant adenopathy noted in the axillae, mediastinum, and felicia. ?The pericardium and pulmonary arteries appear normal. Lung windows reveal no acute abnormalities. ?There is no abnormal pulmonary parenchymal mass, infiltrate, or pleural effusion. ?There is a 2 mm, possibly calcified right lower lobe nodule (image 69). The cardiac chambers demonstrate normal atrioventricular and ventriculoarterial concordance, and systemic and pulmonary venous return. ?The cardiac chamber sizes are normal, except for mild left atrial enlargement. The mitral valve leaflets are not calcified. ?The coronary arteries have normal origins and courses. ?There are no distinct coronary calcifications identified, though this study was not optimized for coronary artery evaluation. VASCULAR WITH ADVANCED 3-D OFF-LINE POSTPROCESSING: The aortic valve is trileaflet and free from calcification. There is mild aortic root ectasia. ?The thoracic aorta is otherwise normal in course, caliber, and with minimal calcification at the origin of the innominate artery and distal descending aorta. ?There is no acute aortic pathology, such as dissection, intramural hematoma, or contained rupture. ?The arch vessel branching pattern is normal, and the arch branch vessels are all widely patent in their proximal portions. The abdominal aorta is tortuous but normal in caliber with mild to moderate mixed predominantly calcified atherosclerotic changes. ?There is no acute aortic pathology. Paper Novelty Maker dimensions of the thoracic aorta are as follows: 4.2 cm at the sinuses of Valsalva measured sinus to sinus ?? ? (the sinotubular junction is preserved) 3.6 cm at the mid ascending aorta 3.2 cm at the distal ascending aorta 2.7 cm at the mid transverse arch 2.5 cm at the proximal descending thoracic aorta 2.2 cm at the diaphragmatic hiatus The abdominal aorta measures: 2.1 cm at the supramesenteric segment 2.0 cm at the mesenteric segment 1.9 cm at the renal segment 1.8 cm at the mid infrarenal segment 1.7 cm at the aortic bifurcation The celiac axis, SMA, and TRANG are patent. ?There are single right renal artery and two left renal arteries that appear patent. The pelvic arteries are tortuous, but otherwise normal in caliber with mild calcification in the left common iliac artery. ?The common femoral arteries are normal in course, caliber, with mild calcification in the right common femoral artery. ?The minimal luminal caliber throughout = 9mm. ABDOMEN: The liver, gallbladder, spleen, and pancreas appear normal. ?The adrenal glands appear normal. ?Both kidneys are normal in size, shape, and density. ?There is no abnormal mass or hydronephrosis. PELVIS: There is no significant retroperitoneal adenopathy. ?No free fluid or free air within the abdomen or pelvis. The bowel appears unremarkable on this non-GI contrast examination. ?The urinary bladder appears normal. ?There are scattered phleboliths within the deep pelvis. Bone: Degenerative changes in the spine. ?Mild wedge-shaped compression deformity involving T9, T7. ?No destructive osseous lesions MEDICATIONS: Current Outpatient Medications Medication Sig - aspirin, enteric coated (ASPIRIN, ENTERIC COATED) 81 mg EC tablet Take 81 mg by mouth once daily. - iv contrast (will be provided with radiology test) CT Cardiac - No IV access, insert saline lock prior to the sedation, infusion, injection for imaging exam. Discontinue saline lock post exam. If Pt. has a central line or IVAD, may access for administration according to line specific nursing protocol. Once exam is complete flush line and de-access according to line specific nursing protocol in the CT contrast administration guidelines link. - Cholecalciferol, Vitamin D3, (VITAMIN D) 1,000 unit ORAL Tab Take 185 mg by mouth once daily. - cyanocobalamin (VITAMIN B-12) 500 mcg ORAL Tab Take one(1) tablet daily. - BIOTIN ORAL Take 5,000 mcg by mouth once daily. - sildenafil (VIAGRA) 50 mg ORAL tablet As directed. - Sulfacetamide Sodium-Sulfur 10-5 % TOPICAL Lotn Apply to nose once daily. - THERAPEUTIC MULTIVITAMIN TAB Take one(1) tablet daily. No current facility-administered medications for this visit. Is the patient currently on any anticoagulant medications: ASA, stopped last week of March. Additional Comments: I have reviewed the Cardiothoracic Surgical Assessment and agree with its findings. During the course of the encounter the patient was prepared for anesthetic care. This conversation included anesthetic options, possible use of invasive monitoring, the risks, benefits, alternatives, and personnel that will be present for the anesthetic encounter. The patient agreed to proceed with the planned anesthetic. Instructed to take no meds on the morning of surgery. ANESTHESIA CONCERNS: None BETA SHANNEN COMPLIANCE: Is the Patient Scheduled for a CABG: No SIGNATURE: Garrett Agee MD PATIENT NAME: Keesha Bose DATE: May 06, 2019 TIME: 9:22 AM PAGER/CONTACT #: Referring Provider: Alirio DANG [[id number]] Allergies As of Date: 05/06/2019 (No Known Allergies) Date Reviewed: 05/06/2019 Reviewed by: Hunter Watson - Fully Assessed Primary Visit Diagnosis:Encounter for preoperative anesthesiology assessment for cardiac surgery [Z01.818] Order(s):mupirocin (BACTROBAN) 2% ointPlace on each nostril the night before and the day of surgeryDisp: 1 gRfl: 0 Prescriptions as of 05/06/2019 Sig: ASPIRIN 81 MG TABLET,DELAYED * Take 81 mg by mouth once samson* MUPIROCIN 2 % NASAL OINTMENT * Place on each nostril the nig* IV CONTRAST (RADIOLOGY PROCED* CT Cardiac - No IV access, in* * CHOLECALCIFEROL (VITAMIN D3) * Take 185 mg by mouth once renetta* * CYANOCOBALAMIN (VIT B-12) 500* Take one(1) tablet daily. * BIOTIN ORAL Take 5,000 mcg by mouth once * * SILDENAFIL 50 MG TABLET As directed. * SULFACETAMIDE SODIUM-SULFUR 1* Apply to nose once daily. * THERAPEUTIC MULTIVITAMIN TABL* Take one(1) tablet daily. 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 Nonrheumatic mitral valve regurgitation [I34.0] 05/06/2019 Prescriptions ordered this encounter Disp Refills Start End MUPIROCIN 2 % NASAL OINTMENT (BACTRO* 1 g 0 05/06/2019 Class: Print RX Sig: Place on each nostril the night before and the day of surgery Encounter Status:Closed by CANDELARIA AYOUB on 05/06/19 Chart Close Cosign Required by: Shaun Way[] Normal [facility] Office Visit (CARTMN ) KEESHA BOSE ([id number]) 1950 M Date Time Provider Department 05/06/19 9:30 AM [facility] CARTOH During your visit today, we recorded the following information about you: Hunter Watson APRN.[facility] 05/06/2019 10:57 AM Signed CONSULT HISTORY and PHYSICAL CARDIOTHORACIC SURGERY Consulting Service: Cardiothoracic Surgery Requesting Provider: [facility] Cementer Machine, Chris Moreno MD on 05/05/19. Opinion/advice regarding: Pre-Op Open Heart Surgery Cardiothoracic Physician: Sandro Dang M.D. NAME: Keesha Bose HEIGHT: 182.9 cm WEIGHT: 73.8 kg Intended Procedure: MVR REDO: No Has this patient been previously evaluated for Open Heart Surgery for this condition? No HPI: (4) This is a 68 year old male who presents in consultation for an opinion regarding treatment options for mitral insufficiency. He is currently symptomatic and complains of progressive decrease in exercise tolerance. Enjoys running outdoors but notes inclines are more challenging than they were in the past. Denies recent febrile illness. Denies influenza vaccine this season. Weight is stable. Sonal is present at today's visit and appears supportive. The couple resides in [place]. They have 3 sons: 44 y o Keesha, 42 y o Annalise, and 35 y o Sam. Keesha and Sam will be present DOS. Comorbidities include thrombocytopenia PAST MEDICAL HISTORY: PAST MEDICAL HISTORY Diagnosis Date - Mitral valve disease PAST SURGICAL HISTORY: PAST SURGICAL HISTORY Procedure Laterality Date - PAST SURGICAL HISTORY OF Pt states lumpy tissue removed from neck x 2 - REMOVAL OF TONSILS,<10 Y/O Tonsillectomy - VASECTOMY 1984 FAMILY HISTORY: FAMILY HISTORY Problem Relation Age of Onset - other (Valve Disease) Mother Unknown valve replacement - Dementia Father - Thyroid Cancer Father - other (Other) Brother Was in poor health ( at age 66) FAMILY HISTORY OF CAD: Yes SOCIAL HISTORY: Social History Tobacco Use - Smoking status: Former Smoker Packs/day: 2.00 Years: 10.00 Pack years: 20.00 Types: Cigarettes Last attempt to quit: 03/31/1979 Years since quittin.1 - Smokeless tobacco: Never Used Substance Use Topics - Alcohol use: Yes Frequency: 2-3 times a week Drinks per session: 1 or 2 Binge frequency: Never - Drug use: Never SOCIAL HISTORY OF IVDU: No SOCIAL HISTORY OF Smoking: Yes, quit 1979 20 p y h SOCIAL HISTORY OF Alcohol Dependency: No MEDICATIONS: Prior to Admission Medications: aspirin, enteric coated (ASPIRIN, ENTERIC COATED) 81 mg EC tablet Take 81 mg by mouth once daily. mupirocin (BACTROBAN) 2% oint Place on each nostril the night before and the day of surgery iv contrast (will be provided with radiology test) CT Cardiac - No IV access, insert saline lock prior to the sedation, infusion, injection for imaging exam. Discontinue saline lock post exam. If Pt. has a central line or IVAD, may access for administration according to line specific nursing protocol. Once exam is complete flush line and de-access according to line specific nursing protocol in the CT contrast administration guidelines link. Cholecalciferol, Vitamin D3, (VITAMIN D) 1,000 unit ORAL Tab Take 185 mg by mouth once daily. cyanocobalamin (VITAMIN B-12) 500 mcg ORAL Tab Take one(1) tablet daily. BIOTIN ORAL Take 5,000 mcg by mouth once daily. sildenafil (VIAGRA) 50 mg ORAL tablet As directed. Sulfacetamide Sodium-Sulfur 10-5 % TOPICAL Lotn Apply to nose once daily. THERAPEUTIC MULTIVITAMIN TAB Take one(1) tablet daily. ALLERGIES: ALLERGIES No Known Allergies COMPLETE REVIEW OF SYSTEMS: (10) Constitutional: No weight loss, malaise or fevers. Progressive decrease in exercise tolerance [id number]. HEENT: Negative for frequent or significant headaches, No changes in hearing or vision, intermittent nose bleeds several times per year usually in Winter.Wears glasses. Dental clearance obtained. Resp: Negative for cough, wheezing, or shortness of breath Cardiovascular: Negative for chest pain, leg swelling or palpitations GI: Negative for abdominal discomfort, blood in stools or black stools or change in bowel habits : No history of dysuria, frequency, or incontinence Endo: Negative for cold or heat intolerance, polyuria, polydipsia and goiter Heme/Lymph: Negative for prolonged bleeding and swollen nodes and Positive for bruises easily. ASA 81 mg last dose 04/22/19. Neurologic: No history or headaches, syncope, paralysis, seizures or tremors Integumentary: Negative for lesions, rash, and itching. Additional systems reviewed: No additional systems reviewed PHYSICAL EXAM: (8) Constitutional: Well developed, Well nourished and No distress HEENT: Good dentition, JVD - no and Bruits - no Resp: Clear Cardiovascular: Regular rate AND rhythm, Murmur harsh and holosystolic heard best at apex, S1, S2 normal and Vascular: Pulses - Carotid 4+, Dorsalis pedis 4+ and Posterior tibia 4+ and No varicosities GI: Soft, Non-tender, Bowel sounds present and Non-distended Integumentary: Warm, Dry and No rash on chest, arms or legs Musculoskeletal: No deformities Neurological/Psychiatr ic: Oriented to time, place AND person , Alert and Steady gait Additional systems reviewed: No additional systems reviewed Labs: Recent Labs 05/05/19 1154 WBC 4.50 HB 13.7 HCT 40.7 PLT 108* Recent Labs 05/05/19 1154 INR 1.0 APTT 26.0 Recent Labs 05/05/19 1346 05/05/19 1154 NA -- 141 K -- 4.4 CHLOR -- 102 CO2 -- 28 BUN -- 12 CREAT 1.10 1.06 GLUC -- 99 ALKPHOS -- 61 ALT -- 27 AST -- 32 ALB -- 4.5 DATA: I have personally reviewed the following data: Cardiac Catheterization: KIM [place]DAV[place] foss NOHELIA/TTE: 05/05/19 CXR: Clear CTA CAP 05/05/19 Dental clearance cleared EK05/05/19 Impression: This is a 68 year old year-old male, who is being evaluated for surgical intervention of mitral insufficiency. In consideration for surgery, the patient's acute and chronic medical issues have been evaluated as documented above and reviewed in the electronic medical record. Plan: Patient will be seen today by the surgeon, Dr. Sandro Dang M.D.. If the patient is a surgical candidate according to criteria met, then advise the following: Bactroban, prescriptions and instructions given. Anticipated Discharge Needs: PT/OT/RT evalulation for anticipated Home Care needs These findings will be communicated back to the requesting provider electronically. SIGNATURE:Hunter Watson APRN.[facility] PAGER:[phone] Date of Service: 05/06/19 Time of Service: 10:28 AM Referring Provider: Alirio DANG [[id number]] Allergies As of Date: 05/06/2019 (No Known Allergies) Date Reviewed: 05/06/2019 Reviewed by: Hunter Watson - Fully Assessed Visit Diagnoses:Pre-op testing [Z01.818] Discharge planning issues [Z02.9] Prescriptions as of 05/06/2019 Sig: ASPIRIN 81 MG TABLET,DELAYED * Take 81 mg by mouth once samson* IV CONTRAST (RADIOLOGY PROCED* CT Cardiac - No IV access, in* * CHOLECALCIFEROL (VITAMIN D3) * Take 185 mg by mouth once renetta* * CYANOCOBALAMIN (VIT B-12) 500* Take one(1) tablet daily. * BIOTIN ORAL Take 5,000 mcg by mouth once * * SILDENAFIL 50 MG TABLET As directed. * SULFACETAMIDE SODIUM-SULFUR 1* Apply to nose once daily. * THERAPEUTIC MULTIVITAMIN TABL* Take one(1) tablet daily. 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 Nonrheumatic mitral valve regurgitation [I34.0] 05/06/2019 Pre-op testing [Z01.818] 05/06/2019 More... Encounter Status:Closed by HUNTER MONTOYA CNP on 05/06/19 [facility] Office Visit (CARCMN ) KEESHA BOSE ([id number]) 1950 M Date Time Provider Department 05/06/19 7:15 AM [facility] MORENO CARCMN During your visit today, we recorded the following information about you: Pulse Respiration Blood pressure Weight 61/minute 20/minute 131/73 73.8 kg Height 1.829 m Chris Moreno MD 05/06/2019 9:34 AM [facility] [place] Alexey Gutierrez Department of Cardiovascular Medicine SECTION OF CLINICAL CARDIOLOGY OUTPATIENT VISIT DATE May 05, 2019 OUTPATIENT VISIT TYPE NEW PRIMARY CARE PHYSICIAN: Annalise Mora MD ([facility]) [address] [place] [address] REFERRING PHYSICIAN: Alirio Dang MD [address] [place] [address] CHIEF COMPLAINT: Cardiac evaluation of mitral valve disease HISTORY OF PRESENT ILLNESS: Mr. Bose is a very pleasant 68-year-old gentleman with no prior major medical history was having an annual physical back in 2016 with his physician heard a murmur, he was referred to cardiology and echocardiogram was done that showed severe mitral valve regurgitation. Patient was referred to [facility] for possible surgery, right heart catheterization showed favorable measurements, details not available for me and surgery was not warranted at that point. He was being followed annually at [facility], at some point she had another catheterization sometime last year. Patient is athletic, exercises and continues to regularly however he reports that he has not been pushing himself when exercising over the last year. Really he is asymptomatic from a cardiovascular perspective without any exertional angina orthopnea PND or lower symmetry edema no syncopal or presyncope. 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 New patient visit for pre-operative cardiovascular evaluation prior to mitral valve intervention scheduled for May 10, [address] Carmelo Dang. Medical history is significant for mitral valve regurgitation and prolapse. He reports a heart murmur since 2016. He notes a very slow decline in his ability to walk up an incline. He notes this is evident if he plays golf, carries his bag, and walks up a hill. He is an avid runner and notes that the has had to start walking a particularly hill on his running course. He notes lightheadedness when bending down then standing up. He denies chest pain shortness of breath at rest, cough, orthopnea, PND, cough, dizziness, syncope, or lower extremity edema. PAST MEDICAL HISTORY Diagnosis Date - Mitral valve disease PAST SURGICAL HISTORY Procedure Laterality Date - PAST SURGICAL HISTORY OF Pt states lumpy tissue removed from neck x 2 - REMOVAL OF TONSILS,<10 Y/O Tonsillectomy - VASECTOMY 1985 SOCIAL HISTORY Social History Tobacco Use - Smoking status: Former Smoker Packs/day: 2.00 Years: 10.00 Pack years: 20.00 Types: Cigarettes Last attempt to quit: 03/31/1979 Years since quittin.1 - Smokeless tobacco: Never Used Substance Use Topics - Alcohol use: Yes Frequency: 2-3 times a week Drinks per session: 1 or 2 Binge frequency: Never - Drug use: Never FAMILY HISTORY Problem Relation Age of Onset - other (Valve Disease) Mother Unknown valve replacement - Dementia Father - Thyroid Cancer Father - other (Other) Brother Was in poor health ( at age 66) ALLERGIES: ALLERGIES No Known Allergies MEDICATIONS: aspirin, enteric coated (ASPIRIN, ENTERIC COATED) 81 mg EC tablet Take 81 mg by mouth once daily. iv contrast (will be provided with radiology test) CT Cardiac - No IV access, insert saline lock prior to the sedation, infusion, injection for imaging exam. Discontinue saline lock post exam. If Pt. has a central line or IVAD, may access for administration according to line specific nursing protocol. Once exam is complete flush line and de-access according to line specific nursing protocol in the CT contrast administration guidelines link. Cholecalciferol, Vitamin D3, (VITAMIN D) 1,000 unit ORAL Tab Take 185 mg by mouth once daily. cyanocobalamin (VITAMIN B-12) 500 mcg ORAL Tab Take one(1) tablet daily. BIOTIN ORAL Take 5,000 mcg by mouth once daily. sildenafil (VIAGRA) 50 mg ORAL tablet As directed. Sulfacetamide Sodium-Sulfur 10-5 % TOPICAL Lotn Apply to nose once daily. THERAPEUTIC MULTIVITAMIN TAB Take one(1) tablet daily. REVIEW OF SYSTEMS: Positives in Bold GENERAL: Negative for: Weight loss or gain, Fever or Chills, Weakness and Sleep difficulties. HEENT: Negative for: Headache, Impaired Vision, Glasses, Hearing Impairment, Ringing in Ears, Nosebleeds, Poor dental care, Bleeding Gums, Dentures NECK: Negative for: Swelling, Pain, Stiffness RESPIRATORY: Negative for: Cough, Blood in Sputum, Shortness of breath, Wheezing, Apnea GASTROINTESTINAL: Negative for: Trouble swallowing, Heartburn, Change in bowel habits, Blood in stool, Dark black stools MUSCULOSKELETAL: Negative for: Muscle or joint pain, Stiffness , Joint swelling NEUROLOGIC/PSYCHIATRIC : Negative for: Weakness, Paralysis, Numbness, Tingling, Tremor, Nervousness, Depressed mood, Memory loss SKIN: Negative for: Rashes, Itching HEMATOLOGICAL/LYMPHATI C: Negative for: Easy bruising , Easy bleeding ENDOCRINE: Negative for: Heat or cold intolerance, Excessive sweating, Frequent urination, Frequent thirst PHYSICAL EXAMINATION: BP 134/84 (BP Site: Left Arm, BP Position: Sitting, BP Cuff Size: Regular Adult) Pulse 63 Resp 20 Ht 182.9 cm (6') Wt 73.8 kg (162 lb 12.8 oz) SpO2 97% BMI 22.08 kg/m? Vitals noted in the nursing documentation. General appearance: Well appearing, alert, in no acute distress, well-hydrated, well nourished. Alert and Oriented X 3. Head: Normocephalic, no masses or tenderness. Eyes: Anicteric sclera. Pupils are symmetrical and reactive to light. Extraocular movements are intact. Neck: Supple, no bruits, midline trachea. Lungs: Good air entry bilaterally with no crackles or wheezes. Heart: RRR without gallop, or rubs. No ectopy, MEJIA 3/6. Abdomen: Soft, non tender, + BS, no masses felt. Extremities: no edema, No clubbing or cyanosis. Good capillary refill. Musculoskeletal: No joint swelling, or tenderness. Neuro: Gait normal. Neuromuscular grossly intact. Back: No pain to palpation. Psych: Mood and affect appropriate Skin: Skin color normal, no suspicious rashes or lesions. CARDIOVASCULAR MEDICINE TESTIN05-05-2019 EKG: SINUS BRADYCARDIA WITH 1ST DEGREE AV BLOCK LEFT VENTRICULAR HYPERTROPHY WITH QRS WIDENING ABNORMAL ECG 05-05-2019 CXR: No acute radiographic abnormality. 05-05-2019 Echocardiogram: - Exam indication: Pre op MV repair - The left ventricle is normal in size. Left ventricular systolic function is normal. EF = 65 ? 5% (visual est.) - The right ventricle is normal in size. Right ventricular systolic function is normal. - The left atrial cavity is dilated. - The visualized aorta is borderline dilated with a maximal dimension of 3.8 cm. 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 Regurgitant orifice area (PISA) is 0.52 cm?. Posterior leaflet prolapse. - The patient has not had a prior CC echocardiographic exam for comparison. 05-05-2019 CTA Chest/Abd/Pelvis: Mild ectasia of aortic root (4.2 cm). ?There is otherwise normal caliber thoracic and abdominal aorta with minimal calcification at the arch and mild to moderate calcification in the tortuous infrarenal segment. ?No acute aortic pathology identified. ?The pelvic arteries, including the common femoral arteries are normal in caliber with mild calcification in the left common iliac artery and right common femoral artery. ?The minimal luminal caliber throughout = 9 mm. 05-05-2019 Lab Work: Component Latest Ref Rng AND Units 05/05/2019 WBC 3.70 - 11.00 k/uL 4.50 RBC 4.20 - 6.00 m/uL 4.09 (L) Hemoglobin 13.0 - 17.0 g/dL 13.7 Hematocrit 39.0 - 51.0 % 40.7 MCV 80.0 - 100.0 fL 99.5 MCH 26.0 - 34.0 pG 33.5 MCHC 30.5 - 36.0 g/dL 33.7 RDW-CV 11.5 - 15.0 % 13.2 Platelet Count 150 - 400 k/uL 108 (L) MPV 9.0 - 12.7 fL 11.6 Neut% % 65.4 Abs Neut (ANC) 1.45 - 7.50 k/uL 2.92 Lymph% % 20.7 Abs Lymph 1.00 - 4.00 k/uL 0.93 (L) [place]% % 10.2 Abs [place] <0.87 k/uL 0.46 Eosin% % 3.3 Abs Eosin <0.46 k/uL 0.15 Baso% % 0.4 Abs Baso <0.11 k/uL <0.03 Nucleated Reds 0 /100 WBC 0.0 Absolute nRBC <0.01 k/uL <0.01 Diff Type Auto Diff Protein, Total 6.3 - 8.0 g/dL 6.9 Albumin 3.9 - 4.9 g/dL 4.5 Calcium 8.5 - 10.2 mg/dL 10.1 Bilirubin, Total 0.2 - 1.3 mg/dL 0.8 Alkaline Phosphatase 38 - 113 U/L 61 AST 14 - 40 U/L 32 Glucose 74 - 99 mg/dL 99 BUN 9 - 24 mg/dL 12 Creatinine 0.73 - 1.22 mg/dL 1.06 Sodium 136 - 144 mmol/L 141 Potassium 3.7 - 5.1 mmol/L 4.4 Chloride 97 - 105 mmol/L 102 CO2 22 - 30 mmol/L 28 Anion Gap 9 - 18 mmol/L 11 ALT 10 - 54 U/L 27 eGFR- >60 eGFR-All Other Races . >60 LD 135 - 225 U/L 200 02-12-2019 Echocardiogram ([facility]): The left ventricular size is mildly dilated with normal systolic function. Pseudonormal diastolic filling pattern with increased LA filling pressures. Estimated LVEF = 65-70%. The right ventricular size and systolic function are normal. Severely dilated left atrium. There is severe prolapse of the posterior mitral valve leaflet with moderate-severe anteriorly directed regurgitation, possibly underestimated due to eccentric jet. Tricuspid valve prolapse with mild-moderate regurgitation. Estimated RVSP = 65-70 mmHg. Mildly dilated aortic root (4 cm). There is no pericardial effusion. Compared to prior report 02/03/2018, there are no significant changes noted. 06-16-2018 RHC (OSH): .Right Heart Catheterization: ? RA Mean: 4 mmHg ? PA Systolic: 21 mmHg / PA Diastolic: 9 mmHg , PA Mean: 14 mmHg ? PCW Mean: 8 mmHg ? Rahul C.O.: 4.46 L/min / Rahul C.I.: 2.25 L/min/m2 , PA O2 Sat: 70 % ? TDCO: 4.4 L/min / TDCI: 2.22 L/min/m2 07-26-2015 (?) Cardiac Catheterization ([facility]): Problem List Items Addressed This Visit Cardiovascular Nonrheumatic mitral valve regurgitation Hematology Thrombocytopenia (HCC) - Primary IMPRESSION PLAN AND RECOMMENDATIONS:: #1 severe mitral valve regurgitation due to posterior leaflet prolapse, long discussion with the patient and his regarding the indications for surgery, discussed symptomatic versus asymptomatic severe mitral valve regurgitation management, discussed mitral valve repair versus mitral valve replacement, tissues versus mechanical valve and the trade-offs between durability and anticoagulation. Patient will continue with his preoperative testing and surgical plan will be finalized later today when he meets to surgeon. 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 Consider hematology evaluation if indicated. I personally interviewed, confirmed and edited the above information as obtained by others. CONTACT INFORMATION: Chris Moreno MD, MHCM, MSc, FACC, MAGAN Trevino and Amanda Gutierrez Department of Cardiovascular Medicine [facility] [place] - Desk [place] [address] Office Office Appointments: [phone] This note was partially generated using Lotaris voice recognition system, and there may be some incorrect words, spellings, and punctuation that were not noted in checking the note before saving. Referring Provider: Alirio DANG [[id number]] Allergies As of Date: 05/06/2019 (No Known Allergies) Date Reviewed: 05/06/2019 Reviewed by: Tabatha Armendariz RN - Fully Assessed Primary Visit Diagnosis:Thrombocytop enia ([facility]) [D69.6] Other Visit Diagnosis:Nonrheumatic mitral valve regurgitation [I34.0] Prescriptions as of 05/06/2019 Sig: ASPIRIN 81 MG TABLET,DELAYED * Take 81 mg by mouth once samson* IV CONTRAST (RADIOLOGY PROCED* CT Cardiac - No IV access, in* * CHOLECALCIFEROL (VITAMIN D3) * Take 185 mg by mouth once renetta* * CYANOCOBALAMIN (VIT B-12) 500* Take one(1) tablet daily. * BIOTIN ORAL Take 5,000 mcg by mouth once * * SILDENAFIL 50 MG TABLET As directed. * SULFACETAMIDE SODIUM-SULFUR 1* Apply to nose once daily. * THERAPEUTIC MULTIVITAMIN TABL* Take one(1) tablet daily. 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 Nonrheumatic mitral valve regurgitation [I34.0] 05/06/2019 Medications Discontinued During This Encounter ASPIRIN 325 MG TAB 0 01/29/2006 05/06/2019 Class: Med Update Route: ORAL Sig: Take one (1) tablet daily . Disc: Changing Therapy/Dosage Form olopatadine (PATANOL) 0.1 % OPHTHALM* 12 02/27/2010 05/06/2019 Class: Med Update Sig: as necessary Disc: Changing Therapy/Dosage Form Encounter Status:Closed by CHRIS MORENO MD on 05/06/19 [facility] PROGRESSon 05-06-2019 PROGRESS HNO ID: [id number] Author: Hunter Watson Service: ? Author Type: Nurse Practitioner Type: Progress Notes Filed: 05/06/2019 10:33 AM Note Text: AMBULATORY PATIENT EDUCATION READINESS TO LEARN Cognitive Ability: Alert and oriented Motivation To Learn: Interested Family Support: High - Very involved in pt care Instruction Provided To: Patient AND Family Patient Learns Best By: Multiple Methods Factors Affecting Learning: None Physical Limitations Affecting Learning: None LEARNING RESPONSE Diagnosis: MVR Education Topic: Pre-Op Open Heart Surgery Instructions Teaching Points: Logistics / Protocols /Complication Prevention How prepared do you feel you are for this visit: Instruction/Supplement al Materials: Cardiac Surgery Information Binder Video Individual Instruction Patient/Family Response: Somewhat Follow up plan: Patient/Family to call [facility] with any further questions Referral (Recommendation): None Teach completed, topic: bactroban [facility] PROGRESS HNO ID: [id number] Author: Alirio Dang Service: ? Author Type: Physician Type: Progress Notes Filed: 05/06/2019 10:27 AM Note Text: CHART COPY DO NOT DISCARD Patient Type: Consult Visit to determine Surgery: Yes PCP: Carlitos Johnson MD ([facility]) [address] [place] [address] Referring Physician: Micheal Trujillo MD ([facility]) [address] [facility] [address] HPI: Mr. Keesha Bose is a 68 year old male seen in consultation at the request of Micheal Trujillo for opinion regarding treatment options for Mitral Insufficiency. He is currently asymptomatic Comorbidities include low platelets. Based on my evaluation he is a high risk for open heart surgery and cardiac surgery. Impression: Mitral Insufficiency Plan: Full Sternotomy with limited skin. MV repair or SJ Biocor. Note low platelets. Bicaval cannulation. Buckberg antegrade and retrograde. Pettersson retrograde. Iced slush. NOHELIA. Amicar. I spent 30 minutes in this visit, with more than 50% of the time devoted to patient counseling. A Sandro Dang MD [facility] PROGRESS HNO ID: [id number] Author: Hunter Watson Service: ? Author Type: Nurse Practitioner Type: Progress Notes Filed: 05/06/2019 10:57 AM Note Text: CONSULT HISTORY and PHYSICAL CARDIOTHORACIC SURGERY Consulting Service: Cardiothoracic Surgery Requesting Provider: [facility] Cementer Machine, Chris Moreno MD on 05/05/19. Opinion/advice regarding: Pre-Op Open Heart Surgery Cardiothoracic Physician: Sandro Dang M.D. NAME: Keesha oBse HEIGHT: 182.9 cm WEIGHT: 73.8 kg Intended Procedure: MVR REDO: No Has this patient been previously evaluated for Open Heart Surgery for this condition? No HPI: (4) This is a 68 year old male who presents in consultation for an opinion regarding treatment options for mitral insufficiency. He is currently symptomatic and complains of progressive decrease in exercise tolerance. Enjoys running outdoors but notes inclines are more challenging than they were in the past. Denies recent febrile illness. Denies influenza vaccine this season. Weight is stable. Sonal is present at today's visit and appears supportive. The couple resides in [place]. They have 3 sons: 44 y o Keesha, 42 y o Annalise, and 35 y o Sam. Keesha and Sam will be present DOS. Comorbidities include thrombocytopenia PAST MEDICAL HISTORY: PAST MEDICAL HISTORY Diagnosis Date - Mitral valve disease PAST SURGICAL HISTORY: PAST SURGICAL HISTORY Procedure Laterality Date - PAST SURGICAL HISTORY OF Pt states lumpy tissue removed from neck x 2 - REMOVAL OF TONSILS,<10 Y/O Tonsillectomy - VASECTOMY 1984 FAMILY HISTORY: FAMILY HISTORY Problem Relation Age of Onset - other (Valve Disease) Mother Unknown valve replacement - Dementia Father - Thyroid Cancer Father - other (Other) Brother Was in poor health ( at age 66) FAMILY HISTORY OF CAD: Yes SOCIAL HISTORY: Social History Tobacco Use - Smoking status: Former Smoker Packs/day: 2.00 Years: 10.00 Pack years: 20.00 Types: Cigarettes Last attempt to quit: 03/31/1979 Years since quittin.1 - Smokeless tobacco: Never Used Substance Use Topics - Alcohol use: Yes Frequency: 2-3 times a week Drinks per session: 1 or 2 Binge frequency: Never - Drug use: Never SOCIAL HISTORY OF IVDU: No SOCIAL HISTORY OF Smoking: Yes, quit 1979 18 p y h SOCIAL HISTORY OF Alcohol Dependency: No MEDICATIONS: Prior to Admission Medications: aspirin, enteric coated (ASPIRIN, ENTERIC COATED) 81 mg EC tablet Take 81 mg by mouth once daily. mupirocin (BACTROBAN) 2% oint Place on each nostril the night before and the day of surgery iv contrast (will be provided with radiology test) CT Cardiac - No IV access, insert saline lock prior to the sedation, infusion, injection for imaging exam. Discontinue saline lock post exam. If Pt. has a central line or IVAD, may access for administration according to line specific nursing protocol. Once exam is complete flush line and de-access according to line specific nursing protocol in the CT contrast administration guidelines link. Cholecalciferol, Vitamin D3, (VITAMIN D) 1,000 unit ORAL Tab Take 185 mg by mouth once daily. cyanocobalamin (VITAMIN B-12) 500 mcg ORAL Tab Take one(1) tablet daily. BIOTIN ORAL Take 5,000 mcg by mouth once daily. sildenafil (VIAGRA) 50 mg ORAL tablet As directed. Sulfacetamide Sodium-Sulfur 10-5 % TOPICAL Lotn Apply to nose once daily. THERAPEUTIC MULTIVITAMIN TAB Take one(1) tablet daily. ALLERGIES: ALLERGIES No Known Allergies COMPLETE REVIEW OF SYSTEMS: (10) Constitutional: No weight loss, malaise or fevers. Progressive decrease in exercise tolerance [id number]. HEENT: Negative for frequent or significant headaches, No changes in hearing or vision, intermittent nose bleeds several times per year usually in Winter.Wears glasses. Dental clearance obtained. Resp: Negative for cough, wheezing, or shortness of breath Cardiovascular: Negative for chest pain, leg swelling or palpitations GI: Negative for abdominal discomfort, blood in stools or black stools or change in bowel habits : No history of dysuria, frequency, or incontinence Endo: Negative for cold or heat intolerance, polyuria, polydipsia and goiter Heme/Lymph: Negative for prolonged bleeding and swollen nodes and Positive for bruises easily. ASA 81 mg last dose 04/22/19. Neurologic: No history or headaches, syncope, paralysis, seizures or tremors Integumentary: Negative for lesions, rash, and itching. Additional systems reviewed: No additional systems reviewed PHYSICAL EXAM: (8) Constitutional: Well developed, Well nourished and No distress HEENT: Good dentition, JVD - no and Bruits - no Resp: Clear Cardiovascular: Regular rate AND rhythm, Murmur harsh and holosystolic heard best at apex, S1, S2 normal and Vascular: Pulses - Carotid 4+, Dorsalis pedis 4+ and Posterior tibia 4+ and No varicosities GI: Soft, Non-tender, Bowel sounds present and Non-distended Integumentary: Warm, Dry and No rash on chest, arms or legs Musculoskeletal: No deformities Neurological/Psychiatr ic: Oriented to time, place AND person , Alert and Steady gait Additional systems reviewed: No additional systems reviewed Labs: Recent Labs 05/05/19 1154 WBC 4.50 HB 13.7 HCT 40.7 PLT 108* Recent Labs 05/05/19 1154 INR 1.0 APTT 26.0 Recent Labs 05/05/19 1346 05/05/19 1154 NA -- 141 K -- 4.4 CHLOR -- 102 CO2 -- 28 BUN -- 12 CREAT 1.10 1.06 GLUC -- 99 ALKPHOS -- 61 ALT -- 27 AST -- 32 ALB -- 4.5 DATA: I have personally reviewed the following data: Cardiac Catheterization: DAVID Altamirano NOHELIA/TTE: 05/05/19 CXR: Clear CTA CAP 05/05/19 Dental clearance cleared EK05/05/19 Impression: This is a 68 year old year-old male, who is being evaluated for surgical intervention of mitral insufficiency. In consideration for surgery, the patient's acute and chronic medical issues have been evaluated as documented above and reviewed in the electronic medical record. Plan: Patient will be seen today by the surgeon, Dr. Sandro Dang M.D.. If the patient is a surgical candidate according to criteria met, then advise the following: Bactroban, prescriptions and instructions given. Anticipated Discharge Needs: PT/OT/RT evalulation for anticipated Home Care needs These findings will be communicated back to the requesting provider electronically. SIGNATURE:Hunter Watson APRN.[facility] PAGER:[phone] Date of Service: 05/06/19 Time of Service: 10:28 AM [facility] PROGRESS HNO ID: [id number] Author: Candelaria Ayoub Service: ? Author Type: Resident Type: Progress Notes Filed: 05/06/2019 10:17 AM Note Text: [facility] PRE[facility] EVALU[facility] CARDIOTHORACIC ANESTHESIA CARDIAC SURGERY SERVICE DATE: 05/06/2019 SERVICE TIME: 9:22 AM Proposed Surgical Procedure: Mitral Valve Surgery Re-do: No ASA Class: 4 Surgeon: Aldo Surgery Date: 05/10/19 Last Wt 05/06/19 : 73.8 kg (162 lb 12.8 oz) Last Ht 05/06/19 : 182.9 cm (6') Estimated body mass index is 22.08 kg/m? as calculated from the following: Height as of an earlier encounter on 05/06/19: 182.9 cm (6'). Weight as of an earlier encounter on 05/06/19: 73.8 kg (162 lb 12.8 oz). Joseph body weight: 77.6 kg (171 lb 1.2 oz) Estimated body surface area is 1.94 meters squared as calculated from the following: Height as of an earlier encounter on 05/06/19: 182.9 cm (6'). Weight as of an earlier encounter on 05/06/19: 73.8 kg (162 lb 12.8 oz). Keesha is a 68 year old male with a history of mitral valve regurgitation presenting for mitral valve surgery. PAST MEDICAL HISTORY Diagnosis Date - Mitral valve disease PAST SURGICAL HISTORY Procedure Laterality Date - PAST SURGICAL HISTORY OF Pt states lumpy tissue removed from neck x 2 - REMOVAL OF TONSILS,<12 Y/O Tonsillectomy - VASECTOMY 1984 Social History Tobacco Use - Smoking status: Former Smoker Packs/day: 2.00 Years: 10.00 Pack years: 20.00 Types: Cigarettes Last attempt to quit: 03/31/1979 Years since quittin.1 - Smokeless tobacco: Never Used Substance Use Topics - Alcohol use: Yes Frequency: 2-3 times a week Drinks per session: 1 or 2 Binge frequency: Never - Drug use: Never ALLERGIES No Known Allergies REVIEW OF SYSTEMS: Neuro: No Hx of stroke or seizures Respiratory: No history of current cough or dyspnea, or pneumonia in the past 6 weeks. No history of respiratory/pulmonary symptoms or problems Cardiovascular: See HPI GI: No history of GI symptoms or problems. No history of esophageal varices, recent ascites, or ETOH greater than 2 drinks per day. Endocrine: No history of diabetes. Has not taken steroids within the past 30 days. No history of endocrinological symptoms or problems. Hematology: Thrombocytopenia. Idiopathic. Currently 108k ANESTHETIC HISTORY: History of general anesthesia without complications. AIRWAY ASSESSMENT: Airway History: No abnormal airway history Airway Exam: General: Normal appearance Mallampati Score: CLASS II Dentition: Intact Mouth: Normal tongue size Temporo-Mandibular Displacement Test: Position A (lower teeth can be advanced beyond upper teeth) Thyromental Distance: 9 cm Neck Circumference: 39 cm Cervical Mobility: Normal Facial Hair: Yes, Full Fritz-No ANTICIPATED DIFFICULT AIRWAY: NO PHYSICAL EXAM: VITALS: There were no vitals taken for this visit. CARDIAC: Regular rate and rhythm. LUNGS: Lungs clear to auscultation. Good air entry bilaterally. LABS: Lab Results Past 6 Months Component Value Date HB 13.7 05/05/2019 HCT 40.7 05/05/2019 PLT 108 (L) 05/05/2019 WBC 4.50 05/05/2019 NA 141 05/05/2019 K 4.4 05/05/2019 CREAT 1.10 05/05/2019 CREAT 1.06 05/05/2019 CA 10.1 05/05/2019 APTT 26.0 05/05/2019 INR 1.0 05/05/2019 Lab Results Past 6 Months Component Value Date GLUC 99 05/05/2019 K 4.4 05/05/2019 NA 141 05/05/2019 CHLOR 102 05/05/2019 CO2 28 05/05/2019 CREAT 1.10 05/05/2019 CREAT 1.06 05/05/2019 BUN 12 05/05/2019 ANION 11 05/05/2019 CA 10.1 05/05/2019 TPROT 6.9 05/05/2019 ALB 4.5 05/05/2019 TBILI 0.8 05/05/2019 ALKPHOS 61 05/05/2019 AST 32 05/05/2019 ALT 27 05/05/2019 ABO/RH(D) (no units) Date Value 05/05/2019 O POSITIVE Antibody Screen (no units) Date Value 05/05/2019 NEG Historical Ab Scr Status (no units) Date Value 05/05/2019 NEGATIVE Anticipated Blood Products Ordered: No blood product orders needed. Will the Patient Accept Blood: Yes IMAGING AND TESTS: TTE MEASUREMENTS: ? Value ?Indexed ? ?Normal Max aortic dimension ? ?3.8 cm ?Ao < 3.8 Left atrium diameter ? ?5.3 cm (M-Mode) Left atrial volume ? ? ?112 ml (biplane A-L) 57 ml/m? ? Honey <= 34 LV end diastolic volume 135 ml (2D 4-ch.) ? ?69.0 ml/m? 34<=EDVi<75 LV end diastolic volume 135 ml (2D biplane) ?69.2 ml/m? 34<=EDVi<75 Ejection Fraction ? ? ? 65 % (visual est.) ?EF > 52 FINDINGS: ? LEFT VENTRICLE The left ventricle is normal in size. Left ventricular systolic function is normal. Left ventricular diastolic function was not evaluated due to severe MR. Mitral annular lateral E/e': 17.4. Mitral annular septal E/e': 24.5. Wall Motion: All scored segments are normal. ? RIGHT VENTRICLE The right ventricle is normal in size. Right ventricular systolic function is normal. RV systolic tissue Doppler velocity ?is 13.4 cm/s. Estimated right ventricular systolic pressure is likely underestimated due to a weak or incomplete tricuspid regurgitation signal and is, at least, 33 mmHg consistent with normal pulmonary artery pressures. Estimated right atrial pressure ?is 3 mmHg based on IVC assessment. ? LEFT ATRIUM The left atrial cavity is dilated. Pulmonary?Veins: The pulmonary venous pattern showed reversed systolic flow. RIGHT ATRIUM The right atrial cavity is normal in size. Inferior Vena Cava: The inferior vena cava appears normal measuring 1.4 cm. The vessel decreases greater than 50 percent with inspiration. 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 There is a anteriorly directed regurgitant jet and a medially directed regurgitant jet. There is mild thickening of the anterior and posterior mitral leaflets. There is severe prolapse of the posterior mitral leaflet. Regurgitant orifice area (PISA) is 0.52 cm?. The pressure half time is 60 ?msec. The peak mitral E/A ratio is 2.04. The average mitral E/e' ratio is 21.0. The mitral flow deceleration time is 206 msec. ? TRICUSPID VALVE There is mild (1+) tricuspid valve regurgitation. There is mild thickening. ? AORTIC VALVE There is trace aortic valve regurgitation. Tricuspid aortic valve. There is mild thickening. ? fibrinous strand on LVOT side (clip #98). Not evident in other views. ? PULMONIC VALVE The pulmonic valve was not seen or not interrogated. There is mild (1+) pulmonic valve regurgitation. ? AORTA The visualized aorta is borderline dilated. Measurements - Sinus: 3.8 cm. Mid ascending aorta 3.4 cm. PULMONARY ARTERIES The pulmonary arteries are unseen or not interrogated. ? PERICARDIUM There is an epicardial fat pad. ? CONCLUSIONS: - Exam indication: Pre op MV repair - The left ventricle is normal in size. Left ventricular systolic function is normal. EF = 65 ? 5% (visual est.) - The right ventricle is normal in size. Right ventricular systolic function is normal. - The left atrial cavity is dilated. - The visualized aorta is borderline dilated with a maximal dimension of 3.8 cm. 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 Regurgitant orifice area (PISA) is 0.52 cm?. Posterior leaflet prolapse. - The patient has not had a prior CC echocardiographic exam for comparison. 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 ?There is otherwise normal caliber thoracic and abdominal aorta with minimal calcification at the arch and mild to moderate calcification in the tortuous infrarenal segment. ?No acute aortic pathology identified. ?The pelvic arteries, including the common femoral arteries are normal in caliber with mild calcification in the left common iliac artery and right common femoral artery. ?The minimal luminal caliber throughout = 9 mm. CHEST: The chest wall is unremarkable. ?There is no significant adenopathy noted in the axillae, mediastinum, and felicia. ?The pericardium and pulmonary arteries appear normal. Lung windows reveal no acute abnormalities. ?There is no abnormal pulmonary parenchymal mass, infiltrate, or pleural effusion. ?There is a 2 mm, possibly calcified right lower lobe nodule (image 69). The cardiac chambers demonstrate normal atrioventricular and ventriculoarterial concordance, and systemic and pulmonary venous return. ?The cardiac chamber sizes are normal, except for mild left atrial enlargement. The mitral valve leaflets are not calcified. ?The coronary arteries have normal origins and courses. ?There are no distinct coronary calcifications identified, though this study was not optimized for coronary artery evaluation. VASCULAR WITH ADVANCED 3-D OFF-LINE POSTPROCESSING: The aortic valve is trileaflet and free from calcification. There is mild aortic root ectasia. ?The thoracic aorta is otherwise normal in course, caliber, and with minimal calcification at the origin of the innominate artery and distal descending aorta. ?There is no acute aortic pathology, such as dissection, intramural hematoma, or contained rupture. ?The arch vessel branching pattern is normal, and the arch branch vessels are all widely patent in their proximal portions. The abdominal aorta is tortuous but normal in caliber with mild to moderate mixed predominantly calcified atherosclerotic changes. ?There is no acute aortic pathology. [employer] dimensions of the thoracic aorta are as follows: 4.2 cm at the sinuses of Valsalva measured sinus to sinus ?? ? (the sinotubular junction is preserved) 3.6 cm at the mid ascending aorta 3.2 cm at the distal ascending aorta 2.7 cm at the mid transverse arch 2.5 cm at the proximal descending thoracic aorta 2.2 cm at the diaphragmatic hiatus The abdominal aorta measures: 2.1 cm at the supramesenteric segment 2.0 cm at the mesenteric segment 1.9 cm at the renal segment 1.8 cm at the mid infrarenal segment 1.7 cm at the aortic bifurcation The celiac axis, SMA, and TRANG are patent. ?There are single right renal artery and two left renal arteries that appear patent. The pelvic arteries are tortuous, but otherwise normal in caliber with mild calcification in the left common iliac artery. ?The common femoral arteries are normal in course, caliber, with mild calcification in the right common femoral artery. ?The minimal luminal caliber throughout = 9mm. ABDOMEN: The liver, gallbladder, spleen, and pancreas appear normal. ?The adrenal glands appear normal. ?Both kidneys are normal in size, shape, and density. ?There is no abnormal mass or hydronephrosis. PELVIS: There is no significant retroperitoneal adenopathy. ?No free fluid or free air within the abdomen or pelvis. The bowel appears unremarkable on this non-GI contrast examination. ?The urinary bladder appears normal. ?There are scattered phleboliths within the deep pelvis. Bone: Degenerative changes in the spine. ?Mild wedge-shaped compression deformity involving T9, T7. ?No destructive osseous lesions MEDICATIONS: Current Outpatient Medications Medication Sig - aspirin, enteric coated (ASPIRIN, ENTERIC COATED) 81 mg EC tablet Take 81 mg by mouth once daily. - iv contrast (will be provided with radiology test) CT Cardiac - No IV access, insert saline lock prior to the sedation, infusion, injection for imaging exam. Discontinue saline lock post exam. If Pt. has a central line or IVAD, may access for administration according to line specific nursing protocol. Once exam is complete flush line and de-access according to line specific nursing protocol in the CT contrast administration guidelines link. - Cholecalciferol, Vitamin D3, (VITAMIN D) 1,000 unit ORAL Tab Take 185 mg by mouth once daily. - cyanocobalamin (VITAMIN B-12) 500 mcg ORAL Tab Take one(1) tablet daily. - BIOTIN ORAL Take 5,000 mcg by mouth once daily. - sildenafil (VIAGRA) 50 mg ORAL tablet As directed. - Sulfacetamide Sodium-Sulfur 10-5 % TOPICAL Lotn Apply to nose once daily. - THERAPEUTIC MULTIVITAMIN TAB Take one(1) tablet daily. No current facility-administered medications for this visit. Is the patient currently on any anticoagulant medications: ASA, stopped last week of March. Additional Comments: I have reviewed the Cardiothoracic Surgical Assessment and agree with its findings. During the course of the encounter the patient was prepared for anesthetic care. This conversation included anesthetic options, possible use of invasive monitoring, the risks, benefits, alternatives, and personnel that will be present for the anesthetic encounter. The patient agreed to proceed with the planned anesthetic. Instructed to take no meds on the morning of surgery. ANESTHESIA CONCERNS: None BETA SHANNEN COMPLIANCE: Is the Patient Scheduled for a CABG: No SIGNATURE: Garrett Agee MD PATIENT NAME: Keesha Bose DATE: May 06, 2019 TIME: 9:22 AM PAGER/CONTACT #: Normal [facility] Staph aureus PCRon 0 MRSA PCR Negative Normal [facility] Comment on above: Performed By: #### P T, PTT, CBCDIF, CMP, LD6 #### [facility] [address] [place] [address] S aureus Spec Source Nasal Normal [facility] Comment on above: Performed By: #### P T, PTT, CBCDIF, CMP, LD6 #### [facility] [employer] [address] [place] [address] Staph aureus PCR Negative Normal [facility] Comment on above: Performed By: #### P T, PTT, CBCDIF, CMP, LD6 #### [facility] [address] [place] [address] APTTon 05-05-2019 aPTT Coag (Bld) [Time] 26.0 s Normal 23.0-32.4 [facility] Comment on above: Result Comment: Unfr actionated Heparin Therapeutic Ranges: Standard Heparin Nomogram: 53 to 78 seconds (anti-Xa level of 0.3 to 0.7 U/ml) Low Dose/ACS Nomogram: 49 to 67 seconds (anti-Xa level of 0.2 to 0.5 U/ml) Stroke Treatment Nomogram: 49 to 67 seconds (anti-Xa level of 0.2 to 0.5 U/ml) Note: The APTT therapeutic range has been determined for the current lot of laboratory APTT reagent in use throughout the [facility]. Performed By: #### P T, PTT, CBCDIF, CMP, LD6 #### [place] [address] [place] [address] CBC and Differentialon 05-05 Abs Baso <0.03 Normal <0.11 [facility] Comment on above: Performed By: #### P T, PTT, CBCDIF, CMP, LD6 #### [place] [address] Abs [place] 0.46 k/uL Normal <0.87 [facility] Comment on above: Performed By: #### P T, PTT, CBCDIF, CMP, LD6 #### [place] [address] Abs Neut 2.92 k/uL Normal 1.45-7.50 [facility] Comment on above: Performed By: #### P T, PTT, CBCDIF, CMP, LD6 #### [place] [address] Absolute nRBC <0.01 Normal <0.01 [facility] Comment on above: Performed By: #### P T, PTT, CBCDIF, CMP, LD6 #### [place] [address] Basophils/100 WBC (Bld) 0.4 % Normal [facility] Comment on above: Performed By: #### P T, PTT, CBCDIF, CMP, LD6 #### [place] [address] DTYPE Auto Diff Normal [facility] Comment on above: Performed By: #### P T, PTT, CBCDIF, CMP, LD6 #### [place] [address] Eosinophils (Bld) [#/Vol] 0.15 10*3/uL Normal <0.46 [facility] Comment on above: Performed By: #### P T, PTT, CBCDIF, CMP, LD6 #### [place] [address] [place] [address] Eosinophils/100 WBC (Bld) 3.3 % Normal [facility] Comment on above: Performed By: #### P T, PTT, CBCDIF, CMP, LD6 #### [place] [address] [place] [address] Erythrocyte distribution width (RBC) [Ratio] 13.2 % Normal 11.5-15.0 [facility] Comment on above: Performed By: #### P T, PTT, CBCDIF, CMP, LD6 #### [place] [address] [place] [address] Hematocrit (Bld) [Volume fraction] 40.7 % Normal 39.0-51.0 [facility] Comment on above: Performed By: #### P T, PTT, CBCDIF, CMP, LD6 #### [place] [address] Hemoglobin (Bld) [Mass/Vol] 13.7 g/dL Normal 13.0-17.0 [facility] Comment on above: Performed By: #### P T, PTT, CBCDIF, CMP, LD6 #### [place] [address] Lymphocytes (Bld) [#/Vol] 0.93 10*3/uL Low 1.00-4.00 [facility] Comment on above: Performed By: #### P T, PTT, CBCDIF, CMP, LD6 #### [place] [address] [place] [address] Lymphocytes/100 WBC (Bld) 20.7 % Normal [facility] Comment on above: Performed By: #### P T, PTT, CBCDIF, CMP, LD6 #### [place] [address] [place], [place] [address] MCH (RBC) [Entitic mass] 33.5 pG Normal 26.0-34.0 [facility] Comment on above: Performed By: #### P T, PTT, CBCDIF, CMP, LD6 #### [place] [address] MCHC (RBC) [Mass/Vol] 33.7 g/dL Normal 30.5-36.0 [facility] Comment on above: Performed By: #### P T, PTT, CBCDIF, CMP, LD6 #### [place] [address] MCV (RBC) [Entitic vol] 99.5 fL Normal 80.0-100.0 [facility] Comment on above: Performed By: #### P T, PTT, CBCDIF, CMP, LD6 #### [place] [address] Monocytes/100 WBC (Bld) 10.2 % Normal C [facility] Comment on above: Performed By: #### P T, PTT, CBCDIF, CMP, LD6 #### [place] [address] Neutrophils/100 WBC (Bld) 65.4 % Normal [facility] Comment on above: Performed By: #### P T, PTT, CBCDIF, CMP, LD6 #### [place] [address] NRBCs 0.0 /100 WBC Normal 0 [facility] Comment on above: Performed By: #### P T, PTT, CBCDIF, CMP, LD6 #### [place] [address] Platelet mean volume (Bld) [Entitic vol] 11.6 fL Normal 9.0-12.7 [facility] Comment on above: Performed By: #### P T, PTT, CBCDIF, CMP, LD6 #### [address] [place] [address] Platelets (Bld) [#/Vol] 108 10*3/uL Low 150-400 [facility] Comment on above: Result Comment: Resu lt checked and verified No clot detected. Performed By: #### P T, PTT, CBCDIF, CMP, LD6 #### [facility] [address] [place] [id number] RBC (Bld) [#/Vol] 4.09 10*6/uL Low 4.20-6.00 [facility] Comment on above: Performed By: #### P T, PTT, CBCDIF, CMP, LD6 #### [place] [address] [place], [place] [address] WBC (Bld) [#/Vol] 4.50 10*3/uL Normal 3.70-11.00 [facility] Comment on above: Performed By: #### P T, PTT, CBCDIF, CMP, LD6 #### [address] [address] CTA C/A/P (GATED) W IVCONon 05-05-2019 CTA C/A/P (GATED) W IVCON * * *Final Report* * * DATE OF EXAM: May 05 2019 2:03PM JQC 0133 - CTA C/A/P (GATED) W IVCON / PROCEDURE REASON: multiple diagnoses * * * * Physician Interpretation * * * * Examination: CTA chest, CTA abdomen and pelvis dated 05/05/2019 2:03 PM. Comparison: None available. History: 68 years old Male with severe mitral valve disease undergoing pre-operative evaluation. The study is performed to assess vascular access for robotic assistance.. Technique: Multi-detector CT technology was employed ([employer] Som[employer] Force dual source scanner). High pitch Flash mode imaging with spiral acquisition with prospective ECG triggering was performed of the chest, followed by non-gated spiral imaging of the abdomen and pelvis, both following the IV administration of contrast material. A low-osmolar contrast agent was used (80 cc of Omnipaque 350). CT Dose-Length Product (DLP): [address] Dose Reduction Employed: Automated exposure control(AEC) and iterative recon For optimization of anatomic evaluation, multiplanar reconstruction, maximum intensity projections, and advanced 3-D off-line postprocessing were performed on a dedicated stand-alone workstation under the direct supervision of the interpreting physician. RESULT: Potential study limitations: None. CHEST: The chest wall is unremarkable. There is no significant adenopathy noted in the axillae, mediastinum, and felicia. The pericardium and pulmonary arteries appear normal. Lung windows reveal no acute abnormalities. There is no abnormal pulmonary parenchymal mass, infiltrate, or pleural effusion. There is a 2 mm, possibly calcified right lower lobe nodule (image 69). The cardiac chambers demonstrate normal atrioventricular and ventriculoarterial concordance, and systemic and pulmonary venous return. The cardiac chamber sizes are normal, except for mild left atrial enlargement. The mitral valve leaflets are not calcified. The coronary arteries have normal origins and courses. There are no distinct coronary calcifications identified, though this study was not optimized for coronary artery evaluation. VASCULAR WITH ADVANCED 3-D OFF-LINE POSTPROCESSING: The aortic valve is trileaflet and free from calcification. There is mild aortic root ectasia. The thoracic aorta is otherwise normal in course, caliber, and with minimal calcification at the origin of the innominate artery and distal descending aorta. There is no acute aortic pathology, such as dissection, intramural hematoma, or contained rupture. The arch vessel branching pattern is normal, and the arch branch vessels are all widely patent in their proximal portions. The abdominal aorta is tortuous but normal in caliber with mild to moderate mixed predominantly calcified atherosclerotic changes. There is no acute aortic pathology. [employer] dimensions of the thoracic aorta are as follows: 4.2 cm at the sinuses of Valsalva measured sinus to sinus (the sinotubular junction is preserved) 3.6 cm at the mid ascending aorta 3.2 cm at the distal ascending aorta 2.7 cm at the mid transverse arch 2.5 cm at the proximal descending thoracic aorta 2.2 cm at the diaphragmatic hiatus The abdominal aorta measures: 2.1 cm at the supramesenteric segment 2.0 cm at the mesenteric segment 1.9 cm at the renal segment 1.8 cm at the mid infrarenal segment 1.7 cm at the aortic bifurcation The celiac axis, SMA, and TRANG are patent. There are single right renal artery and two left renal arteries that appear patent. The pelvic arteries are tortuous, but otherwise normal in caliber with mild calcification in the left common iliac artery. The common femoral arteries are normal in course, caliber, with mild calcification in the right common femoral artery. The minimal luminal caliber throughout = 9mm. ABDOMEN: The liver, gallbladder, spleen, and pancreas appear normal. The adrenal glands appear normal. Both kidneys are normal in size, shape, and density. There is no abnormal mass or hydronephrosis. PELVIS: There is no significant retroperitoneal adenopathy. No free fluid or free air within the abdomen or pelvis. The bowel appears unremarkable on this non-GI contrast examination. The urinary bladder appears normal. There are scattered phleboliths within the deep pelvis. Bone: Degenerative changes in the spine. Mild wedge-shaped compression deformity involving T9, T7. 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 There is otherwise normal caliber thoracic and abdominal aorta with minimal calcification at the arch and mild to moderate calcification in the tortuous infrarenal segment. No acute aortic pathology identified. The pelvic arteries, including the common femoral arteries are normal in caliber with mild calcification in the left common iliac artery and right common femoral artery. The minimal luminal caliber throughout = [address] Manager: ROBERTS CHAPELB Transcribe Date/Time: May 05 2019 2:51P Dictated by : JUAN JOSE MENDOZA MD This examination was interpreted and the report reviewed and electronically signed by: JUAN JOSE MENDOZA MD on May 05 2019 4:59PM EST [id number] Normal [facility] Comp Metabolic Panelon 05-05 Albumin [Mass/Vol] 4.5 g/dL Normal 3.9-4.9 [facility] Comment on above: Performed By: #### P T, PTT, CBCDIF, CMP, LD6 #### [facility] [employer] [address] [place], [place] [address] ALP [Catalytic activity/Vol] 61 U/L Normal 38-113 [facility] Comment on above: Performed By: #### P T, PTT, CBCDIF, CMP, LD6 #### [facility] [employer] [address] [place], [place] [address] ALT [Catalytic activity/Vol] 27 U/L Normal 10-54 [facility] Comment on above: Performed By: #### P T, PTT, CBCDIF, CMP, LD6 #### [place] [address] [place], [place] [address] Anion gap [Moles/Vol] 11 mmol/L Normal 9-18 [facility] Comment on above: Performed By: #### P T, PTT, CBCDIF, CMP, LD6 #### [place] [address] [place] [address] AST [Catalytic activity/Vol] 32 U/L Normal 14-40 [facility] Comment on above: Performed By: #### P T, PTT, CBCDIF, CMP, LD6 #### [place] [address] Bilirubin [Mass/Vol] 0.8 mg/dL Normal 0.2-1.3 [facility] Comment on above: Performed By: #### P T, PTT, CBCDIF, CMP, LD6 #### [place] [address] [place], [place] [address] Calcium [Mass/Vol] 10.1 mg/dL Normal 8.5-10.2 [facility] Comment on above: Performed By: #### P T, PTT, CBCDIF, CMP, LD6 #### [place] [address] [place] [id number] Chloride [Moles/Vol] 102 mmol/L Normal 97-105 [facility] Comment on above: Performed By: #### P T, PTT, CBCDIF, CMP, LD6 #### [place] [address] [place] [id number] CO2 [Moles/Vol] 28 mmol/L Normal 22-30 [facility] Comment on above: Performed By: #### P T, PTT, CBCDIF, CMP, LD6 #### [facility] [address] [place], [place] [address] Creatinine [Mass/Vol] 1.06 mg/dL Normal 0.73-1.22 [facility] Comment on above: Performed By: #### P T, PTT, CBCDIF, CMP, LD6 #### [facility] [address] [place] [address] eGFR- Amer. >60 Normal [facility] Comment on above: Performed By: #### P T, PTT, CBCDIF, CMP, LD6 #### [facility] [address] [place] [address] GFR/1.73 sq M predicted among non-blacks MDRD (S/P/Bld) [Vol rate/Area] mL/min/{1.73_m2} Normal [facility] Comment on above: Result Comment: eGFR (Estimated GFR) Units of measure: mL/min/1.73 meters squared eGFR is derived from the reexpressed MDRD Study equation using the following parameters: serum creatinine, age, gender and race. The creatinine assay has been calibrated to be traceable to IDMS. An eGFR <60 mL/min/1.73m2 for >3 months is consistent with chronic kidney disease. Refer to KDOQI guidelines for clinical interpretation. In patients with unstable renal function, e.g. those with acute kidney injury, the eGFR may not accurately reflect actual GFR. Performed By: #### P T, PTT, CBCDIF, CMP, LD6 #### [facility] [address] [place] [id number] Glucose [Mass/Vol] 99 mg/dL Normal 74-99 [facility] Comment on above: Result Comment: The [place] [employer] (ADA) provides guidance for cutoff values for fasting glucose and random glucose. The ADA defines fasting as no caloric intake for at least 8 hours. Fasting plasma glucose results between 100 to 125 mg/dL indicate increased risk for diabetes (prediabetes). Fasting plasma glucose results greater than or equal to 126 mg/dL meet the criteria for diagnosis of diabetes. In the absence of unequivocal hyperglycemia, results should be confirmed by repeat testing. In a patient with classic symptoms of hyperglycemia or hyperglycemic crisis, random plasma glucose results greater than or equal to 200 mg/dL meet the criteria for diagnosis of diabetes. Reference: Standards of Medical Care in Diabetes 2016, [place] [employer]. Diabetes Care. 2016.39(Suppl 1). Performed By: #### P T, PTT, CBCDIF, CMP, LD6 #### [place] [address] [place] [address] Potassium [Moles/Vol] 4.4 mmol/L Normal 3.7-5.1 [facility] Comment on above: Performed By: #### P T, PTT, CBCDIF, CMP, LD6 #### [place] [address] Protein [Mass/Vol] 6.9 g/dL Normal 6.3-8.0 [facility] Comment on above: Performed By: #### P T, PTT, CBCDIF, CMP, LD6 #### [place] [address] Sodium [Moles/Vol] 141 mmol/L Normal 136-144 [facility] Comment on above: Performed By: #### P T, PTT, CBCDIF, CMP, LD6 #### [place] [address] Urea nitrogen [Mass/Vol] 12 mg/dL Normal 9-24 [facility] Comment on above: Performed By: #### P T, PTT, CBCDIF, CMP, LD6 #### [place] [address] Confirm Blood Typeon 020 ABO/RH(D) Positive Normal [facility] Comment on above: Performed By: #### P T, PTT, CBCDIF, CMP, LD6 #### [place] [address] [place] [address] ECG COMPLETEon 05-05-2019 ECG COMPLETE NAME : KEESHA BOSE PID : [id number] : 1950 Gender : Male Race : ORD : [id number] Procedure Date : May 05 2019 11:40:56 Edit Date : May 07 2019 07:55:00 Diagnosis:SINUS BRADYCARDIA WITH 1ST DEGREE AV BLOCK LEFT VENTRICULAR HYPERTROPHY WITH QRS WIDENING ABNORMAL ECG Confirmed by MD CAMACHO, PhD, UDAY ([id number]) on 05/07/2019 7:54:58 AM Ventricular Rate : 58 BPM Atrial Rate : 58 BPM P-R Interval : 354 ms QRS Duration : 128 ms Q-T Interval : 438 ms QTC Calculation(Bazett) : 429 ms P Gilbert : 67 degrees R Gilbert : -14 degrees T Gilbert : 36 degrees Test Reason : Location : 314 : J14 Overread By : MD CAMACHO, PhD,UDAY Edited By : MD CAMACHO, PhD,UDAY Referred By : Alirio DANG Acquired by : LUCITA HUA Normal [facility] LDon 05-05-2019 LD 200 U/L Normal 135-225 [facility] Comment on above: Performed By: #### P T, PTT, CBCDIF, CMP, LD6 #### [facility] [address] [place] [address] OBSOLETEon 05-05-2019 OBSOLETE Procedure (PULACA) KEESHA BOSE ([id number]) 1950 M Date Time Provider Department 05/05/19 12:45 PM [facility] During your visit today, we recorded the following information about you: Referring Provider: Alirio DANG [[id number]] Allergies As of Date: 05/05/2019 (No Known Allergies) Date Reviewed: 10/12/2010 Reviewed by: Colette Barker Lpn - Fully Assessed Reason for Visit: Spirometry [191] Primary Visit Diagnosis:Dyspnea, unspecified type [R06.00] Other Visit Diagnoses: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 #[id number] Prescriptions as of 05/05/2019 Sig: IV CONTRAST (RADIOLOGY PROCED* CT Cardiac - No IV access, in* * CHOLECALCIFEROL (VITAMIN D3) * Take 185 mg by mouth once renetta* * CYANOCOBALAMIN (VIT B-12) 500* Take one(1) tablet daily. * BIOTIN ORAL 1000 MCG: Take one(1) tablet * * SILDENAFIL 50 MG TABLET As directed. * SULFACETAMIDE SODIUM-SULFUR 1* Apply to nose once daily. * OLOPATADINE 0.1 % EYE DROPS as necessary * ASPIRIN 325 MG TABLET Take one (1) tablet daily . * THERAPEUTIC MULTIVITAMIN TABL* Take one(1) tablet daily. 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 Encounter Status:Closed by BRADLEY VILLAVICENCIO on 05/05/19 [facility] PROGRESSon 05-05-2019 PROGRESS HNO ID: [id number] Author: DESTIN Camejo (Ct) Service: Radiology Author Type: Clinical Wheel And Axle Inspector Type: Progress Notes Filed: 05/05/2019 2:01 PM Note Text: Radiology Service Progress Note PATIENT NAME: Keesha Bose DATE OF SERVICE: May 05, 2019 TIME: 2:00 PM PATIENT IDENTITY VERIFICATION COMPLETED USING TWO (2) IDENTIFIERS: Name and Date of confirmed by patient verbally. PATIENT GENDER DATA: Male PATIENT RELEVANT IMPLANT DATA REVIEWED: Yes RADIOLOGY DEPARTMENT: CT; Exam(s) Completed: CTA Cardiac PERIPHERAL IV DATA: Site assessment: Clean,Dry and Intact, Site disposition Left in for next appointment SIGNED BY: DESTIN Camejo May 05, 2019 2:00 PM Normal [facility] PROGRESS HNO ID: [id number] Author: Perri Bishop) TERRI Aguilar Service: Radiology Author Type: Registered Nurse Type: Progress Notes Filed: 05/05/2019 1:48 PM Note Text: Radiology Service Progress Note DATE OF SERVICE: May 05, 2019 TIME: 1:36 PM PATIENT WEIGHT: 164LBS PATIENT IDENTITY VERIFICATION COMPLETED USING TWO (2) STANDARD IDENTIFIERS: Name and Date of confirmed by patient verbally. PATIENT GENDER DATA: Male ALLERGIES: Reviewed and unchanged CONTRAST ALLERGY: NO. EXAM: CT -CONTRAST INDUCED NEPHROPATHY RISK FACTORS: Patient age > 60 years CREATININE: Creatinine (POCT) Date Value Ref Range Status 05/05/2019 1.10 0.7 - 1.4 mg/dL Final eGFR-All Other Races (POCT) Date Value Ref Range Status 05/05/2019 >60 mL/min/1.73 m2 Final eGFR- (POCT) Date Value Ref Range Status 05/05/2019 >60 mL/min/1.73 m2 Final P.O.C.T. RESULTS: POC done: Yes, See Lab Tab May 05, 2019 TREATMENT: No Hydration needed. IV SITE: Ambulatory: A peripheral IV was started in the Right antecubital site with a Angio cath: 20 gauge. and A Saline lock was inserted per protocol IV SITE APPEARANCE: Clean,Dry and Intact SIGNATURE: Perri Aguilar RN PATIENT NAME: Keesha Bose DATE: May 05, 2019 TIME: 1:36 PM Normal [facility] PROGRESS HNO ID: [id number] Author: Saad Munguia (Tech) Service: Radiology Author Type: Wheel And Axle Inspector Type: Progress Notes Filed: 05/05/2019 11:56 AM Note Text: Radiology Service Progress Note PATIENT NAME: Keesha Bose DATE OF SERVICE: May 05, 2019 TIME: 11:55 AM PATIENT IDENTITY VERIFICATION COMPLETED USING TWO (2) IDENTIFIERS: Name and Date of confirmed by patient verbally. PATIENT GENDER DATA: Male PATIENT RELEVANT IMPLANT DATA REVIEWED: Not Applicable RADIOLOGY DEPARTMENT: General X-ray: Exam(s) Completed: Chest X-Ray PERIPHERAL IV DATA: Not applicable SIGNED BY: Saad Munguia May 05, 2019 11:55 AM [facility] PROGRESS HNO ID: [id number] Author: Chris Moreno Service: ? Author Type: Physician Type: Progress Notes Filed: 05/06/2019 9:34 AM Note Text: [facility] [place] Alexey Gutierrez Department of Cardiovascular Medicine SECTION OF CLINICAL CARDIOLOGY OUTPATIENT VISIT DATE May 05, 2019 OUTPATIENT VISIT TYPE NEW PRIMARY CARE PHYSICIAN: Annalise Mora MD ([facility]) [address] [id number] REFERRING PHYSICIAN: Alirio Dang MD [address] [facility] [address] CHIEF COMPLAINT: Cardiac evaluation of mitral valve disease HISTORY OF PRESENT ILLNESS: Mr. Bose is a very pleasant 68-year-old gentleman with no prior major medical history was having an annual physical back in 2016 with his physician heard a murmur, he was referred to cardiology and echocardiogram was done that showed severe mitral valve regurgitation. Patient was referred to [facility] for possible surgery, right heart catheterization showed favorable measurements, details not available for me and surgery was not warranted at that point. He was being followed annually at [facility], at some point she had another catheterization sometime last year. Patient is athletic, exercises and continues to regularly however he reports that he has not been pushing himself when exercising over the last year. Really he is asymptomatic from a cardiovascular perspective without any exertional angina orthopnea PND or lower symmetry edema no syncopal or presyncope. 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 New patient visit for pre-operative cardiovascular evaluation prior to mitral valve intervention scheduled for May 10, [address] Carmelo Dang. Medical history is significant for mitral valve regurgitation and prolapse. He reports a heart murmur since 2016. He notes a very slow decline in his ability to walk up an incline. He notes this is evident if he plays golf, carries his bag, and walks up a hill. He is an avid runner and notes that the has had to start walking a particularly hill on his running course. He notes lightheadedness when bending down then standing up. He denies chest pain shortness of breath at rest, cough, orthopnea, PND, cough, dizziness, syncope, or lower extremity edema. PAST MEDICAL HISTORY Diagnosis Date - Mitral valve disease PAST SURGICAL HISTORY Procedure Laterality Date - PAST SURGICAL HISTORY OF Pt states lumpy tissue removed from neck x 2 - REMOVAL OF TONSILS,<12 Y/O Tonsillectomy - VASECTOMY 1984 SOCIAL HISTORY Social History Tobacco Use - Smoking status: Former Smoker Packs/day: 2.00 Years: 10.00 Pack years: 20.00 Types: Cigarettes Last attempt to quit: 03/31/1979 Years since quittin.1 - Smokeless tobacco: Never Used Substance Use Topics - Alcohol use: Yes Frequency: 2-3 times a week Drinks per session: 1 or 2 Binge frequency: Never - Drug use: Never FAMILY HISTORY Problem Relation Age of Onset - other (Valve Disease) Mother Unknown valve replacement - Dementia Father - Thyroid Cancer Father - other (Other) Brother Was in poor health ( at age 66) ALLERGIES: ALLERGIES No Known Allergies MEDICATIONS: aspirin, enteric coated (ASPIRIN, ENTERIC COATED) 81 mg EC tablet Take 81 mg by mouth once daily. iv contrast (will be provided with radiology test) CT Cardiac - No IV access, insert saline lock prior to the sedation, infusion, injection for imaging exam. Discontinue saline lock post exam. If Pt. has a central line or IVAD, may access for administration according to line specific nursing protocol. Once exam is complete flush line and de-access according to line specific nursing protocol in the CT contrast administration guidelines link. Cholecalciferol, Vitamin D3, (VITAMIN D) 1,000 unit ORAL Tab Take 185 mg by mouth once daily. cyanocobalamin (VITAMIN B-12) 500 mcg ORAL Tab Take one(1) tablet daily. BIOTIN ORAL Take 5,000 mcg by mouth once daily. sildenafil (VIAGRA) 50 mg ORAL tablet As directed. Sulfacetamide Sodium-Sulfur 10-5 % TOPICAL Lotn Apply to nose once daily. THERAPEUTIC MULTIVITAMIN TAB Take one(1) tablet daily. REVIEW OF SYSTEMS: Positives in Bold GENERAL: Negative for: Weight loss or gain, Fever or Chills, Weakness and Sleep difficulties. HEENT: Negative for: Headache, Impaired Vision, Glasses, Hearing Impairment, Ringing in Ears, Nosebleeds, Poor dental care, Bleeding Gums, Dentures NECK: Negative for: Swelling, Pain, Stiffness RESPIRATORY: Negative for: Cough, Blood in Sputum, Shortness of breath, Wheezing, Apnea GASTROINTESTINAL: Negative for: Trouble swallowing, Heartburn, Change in bowel habits, Blood in stool, Dark black stools MUSCULOSKELETAL: Negative for: Muscle or joint pain, Stiffness , Joint swelling NEUROLOGIC/PSYCHIATRIC : Negative for: Weakness, Paralysis, Numbness, Tingling, Tremor, Nervousness, Depressed mood, Memory loss SKIN: Negative for: Rashes, Itching HEMATOLOGICAL/LYMPHATI C: Negative for: Easy bruising , Easy bleeding ENDOCRINE: Negative for: Heat or cold intolerance, Excessive sweating, Frequent urination, Frequent thirst PHYSICAL EXAMINATION: BP 134/84 (BP Site: Left Arm, BP Position: Sitting, BP Cuff Size: Regular Adult) Pulse 63 Resp 20 Ht 182.9 cm (6') Wt 73.8 kg (162 lb 12.8 oz) SpO2 97% BMI 22.08 kg/m? Vitals noted in the nursing documentation. General appearance: Well appearing, alert, in no acute distress, well-hydrated, well nourished. Alert and Oriented X 3. Head: Normocephalic, no masses or tenderness. Eyes: Anicteric sclera. Pupils are symmetrical and reactive to light. Extraocular movements are intact. Neck: Supple, no bruits, midline trachea. Lungs: Good air entry bilaterally with no crackles or wheezes. Heart: RRR without gallop, or rubs. No ectopy, MEJIA 3/6. Abdomen: Soft, non tender, + BS, no masses felt. Extremities: no edema, No clubbing or cyanosis. Good capillary refill. Musculoskeletal: No joint swelling, or tenderness. Neuro: Gait normal. Neuromuscular grossly intact. Back: No pain to palpation. Psych: Mood and affect appropriate Skin: Skin color normal, no suspicious rashes or lesions. CARDIOVASCULAR MEDICINE TESTIN05-05-2019 EKG: SINUS BRADYCARDIA WITH 1ST DEGREE AV BLOCK LEFT VENTRICULAR HYPERTROPHY WITH QRS WIDENING ABNORMAL ECG 05-05-2019 CXR: No acute radiographic abnormality. 05-05-2019 Echocardiogram: - Exam indication: Pre op MV repair - The left ventricle is normal in size. Left ventricular systolic function is normal. EF = 65 ? 5% (visual est.) - The right ventricle is normal in size. Right ventricular systolic function is normal. - The left atrial cavity is dilated. - The visualized aorta is borderline dilated with a maximal dimension of 3.8 cm. 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 Regurgitant orifice area (PISA) is 0.52 cm?. Posterior leaflet prolapse. - The patient has not had a prior CC echocardiographic exam for comparison. 05-05-2019 CTA Chest/Abd/Pelvis: Mild ectasia of aortic root (4.2 cm). ?There is otherwise normal caliber thoracic and abdominal aorta with minimal calcification at the arch and mild to moderate calcification in the tortuous infrarenal segment. ?No acute aortic pathology identified. ?The pelvic arteries, including the common femoral arteries are normal in caliber with mild calcification in the left common iliac artery and right common femoral artery. ?The minimal luminal caliber throughout = 9 mm. 05-05-2019 Lab Work: Component Latest Ref Rng AND Units 05/05/2019 WBC 3.70 - 11.00 k/uL 4.50 RBC 4.20 - 6.00 m/uL 4.09 (L) Hemoglobin 13.0 - 17.0 g/dL 13.7 Hematocrit 39.0 - 51.0 % 40.7 MCV 80.0 - 100.0 fL 99.5 MCH 26.0 - 34.0 pG 33.5 MCHC 30.5 - 36.0 g/dL 33.7 RDW-CV 11.5 - 15.0 % 13.2 Platelet Count 150 - 400 k/uL 108 (L) MPV 9.0 - 12.7 fL 11.6 Neut% % 65.4 Abs Neut (ANC) 1.45 - 7.50 k/uL 2.92 Lymph% % 20.7 Abs Lymph 1.00 - 4.00 k/uL 0.93 (L) [place]% % 10.2 Abs [place] <0.87 k/uL 0.46 Eosin% % 3.3 Abs Eosin <0.46 k/uL 0.15 Baso% % 0.4 Abs Baso <0.11 k/uL <0.03 Nucleated Reds 0 /100 WBC 0.0 Absolute nRBC <0.01 k/uL <0.01 Diff Type Auto Diff Protein, Total 6.3 - 8.0 g/dL 6.9 Albumin 3.9 - 4.9 g/dL 4.5 Calcium 8.5 - 10.2 mg/dL 10.1 Bilirubin, Total 0.2 - 1.3 mg/dL 0.8 Alkaline Phosphatase 38 - 113 U/L 61 AST 14 - 40 U/L 32 Glucose 74 - 99 mg/dL 99 BUN 9 - 24 mg/dL 12 Creatinine 0.73 - 1.22 mg/dL 1.06 Sodium 136 - 144 mmol/L 141 Potassium 3.7 - 5.1 mmol/L 4.4 Chloride 97 - 105 mmol/L 102 CO2 22 - 30 mmol/L 28 Anion Gap 9 - 18 mmol/L 11 ALT 10 - 54 U/L 27 eGFR- >60 eGFR-All Other Races . >60 LD 135 - 225 U/L 200 02-12-2019 Echocardiogram (OS[facility]): The left ventricular size is mildly dilated with normal systolic function. Pseudonormal diastolic filling pattern with increased LA filling pressures. Estimated LVEF = 65-70%. The right ventricular size and systolic function are normal. Severely dilated left atrium. There is severe prolapse of the posterior mitral valve leaflet with moderate-severe anteriorly directed regurgitation, possibly underestimated due to eccentric jet. Tricuspid valve prolapse with mild-moderate regurgitation. Estimated RVSP = 65-70 mmHg. Mildly dilated aortic root (4 cm). There is no pericardial effusion. Compared to prior report 02/03/2018, there are no significant changes noted. 06-16-2018 RHC (OSH): .Right Heart Catheterization: ? RA Mean: 4 mmHg ? PA Systolic: 21 mmHg / PA Diastolic: 9 mmHg , PA Mean: 14 mmHg ? PCW Mean: 8 mmHg ? Rahul C.O.: 4.46 L/min / Rahul C.I.: 2.25 L/min/m2 , PA O2 Sat: 70 % ? TDCO: 4.4 L/min / TDCI: 2.22 L/min/m2 07-26-2015 (?) Cardiac Catheterization ([facility]): Problem List Items Addressed This Visit Cardiovascular Nonrheumatic mitral valve regurgitation Hematology Thrombocytopenia (HCC) - Primary IMPRESSION PLAN AND RECOMMENDATIONS:: #1 severe mitral valve regurgitation due to posterior leaflet prolapse, long discussion with the patient and his regarding the indications for surgery, discussed symptomatic versus asymptomatic severe mitral valve regurgitation management, discussed mitral valve repair versus mitral valve replacement, tissues versus mechanical valve and the trade-offs between durability and anticoagulation. Patient will continue with his preoperative testing and surgical plan will be finalized later today when he meets to surgeon. 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 Consider hematology evaluation if indicated. I personally interviewed, confirmed and edited the above information as obtained by others. CONTACT INFORMATION: Chris Moreno MD, MHCM, MSc, FAC, MAGAN Trevino and Amanda Gutierrez Department of Cardiovascular Medicine [facility] [place] - Desk [id number] [id number] Office Office Appointments: [phone] This note was partially generated using Lotaris voice recognition system, and there may be some incorrect words, spellings, and punctuation that were not noted in checking the note before saving. Normal [facility] Protimeon 05-05-2019 PT Coag (PPP) [Time] 10.3 s Normal 9.7-13.0 [facility] Comment on above: Performed By: #### P T, PTT, CBCDIF, CMP, LD6 #### [address] [id number] PT Coag (PPP) [Time] 1.0 s Normal 0.9-1.3 [facility] Comment on above: Result Comment: Amber min K Antagonist (VKA) Therapeutic Range: INR 2 to 3 (Target INR of 2.5) Note: For patients treated with VKA drugs, such as warfarin, the [place] [employer] 2012 Guideline recommends a therapeutic INR range of 2 to 3 (target INR of 2.5). This recommendation includes high-risk patients with antiphospholipid syndrome with previous arterial or venous thromboembolism, current-generation mechanical or bioprosthetic aortic heart valve replacement. Note: Patients with mechanical aortic valve replacement and additional risk factors for thromboembolic events (atrial fibrillation, previous thromboembolism, LV dysfunction, hypercoagulable conditions) or an older generation mechanical AVR (i.e., ball in-Cage) or any mechanical MVR should have a INR therapeutic range of 2.5 to 3.5 (target INR of 3). Derek VASQUEZ, et al. Chest 2012, 141:7S-47S [place] RA, et al. JACC 2017, 70: 252-289 Performed By: #### P T, PTT, CBCDIF, CMP, LD6 #### [facility] [address] [place], [place] [address] Urinalysison 05-05-2019 Bilirubin, Urine Negative Normal Negative [facility] Comment on above: Performed By: #### U A #### [facility] [address] [place], [place] [address] Clarity (U) Clear Normal Clear [facility] Comment on above: Performed By: #### U A #### [id number] [place], [place] [address] Color (U) Yellow Normal Yellow [facility] Comment on above: Performed By: #### U A #### [address] [address] Comments SEE COMMENT Normal [facility] Comment on above: Result Comment: Micr oscopic Examination Performed Performed By: #### U A #### [address] [address] Glucose Ql (U) Negative Normal Negative [facility] Comment on above: Performed By: #### U A #### [address] [address] Hemoglobin/Blood,Ur Negative Normal Negative [facility] Comment on above: Performed By: #### U A #### [address] [address] Ketones Ql (U) Negative Normal Negative [facility] Comment on above: Performed By: #### U A #### [facility] [address] [place], [place] [address] Leukest Negative Normal Negative [facility] Comment on above: Performed By: #### U A #### [id number] [place], [place] [address] Nitrite Ql (U) Negative Normal Negative [facility] Comment on above: Performed By: #### U A #### [facility] [address] [place], [place] [address] pH (Bld) 6.0 Normal 4.5-8.0 [facility] Comment on above: Performed By: #### U A #### [id number] [place], [place] [address] Protein (U) [Mass/Vol] Negative Normal Negative Cl [facility] Comment on above: Performed By: #### U A #### [address] [address] RBC (U) [#/Vol] 0-3 Normal 0-3 [facility] Comment on above: Performed By: #### U A #### [address] [address] Specific [place], Ur 1.010 Normal 1.005-1.030 [facility] Comment on above: Performed By: #### U A #### [address] [address] Urine Issac Comment SEE COMMENT Normal [facility] Comment on above: Result Comment: N/A Performed By: #### U A #### [address] [address] Urobilinogen Qn (U) Normal Normal Normal [facility] Comment on above: Performed By: #### U A #### [address] [address] WBC (Bld) [#/Vol] 0-5 Normal 0-5 [facility] Comment on above: Performed By: #### U A #### [address] [address] XR CHEST 2V FRONTAL/LATon XR CHEST 2V FRONTAL/LAT * * *Final Repor t* * * DATE OF EXAM: May 05 2019 11:46AM JIX [id number] - XR CHEST 2V FRONTAL/LAT / PROCEDURE REASON: multiple diagnoses * * * * Physician Interpretation * * * * EXAMINATION: CHEST RADIOGRAPH (2 VIEW FRONTAL and LATERAL) Clinical History: Disorder of artery or arteriole (HCC) Pre-operative cardiovascular examination Mitral valve disorder M: XC2_4 Comparison: None. RESULT: Lines, tubes, and devices: None. Lungs and pleura: The lungs are hyperinflated. No consolidation. No lung mass. No pleural effusion. Cardiomediastinal silhouette: Normal cardiomediastinal silhouette. Other: Mild degenerative changes of the thoracic spine. IMPRESSION: No acute radiographic abnormality. Ct Manager: PSCB Transcribe Date/Time: May 05 2019 2:35P Dictated by : MIRANDA SHANNON MD This examination was interpreted and the report reviewed and electronically signed by: MIRANDA SHANNON MD on May 05 2019 2:36PM EST [id number] Normal [facility] 04-20-2019 HOSP Patient:Keesha Bose MRN: Height:6' 0(1.829 m) Weight:162 lb 12.8 oz (73.846 kg) Outpatient Medications as of 05/10/19: aspirin, enteric coated (ASPIRIN, ENTERIC COATED) 81 mg EC tablet mupirocin (BACTROBAN) 2% oint iv contrast (will be provided with radiology test) Cholecalciferol, Vitamin D3, (VITAMIN D) 1,000 unit ORAL Tab cyanocobalamin (VITAMIN B-12) 500 mcg ORAL Tab BIOTIN ORAL sildenafil (VIAGRA) 50 mg ORAL tablet Sulfacetamide Sodium-Sulfur 10-5 % TOPICAL Lotn THERAPEUTIC MULTIVITAMIN TAB Admission/Clinic Administered Medications as of 05/10/19: Patient has no admission medications. 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] Discharge planning issues [Z02.9] Nonrheumatic mitral valve regurgitation [I34.0] Pre-op testing [Z01.818] Allergies: No Known Allergies Date Verified:05/10/19 Lab Values Lab Value Units Date High Low POTA* 4.4 mmol/L 05/05/2019 5.1 3.7 GONZALO* 40.7 % 05/05/2019 51.0 39.0 Progress Notes ([facility]): Hunter Watson APRN.CNP 05/06/2019 10:33 AM Signed AMBULATORY PATIENT EDUCATION READINESS TO LEARN Cognitive Ability: Alert and oriented Motivation To Learn: Interested Family Support: High - Very involved in pt care Instruction Provided To: Patient AND Family Patient Learns Best By: Multiple Methods Factors Affecting Learning: None Physical Limitations Affecting Learning: None LEARNING RESPONSE Diagnosis: MVR Education Topic: Pre-Op Open Heart Surgery Instructions Teaching Points: Logistics / Protocols /Complication Prevention How prepared do you feel you are for this visit: Instruction/Supplement al Materials: Cardiac Surgery Information Binder Video Individual Instruction Patient/Family Response: Somewhat Follow up plan: Patient/Family to call [facility] with any further questions Referral (Recommendation): None Teach completed, topic: bactroban Progress Notes ([facility]): Chris Moreno MD 05/06/2019 9:34 AM Signed [facility] [place] Alexey Gutierrez Department of Cardiovascular Medicine SECTION OF CLINICAL CARDIOLOGY OUTPATIENT VISIT DATE May 05, 2019 OUTPATIENT VISIT TYPE NEW PRIMARY CARE PHYSICIAN: Annalise Mora MD ([facility]) [address] [place] [address] REFERRING PHYSICIAN: Alirio Dang MD [address] [place] [address] CHIEF COMPLAINT: Cardiac evaluation of mitral valve disease HISTORY OF PRESENT ILLNESS: Mr. Bose is a very pleasant 68-year-old gentleman with no prior major medical history was having an annual physical back in 2016 with his physician heard a murmur, he was referred to cardiology and echocardiogram was done that showed severe mitral valve regurgitation. Patient was referred to [facility] for possible surgery, right heart catheterization showed favorable measurements, details not available for me and surgery was not warranted at that point. He was being followed annually at [facility], at some point she had another catheterization sometime last year. Patient is athletic, exercises and continues to regularly however he reports that he has not been pushing himself when exercising over the last year. Really he is asymptomatic from a cardiovascular perspective without any exertional angina orthopnea PND or lower symmetry edema no syncopal or presyncope. 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 New patient visit for pre-operative cardiovascular evaluation prior to mitral valve intervention scheduled for May 10, [address] Carmelo Dang. Medical history is significant for mitral valve regurgitation and prolapse. He reports a heart murmur since 2016. He notes a very slow decline in his ability to walk up an incline. He notes this is evident if he plays golf, carries his bag, and walks up a hill. He is an avid runner and notes that the has had to start walking a particularly hill on his running course. He notes lightheadedness when bending down then standing up. He denies chest pain shortness of breath at rest, cough, orthopnea, PND, cough, dizziness, syncope, or lower extremity edema. PAST MEDICAL HISTORY Diagnosis Date - Mitral valve disease PAST SURGICAL HISTORY Procedure Laterality Date - PAST SURGICAL HISTORY OF Pt states lumpy tissue removed from neck x 2 - REMOVAL OF TONSILS,<10 Y/O Tonsillectomy - VASECTOMY 1984 SOCIAL HISTORY Social History Tobacco Use - Smoking status: Former Smoker Packs/day: 2.00 Years: 10.00 Pack years: 20.00 Types: Cigarettes Last attempt to quit: 03/31/1979 Years since quittin.1 - Smokeless tobacco: Never Used Substance Use Topics - Alcohol use: Yes Frequency: 2-3 times a week Drinks per session: 1 or 2 Binge frequency: Never - Drug use: Never FAMILY HISTORY Problem Relation Age of Onset - other (Valve Disease) Mother Unknown valve replacement - Dementia Father - Thyroid Cancer Father - other (Other) Brother Was in poor health ( at age 66) ALLERGIES: ALLERGIES No Known Allergies MEDICATIONS: aspirin, enteric coated (ASPIRIN, ENTERIC COATED) 81 mg EC tablet Take 81 mg by mouth once daily. iv contrast (will be provided with radiology test) CT Cardiac - No IV access, insert saline lock prior to the sedation, infusion, injection for imaging exam. Discontinue saline lock post exam. If Pt. has a central line or IVAD, may access for administration according to line specific nursing protocol. Once exam is complete flush line and de-access according to line specific nursing protocol in the CT contrast administration guidelines link. Cholecalciferol, Vitamin D3, (VITAMIN D) 1,000 unit ORAL Tab Take 185 mg by mouth once daily. cyanocobalamin (VITAMIN B-12) 500 mcg ORAL Tab Take one(1) tablet daily. BIOTIN ORAL Take 5,000 mcg by mouth once daily. sildenafil (VIAGRA) 50 mg ORAL tablet As directed. Sulfacetamide Sodium-Sulfur 10-5 % TOPICAL Lotn Apply to nose once daily. THERAPEUTIC MULTIVITAMIN TAB Take one(1) tablet daily. REVIEW OF SYSTEMS: Positives in Bold GENERAL: Negative for: Weight loss or gain, Fever or Chills, Weakness and Sleep difficulties. HEENT: Negative for: Headache, Impaired Vision, Glasses, Hearing Impairment, Ringing in Ears, Nosebleeds, Poor dental care, Bleeding Gums, Dentures NECK: Negative for: Swelling, Pain, Stiffness RESPIRATORY: Negative for: Cough, Blood in Sputum, Shortness of breath, Wheezing, Apnea GASTROINTESTINAL: Negative for: Trouble swallowing, Heartburn, Change in bowel habits, Blood in stool, Dark black stools MUSCULOSKELETAL: Negative for: Muscle or joint pain, Stiffness , Joint swelling NEUROLOGIC/PSYCHIATRIC : Negative for: Weakness, Paralysis, Numbness, Tingling, Tremor, Nervousness, Depressed mood, Memory loss SKIN: Negative for: Rashes, Itching HEMATOLOGICAL/LYMPHATI C: Negative for: Easy bruising , Easy bleeding ENDOCRINE: Negative for: Heat or cold intolerance, Excessive sweating, Frequent urination, Frequent thirst PHYSICAL EXAMINATION: BP 134/84 (BP Site: Left Arm, BP Position: Sitting, BP Cuff Size: Regular Adult) Pulse 63 Resp 20 Ht 182.9 cm (6') Wt 73.8 kg (162 lb 12.8 oz) SpO2 97% BMI 22.08 kg/m? Vitals noted in the nursing documentation. General appearance: Well appearing, alert, in no acute distress, well-hydrated, well nourished. Alert and Oriented X 3. Head: Normocephalic, no masses or tenderness. Eyes: Anicteric sclera. Pupils are symmetrical and reactive to light. Extraocular movements are intact. Neck: Supple, no bruits, midline trachea. Lungs: Good air entry bilaterally with no crackles or wheezes. Heart: RRR without gallop, or rubs. No ectopy, MEJIA 3/6. Abdomen: Soft, non tender, + BS, no masses felt. Extremities: no edema, No clubbing or cyanosis. Good capillary refill. Musculoskeletal: No joint swelling, or tenderness. Neuro: Gait normal. Neuromuscular grossly intact. Back: No pain to palpation. Psych: Mood and affect appropriate Skin: Skin color normal, no suspicious rashes or lesions. CARDIOVASCULAR MEDICINE TESTIN05-05-2019 EKG: SINUS BRADYCARDIA WITH 1ST DEGREE AV BLOCK LEFT VENTRICULAR HYPERTROPHY WITH QRS WIDENING ABNORMAL ECG 05-05-2019 CXR: No acute radiographic abnormality. 05-05-2019 Echocardiogram: - Exam indication: Pre op MV repair - The left ventricle is normal in size. Left ventricular systolic function is normal. EF = 65 ? 5% (visual est.) - The right ventricle is normal in size. Right ventricular systolic function is normal. - The left atrial cavity is dilated. - The visualized aorta is borderline dilated with a maximal dimension of 3.8 cm. 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 Regurgitant orifice area (PISA) is 0.52 cm?. Posterior leaflet prolapse. - The patient has not had a prior CC echocardiographic exam for comparison. 05-05-2019 CTA Chest/Abd/Pelvis: Mild ectasia of aortic root (4.2 cm). ?There is otherwise normal caliber thoracic and abdominal aorta with minimal calcification at the arch and mild to moderate calcification in the tortuous infrarenal segment. ?No acute aortic pathology identified. ?The pelvic arteries, including the common femoral arteries are normal in caliber with mild calcification in the left common iliac artery and right common femoral artery. ?The minimal luminal caliber throughout = 9 mm. 05-05-2019 Lab Work: Component Latest Ref Rng AND Units 05/05/2019 WBC 3.70 - 11.00 k/uL 4.50 RBC 4.20 - 6.00 m/uL 4.09 (L) Hemoglobin 13.0 - 17.0 g/dL 13.7 Hematocrit 39.0 - 51.0 % 40.7 MCV 80.0 - 100.0 fL 99.5 MCH 26.0 - 34.0 pG 33.5 MCHC 30.5 - 36.0 g/dL 33.7 RDW-CV 11.5 - 15.0 % 13.2 Platelet Count 150 - 400 k/uL 108 (L) MPV 9.0 - 12.7 fL 11.6 Neut% % 65.4 Abs Neut (ANC) 1.45 - 7.50 k/uL 2.92 Lymph% % 20.7 Abs Lymph 1.00 - 4.00 k/uL 0.93 (L) [place]% % 10.2 Abs [place] <0.87 k/uL 0.46 Eosin% % 3.3 Abs Eosin <0.46 k/uL 0.15 Baso% % 0.4 Abs Baso <0.11 k/uL <0.03 Nucleated Reds 0 /100 WBC 0.0 Absolute nRBC <0.01 k/uL <0.01 Diff Type Auto Diff Protein, Total 6.3 - 8.0 g/dL 6.9 Albumin 3.9 - 4.9 g/dL 4.5 Calcium 8.5 - 10.2 mg/dL 10.1 Bilirubin, Total 0.2 - 1.3 mg/dL 0.8 Alkaline Phosphatase 38 - 113 U/L 61 AST 14 - 40 U/L 32 Glucose 74 - 99 mg/dL 99 BUN 9 - 24 mg/dL 12 Creatinine 0.73 - 1.22 mg/dL 1.06 Sodium 136 - 144 mmol/L 141 Potassium 3.7 - 5.1 mmol/L 4.4 Chloride 97 - 105 mmol/L 102 CO2 22 - 30 mmol/L 28 Anion Gap 9 - 18 mmol/L 11 ALT 10 - 54 U/L 27 eGFR- >60 eGFR-All Other Races . >60 LD 135 - 225 U/L 200 02-12-2019 Echocardiogram (OSH): The left ventricular size is mildly dilated with normal systolic function. Pseudonormal diastolic filling pattern with increased LA filling pressures. Estimated LVEF = 65-70%. The right ventricular size and systolic function are normal. Severely dilated left atrium. There is severe prolapse of the posterior mitral valve leaflet with moderate-severe anteriorly directed regurgitation, possibly underestimated due to eccentric jet. Tricuspid valve prolapse with mild-moderate regurgitation. Estimated RVSP = 65-70 mmHg. Mildly dilated aortic root (4 cm). There is no pericardial effusion. Compared to prior report 02/03/2018, there are no significant changes noted. 06-16-2018 RHC (OSH): .Right Heart Catheterization: ? RA Mean: 4 mmHg ? PA Systolic: 21 mmHg / PA Diastolic: 9 mmHg , PA Mean: 14 mmHg ? PCW Mean: 8 mmHg ? Rahul C.O.: 4.46 L/min / Rahul C.I.: 2.25 L/min/m2 , PA O2 Sat: 70 % ? TDCO: 4.4 L/min / TDCI: 2.22 L/min/m2 07-26-2015 (?) Cardiac Catheterization ([facility]): Problem List Items Addressed This Visit Cardiovascular Nonrheumatic mitral valve regurgitation Hematology Thrombocytopenia (HCC) - Primary IMPRESSION PLAN AND RECOMMENDATIONS:: #1 severe mitral valve regurgitation due to posterior leaflet prolapse, long discussion with the patient and his regarding the indications for surgery, discussed symptomatic versus asymptomatic severe mitral valve regurgitation management, discussed mitral valve repair versus mitral valve replacement, tissues versus mechanical valve and the trade-offs between durability and anticoagulation. Patient will continue with his preoperative testing and surgical plan will be finalized later today when he meets to surgeon. 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 Consider hematology evaluation if indicated. I personally interviewed, confirmed and edited the above information as obtained by others. CONTACT INFORMATION: Chris Moreno MD, MHCM, MSc, FACC, MAGAN Trevino and Amanda Gutierrez Department of Cardiovascular Medicine [facility] [place] - Desk [place] [address] Office Office Appointments: [phone] This note was partially generated using [employer] voice recognition system, and there may be some incorrect words, spellings, and punctuation that were not noted in checking the note before saving. Previous Version Normal [facility] Vital Signs Date Time Vital Sign Value Performing Clinician Facility 01-12-2025 14:02-0400 Body height 185.[address] Carlitos Johnson MD Work Phone: [facility] 01-12-2025 14:02-0400 Body mass index (BMI) [Ratio] 22.1 kg/m2 Dr. Carlitos Johnson MD Work Phone: [facility] 01-12-2025 14:02-0400 Body temperature 97.6 [degF] Dr. Carlitos Johnson MD Work Phone: [facility] 01-12-2025 14:02-0400 Body weight 75.[address] Carlitos Johnson MD Work Phone: [facility] 01-12-2025 14:02-0400 Diastolic blood pressure 84 mm[Hg] Dr. Carlitos Johnson MD Work Phone: 6(062)688-200544 [place] [address] 01-12-2025 14:02-0400 Heart rate 58 /min Dr. Carlitos Johnson MD Work Phone: 2(424)989-306077 [place] [address] 01-12-2025 14:02-0400 Respiratory rate 18 /min Dr. Carlitos Johnson MD Work Phone: 8(257)439-619377 [place] [address] 01-12-2025 14:02-0400 SaO2% (BldA) [Mass fraction] 98 % Dr. Carlitos Johnson MD Work Phone: 8(165)722-030177 [place] [address] 01-12-2025 14:02-0400 Systolic blood pressure 164 mm[Hg] Dr. Carlitos Johnson MD Work Phone: 9(465)133-932677 [place] [address] 12-29-2024 15:31-0400 Body temperature 97.8 [degF] Dr. Carlitos Johnson MD Work Phone: 7(745)664-210677 [place] [address] 12-29-2024 15:31-0400 Body weight 75.[address] Carlitos Johnson MD Work Phone: 5(355)094-906377 [place] [address] 12-29-2024 15:31-0400 Diastolic blood pressure 78 mm[Hg] Dr. Carlitos Johnson MD Work Phone: 2(565)270-355077 [place] [address] 12-29-2024 15:31-0400 Heart rate 53 /min Dr. Carlitos Johnson MD Work Phone: 7(139)202-494044 [place] [address] 12-29-2024 15:31-0400 Respiratory rate 14 /min Dr. Carlitos Johnson MD Work Phone: 8(926)264-487377 [place] [address] 12-29-2024 15:31-0400 SaO2% (BldA) [Mass fraction] 100 % Dr. Carlitos Johnson MD Work Phone: 1(457)924-291377 [place] [address] 12-29-2024 15:31-0400 Systolic blood pressure 149 mm[Hg] Dr. Carlitos Johnson MD Work Phone: [facility] 12-08-2024 13:30-0400 Body height 185.[address] Carlitos Johnson MD Work Phone: [facility] 12-08-2024 13:30-0400 Body mass index (BMI) [Ratio] 21.6 kg/m2 Dr. Carlitos Johnson MD Work Phone: 0(847)112-530644 [place] [address] 12-08-2024 13:30-0400 Body weight 74.[address] Carlitos Johnson MD Work Phone: 8(907)142-664677 [place] [address] 12-08-2024 13:30-0400 Diastolic blood pressure 80 mm[Hg] Dr. Carlitos Johnson MD Work Phone: 6(652)269-031644 [place] [address] 12-08-2024 13:30-0400 Heart rate 54 /min Dr. Carlitos Johnson MD Work Phone: 5(412)626-075567 [address] 12-08-2024 13:30-0400 Respiratory rate 16 /min Dr. Carlitos Johnson MD Work Phone: [facility] 12-08-2024 13:30-0400 SaO2% (BldA) [Mass fraction] 98 % Dr. Carlitos Johnson MD Work Phone: 1(718)596-454444 [place] [address] 12-08-2024 13:30-0400 Systolic blood pressure 131 mm[Hg] Dr. Carlitos Johnson MD Work Phone: 1(251)205-118444 [place] [address] 08-18-2024 16:00-0400 Body temperature 98 [degF] Dr. Carlitos Johnson MD Work Phone: 7(713)638-140044 [place] [address] 08-18-2024 16:00-0400 Body weight 77.[address] Carlitos Johnson MD Work Phone: [facility] 08-18-2024 16:00-0400 Diastolic blood pressure 88 mm[Hg] Dr. Carlitos Johnson MD Work Phone: [facility] 08-18-2024 16:00-0400 Heart rate 52 /min Dr. Carlitos Johnson MD Work Phone: 9(040)963-570944 [place] [address] 08-18-2024 16:00-0400 Respiratory rate 18 /min Dr. Carlitos Johnson MD Work Phone: 5(176)095-708644 [place] [address] 08-18-2024 16:00-0400 SaO2% (BldA) [Mass fraction] 99 % Dr. Carlitos Johnson MD Work Phone: 7(751)997-382144 [place] [address] 08-18-2024 16:00-0400 Systolic blood pressure 148 mm[Hg] Dr. Carlitos Johnson MD Work Phone: 2(058)877-242377 [place] [address] 08-02-2024 15:34-0400 Body temperature 97.7 [degF] Dr. Carlitos Johnson MD Work Phone: 1(418)133-450377 [place] [address] 08-02-2024 15:34-0400 Body weight 77.[address] Carlitos Johnson MD Work Phone: 8(159)122-891377 [place] [address] 08-02-2024 15:34-0400 Diastolic blood pressure 82 mm[Hg] Dr. Carlitos Johnson MD Work Phone: 2(481)797-189977 [place] [address] 08-02-2024 15:34-0400 Heart rate 60 /min Dr. Carlitos Johnson MD Work Phone: 7(196)244-348877 [place] [address] 08-02-2024 15:34-0400 Respiratory rate 16 /min Dr. Carlitos Johnson MD Work Phone: 2(835)802-111577 [place] [address] 08-02-2024 15:34-0400 SaO2% (BldA) [Mass fraction] 98 % Dr. Carlitos Johnson MD Work Phone: 6(527)419-110977 [place] [address] 08-02-2024 15:34-0400 Systolic blood pressure 163 mm[Hg] Dr. Carlitos Johnson MD Work Phone: 6(846)194-138077 [place] [address] 07-01-2024 14:00-0400 Body height 185.[address] Carlitos Johnson MD Work Phone: 1(810)339-809977 [place] [address] 07-01-2024 14:00-0400 Body mass index (BMI) [Ratio] 21.4 kg/m2 Dr. Carlitos Johnson MD Work Phone: [facility] 07-01-2024 14:00-0400 Body temperature 96 [degF] Dr. Carlitos Johnson MD Work Phone: [facility] 07-01-2024 14:00-0400 Body weight 73.[address] Carlitos Johnson MD Work Phone: [facility] 07-01-2024 14:00-0400 Diastolic blood pressure 81 mm[Hg] Dr. Carlitos Johnson MD Work Phone: 1(727)339-505044 [place] [address] 07-01-2024 14:00-0400 Heart rate 59 /min Dr. Carlitos Johnson MD Work Phone: 3(877)374-140344 [place] [address] 07-01-2024 14:00-0400 Respiratory rate 18 /min Dr. Carlitos Johnson MD Work Phone: [facility] 07-01-2024 14:00-0400 SaO2% (BldA) [Mass fraction] 98 % Dr. Carlitos Johnson MD Work Phone: [facility] 07-01-2024 14:00-0400 Systolic blood pressure 128 mm[Hg] Dr. Carlitos Johnson MD Work Phone: [facility] 06-01-2024 09:05-0500 Body height 185.[address] Carlitos Johnson MD Work Phone: [facility] 06-01-2024 09:05-0500 Body mass index (BMI) [Ratio] 22.4 kg/m2 Dr. Carlitos Johnson MD Work Phone: [facility] 06-01-2024 09:05-0500 Body weight 77.[address] Carlitos Johnson MD Work Phone: 6(042)165-715144 [place] [address] 06-01-2024 09:05-0500 Diastolic blood pressure 81 mm[Hg] Dr. Carlitos Johnson MD Work Phone: [facility] 06-01-2024 09:05-0500 Heart rate 58 /min Dr. Carlitos Johnson MD Work Phone: [facility] 06-01-2024 09:05-0500 Respiratory rate 17 /min Dr. Carlitos Johnson MD Work Phone: [facility] 06-01-2024 09:05-0500 SaO2% (BldA) [Mass fraction] 100 % Dr. Carlitos Johnson MD Work Phone: [facility] 06-01-2024 09:05-0500 Systolic blood pressure 138 mm[Hg] Dr. Carlitos Johnson MD Work Phone: [facility] 03-03-2024 09:52-0500 Diastolic blood pressure 67 mm[Hg] Abigail Quezada MD Work Phone: [facility] 03-03-2024 09:52-0500 Heart rate 63 /min Abigail Quezada MD Work Phone: [facility] 03-03-2024 09:52-0500 Respiratory rate 18 /min Abigail Quezada MD Work Phone: [facility] 03-03-2024 09:52-0500 SaO2% (BldA) [Mass fraction] 99 % Abigail Quezada MD Work Phone: [facility] 03-03-2024 09:52-0500 Systolic blood pressure 113 mm[Hg] Abigail Quezada MD Work Phone: [facility] 03-03-2024 09:12-0500 Body height 185.4 cm Abigail Quezada MD Work Phone: [facility] 03-03-2024 09:12-0500 Body mass index (BMI) [Ratio] 21.11 kg/m2 Abigail Quezada MD Work Phone: [facility] 03-03-2024 09:12-0500 Body temperature 97.2 [degF] Abigail Quezada MD Work Phone: [facility] 03-03-2024 09:120500 Body weight 72.58 kg Abigail Quezada MD Work Phone: [facility] 01-26-2024 [id number] Body height 182.9 cm Veronika Bevly PA-C Work Phone: [facility] 01-26-2024 [id number] Body mass index (BMI) [Ratio] 22.3 kg/m2 Veronika Bevly PA-C Work Phone: [facility] 01-26-2024 10:040 Body temperature 97.39 [degF] Veronika Bevly PA-C Work Phone: [facility] 01-26-2024 [id number] Body weight 74.57 kg Veronika Bevly PA-C Work Phone: [facility] 01-26-2024 10:28-0400 Diastolic blood pressure 81 mm[Hg] Veronika Bevly PA-C Work Phone: [facility] 01-26-2024 10:28-0400 Heart rate 50 /min Veronika Bevly PA-C Work Phone: [facility] 01-26-2024 10:28-0400 Systolic blood pressure 158 mm[Hg] Veronika Bevly PA-C Work Phone: [facility] 08-11-2023 09:15-0400 Body height 185.[address] Carlitos Jonhson Work Phone: [facility] 08-11-2023 09:15-0400 Body mass index (BMI) [Ratio] 21.6 kg/m2 Dr. Carlitos Johnson Work Phone: [facility] 08-11-2023 09:15-0400 Body temperature 97.6 [degF] Dr. Carlitos Johnson Work Phone: [facility] 08-11-2023 09:15-0400 Body weight 74.[address] Carlitos Johnson Work Phone: [facility] 08-11-2023 09:15-0400 Diastolic blood pressure 91 mm[Hg] Dr. Carlitos Johnson Work Phone: [facility] 08-11-2023 09:15-0400 Heart rate 68 /min Dr. Carlitos Johnson Work Phone: [facility] 08-11-2023 09:15-0400 Respiratory rate 18 /min Dr. Carlitos Johnson Work Phone: [facility] 08-11-2023 09:15-0400 SaO2% (BldA) [Mass fraction] 99 % Dr. Carlitos Johnson Work Phone: [facility] 08-11-2023 09:15-0400 Systolic blood pressure 147 mm[Hg] Dr. Carlitos Johnson Work Phone: [facility] 06-19-2023 11:14-0400 Body height 185.[address] Carlitos Johnson Work Phone: [facility] 06-19-2023 11:14-0400 Body mass index (BMI) [Ratio] 21.4 kg/m2 Dr. Carlitos Johnson Work Phone: [facility] 06-19-2023 11:14-0400 Body weight 73.[address] Carlitos Johnson Work Phone: [facility] 06-19-2023 11:14-0400 Diastolic blood pressure 87 mm[Hg] Dr. Carlitos Johnson Work Phone: [facility] 06-19-2023 11:14-0400 Heart rate 59 /min Dr. Carlitos Johnson Work Phone: [facility] 06-19-2023 11:14-0400 Respiratory rate 16 /min Dr. Carlitos Johnson Work Phone: [facility] 06-19-2023 11:14-0400 Systolic blood pressure 140 mm[Hg] Dr. Carlitos Johnson Work Phone: [facility] 01-03-2022 15:32-0400 Body height 185.[address] Joni Johnson Work Phone: [facility] Work Phone: 01-03-2022 15:32-0400 Body mass index (BMI) [Ratio] 21.9 kg/m2 Dr. Joni Johnson Work Phone: [facility] Work Phone: 01-03-2022 15:32-0400 Body weight 75.[address] oJni Johnson Work Phone: [facility] Work Phone: 01-03-2022 15:32-0400 Diastolic blood pressure 91 mm[Hg] Dr. Joni Johnson Work Phone: [facility] Work Phone: 01-03-2022 15:32-0400 Heart rate 62 /min Dr. Joni Johnson Work Phone: [facility] Work Phone: 01-03-2022 15:32-0400 Respiratory rate 16 /min Dr. Joni Johnson Work Phone: [facility] Work Phone: 01-03-2022 15:32-0400 SaO2% (BldA) [Mass fraction] 100 % Dr. Joni Johnson Work Phone: [facility] Work Phone: 01-03-2022 15:32-0400 Systolic blood pressure 144 mm[Hg] Dr. Joni Johnson Work Phone: [facility] Work Phone: 05-11-2019 02:39-0500 Body temperature 98.6 [degF] [facility] Comment on above: Performed By: #### PT, PTT, CBCDIF, CMP, LD6 #### [place] [id number] [place] [id number] 05-11-2019 00:40-0500 Body temperature 98.6 [degF] [facility] Comment on above: Performed By: #### PT, PTT, CBCDIF, CMP, LD6 #### [place] [id number] 05-10-2019 23:34-0500 Body temperature 98.6 [degF] [facility] Comment on above: Performed By: #### PT, PTT, CBCDIF, CMP, LD6 #### [place] [phone] 05-10-2019 21:41-0500 Body temperature 98.6 [degF] [facility] Comment on above: Performed By: #### PT, PTT, CBCDIF, CMP, LD6 #### [place] [phone] 05-10-2019 20:36-0500 Body temperature 98.6 [degF] [facility] Comment on above: Performed By: #### PT, PTT, CBCDIF, CMP, LD6 #### [place] [phone] 05-10-2019 19:22-0500 Body temperature 97.7 [degF] [facility] Comment on above: Performed By: #### PT, PTT, CBCDIF, CMP, LD6 #### [place] [id number] 05-10-2019 18:22-0500 Body temperature 98.6 [degF] [facility] Comment on above: Performed By: #### PT, PTT, CBCDIF, CMP, LD6 #### [address], [place] [address] 05-10-2019 17:56-0500 Body temperature 98.6 [degF] [facility] Comment on above: Performed By: #### PT, PTT, CBCDIF, CMP, LD6 #### [place] [phone] 05-10-2019 17:18-0500 Body temperature 98.6 [degF] [facility] Comment on above: Performed By: #### PT, PTT, CBCDIF, CMP, LD6 #### [place] [phone] 05-10-2019 17:14-0500 Body temperature 98.6 [degF] [facility] Comment on above: Performed By: #### PT, PTT, CBCDIF, CMP, LD6 #### [place] [address] 05-10-2019 15:39-0500 Body temperature 98.6 [degF] [facility] Comment on above: Performed By: #### PT, PTT, CBCDIF, CMP, LD6 #### [place] [address] Encounters Encounter Date Encounter Type Care Provider Facility Start: 03-07-2025 ambulatory Carlitos Osorio lity:[facility] Start: 01-12-2025 End: 01-12-2025 Patient encounter procedure Adele Quiles PA-C -[facility] Work Phone: Start: 01-12-2025 End: 01-12-2025 ambulatory [place] [place]: 12-29-2024 End: 12-29-[address] Red Crouch MD -[facility] Work Phone: Start: 12-29-2024 End: 12-29-[address] Carlitos Johnson MD Work Phone: -[facility] Start: 12-08-2024 End: 12-08-2024 Patient encounter procedure Annalise SALMERON -[facility] Work Phone: Start: 12-08-2024 End: 12-08-[address] Carlitos Johnson MD Work Phone: -[facility] Start: 08-18-2024 End: 08-18-2024 Patient encounter procedure Elina BRAGG -[facility] Work Phone: Start: 08-18-2024 End: 08-18-[address] Carlitos Johnson MD Work Phone: [facility] Work Phone: Start: 08-02-2024 End: 08-02-[address] Red Crouch MD -[facility] Work Phone: Start: 08-02-2024 End: 08-02-2024 ambulatory Praveen Joel [place] [place] Start: 07-01-2024 End: 07-01-[address] Praveen Joel MD -[facility] Work Phone: Start: 07-01-2024 End: 07-01-2024 ambulatory Carlitos Johnson [place] Start: 06-15-2024 End: 06-15-[address] Carlitos Johnson MD Work Phone: [facility] Work Phone: Start: 06-15-2024 End: 06-15-[address] Praveen Joel MD -Ultrasound, [facility] Work Phone: Start: 06-15-2024 End: 06-15-2024 ambulatory Praveen Joel Facility:[facility] Start: 06-01-2024 End: 06-01-[address] Praveen Joel MD -[facility] Work Phone: Start: 06-01-2024 End: 06-01-2024 ambulatory Carlitos Johnson [place] Start: 03-26-2024 End: 03-26-[address] Carlitos Johnson MD -Laboratory, [facility] Start: 03-26-2024 End: 03-26-2024 ambulatory Carlitos Johnson Facility:[facility] Start: 03-03-2024 End: 03-03-2024 Orders Only Abigail Quezada MD Work Phone: [place] [facility] Comment on above: Hx of colonic polyps (Primary Dx) Personal history of colon polyps, unspecified [Z86.0100] Start: 01-26-2024 End: 01-26-2024 Patient encounter procedure Veronika Gerardo PA-C Work Phone: [facility] Comment on above: Personal history of colon polyps, unspecified (Primary Dx) Start: 08-11-2023 End: 08-11-2023 Emergency department patient visit Dr. Carlitos Johnson Work Phone: [facility] Work Phone: Start: 07-31-2023 Non-patient / Non-visit Dr. Carlitos Johnson Work Phone: [facility] Work Phone: Start: 07-18-2023 Non-patient / Non-visit Dr. Carlitos Johnson Work Phone: [facility] Start: 07-18-2023 End: 07-18-[address] Carlitos Johnson Work Phone: [facility] Work Phone: Start: 07-18-2023 End: 07-18-[address] [facility] Work [facility]: Start: 06-19-2023 End: 06-19-[address] Carlitos Johnson Work Phone: [facility] Work Phone: Start: 03-12-2023 End: 03-12-2023 ambulatory [facility] Work Phone: Start: 03-12-2023 End: 03-12-2023 Patient encounter procedure [facility] Work Phone: Start: 03-06-2022 End: 03-06-[address] Joni Johnson Work Phone: [facility] Work Phone: Start: 03-06-2022 End: 03-06-[address] [facility] Start: 01-03-2022 End: 01-03-[address] Joni Johnson Work Phone: [facility] Start: 05-06-2019 End: 05-13-2019 Patient encounter status Veronika Bevly PA-C Work Phone: [facility] Procedures Date Procedure Procedure Detail Performing Clinician Start: 06-15-2024 Ultrasonography of t hyroid and parathyroid Dr. Carlitos Johnson MD Work Phone: Start: 03-03-2024 Colonoscopy flx dx w /collj spec when pfrmd Veronika N Bevly PA-C Work Phone: Start: 03-03-2024 Colonoscopy Abigail stevenson MD Work Phone: Start: 08-11-2023 X-ray of radius and ulna Dr. Carlitos Johnson Work Phone: Start: 01-10-2021 Colonoscopy Veronika B evly PA-C Work Phone: Start: 05-20-2019 Lipid 1996 panel - S mingo or Plasma Veronika Bevly PA-C Work Phone: Start: 05-14-2019 Antibody screen Comment on above: Performed By: #### T SCR ####[facility] [id number] [place], [place] [phone] Start: 05-05-2019 Antibody screen Comment on above: Performed By: #### P T, PTT, CBCDIF, CMP, LD6 #### [facility] [address] [place], [place] [address] Plan of Treatment Date Care Activity Detail Author Start: 08-10-2033 Urine microalbumin profile DTaP,Tdap,Td Vaccine (3 - Td or Tdap) [facility] Start: 03-03-2025 Screening for malignant neoplasm of colon [facility] Start: 07-01-2024 Patient referral [facility] Work Phone: Start: 05-20-2024 Lipid panel Lipid Screening [facility] Start: 03-03-2024 End: 03-03-2024 Patient encounter procedure 03/03/2024 9:20 AM EST Appointment [facility] [address] [place] [address] Abigail Quezada MD [address] [place] [address] [address] [place] [address] dx phx of colon polyps [facility] Comment on above: dx phx of colon polyps Start: 08-11-2023 [facility] Start: 03-31-2023 Advance Directive Discussion Advance Directive Discussion [facility] Start: 06-14-2022 Diabetes Screening Diabetes Screening [facility] Start: 01-10-2022 Screening for malignant neoplasm of colon [facility] Start: 05-07-2020 Shingrix Vaccine (2 of 2) Shingrix Vaccine (2 of 2) [facility] Start: 1993 Screening for malignant neoplasm of colon [facility] Start: 1966 Anxiety Screening Anxiety Screening [facility] Start: 1966 Depression Screening Depression Screening [facility] Patient Education ED Laceration, All Closures [facility] Work Phone: [facility] Work Phone: End: 01-25-2025 Screening colonoscopy COLONOSCOPY SCREENING Endoscopy Routine Personal history of colon polyps, unspecified 1 Occurrences starting 01/26/2024 until 01/25/2025 [facility] Work Phone: Comment on above: 1 Occurrences starting 01/26/2024 until 01/25/2025 SURGICAL PATHOLOGY SURGICAL PATH OLOGY Lab Routine Hx of colonic polyps Ordered: 03/03/2024 [facility] Work Phone: Comment on above: Ordered: 03/03/2024 Immunizations Immunization Date Immunization Notes Care Provider Fa cility 08-11-2023 tetanus toxoid, redu akhil diphtheria toxoid, and acellular pertussis vaccine, adsorbed Dr. Carlitos Johnson Work Phone: [facility] 05-13-2019 influenza, high dose seasonal, preservative-free Veronika Bevly PA-C Work Phone: [facility] 10-07-2017 pneumococcal polysaccharide vaccine, 23 valent Veronika Bevly PA-C Work Phone: [facility] 07-22-2016 pneumococcal conjuga te vaccine, 13 valent Veronika Bevly PA-C Work Phone: [facility] 03-31-2014 tetanus toxoid, redu akhil diphtheria toxoid, and acellular pertussis vaccine, adsorbed Veronika Bevly PA-C Work Phone: [facility] Payers Date Payer Category Payer Self-pay [id number] 2024 Unknown [id number] 2018 Private Health Insurance [facility] AARP SUPPLEMENT [id number] 2018-Present [phone] [address] [place] [address] Indemnity [id number] 2016 Medicare MEDICARE MEDICAR E A AND B [id number] 2016-Present [phone] [place] [address] Medicare [id number] 2015 Medicare [id number] Unknown [id number] Unknown [id number] Unknown [id number] Unknown [id number] Unknown [id number] Unknown [id number] Unknown [id number] Unknown [id number] Unknown [id number] Unknown [id number] Social History Date Type Detail Facility Start: 01-03-2022 End: 08-11-2023 Tobacco smoking status IDIS Unknown if ever smoked [facility] Start: 1950 Sex Assigned At Male [facility] [place] Start: 05-06-2019 End: 12-08-2024 Tobacco smoking status NHIS Ex-smoker [facility] Start: 03-31-1969 End: 03-31-1979 History of tobacco use Current smoker [facility] Start: 03-31-1969 End: 03-31-1979 History of tobacco use Cigarette Smoker [facility] Start: 05-06-2019 End: 01-26-2024 Cigarettes smoked current (pack per day) - Reported 2 [facility] Start: 05-06-2019 End: 03-03-2024 Tobacco use and exposure Smokeless tobacco non-user [facility] Start: 06-15-2019 End: 03-03-2024 Alcoholic beverage intake Current drinker of alcohol (finding) [facility] Start: 05-06-2019 End: 01-26-2024 Alcohol Use Disorder Identification Test - Consumption [AUDIT-C] [facility] How often to you hav e a drink containing alcohol? 2-3 time sa week [facility] How many standard dr inks containing alcohol do you have on a typical day? 1 or 2 [facility] How often do you hav e 6 or more drinks on 1 occasion? Never [facility] National Score (1-10 0), lower number is lower risk 66 [facility] Start: 1950 Sex assigned at Not on file [facility] Start: 03-03-2024 Alcohol Comment weekends [facility] Start: 06-21-2024 Sex Male (finding) [facility] Medical Equipment Procedure Code Equipment Code Equipment Origin al Text Equipment Identifier Dates Band Kimbrough Ancor e 25mm 25mm Annuloplasty Flexible Canela Chordal Guide - [id number] Start: 05-10-2019 Band Kimbrough Ancor e 35mm 35mm Annuloplasty Flexible Canela Chordal Guide - [id number] Start: 05-10-2019 Clinical Notes 05-10-2019 to 01-12-2025 Note Date & Type Note Facility 01-12-2025 Progress note [facility] 01-12-2025 Progress note Note Date/Time January 12, 2025 2:28pm [facility] [address] [place] [address] OFFICE VISIT Date of Service: 01/12/25 MR#: [id number] Acct: [id number] Name: KEESHA BOSE Rep #: [id number] : 1950 Provider: QUYNH Quiles Age/Sex: 74/M Location[facility] Status: Signed Intake Vital Signs 12/08/24 13:30 01/12/25 14:02 Height 6 ft 1 in 6 ft 1 in Weight: 164 lb 167 lb 6 oz BMI 21.6 22.1 BP 131/80 H 164/84 H Blood Pressure Location Lt brachial Rt brachial Position Sitting Sitting Respiration 16 18 Pulse 54 L 58 L Pulse Source Monitor Monitor Temp 97.6 F L Temp Source Temporal Pulse Oximetry (%) 98 98 Oxygen Delivery Method room air room air Intake Visit Reasons: UPDATE H&P Chief Complaint: update H&P Is patient in pain?: No Allergies No Known Allergies Allergy (Verified 01/12/25 14:03) Medications ?Medication ?Instructions ?Recorded ?Confirmed ?Type cholecalciferol (vitamin D3) 25 1,000 unit PO DAILY 01/12/25 History mcg (1,000 unit) tablet cyanocobalamin (vitamin B-12) 500 500 mcg PO DAILY@080 0 06/29/15 01/12/25 History mcg tablet multivitamin 1 ea PO DAILY 06/29/1501/12 History aspirin 81 mg tablet,delayed 81 mg PO .QOD 06/19/23 History release (Adult Aspirin Regimen) biotin 1 mg tablet 5,000 mcg PO DAILY 06/19/23 01/12/25 History ipratropium bromide 42 mcg (0.06 2 spray intranasal DA ANGELA 06/19/23 01/12/25 History %) nasal spray sulfacetamide sodium 10 % topical 1 applic topical QDA Y 06/01/24 01/12/25 History cleanser amoxicillin 500 mg capsule 500 mg PO ONCE PRN 12/08/24 01/12/25 History Have you fallen in the past year?: No PFSH Medical History Nodule of neck Right bundle branch block (RBBB) with left anterior fascicular block Thrombocytopenia due to blood loss (05/13/19) Non-rheumatic tricuspid valve insufficiency Nonrheumatic mitral (valve) insufficiency Secondary pulmonary arterial hypertension Nonrheumatic aortic (valve) insufficiency Nonrheumatic tricuspid valve regurgitation Nonrheumatic mitral (valve) prolapse First degree atrioventricular block by electrocardiogram Surgical History History of tricuspid valve repair (05/10/19) History of mitral valve repair (05/10/19) History of right heart catheterization (06/16/18) H/O right and left heart catheterization (02/10/17) Family History Mother H/O heart valve replacement with bioprosthetic valve Social History Smoking Status: Former smoker how long ago did patient quit smokin alcohol intake: current alcohol intake frequency: a few times a month details: Social on weekends substance use type: does not use caffeine: Yes Type: coffee Number of servings: 2 HPI HPI HPI: Patient is a 74 y/o M who presents for an update history and physical for an upcoming elective excision of a 1 cm left anterior neck sebaceous cyst by Dr. Joel. Patient denies any recent hospitalizations or illnesses since his last visit with our office. Patient denies any previous myocardial infarctions, strokes or blood clots. He notes having a repair of the mitral and tricuspid valves in 2020. He follows with Dr. Trujillo. He is currently on an 81 mg aspirin every other day. He denies any current chest pain or shortness of breath. He denies any complications or side effects from anesthesia. Patient's previous history per Dr. Joel: The patient is a 74-year-old male who is being seen today in follow-up regardingvaricosities of his neck as well as a subcutaneous mass involving the neck. I had him undergo a recent ultrasound that showed numerous dilated blood vessels as well as about a 1 cm sebaceous cyst. He states that he had a surgery severalyears ago in which similar cyst/blood vessels were excised. He returns today todiscuss results of an ultrasound and develop a treatment plan. He denies any new issues or complaints. Soft tissue u/s of the neck on 06/15/24 demonstrated: IMPRESSION: The palpable lump corresponds to a 1.1 cm x 0.9 cm x 0.3 cm hypoechoic nodular density just deep to the skin surface. This may represent a small sebaceous cyst. ROS General General: No weight change, appetite, fatigue, colon cancer, breast cancer or weakness HEENT HEENT: No difficulty swallowing, eye injury, eye surgery, swollen glands or hoarseness Endo Endocrine: No thyroid disease, diabetes mellitus, thyroid cancer, Hair loss, heat intolerance or cold intolerance Skin Skin: No rash or changing moles Musc Musculoskeletal: Yes back problems; No arthritis, rheumatoid arthritis, gout or joint pain Cardio Cardiovascular: Yes murmur and heart disease; No pacemaker, atrial fibrillation, high blood pressure, heart attack, heart stent, palpitations, shortness of breath with exertion or chest pain Additional Details: h/o valve repair Psych Psychiatric: No depression, anxiety or hearing voices Resp Respiratory: No shortness of breath, No sleep apnea, No cough, No COPD, No asthma, No emphysema and No wheezing Gastro Gastrointestinal: No abdominal pain, No nausea or vomiting, No diarrhea, No constipation, No blood in stool, No acid reflux, Yes hemorrhoids, No ulcers, No gallbladder problem and No black,tarry stools Gonzalo Hematologic: Yes blood thinners, No blood disorders, No bleeding, Yes anemia andNo blood clots Neuro Neurologic: No system reviewed and no additional complaints, except as documented, No as per HPI, No abnormal gait, Yes abnormal hearing, No abnormal movements, No abnormal speech, No behavioral changes, No burning sensations, No confusion, No convulsions, No disequilibrium, No dizziness, No localized weakness, No frequent falls, No headache(s), No lack of coordination, No loss ofvision, No memory loss, No numbness, No other visual disturbances, No radicular pain, No restless legs, No sensory deficit, No syncope, No tingling, No tremor(s), No weakness and No other Exam Const General: cooperative, healthy appearing, comfortable and no acute distress [facility] Head: normal to inspection Eyes General: appearance normal, both eyes and all related structures Neck Other: Anterior neck- multiple bilateral varicosities. Small palpable sebaceous cyst onthe left anterior neck approximately 1 cm in size Resp Effort & Inspection: normal respiratory effort Auscultation: clear to auscultation bilaterally Cardio Rate: regular rate Rhythm: regular rhythm GI Inspection: normal to inspection Palpation: soft Musc Cervical Spine: normal cervical lordosis Skin General: no rashes or lesions noted Neuro General: patient alert, patient awake, patient oriented x3, no focal motor deficits and CN's II-XI intact bilaterally Extrem General: normal to inspection Psych Appearance: grossly normal Affect: normal affect Assessment and Plan Assessment and Plan (1) Nodule of neck: Status: Acute (2) 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 Dr. Joel will plan to perform an excision of the left anterior neck subcutaneous nodule in conjunction with Dr. Crouch who will be performing a ligation or phlebectomy of the varicosities of the right anterior neck. Procedure details, risks and benefits were reviewed with the patient on the procedure Dr. Joel will be completing. Patient has had the opportunity to ask and have questions answered. Our office will reach out [facility] for cardiac clearance and if patient's aspirin can be held. Our office will work in conjunction with Dr. Crouch's office on a reasonable date to coordinate the two procedures. Patient verbally agrees and would like toproceed with the proposed procedures. Patient would prefer week of January or after . Coding Level of Care Code No Charge Diagnoses Nodule of neck R22.1 Varicose veins of upper extremity I86.8 Comment Update H&P Clinical Quality Measures Falls Risk Screening/Assistive Devices Have you fallen in the past year?: No 01/13/25 5409 <Electronically signed by Adele BRAGG PA-C> Date _ Adele BRAGG PA-C Cosigner Signature: Date (if applicable) CC: ~ [facility] Work Phone: 1(868) 916-768610-01-2025 [facility] [address] [place] [address]. [address] [place] [address] OFFICE VISIT Date of Service: 12/29/24 MR#: [id number] Acct: [id number] Name: KEESHA BOSE Rep #: [id number] : 1950 Provider: Dr. Red Crouch MD Age/Sex: 74/M Location[facility] Status: Signed Intake Vital Signs 07/01/24 14:00 12/08/24 13:30 12/29/24 15:31 Height 6 ft 1 in 6 ft 1 in Weight: 164 lb 166 lb BMI 21.6 BP 131/80 H 149/78 H Blood Pressure Location Lt brachial Lt brachial Position Sitting Sitting Respiration 16 14 Pulse 54 L 53 L Pulse Source Monitor Monitor Temp 97.8 F Temp Source Temporal Pulse Oximetry (%) 98 100 Oxygen Delivery Method room air room air Intake Visit Reasons: 3 M FU Is patient in pain?: No Allergies No Known Allergies Allergy (Verified 12/29/24 15:32) Medications ?Medication ?Instructions ?Recorded ?Confirmed ?Type cholecalciferol (vitamin D3) 25 1,000 unit PO DAILY 12/29/24 History mcg (1,000 unit) tablet cyanocobalamin (vitamin B-12) 500 500 mcg PO DAILY@080 0 06/29/15 12/29/24 History mcg tablet multivitamin 1 ea PO DAILY 06/29/1512/29 History aspirin 81 mg tablet,delayed 81 mg PO .QOD 06/19/23 History release (Adult Aspirin Regimen) biotin 1 mg tablet 5,000 mcg PO DAILY 06/19/23 12/29/24 History ipratropium bromide 42 mcg (0.06 2 spray intranasal DA ANGELA 06/19/23 12/29/24 History %) nasal spray sulfacetamide sodium 10 % topical 1 applic topical QDA Y 06/01/24 12/29/24 History cleanser amoxicillin 500 mg capsule 500 mg PO ONCE PRN 12/08/24 12/29/24 History Have you fallen in the past year?: No PFSH Medical History Nodule of neck Right bundle branch block (RBBB) with left anterior fascicular block Thrombocytopenia due to blood loss (05/13/19) Non-rheumatic tricuspid valve insufficiency Nonrheumatic mitral (valve) insufficiency Secondary pulmonary arterial hypertension Nonrheumatic aortic (valve) insufficiency Nonrheumatic tricuspid valve regurgitation Nonrheumatic mitral (valve) prolapse First degree atrioventricular block by electrocardiogram Surgical History History of tricuspid valve repair (05/10/19) History of mitral valve repair (05/10/19) History of right heart catheterization (06/16/18) H/O right and left heart catheterization (02/10/17) Family History Mother H/O heart valve replacement with bioprosthetic valve Social History Smoking Status: Former smoker how long ago did patient quit smokin alcohol intake: current alcohol intake frequency: a few times a month details: Social on weekends substance use type: does not use caffeine: Yes Type: coffee Number of servings: 2 HPI HPI HPI: KEESHA BOSE, is a 74 M who presents to the office today for follow up of neck varicose veins/reticular veins. He also has a neck cyst that general surgery is considering removing. No new medical diagnoses or illnesses since last being seen. ROS General General: No weight change, appetite, fatigue, colon cancer, breast cancer or weakness HEENT HEENT: No difficulty swallowing, eye injury, eye surgery, swollen glands or hoarseness Endo Endocrine: No thyroid disease, diabetes mellitus, thyroid cancer, Hair loss, heat intolerance or cold intolerance Skin Skin: No rash or changing moles Musc Musculoskeletal: Yes back problems; No arthritis, rheumatoid arthritis, gout or joint pain Cardio Cardiovascular: Yes murmur and heart disease; No pacemaker, atrial fibrillation, high blood pressure, heart attack, heart stent, palpitations, shortness of breath with exertion or chest pain Additional Details: h/o valve repair Psych Psychiatric: No depression, anxiety or hearing voices Resp Respiratory: No shortness of breath, No sleep apnea, No cough, No COPD, No asthma, No emphysema andNo wheezing Gastro Gastrointestinal: No abdominal pain, No nausea or vomiting, No diarrhea, No constipation, No blood in stool, No acid reflux, Yes hemorrhoids, No ulcers, No gallbladder problem and No black,tarry stools Gonzalo Hematologic: Yes blood thinners, No blood disorders, No bleeding, Yes anemia andNo blood clots Neuro Neurologic: No system reviewed and no additional complaints, except as documented, No as per HPI, No abnormal gait, Yes abnormal hearing, No abnormal movements, No abnormal speech, No behavioral changes, No burning sensations, No confusion, No convulsions, No disequilibrium, No dizziness, No localized weakness, No frequent falls, No headache(s), No lack of coordination, No loss ofvision, No memory loss, No numbness, No other visual disturbances, No radicular pain, No restless legs, No sensory deficit, No syncope, No tingling, No tremor(s), No weakness and No other Exam Const General: cooperative, healthy appearing, comfortable, no acute distress and welldeveloped Nutritional Appearance: well nourished Orientation: alert, awake and oriented x3 HENMT Head: normocephalic and atraumatic Ears: hearing grossly normal bilaterally Nose: external nose normal Eyes General: appearance normal, both eyes and all related structures EOM: EOM intact bilaterally Neck Neck: normal visual inspection, full ROM, no lymphadenopathy and trachea midline Thyroid: thyroid normal Lymphatic: no lymphadenopathy noted Resp Effort & Inspection: normal respiratory effort, able to speak in complete sentences, symmetric chest movement, no audible wheezes, not labored, no stridorand no use of accessory muscles Auscultation: clear to auscultation bilaterally Cardio Rate: regular rate Rhythm: regular rhythm Heart Sounds: no murmurs Bruits: no carotid bruits Pulses: brachial pulses present and radial pulses present Skin General: no rashes or lesions noted and no erythema Wounds: no wounds Neuro Cranial Nerves: CN's II-XI intact bilaterally and EOM intact bilaterally Speech: speech normal Gait: normal gait Motor: strength 5/5 throughout Sensory Exam: no sensory deficits noted Psych Appearance: grossly normal and well kempt Mental Status: mental status grossly normal Mood: congruent mood Speech and Movement: speech and movement normal Thought Content: normal Judgment: judgment good Coding Level of Care Code Off vis,est,level 2 Diagnoses Varicose veins of upper extremity I86.8 Assessment and Plan Assessment and Plan (1) 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 Joel if possible -risks/benefits/alternatives discussed -will schedule/coordinate Clinical Quality Measures Falls Risk Screening/Assistive Devices Have you fallen in the past year?: No 12/29/24 1611 D> Date _ Red Flores Signature: Date (if applicable) CC: ~ [facility]10-01-2025 Progress note Author Red Crouch [facility] Note Date/Time December 29, 2024 3: 52pm [facility] [address] [place] [address] OFFICE VISIT Date of Service: 12/29/24 MR#: [id number] Acct: [id number] Name: KEESHA BOSE Rep #: [id number] : 1950 Provider: Dr. Red Crouch MD Age/Sex: 74/M Location: [facility] Status: Signed Intake Vital Signs 07/01/24 14:00 12/08/24 13:30 12/29/24 15:31 Height 6 ft 1 in 6 ft 1 in Weight: 164 lb 166 lb BMI 21.6 BP 131/80 H 149/78 H Blood Pressure Location Lt brachial Lt brachial Position Sitting Sitting Respiration 16 14 Pulse 54 L 53 L Pulse Source Monitor Monitor Temp 97.8 F Temp Source Temporal Pulse Oximetry (%) 98 100 Oxygen Delivery Method room air room air Intake Visit Reasons: 3 M FU Is patient in pain?: No Allergies No Known Allergies Allergy (Verified 12/29/24 15:32) Medications ?Medication ?Instructions ?Recorded ?Confirmed ?Type cholecalciferol (vitamin D3) 25 1,000 unit PO DAILY 12/29/24 History mcg (1,000 unit) tablet cyanocobalamin (vitamin B-12) 500 500 mcg PO DAILY@080 0 06/29/15 12/29/24 History mcg tablet multivitamin 1 ea PO DAILY 06/29/1512/29 History aspirin 81 mg tablet,delayed 81 mg PO .QOD 06/19/23 History release (Adult Aspirin Regimen) biotin 1 mg tablet 5,000 mcg PO DAILY 06/19/23 12/29/24 History ipratropium bromide 42 mcg (0.06 2 spray intranasal DA ANGELA 06/19/23 12/29/24 History %) nasal spray sulfacetamide sodium 10 % topical 1 applic topical QDA Y 06/01/24 12/29/24 History cleanser amoxicillin 500 mg capsule 500 mg PO ONCE PRN 12/08/24 12/29/24 History Have you fallen in the past year?: No PFSH Medical History Nodule of neck Right bundle branch block (RBBB) with left anterior fascicular block Thrombocytopenia due to blood loss (05/13/19) Non-rheumatic tricuspid valve insufficiency Nonrheumatic mitral (valve) insufficiency Secondary pulmonary arterial hypertension Nonrheumatic aortic (valve) insufficiency Nonrheumatic tricuspid valve regurgitation Nonrheumatic mitral (valve) prolapse First degree atrioventricular block by electrocardiogram Surgical History History of tricuspid valve repair (05/10/19) History of mitral valve repair (05/10/19) History of right heart catheterization (06/16/18) H/O right and left heart catheterization (02/10/17) Family History Mother H/O heart valve replacement with bioprosthetic valve Social History Smoking Status: Former smoker how long ago did patient quit smokin alcohol intake: current alcohol intake frequency: a few times a month details: Social on weekends substance use type: does not use caffeine: Yes Type: coffee Number of servings: 2 HPI HPI HPI: KEESHA BOSE, is a 74 M who presents to the office today for follow up of neck varicose veins/reticular veins. He also has a neck cyst that general surgery is considering removing. No new medical diagnoses or illnesses since last being seen. ROS General General: No weight change, appetite, fatigue, colon cancer, breast cancer or weakness HEENT HEENT: No difficulty swallowing, eye injury, eye surgery, swollen glands or hoarseness Endo Endocrine: No thyroid disease, diabetes mellitus, thyroid cancer, Hair loss, heat intolerance or cold intolerance Skin Skin: No rash or changing moles Musc Musculoskeletal: Yes back problems; No arthritis, rheumatoid arthritis, gout or joint pain Cardio Cardiovascular: Yes murmur and heart disease; No pacemaker, atrial fibrillation, high blood pressure, heart attack, heart stent, palpitations, shortness of breath with exertion or chest pain Additional Details: h/o valve repair Psych Psychiatric: No depression, anxiety or hearing voices Resp Respiratory: No shortness of breath, No sleep apnea, No cough, No COPD, No asthma, No emphysema and No wheezing Gastro Gastrointestinal: No abdominal pain, No nausea or vomiting, No diarrhea, No constipation, No blood in stool, No acid reflux, Yes hemorrhoids, No ulcers, No gallbladder problem and No black,tarry stools Gonzalo Hematologic: Yes blood thinners, No blood disorders, No bleeding, Yes anemia andNo blood clots Neuro Neurologic: No system reviewed and no additional complaints, except as documented, No as per HPI, No abnormal gait, Yes abnormal hearing, No abnormal movements, No abnormal speech, No behavioral changes, No burning sensations, No confusion, No convulsions, No disequilibrium, No dizziness, No localized weakness, No frequent falls, No headache(s), No lack of coordination, No loss ofvision, No memory loss, No numbness, No other visual disturbances, No radicular pain, No restless legs, No sensory deficit, No syncope, No tingling, No tremor(s), No weakness and No other Exam Const General: cooperative, healthy appearing, comfortable, no acute distress and welldeveloped Nutritional Appearance: well nourished Orientation: alert, awake and oriented x3 [facility] Head: normocephalic and atraumatic Ears: hearing grossly normal bilaterally Nose: external nose normal Eyes General: appearance normal, both eyes and all related structures EOM: EOM intact bilaterally Neck Neck: normal visual inspection, full ROM, no lymphadenopathy and trachea midline Thyroid: thyroid normal Lymphatic: no lymphadenopathy noted Resp Effort & Inspection: normal respiratory effort, able to speak in complete sentences, symmetric chest movement, no audible wheezes, not labored, no stridorand no use of accessory muscles Auscultation: clear to auscultation bilaterally Cardio Rate: regular rate Rhythm: regular rhythm Heart Sounds: no murmurs Bruits: no carotid bruits Pulses: brachial pulses present and radial pulses present Skin General: no rashes or lesions noted and no erythema Wounds: no wounds Neuro Cranial Nerves: CN's II-XI intact bilaterally and EOM intact bilaterally Speech: speech normal Gait: normal gait Motor: strength 5/5 throughout Sensory Exam: no sensory deficits noted Psych Appearance: grossly normal and well kempt Mental Status: mental status grossly normal Mood: congruent mood Speech and Movement: speech and movement normal Thought Content: normal Judgment: judgment good Coding Level of Care Code Off vis,est,level 2 Diagnoses Varicose veins of upper extremity I86.8 Assessment and Plan Assessment and Plan (1) 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 Joel if possible -risks/benefits/alternatives discussed -will schedule/coordinate Clinical Quality Measures Falls Risk Screening/Assistive Devices Have you fallen in the past year?: No 12/29/24 1611 <Electronically signed by Red Jalloh> Date _ Red Taylor Signature: Date (if applicable) CC: ~ [facility] Work Phone: 1(861) 132-795605-21-2025 Evaluation note* Diagnosis Onset Date Resolution Status Admit Date Varicose veins of upper extremity chronic August 18, 2024 3 :55pm History of mitral valve repair May 10, 2019 resolved December 082024 1:11pm History of tricuspid valve repair May 10, 2019 resolved December 082024 1:11pm [facility] Work Phone: 1(235) 735-533303-18-2025 Radiology Diagnostic study note [facility] Imaging Services [address] [place], [place] [address] Head/Neck Soft Tissue MR#: [id number] Acct: [id number] Name: KEESHA BOSE Rep #: [id number] : 1950 M 74 From: Hiren Royal MD PCP: Dr. Carlitos Johnson MD Status: REG CLI Study:Head/Neck Soft Tissue Date of Exam: 06/15/24 Exam# [id number] Ordering Dr: St mario Joel MD PROCEDURE: HEAD/NECK SOFT TISSUE REASON FOR EXAM: NODULE OF NECK COMPARISON: None. TECHNIQUE: Sonographic imaging of the left side of the neck was obtained. FINDINGS: The palpable lump corresponds to a 1.1 cm x 0.9 cm x 0.3 cm hypoechoic nodular density just deep tothe skin surface. No vascularity is seen. This may represent a sebaceous cyst. US/Head/Neck Soft Tissue IMPRESSION: The palpable lump corresponds to a 1.1 cm x 0.9 cm x 0.3 cm hypoechoic nodular density just deep tothe skin surface. This may represent a small sebaceous cyst. Reading Location: [place] [address] CC: Dr. Carlitos Johnson MD; Dr. Praveen Joel MD ~ Ct Manager: Signed [facility]03-04-2025 Evaluation note* Diagnosis Onset Date Resolution Status Admit Date Nodule of neck acute June 01, 2024 8:53am [facility] Work Phone: 1(166) 380-830503-04-2025 Evaluation note* Diagnosis Onset Date Resolution Status Admit Date Nodule of neck acute June 01, 2024 8:53am Nodule of neck acute July 01, 2024 1:52pm Varicose veins of upper extremity chronic August 02, 2024 3: 22pm [facility] Work Phone: 1([phone]) 109-854112-04-20[facility] Keesha [facility]ues Procedure Date: 03/03/2024 9:17 AM Date of : 1950 Age: 73 Gender: Male Race: White Attending MD: Abigail Quezada MD, [id number] Procedure: Colonoscopy Referring MD: Carlitos Johnson Md Providers: Abigail Quezada MD Indications: High risk colon cancer surveillance: Personal history of colonic polyps Findings: Two sessile polyps were found in the cecum. The polyps were 5 to 7 mm in size. These polyps were removed with a cold snare. Resection and retrieval were complete. Verification of patient identification for the specimen was done by the nurse using the patient's name and date. An 8 mm polyp was found in the ascending colon. The polyp was flat. The polyp was removed with a hot snare. Resection and retrieval were complete. Verification of patient identification for the specimen was done by the nurse using the patient's name and date. To prevent bleeding after the polypectomy, one hemostatic clip was successfully placed. There was no bleeding at the end of the maneuver. Multiple small and large-mouthed diverticula were found in the sigmoid colon. Internal hemorrhoids were found during retroflexion. The hemorrhoids were Grade II (internal hemorrhoids that prolapse but reduce spontaneously). Patient Profile: This is a 73 year old male. Refer to note in patient chart for documentation of history and physical. Impression: - Two 5 to 7 mm polyps in the cecum, removed with a cold snare. Resected and retrieved. - One 8 mm polyp in the ascending colon, removed with a hot snare. Resected and retrieved. Clip was placed. - Diverticulosis in the sigmoid colon. - Internal hemorrhoids. Recommendation: - Patient has a contact number available for emergencies. The signs and symptoms of potential delayed complications were discussed with the patient. Return to normal activities tomorrow. Written discharge instructions were provided to the patient. - Resume previous diet. - Continue present medications. - Await pathology results. - Repeat colonoscopy in 3 years for surveillance. Medicines: Propofol per Anesthesia Procedure: Pre-Anesthesia Assessment: - Prior to the procedure, a History and Physical was performed, and patient medications and allergies were reviewed. The patient is competent. The risks and benefits of the procedure and the sedation options and risks were discussed with the patient. All questions were answered and informed consent was obtained. Patient identification and proposed procedure were verified by the physician, the nurse and the livestock counter in the procedure room. Mental Status Examination: alert and oriented. Airway Examination: normal oropharyngeal airway and neck mobility. Respiratory Examination: clear to auscultation. CV Examination: normal. Prophylactic Antibiotics: The patient does not require prophylactic antibiotics. Prior Anticoagulants: The patient has taken no anticoagulant or antiplatelet agents. ASA Grade Assessment: II - A patient with mild systemic disease. After reviewing the risks and benefits, the patient was deemed in satisfactory condition to undergo the procedure. The anesthesia plan was to use monitored anesthesia care (MAC). Immediately prior to administration of medications, the patient was re-assessed for adequacy to receive sedatives. The heart rate, respiratory rate, oxygen saturations, blood pressure, adequacy of pulmonary ventilation, and (more content not included)...[id number] History and physical note * Abigail Quezada MD - 03/03/2024 9:20 AM EST Images from the original note were not included. PROCEDURAL SEDATION HISTORY AND PHYSICAL EXAM SERVICE DATE: 03/03/2024 SERVICE TIME: 9:06 AM SUBJECTIVE HPI: This is a 73 year old male who presents for Colonoscopy The patient's chart (including medications, history, allergies, imaging and prior endoscopies) has been reviewed and the patient has been examined. The contents accurately reflect the patient's condition with the following additions or revisions since the H&P was completed. PAST MEDICAL HISTORY: PAST MEDICAL HISTORY Diagnosis Date Mitral valve disease Thrombocytopenia (HCC) 2009 PAST SURGICAL HISTORY: PAST SURGICAL HISTORY Procedure Laterality Date PAST SURGICAL HISTORY OF Pt states lumpy tissue removed from neck x 2 REMOVAL OF TONSILS,<12 Y/O Tonsillectomy VASECTOMY 1984 MEDICATIONS: Prior to Admission medications as of 01/26/24 1028 Medication Sig Last Dose Taking aspirin, enteric coated (ASPIRIN, ENTERIC COATED) 81 mg EC tablet Take 81 mg by mouth once daily. Cholecalciferol, Vitamin D3, (VITAMIN D) 1,000 unit ORAL Tab Take 185 mg by mouth once daily. cyanocobalamin (VITAMIN B-12) 500 mcg ORAL Tab Take one(1) tablet daily. BIOTIN ORAL Take 5,000 mcg by mouth once daily. sildenafil (VIAGRA) 50 mg ORAL tablet Take 50 mg by mouth as needed. Sulfacetamide Sodium-Sulfur 10-5 % TOPICAL Lotn Apply to nose once daily. THERAPEUTIC MULTIVITAMIN TAB Take one(1) tablet daily. ALLERGIES: ALLERGIES No Known Allergies OBJECTIVE PHYSICAL EXAM: AIRWAY: LUNGS: Benign lung exam. CARDIAC: Benign cardiac exam. ABDOMEN: Benign abdominal exam. The remainder of the physical exam is noncontributory. SIGNATURE: Abigail Quezada MD PATIENT NAME: Keesha Bose DATE: March 03, 2024 TIME: 9:06 AM PAGER: [phone] [facility] Work Phone: 1(416) 394-360512-04-2024 History and physical note* Abigail Quezada MD - 03/03/2024 9:20 AM EST Images from the original note were not included. PROCEDURAL SEDATION HISTORY AND PHYSICAL EXAM SERVICE DATE: 03/03/2024 SERVICE TIME: 9:06 AM SUBJECTIVE HPI: This is a 73 year old male who presents for Colonoscopy The patient's chart (including medications, history, allergies, imaging and prior endoscopies) has been reviewed and the patient has been examined. The contents accurately reflect the patient's condition with the following additions or revisions since the H&P was completed. PAST MEDICAL HISTORY: PAST MEDICAL HISTORY Diagnosis Date Mitral valve disease Thrombocytopenia (HCC) 2009 PAST SURGICAL HISTORY: PAST SURGICAL HISTORY Procedure Laterality Date PAST SURGICAL HISTORY OF Pt states lumpy tissue removed from neck x 2 REMOVAL OF TONSILS,<12 Y/O Tonsillectomy VASECTOMY 1984 MEDICATIONS: Prior to Admission medications as of 01/26/24 1028 Medication Sig Last Dose Taking aspirin, enteric coated (ASPIRIN, ENTERIC COATED) 81 mg EC tablet Take 81 mg by mouth once daily. Cholecalciferol, Vitamin D3, (VITAMIN D) 1,000 unit ORAL Tab Take 185 mg by mouth once daily. cyanocobalamin (VITAMIN B-12) 500 mcg ORAL Tab Take one(1) tablet daily. BIOTIN ORAL Take 5,000 mcg by mouth once daily. sildenafil (VIAGRA) 50 mg ORAL tablet Take 50 mg by mouth as needed. Sulfacetamide Sodium-Sulfur 10-5 % TOPICAL Lotn Apply to nose once daily. THERAPEUTIC MULTIVITAMIN TAB Take one(1) tablet daily. ALLERGIES: ALLERGIES No Known Allergies OBJECTIVE PHYSICAL EXAM: AIRWAY: LUNGS: Benign lung exam. CARDIAC: Benign cardiac exam. ABDOMEN: Benign abdominal exam. The remainder of the physical exam is noncontributory. SIGNATURE: Abigail Quezada MD PATIENT NAME: Keesha Bose DATE: March 03, 2024 TIME: 9:06 AM PAGER: [phone] documented in this encounter[facility] History of Present illness Narrative* Veronika Gerardo PA-C - 01/26/2024 10:40 AM EDT [facility] Date: 01/26/2024 Patient Name: Keesha Bose Date Of : 1950 Subjective Chief Complaint: Patient presents with: Consult: Colon HPI: Mr. Bose is a 73 year old male with PMHx of colon polyps, s/p MV and TV who presents for OV prior to colonoscopy. Initially seen Dec 2016: for second opinion after colonoscopy. Patient underwent routine screening colonoscopy by another provider in July 2016. Operative report is inconsistent, but at least 2, maybe 3 polyps were removed from the sigmoid colon. No size measurements given, but largest noted at 15cm from anal verge and documented as broad based, removed with hot snare. 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 There was additional tissue in the specimen bottle, measuring 0.5x0.5x0.1cm in total. Another polyp was noted to be hyperplastic. Pt was advised to have a repeat colonoscopy in 2 years. Approximately 2 weeks after his procedure, he developed BRBPR which self resolved with a liquid diet. No repeat colonoscopy performed. Thought bleeding was maybe due to diverticulosis, although more likely it represented a post-polypectomy bleed. Hedenies any family history of CRC. No further bleeding. He has rare, fleeting RUQ pain every 2-3 weeks which is not related to bowel movements. 01/2018: Pt had repeat colonoscopy 02/24/17 with 7 additional TAs removed. HPs in rectum. Diverticulosis. Nopost-procedure bleeding. No recent change in bowel movements. INTERVAL Hx 12/2023: Doing well. Denies abd pain, change in BMs, BRBPR, melena, and upper GI symptoms. He is not on any blood thinners. Most Recent Procedures: Colonoscopy 12/2023: - Two 3 to 5 mm polyps in the cecum, removed with a hot snare. Resected and retrieved. - One 8 mm polyp in the ascending colon, removed with a hot snare. Resected and retrieved. - One 4 mm polyp at the recto-sigmoid colon, removed with a hot snare. Resected and retrieved. - Diverticulosis in the sigmoid colon. - Internal hemorrhoids. Pathology: A. CECAL POLYP, POLYPECTOMY: SEGMENTS OF TUBULAR ADENOMA. B. ASCENDING COLON POLYP, POLYPECTOMY: SESSILE SERRATED POLYP. C. RECTOSIGMOID COLON POLYP, POLYPECTOMY: HYPERPLASTIC POLYP. Colonoscopy 01/2018: - Diverticulosis in the sigmoid colon, in the descending colon and in the distal transverse colon. - Post-polypectomy scar in the recto-sigmoid colon. Biopsied. - Internal hemorrhoids. Pathology: RECTOSIGMOID POLYP, BIOPSY: HYPERPLASTIC POLYP. CURRENT MEDS PRIOR TO VISIT: Current Outpatient Medications Medication Sig Dispense Refill aspirin, enteric coated (ASPIRIN, ENTERIC COATED) 81 mg EC tablet Take 81 mg by mouth once daily. Cholecalciferol, Vitamin D3, (VITAMIN D) 1,000 unit ORAL Tab Take 185 mg by mouth once daily. cyanocobalamin (VITAMIN B-12) 500 mcg ORAL Tab Take one(1) tablet daily. BIOTIN ORAL Take 5,000 mcg by mouth once daily. sildenafil (VIAGRA) 50 mg ORAL tablet Take 50 mg by mouth as needed. Sulfacetamide Sodium-Sulfur 10-5 % TOPICAL Lotn Apply to nose once daily. 2 THERAPEUTIC MULTIVITAMIN TAB Take one(1) tablet daily. 0 No current facility-administered medications for this visit. REVIEW OF SYSTEMS: All other reviewed and negative other than HPI. PAST MEDICAL HISTORY Diagnosis Date Mitral valve disease Thrombocytopenia (HCC) 2009 PAST SURGICAL HISTORY Procedure Laterality Date PAST SURGICAL HISTORY OF Pt states lumpy tissue removed from neck x 2 REMOVAL OF TONSILS,<12 Y/O Tonsillectomy VASECTOMY 1985 Family History Problem Relation Age of Onset other (Valve Disease) Mother Unknown valve replacement Dementia Father Thyroid Cancer Father other (Other) Brother Was in poor health ( at age 66) Social History Tobacco Use Smoking status: Former Current packs/day: 0.00 Average packs/day: 2.0 packs/day for 10.0 years (20.0 ttl pk-yrs) Types: Cigarettes Start date: 03/31/1969 Quit date: 03/31/1979 Years since quittin.8 Smokeless tobacco: Never Vaping Use Vaping status: Never Used Substance Use Topics Alcohol use: Yes Drug use: Never Allergies: Allergies: No Known Allergies Objective: Vitals: BP 158/81 Pulse (!) 50 Temp 36.3 C (97.4 F) Ht 182.9 cm (6') Wt 74.6 kg (164 lb 6.4 oz) BMI 22.30 kg/m Physical Exam: CONST: Appears well nourished. No signs of acute distress present. Speech is normal. Alert and oriented X 3. No involuntary movement. Patient is cooperative. HEAD/FACE: Normocephalic on inspection. EYES: PERRLA. Sclerae clear and anicteric. Neck: Neck is supple RESP: Respiration rate is normal. CV: Rate is regular. Rhythm is regular. ABDOMEN: Abdomen is soft, nontender, and nondistended without guarding, rigidity or rebound tenderness. No abdominal masses palpable. No palpable hepatosplenomegaly. PERINEUM/ANUS/RECTUM: Exam deferred at this time. SKIN: Skin is warm and dry with no jaundice, lesions or rashes. NEURO: No focal deficits appreciated. ASSESSMENT/PLAN: 73 yr old male with personal history of colon polyps who presents for OV prior to colonoscopy. Currently asymptomatic from a GI standpoint. We will proceed with Colonoscopy. I have discussed the procedure in detail with the patient, including the benefits and risks such as bleeding, infection, and perforation. The patient understands these risks and is agreeable to proceed. Veronika Gerardo PA-C [facility] [address] [place] [address] documented in this encounterMer[facility]02-10-2020 Evaluation note* Diagnosis Onset Date Resolution Status History of mitral valve repair May 10, 2019 resolved History of tricuspid valve repair May 10, 2019 resolved [facility] Work Phone: [phone]) [phone] Evaluation note* Diagnosis Onset Date Resolution Status Admit Date History of mitral valve repair May 10, 2019 resolved December 082024 1:11pm History of tricuspid valve repair May 10, 2019 resolved December 082024 1:11pm Varicose veins of upper extremity chronic December 29 3:21pm [facility] Work Phone: [phone]) [phone] Evaluation note* Diagnosis Onset Date Resolution Status Admit Date History of mitral valve repair May 10, 2019 resolved December 082024 1:11pm History of tricuspid valve repair May 10, 2019 resolved December 082024 1:11pm Varicose veins of upper extremity chronic December 29 3:21pm Nodule of neck acute January 122024 1:53pm Varicose veins of upper extremity chronic January 12 1:53pm [facility] Work Phone: Discharge summary Author Wade Stafford [facility] August 11, 2023 10:49am Note Date/Time August 11, 2023 10:12 am [facility] Medical Records Department [address] [facility] [place] [address] Emergency Department Summary 08/11/23 MR#: [id number] Acct: [id number] Name: KEESHA BOSE Rep #:[id number] : 1950 73 From: Wade Stafford MD PCP: Dr. Carlitos Johnson MD Status :REG ER Location: ED ADDENDUM by Dr. Wade Stafford MD on 08/11/23 at 1049 Patient realized after his initial history that his tetanus was 9 years old. Hedid want it updated so we updated it. 08/11/23 1049<Electronically signed by Wade Stafford MD> Cosigner Signature (if applicable): cc: Dr. Carlitos Johnson MD ~* Signed HPI History of Present Illness HPI Narrative: 73-year-old male with tripped and fell down a step injuring his left forearm. When he fell his forearm hit one of the steps causing a laceration. Tetanus is up-to-date within the last 6 years. Denies any other injuries. Did not hit hishead. No LOC. He is on aspirin every other day but no other blood thinners. Chief Complaint: Laceration Informant: patient Occured/Mechanism Mechanism/Context: Yes injury and Yes blunt trauma Onset/Context/Timing Onset: Today and Hours Context: Sudden Onset Timing: Continuous Quality of Pain: Dull Current Severity: Mild Maximum Severity: Mild Associated Symptoms Associated Symptoms: Negative for Parasthesia, Weakness or Loss of Funtion Narrative Tetanus Immunization: 5-10 years Prior similar symptoms: No Recent Illness/Hospitalization: No PFSH PFSH Medical History First degree atrioventricular block by electrocardiogram Non-rheumatic tricuspid valve insufficiency Nonrheumatic aortic (valve) insufficiency Nonrheumatic mitral (valve) insufficiency Nonrheumatic mitral (valve) prolapse 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 pulmonary arterial hypertension Thrombocytopenia due to blood loss (05/13/19) Home Medications cholecalciferol (vitamin D3) 25 mcg (1,000 unit) tablet 1,000 unit PO DAILY 06/29/15 [History Last Taken Unknown] cyanocobalamin (vitamin B-12) 500 mcg tablet 500 mcg PO DAILY@0800 06/29/15 [History Last Taken Unknown] multivitamin 1 ea PO DAILY 06/29/15 [History Last Taken Unknown] ascorbic acid (vitamin C) 500 mg capsule mg PO 12/23/19 [History Last Taken Unknown] sildenafil 50 mg tablet 50 mg PO UD PRN 01/05/21 [History Last Taken Unknown] carboxymethylcellulose sodium 1 % eye liquid gel drops (Lubricant Dry Eye Relief) 1 drp ophthalmic (eye) BID PRN 01/03/22 [History Last Taken Unknown] amoxicillin 500 mg capsule 2,000 mg (4 x 500 mg) PO .COMPLEX #4 caps 06/19/23 [Rx Last Taken Unknown] aspirin 81 mg tablet,delayed release (Adult Aspirin Regimen) 81 mg PO .QOD 06/19/23 [History Last Taken Unknown] biotin 1 mg tablet 5,000 mcg PO DAILY 06/19/23 [History Last Taken Unknown] ipratropium bromide 42 mcg (0.06 %) nasal spray 2 spray intranasal DAILY 06/19/23 [History Last Taken Unknown] Allergy/AdvReac Type Severity Reaction Status Date / Time No Known Allergies Allergy Verified 08/11/23 09:15 Family History Mother H/O heart valve replacement with bioprosthetic valve Surgical History H/O right and left heart catheterization (11/13/17) History of mitral valve repair (05/10/19) History of right heart catheterization (06/16/18) History of tricuspid valve repair (05/10/19) Social History Smoking Status: Former smoker ROS ROS ED ROS Narrative Denies recent illness. Review of Systems ROS Unobtainable: Denies due to encephalopathy Constitutional Constitutional ED: Denies chills or fever(s) Eyes Eyes: Denies blurry vision ENT ENT ED: Denies ear pain Cardiovascular Cardiovascular: Denies chest pain Respiratory/Chest Respiratory/Chest: Denies cough Gastrointestinal Gastrointestinal: Denies abdominal pain Genitourinary Genitourinary ED: Denies dysuria Musculoskeletal Musculoskeletal: Denies back pain Integumentary Denies abscess Neurologic Neurologic: Denies headache(s) Psychiatric Psychiatric: Denies anxiety Endocrine Endocrinology: Denies cold intolerance Hematologic/Lymphatic Hematologic/Lymphatic: Denies easy bleeding or easy bruising Allergic/Immunologic Allergic/Immunologic ED: Denies mouth swelling or tongue swelling EXAM Physical Exam Narrative Exam Narrative: Well-appearing 73-year-old male. Sitting upright in bed. Vital signs stable afebrile. HEENT exam pupils round react light. No facial or scalp trauma. No laceration or hematoma. C-spine and neck nontender normal range of motion. Back and spine nontender. No bruising. Lungs clear to auscultation bilaterally. Heart regular rhythm rate about 70 no murmur. Chest wall and ribsnontender. Abdomen soft nontender. Pelvic girdle intact. He is moving all 4 extremities. 5-5 psychology clinician strength. Wrist, elbows and shoulders are nontender. Normal range of motion. Left forearm he has a V-shaped laceration along the left mid ulna. Left hand neurovascular intact. There is minimal oozing of blood. No pulsatile bleeding. No large hematoma. No bony tenderness. Hips, knees and ankles are nontender full range of motion. Normal normal dorsi and plantarflexion. Neurologically is awake alert. GCS of 15. Answering questionsfollowing commands. No focal motor deficits. Const Vital Signs: 08/11/23 09:15 Temperature 97.6 F L Temperature Source Temporal Pulse Rate 68 Respiratory Rate 18 Blood Pressure 147/91 H Blood Pressure Mean 109 Pulse Ox 99 Oxygen Delivery Method Room Air Positive well nourished and well developed; Negative for obese, cachectic, contractures or unkempt General Appearance ED: well developed and NAD; Negative for unkempt, cachectic, contractures, cyanotic or diaphoretic Nutritional Appearance: Negative for cachectic or obese HEENT Reports moist mucous membranes normocephalic and atraumatic; Negative for trauma or tenderness Eyes PERRL and EOMs intact bilaterally General Eye ED: Negative for other Neck full ROM and supple General: Negative for tenderness Lymph Lymphatic: Negative for other Chest Wall inspection of chest normal and palpation of chest normal Chest: Negative for other Resp normal respiratory effort and clear to auscultation bilaterally Effort and Inspection: Negative for pain with movement Auscultation: Negative for rales, rhonchi, wheezes or diminished lung sounds Cardio regular rate, regular rhythm, S1 normal heart sound, S2 normal heart sound and no murmurs Rate: Negative for bradycardia or tachycardic Rhythm: Negative for abnormal rhythm GI non-tender, non-distended and no masses Inspection: Negative for abdominal distention Auscultation: normoactive bowel sounds Palpation: soft; Negative for tender, guarding or rebound tenderness present Bladder / Kidney Exam: No other Back/Spine no CVA tenderness General Back: Negative for CVA tenderness Cervical Spine: Negative for cervical spine tenderness Thoracic Spine / Upper Back: Negative for thoracic spinal tenderness Lumbar Spine / Lower Back: Negative for lumbar spinal tenderness Extremity full ROM; Negative for normal to inspection Extremity Narrative: Flap laceration left forearm about 7 inches in length. V-shaped. Both upper and lower extremities neurovascular intact. Nontender. No deformity. Normal range of motion. Normal psychology clinician strength. General Extremety ED: Negative for edema General Extremity: Negative for edema Neuro oriented x3, CN's II-XII intact bilaterally, moves all extremities, no focal motor deficits and no sensory deficits noted Sensorium / Orientation: alert, oriented to person, oriented to place and oriented to time; Negative for orientation impaired, lethargic or stuporous Motor Exam: strength 5/5 throughout Psych mental status grossly normal Appearance: Negative for unkempt Attitude: No agitated Mood & Affect: Negative for depressed, anxious or tearful Skin General Skin Exam: Negative for petechiae Lesions: no lesions Rashes: no rashes Trauma: laceration; Negative for no lacerations or abrasions or abrasion MDM MDM MDM Narrative Medical decision making narrative: 73-year-old male fell on a step injuring his left forearm. X-ray was obtained by nursing. It is negative. Flap laceration will be repaired. His tetanus is up-to-date within the last 6 years. No other complaints. He needs no other x-rays. History & Record Review Discussion w/independent historian: Patient Radiography Diagnostic Testing: Left forearm x-ray 2 views, interpreted by myself shows no acute abnormality. No fracture. No foreign body. No dislocation. Procedures Lacerations Left forearm flap laceration repair:: Length: 7 in Depth: Sub Q Shape: Flap Prep: Shure-Clens Laceration repair: Irrigated, Lidocaine and Local Suture Information: Ethilon, Simple and 4-0 Comment: Left mid forearm laceration flap about 7 inches. Local anesthetic lidocaine. Cleaned with Shur-Clens. Washed and irrigated with saline. Explored. Involve the skin and subcu tissue. No foreign body. No infection. No pulsatile bleeding or hematoma. Closed using 8 simple interrupted 4-0 Ethilon sutures. Proper hemostasis and wound closure is obtained. Discharge Plan Triage Chief Complaint: Laceration ED Provider: Wade Stafford Dx/Rx/DC Orders Clinical Impression: Fall, Forearm laceration Instructions: ED Laceration, All Closures Prescriptions: No Action ascorbic acid (vitamin C) 500 mg capsule PO carboxymethylcellulose sodium [Lubricant Dry Eye Relief] 1 % drops, liquid gel 1 drp ophthalmic (eye) BID PRN aspirin [Adult Aspirin Regimen] 81 mg tablet,delayed release (DR/EC) 81 mg PO .QOD ipratropium bromide 42 mcg (0.06 %) spray,non-aerosol 2 spray intranasal DAILY Patient Comments: [NO ORIGINAL SIG] amoxicillin 500 mg capsule 2,000 mg PO .COMPLEX Qty: 4 3RF Rx Instructions: 2,000 mg PO 1 hour prior to dental appointment; cyanocobalamin (vitamin B-12) 500 MCG tablet 500 mcg PO DAILY@0800 Patient Comments: SUPPLEMENT multivitamin 1 EACH tablet 1 ea PO DAILY Patient Comments: SUPPLEMENT cholecalciferol (vitamin D3) 1,000 UNIT tablet 1,000 unit PO DAILY Patient Comments: SUPPLEMENT sildenafil 50 mg tablet 50 mg PO UD PRN Patient Comments: ERECTILE DYSFUNCTION biotin 1 mg tablet 5,000 mcg PO DAILY Patient Comments: SUPPLEMENT Primary Care Provider: Carlitos Johnson Referrals: Carlitos Johnson MD [Primary Care Provider] - 10 Day for suture removal Activity Restrictions/Additional Instructions: Keep the wound clean and dry. He can get wet just clean it off and dry it well. Clean daily with soap and water or peroxide and water. Apply antibiotic ointment daily. Watch for any signs of infection such as pus, redness, red streaks or fever if seen return. Stitches out in 10 days. Tylenol for pain. Disposition Disposition: Home, Self Care What to do if you have Problems For any increased pain, shortness of breath, bleeding, nausea or vomiting, chestpain, or any unexpected problems, contact your Primary Care Provider. Call [employer] [facility] ([phone]) or report to the closest Emergency Room. Call 911 if necessary. 08/11/23 1049 <Electronically signed by Wade Stafford MD> Cosigner Signature (if applicable): CC: Dr. Carlitos Johnson MD ~ Signed [facility] Work Phone: Evaluation noteNo assessment information available [facility] Work Phone: Evaluation note* Diagnosis Personal history of colon polyps, unspecified- [facility] Diagnosis Hx of colonic polyps- Primary Personal history of colonic polyps documented in this encounter [facility] note* Diagnosis Personal history of colon polyps, unspecified documented in this encounter [facility] Discharge instructions Additional Instructions Keep the wound clean and dry. He can get wet just clean it off and dry it well. Clean daily with soap and water or peroxide and water. Apply antibiotic ointment daily. Watch for any signs of infection such as pus, redness, red streaks or fever if seen return. Stitches out in 10 days. Tylenol for pain.[facility] Work Phone: Reason for referral (narrative)* Outpatient Procedure (Routine) - Pending Review Specialty Diagnoses / Procedures Referred By Sendy franco Referred To Contact [facility] Diagnoses Personal history of colon polyps, unspecified Procedures COLONOSCOPY SCREENING COLONOSCOPY FLX DX W/COLLJ SPEC WHEN PFRMD Veronika Gerardo PA-C [address] [place] [address] [address] [place] [address] [facility] [place] [address] [place] [address] Referral ID Status Reason Start Date Expiration Date Visits Requested Visits Authorized [id number] Pending Review Auto-Generat ed Referral 01/25/2025 1 1 [facility] for referral (narrative)* Outpatient Procedure (Routine) - Closed Specialty Diagnoses / Procedures Referred By Contac t Referred To Contact [facility] Diagnoses Personal history of colon polyps, unspecified Procedures COLONOSCOPY SCREENING COLONOSCOPY FLX DX W/COLLJ SPEC WHEN Veronika Hough PA-C [address] [facility] [address] [place] [id number] [facility] [place] [id number] [place] [address] Referral ID Status Reason Start Date Expiration Date V isits Requested Visits Authorized [id number] Closed Auto-Generate d Referral 01/26/2024 01/25/2025 1 1 [facility] for referral (narrative)No reason for referral information [place] Work Phone: Reason for visit Narrative* Outpatient Procedure (Routine) - Closed Specialty Diagnoses / Procedures Referred By Contpolo franco Referred To Contact [facility] Diagnoses Personal history of colon polyps, unspecified Procedures COLONOSCOPY SCREENING COLONOSCOPY FLX DX W/COLLJ SPEC WHEN Veronika Hough PA-C [address] [place] [id number] [facility] [place] [address] [place], [place] [address] [place] [address] Referral ID Status Reason Start Date Expiration Date V isits Requested Visits Authorized [id number] Closed Auto-Generate d Referral 01/26/2024 01/25/2025 1 1 [facility] Summary Purpose Family History Relationship Condition Age at Onset Recorded Date/T lucas mother History of heart larisa ve replacement with bioprosthetic valve Unknown Advance Directives Advance Directive Response Recorded Date/ Time Living Will Yes August 06, 2019 2: 10pm Power of Marine Erector Yes August 06, 2019 2:10pm Advance Directive Response Recorded Date/ Time Living Will Yes August 06, 2019 3: 10pm Power of Marine Erector Yes August 06, 2019 3:10pm Advance Directive Response Recorded Date/ Time Name of Medical Power of Marine Erector pito bose, August 11, 2023 10:19am Living Will Yes August 11, 2023 1 0:19am Power of Marine Erector Yes August 11, 2023 10:19am Documents on File Type Date Recorded Patient 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 Novelty Maker Expl anation Advance Directive(s) 05/06/2019 11:08 AM Documents on File Type Date Recorded Patient Paper Novelty Maker Expl anation Advance Directive(s) 05/06/2019 11:08 AM Hospital Course Note HNO ID: [id number] Author: Wolfgang Maravilla ([facility]) Lani Service: Cardiac Surgery Author Type: Nurse Practitioner Type: Discharge Summary Filed: 05/14/2019 12:49 PM Note Text: Attestation signed by Alirio Dang at 05/18/2019 7:06 AM ok Department of Cardiothoracic Surgery Discharge Summary PATIENT NAME: Keesha Bose ADMISSION DATE: 05/10/2019 DISCHARGE DATE: 05/14/2019 Attending Physician/Surgeon: Alirio Dang Primary Service: Code Status: Not on file [facility] Primary Cementer Machine: Dr. Chris Moreno Admission Diagnosis: Nonrheumatic mitral valve regurgitation [I34.0] Non-rheumatic tricuspid valve insufficiency [I36.1] Discharge Diagnosis: Nonrheumatic mitral valve regurgitation [I34.0] Non- rheumatic tricuspid valve insufficiency [I36.1] Reason for Hospitalization: Mr.. Keesha Bose is a 69 year old year old male with (more content not included)... Chief Complaint and Reason for Visit Chief Complaint 1 Y FU Reason for Visit History of mitral va lve repair History of tricuspid valve repair Chief Complaint 1 Y FU Nonrheumatic mitral (valve) insufficiency Reason for Visit History of mitral va lve repair History of tricuspid valve repair Chief Complaint 1 Y FU Nonrheumatic mitral (valve) insufficiency Amb Documentation LACERATION Reason for Visit History of mitral va lve repair History of tricuspid valve repair Chief Complaint Admit Date SUBCUTANEOUS NODULE ON NECK June 01, 025 8:53am PALPABLE NODULE OF NECK June 15, 2024 9:16am Reason for Visit Admit Date Nodule of neck June 01, 2024 8:53 am Chief Complaint Admit Date SUBCUTANEOUS NODULE ON NECK June 01 8:53am PALPABLE NODULE OF NECK June 15, 2024 9:16am PALPABLE NODULE OF NECK June 15, 2024 10:06am DISCUSS IMAGING RESULTS July 01, 2024 1:52pm Varicosities of the neck, associated w/ neck mass August 02, 2024 3:22pm 2 WK FU August 18, 2024 3:55p m Reason for Visit Admit Date Nodule of neck June 01, 2024 8:53 am Nodule of neck July 01, 2024 1:52 pm Varicose veins of upper extremity July 3:22pm Chief Complaint Admit Date 2 WK FU August 18, 2024 3:55p m 18 M FU December 08, 2024 1:11pm Reason for Visit Admit Date Varicose veins of upper extremity August 182024 3:55pm History of mitral valve repair December 08, 2024 1:11pm History of tricuspid valve repair Septem 2024 1:11pm Chief Complaint Admit Date 18 M FU December 08, 2024 1:11pm 3 M FU December 29, 2024 3: 21pm Reason for Visit Admit Date History of mitral valve repair December 08, 2024 1:11pm History of tricuspid valve repair Septem 2024 1:11pm Varicose veins of upper extremity Octobe 2024 3:21pm Chief Complaint Admit Date 18 M FU December 08, 2024 1:11pm 3 M FU December 29, 2024 3: 21pm UPDATE H&P January 12, 2025 1 :53pm Reason for Visit Admit Date History of mitral valve repair December 08, 2024 1:11pm History of tricuspid valve repair Septem 2024 1:11pm Varicose veins of upper extremity Octobe r 2024 3:21pm Nodule of neck January 12, 2025 1 :53pm Varicose veins of upper extremity Octobe r 2024 1:53pm Additional Source Comments (unrecognized sect ion and content) No Status Records FoundNo Status Records Found INFORMATION SOURCE (unrecogn ized section and content) DATE CREATED AUTHOR 06/30/2019 [facility] DATE CREATED AUTHOR AUTHOR'S ORGANIZ ATION 01/16/2025 [facility] Goals (unrecognized section and content) Goals may be documented in a n alternate sectionGoals may be documented in an alternate sectionGoals may be documented in an alternate sectionGoals may be documented in an alternate sectionGoals may be documented in an alternate sectionGoals may be documented in an alternate sectionGoals may be documented in an alternate sectionGoals may be documented in an alternate sectionGoals may be documented in an alternate section Care Teams (unrecognized sec tion and content) Team Status: Active Member Role Status Dates Dr. Annalise Mora MD Family Provider Active Dr. Joni Johnson MD Primary Care Provider Activ e Team Status: Inactive Member Role Status Dates Dr. Joni Johnson MD Primary Care Provider, Attending Provider, Referring Provider Active Team Status: Active Member Role Status Dates Dr. Annalise Mora MD Family Provider Active Dr. Carlitos Johnson MD Primary Care Provider Acti ve Team Status: Inactive Member Role Status Dates Dr. Carlitos Johnson MD Primary Care Provider, Ref erring Provider Active Dr. Micheal Trujillo MD Attending Provider Active Team Status: Inactive Member Role Status Dates Dr. Carlitos Johnson MD Primary Care Provider Acti ve Dr. Micheal Trujillo MD Attending Provider, Referring Pro vider Active Team Status: Active Member Role Status Dates Dr. Carlitos Johnson MD Primary Care Provider Acti ve Dr. Micheal Trujillo MD Attending Provider Active Team Status: Active Member Role Status Dates Dr. Carlitos Johnson MD Primary Care Provider Acti ve Thania Dhaliwal CARTOGRAPHIC AIDE, CARTOGRAPHIC AIDE-C Attending Provider Active Team Status: Inactive Member Role Status Dates Dr. Carlitos Johnson MD Primary Care Provider Acti ve Dr. Wade Stafford MD Emergency Provider Active Boat Finisher Relationship Specialty Start Date End Date Carlitos Johnson MD [address] [facility] [address] [place], [place] [address] PCP - General Family Medicine 05/05/19 Micheal Trujillo MD [address] [place], [place] [address] Referring Cardiology 02/17/19 Boat Finisher Relationship Specialty Start Date End Date Carlitos Johnson MD [address] [place], [place] [address] PCP - General Family Medicine 05/05/19 Micheal Trujillo MD [address] [place] [address] Referring Cardiology 02/17/19 Boat Finisher Relationship Specialty Start Date End Date Carlitos Johnson MD [address] [place], [place] [address] PCP - General Family Medicine 05/05/19 Micheal Trujillo MD [address] [place], [place] [id number] [phone] Referring Cardiology 02/17/19 Team Status: Active Member Role Status Dates Dr. Carlitos Johnson MD Primary Care Provider Acti ve Team Status: Inactive Member Role Status Dates Dr. Carlitos Johnson MD Primary Care Provider Acti ve Start: March 26, 2024 End: March 26, 2024 Dr. Carlitos Johnson MD Attending Provider Active Start: March 26, 2024 End: March 26, 2024 Dr. Carlitos Johnson MD Referring Provider Active Start: March 26, 2024 End: March 26, 2024 Team Status: Inactive Member Role Status Dates Dr. Carlitos Johnson MD Primary Care Provider Acti ve Start: June 01, 2024 End: June 01, 2024 Dr. Carlitos Johnson MD Referring Provider Active Start: June 01, 2024 End: June 01, 2024 Dr. Praveen Joel MD Attending Provider Active Start: June 01, 2024 End: June 01, 2024 Team Status: Inactive Member Role Status Dates Dr. Carlitos Johnson MD Primary Care Provider Acti ve Start: June 15, 2024 End: June 15, 2024 Dr. Praveen Joel MD Attending Provider Active Start: June 15, 2024 End: June 15, 2024 Dr. Praveen Joel MD Referring Provider Active Start: June 15, 2024 End: June 15, 2024 Team Status: Active Member Role Status Dates Dr. Neil Pena MD Attending Provider Active Start: June 15, 2024 Dr. Praveen Joel MD Referring Provider Active Start: June 15, 2024 Team Status: Inactive Member Role Status Dates Dr. Carlitos Johnson MD Primary Care Provider Acti ve Start: July 01, 2024 End: July 01, 2024 Dr. Carlitos Johnson MD Referring Provider Active Start: July 01, 2024 End: July 01, 2024 Dr. Praveen Joel MD Attending Provider Active Start: July 01, 2024 End: July 01, 2024 Team Status: Inactive Member Role Status Dates Dr. Red Crouch MD Attending Provider Active S tart: August 02, 2024 End: August 02, 2024 Dr. Praveen Joel MD Referring Provider Active Start: August 02, 2024 End: August 02, 2024 Dr. Carlitos Johnson MD Primary Care Provider Acti ve Start: August 02, 2024 End: August 02, 2024 Team Status: Inactive Member Role Status Dates Dr. Carlitos Johnson MD Primary Care Provider Acti ve Start: August 18, 2024 End: August 18, 2024 Dr. Carlitos Johnson MD Referring Provider Active Start: August 18, 2024 End: August 18, 2024 YEMI Villalobos Attending Provider Active Star t: August 18, 2024 End: August 18, 2024 Team Status: Active Member Role/Relationship Status Dates Dr. Carlitos Johnson MD Primary Care Provider Acti ve Team Status: Inactive Member Role/Relationship Status Dates Dr. Carlitos Johnson MD Primary Care Provider Acti ve Start: August 18, 2024 End: August 18, 2024 Dr. Carlitos Johnson MD Referring Provider Active Start: August 18, 2024 End: August 18, 2024 YEMI Villalobos Attending Provider Active Star t: August 18, 2024 End: August 18, 2024 Team Status: Inactive Member Role/Relationship Status Dates Dr. Carlitos Johnson MD Primary Care Provider Acti ve Start: December 08, 2024 End: December 08, 2024 Dr. Carlitos Johnson MD Referring Provider Active Start: December 08, 2024 End: December 08, 2024 Annalise Bautista CARTOGRAPHIC AIDE, CARTOGRAPHIC AIDE-C Attending Provider Active S tart: December 08, 2024 End: December 08, 2024 Team Status: Active Member Role/Relationship Status Dates Dr. Carlitos Johnson MD Primary care physician Act guerrero Team Status: Inactive Member Role/Relationship Status Dates Dr. Carlitos Johnson MD Primary care physician Act guerrero Start: December 08, 2024 End: December 08, 2024 Dr. Carlitos Johnson MD Referring Provider Active Start: December 08, 2024 End: December 08, 2024 Annalise Bautista CARTOGRAPHIC AIDE, CARTOGRAPHIC AIDE-C Attending physician Active Start: December 08, 2024 End: December 08, 2024 Team Status: Inactive Member Role/Relationship Status Dates Dr. Carlitos Johnson MD Primary care physician Act guerrero Start: December 29, 2024 End: December 29, 2024 Dr. Carlitos Johnson MD Referring Provider Active Start: December 29, 2024 End: December 29, 2024 Dr. Red Crouch MD Attending physician Active Start: December 29, 2024 End: December 29, 2024 Team Status: Inactive Member Role/Relationship Status Dates Dr. Carlitos Johnson MD Primary care physician Act guerrero Start: January 12, 2025 End: January 12, 2025 Dr. Carlitos Johnson MD Referring Provider Active Start: January 12, 2025 End: January 12, 2025 Adele BRAGG PA-C Attending physician Active Start: January 12, 2025 End: January 12, 2025 Source Comments (unrecognize d section and content) In the event this informatio n is protected by the Federal Confidentiality of Alcohol and Drug Abuse Patient Records regulations: The Federal rules restrict any use of the information to criminally investigate or prosecute any alcohol or drug abuse patient.[facility] the event this information is protected by the Federal Confidentiality of Alcohol and Drug Abuse Patient Records regulations: The Federal rules restrict any use of the information to criminally investigate or prosecute any alcohol or drug abuse patient.[facility] the event this information is protected by the Federal Confidentiality of Alcohol and Drug Abuse Patient Records regulations: The Federal rules restrict any use of the information to criminally investigate or prosecute any alcohol or drug abuse patient.[facility] Reason for Visit (unrecogniz ed section and content) Reason Comments Consult Colon FOR RECORDS PERTAINING TO PATIENTS WHO ARE OR HAVE BEEN ENROLLED IN A CHEMICAL DEPENDENCY/SUBSTANCEABUSE PROGRAM, SOME INFORMATION MAY BE OMITTED. This clinical summary was aggregated from multiple sources. Caution should be exercised in using it in the provision of clinical care. This summary normalizes information from multiple sources, and as a consequence, information in this document may materially change the coding, format and clinical context of patient data. In addition, data may be omitted in some cases. CLINICAL DECISIONS SHOULD BE BASED ON THE PRIMARY CLINICAL RECORDS. [facility]. provides no warranty or guarantee of the accuracy or completeness of information in this document.
--- NOTE | 2025-03-07 06:07 | EKG12_ITS ---
Test Reason : PRE-OP Blood Pressure : */* mmHG Vent. Rate : 70 BPM Atrial Rate : 70 BPM P-R Int : 378 ms QRS Dur : 132 ms QT Int : 424 ms P-R-T Axes : 16 -46 16 degrees QTcB Int : 457 ms Sinus rhythm with 1st degree A-V block Right bundle branch block Left anterior fascicular block Bifascicular block Abnormal ECG When compared with ECG of 07-Jul-2007 12:09, MANUAL COMPARISON REQUIRED DATA IS UNCONFIRMED Confirmed by Cuco Vega ([id number]), senior technical editor NEAL DUARTE ([id number]) on 03/09/2025 11:39:42 AM Referred By: Praveen Joel Confirmed By: Cuco Vega
[2025-03-07] MEDS: Lactated Ringers 1,000 ML 15 ML IV (06:26)
--- NOTE | 2025-03-07 06:44 | PRE.ANES_ITS ---
ASA Classification* ASA Classification ASA Classification: 2 Assessment & Plan Anesthesia* Anesthesia Assessment Anesthesia Assessment: Discussed sedation and/or anesthesia options, risks, benefits, and alternatives with patient/parents/legal guardian/POA. Questions invited. The patient/parents/legal guardian/POA seems to understand and agrees to proceed with anesthesia plan. Reviewed the physical assessment, medical history, allergy history and patient home medications list prior to surgery/procedure/anesthetic and documented any changes. Performed airway and anesthesia risk assessments. Anesthesia Type Anesthesia Type: General Anesthesia Focused Assessment* Temperature: 98.2 F Pulse Rate: 68 Blood Pressure: 137/90 Respiratory Rate: 16 Pulse Ox: 97 Airway Assessment Mouth opens: >3 cm Mallampati Score: II Labs Anesthesia Preop lab: CBC WBC, (4.4-11.0) 4.7 K/mm3 03/01/25, 13:06 RBC, (4.6-6.2) 4.23 M/mm3 L 03/01/25, 13:06 Hgb, (13.0-16.5) 14.2 g/dL 03/01/25, 13:06 Hct, (40-54) 41.3 % 03/01/25, 13:06 Plt Count, (150-450) 121 K/mm3 L 03/01/25, 13:06 CHEMISTRY Potassium, (3.3-5.1) 4.4 mmol/L 03/01/25, 13:06 Sodium, (133-145) 139 mmol/L 03/01/25, 13:06 BUN, (4-19) 15 mg/dL 03/01/25, 13:06 Creatinine, (0.70-1.20) 1.11 mg/dL 03/01/25, 13:06 Glucose, (70-99) 130 mg/dL H 03/01/25, 13:06 COAG PT, (11.7-14.9) 13.5 SECONDS 06/26/15, 13:31 Pre-Assessment Diagnosis/Proposed Procedure Planned Operative Procedure(s): (L) Excision, Sebaceous Cyst anterior side neck, Combo with Dr. Crouch (L) Stab Phlebectomy Neck Varicosities Anesthesia History Anesthesia History - general studies program chair: Anesthesia History - general studies program chair Hx Hospitalization No 02/21/25 10:33 Any Problems With Anesthesia No 02/21/25 10:33 Cholinesterase deficiency No 02/21/25 10:33 You/Your Family Experience No 02/21/25 10:33 fever (hyperthermia) with Relationship Recent Exposure to Contagious No 03/07/25 06:22 Disease Does patient have nerve No 02/21/25 10:33 stimulator Patient instructed to have device shut off --Does patient have Pacemaker No 03/07/25 06:22 or ICD? When Was Last Pacemaker Check QUESTION #4 FULL TEXT: You/Your Family Experience fever (hyperthermia) with Anesthesia Last Oral Intake Last Oral intake: Last Oral Intake NPO since 22:30 03/07/25 06:22 Meds taken in AM with sips of water? Meds patient instructed to take am of surgery PONV PONV - general studies program chair: PONV - general studies program chair Female No 02/21/25 10:33 HX of Motion Sickness No 02/21/25 10:33 HX of N/V After Surgery No 02/21/25 10:33 Non-Smoker Yes 02/21/25 10:33 Duration of Surgery greater Yes 02/21/25 10:33 than 60 minutes Number of Risk Factors 2 02/21/25 10:33 PONV Score Moderate Risk 02/21/25 10:33 Height & Weight Height & Weight: Anesthesia: Height & Weight Height 6 ft 1 in 03/07/25 06:22 Weight: 76.3 kg 03/07/25 06:22 Body Mass Index (BMI) 22.1 03/07/25 06:22 Respiratory Assessment Respiratory Assessment - general studies program chair: Respiratory Tract Infection Hx - general studies program chair Hx Respiratory Tract Infection No 02/21/25 10:33 STOP Sleep Apnea STOP Sleep Apnea - general studies program chair: STOP Sleep Apnea - general studies program chair Hx Hypertension No 02/21/25 10:33 Hx Sleep Apnea No 02/21/25 10:33 CPAP BIPAP Do you snore loudly (louder No 02/21/25 10:33 than talking or can be heard Do you often feel tired/ No 02/21/25 10:33 fatigued/ sleepy during daytime? Has anyone observed you stop No 02/21/25 10:33 breathing during sleep? STOP Results Negative 02/21/25 10:33 QUESTION #5 FULL TEXT : Do you snore loudly (louder than talking or can be heard through closed doors)? 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 Specify any problems Hx of Preganancy in last 3 N/A 02/21/25 10:33 Months Nurse Filling Out Transfusion JZOLLINGE 02/21/25 10:33 & Questions: Date: 02/21/25 02/21/25 10:33 Time: 10:34 02/21/25 10:33 Patient unable to answer at this time (ie. confused, unrespo /Reproduction History /Reproductive History - general studies program chair: /Reproductive Hx- general studies program chair Hx Now No 02/21/25 10:33 Gestational Age (in weeks): EDC: Hx Hx Para Hx Section SAB No 02/21/25 10:33 Does the father of the baby or his family experience fever w Father of the baby Malignant Hypertension history comment Active Medications Active Medications: Current Medications Generic Name Dose Route Start Last Admin Trade Name Freq PRN Reason Stop Dose Admin Cefazolin Sodium 2 gm/ Sodium 110 mls @ 200 mls/hr 03/07/25 07:00 Chloride IV 03/07/25 07:32 INTRAOP ONE Lactated Ringer's 1,000 mls @ 15 mls/hr 03/07/25 06:15 03/07/25 06:26 IV 15 mls/hr .Q48H KALPESH Administration PFSH Medical History Wears glasses Non-smoker Cardiology follow-up encounter History of echocardiogram Nodule of neck Right bundle branch block (RBBB) with left anterior fascicular block Thrombocytopenia due to blood loss (05/13/19) Non-rheumatic tricuspid valve insufficiency Nonrheumatic mitral (valve) insufficiency Secondary pulmonary arterial hypertension Nonrheumatic aortic (valve) insufficiency Nonrheumatic tricuspid valve regurgitation Nonrheumatic mitral (valve) prolapse First degree atrioventricular block by electrocardiogram Home Medications ?Medication ?Instructions ?Recorded ?Last Taken ?Type cholecalciferol (vitamin D3) 25 1,000 unit PO DAILY Unknown History mcg (1,000 unit) tablet cyanocobalamin (vitamin B-12) 500 500 mcg PO DAILY@080 0 06/29/15 Unknown History mcg tablet multivitamin 1 ea PO DAILY 06/29/15 Unkno wn History aspirin 81 mg tablet,delayed 81 mg PO .QOD 06/19/23 History release (Adult Aspirin Regimen) biotin 1 mg tablet 5,000 mcg PO DAILY 06/19/23 Unknown History ipratropium bromide 42 mcg (0.06 2 spray intranasal DA ANGELA 06/19/23 Unknown History %) nasal spray sulfacetamide sodium 10 % topical 1 applic topical QDA Y 06/01/24 Unknown History cleanser amoxicillin 500 mg capsule 500 mg PO ONCE PRN prior to dental 12/08/24 03/07/25 History work Allergy/AdvReac Type Severity Reaction Status Date / Time No Known Allergies Allergy Verified 03/07/25 06:20 Family History Mother H/O heart valve replacement with bioprosthetic valve Surgical History Hx of colonoscopy with polypectomy History of tricuspid valve repair (05/10/19) History of mitral valve repair (05/10/19) History of right heart catheterization (06/16/18) H/O right and left heart catheterization (02/10/17) Social History Smoking Status: Former smoker how long ago did patient quit smokin alcohol intake: current alcohol intake frequency: a few times a month details: Social on weekends substance use type: does not use caffeine: Yes Type: coffee Number of servings: 2 Review of Systems (Anesthesia) ROS Narrative System reviewed and no additional complaints, except as documented.
--- NOTE | 2025-03-07 07:21 | PCM.HP.STD ---
HPI - General General Date of Admission: 03/07/25 Date of Service: 03/07/25 Chief Complaint: Neck cyst/varicose veins HPI Narrative KEESHA BOSE, is a 74 M who presents with varicose veins and a sebaceous cyst involving the anterior neck. He presents today to have these surgically addressed. [facility] Medical History Wears glasses Non-smoker Cardiology follow-up encounter History of echocardiogram Nodule of neck Right bundle branch block (RBBB) with left anterior fascicular block Thrombocytopenia due to blood loss (05/13/19) Non-rheumatic tricuspid valve insufficiency Nonrheumatic mitral (valve) insufficiency Secondary pulmonary arterial hypertension Nonrheumatic aortic (valve) insufficiency Nonrheumatic tricuspid valve regurgitation Nonrheumatic mitral (valve) prolapse First degree atrioventricular block by electrocardiogram Home Medications ?Medication ?Instructions ?Recorded ?Last Taken ?Type cholecalciferol (vitamin D3) 25 1,000 unit PO DAILY 06/29/15 Unknown History mcg (1,000 unit) tablet cyanocobalamin (vitamin B-12) 500 500 mcg PO DAILY@0800 06/29/15 Unknown History mcg tablet multivitamin 1 ea PO DAILY 06/29/15 Unknown History aspirin 81 mg tablet,delayed 81 mg PO .QOD 06/19/23 03/04/25 History release (Adult Aspirin Regimen) biotin 1 mg tablet 5,000 mcg PO DAILY 06/19/23 Unknown History ipratropium bromide 42 mcg (0.06 2 spray intranasal DAILY 06/19/23 Unknown History %) nasal spray sulfacetamide sodium 10 % topical 1 applic topical QDAY 06/01/24 Unknown History cleanser amoxicillin 500 mg capsule 500 mg PO ONCE PRN prior to dental 12/08/24 03/07/25 History work Allergy/AdvReac Type Severity Reaction Status Date / Time No Known Allergies Allergy Verified 03/07/25 06:20 Family History Mother H/O heart valve replacement with bioprosthetic valve Surgical History Hx of colonoscopy with polypectomy History of tricuspid valve repair (05/10/19) History of mitral valve repair (05/10/19) History of right heart catheterization (06/16/18) H/O right and left heart catheterization (02/10/17) Social History Smoking Status: Former smoker how long ago did patient quit smokin alcohol intake: current alcohol intake frequency: a few times a month details: Social on weekends substance use type: does not use caffeine: Yes Type: coffee Number of servings: 2 Vital Signs Vital Signs Vital Signs: 03/07/25 06:22 03/07/25 06:22 03/07/25 06:22 Temperature 98.2 F Temperature Source Temporal Pulse Rate 68 Respiratory Rate 16 Respiratory Pattern Normal Blood Pressure 137/90 H Blood Pressure Mean 105 Blood Pressure Source Monitor Blood Pressure Position Semi-Fowlers Blood Pressure Location Left Arm Baseline BP 137/90 Pulse Ox 97 Oxygen Delivery Method Room Air 03/07/25 06:44 Temperature 98.2 F Temperature Source Pulse Rate 68 Respiratory Rate 16 Respiratory Pattern Blood Pressure 137/90 H Blood Pressure Mean Blood Pressure Source Blood Pressure Position Blood Pressure Location Baseline BP Pulse Ox 97 Oxygen Delivery Method Weight Weight: 168 lb 3.403 oz Body Mass Index (BMI) 22.1 Physical Exam Const alert, oriented x3 and no apparent distress HEENT Head and Scalp: other Other Details: Neck appears unchanged since last exam with left-sided sebaceous cyst and prominent veins Results Lab / Micro Data 03/01/25 13:06 03/01/25 13:06 Assessment & Plan Assessment/Plan (1) Nodule of neck: PLAN: Plan Patient is a 74-year-old male who presents with a sebaceous cyst and varicose veins of the neck. He presents today to have these excised. We discussed the details of the planned procedure including risk benefits and alternatives and he wishes to proceed. The surgery is to be performed along with Dr. Crouch as well. Surgery began momentarily
--- NOTE | 2025-03-07 07:21 | PCM.HP.STD ---
HPI - General HPI Narrative KEESHA BOSE, is a 74 M who presents with bilateral anterior neck varicosities. He has had prior phlebectomy twice over the years with satisfactory result. They have been becoming more prominent/bulging over the past yearr. He also has a left side neck cyst that he is going to have removed by Dr. Joel. [facility] Medical History Wears glasses Non-smoker Cardiology follow-up encounter History of echocardiogram Nodule of neck Right bundle branch block (RBBB) with left anterior fascicular block Thrombocytopenia due to blood loss (05/13/19) Non-rheumatic tricuspid valve insufficiency Nonrheumatic mitral (valve) insufficiency Secondary pulmonary arterial hypertension Nonrheumatic aortic (valve) insufficiency Nonrheumatic tricuspid valve regurgitation Nonrheumatic mitral (valve) prolapse First degree atrioventricular block by electrocardiogram Home Medications ?Medication ?Instructions ?Recorded ?Last Taken ?Type cholecalciferol (vitamin D3) 25 1,000 unit PO DAILY 06/29/15 Unknown History mcg (1,000 unit) tablet cyanocobalamin (vitamin B-12) 500 500 mcg PO DAILY@0800 06/29/15 Unknown History mcg tablet multivitamin 1 ea PO DAILY 06/29/15 Unknown History aspirin 81 mg tablet,delayed 81 mg PO .QOD 06/19/23 03/04/25 History release (Adult Aspirin Regimen) biotin 1 mg tablet 5,000 mcg PO DAILY 06/19/23 Unknown History ipratropium bromide 42 mcg (0.06 2 spray intranasal DAILY 06/19/23 Unknown History %) nasal spray sulfacetamide sodium 10 % topical 1 applic topical QDAY 06/01/24 Unknown History cleanser amoxicillin 500 mg capsule 500 mg PO ONCE PRN prior to dental 12/08/24 03/07/25 History work Allergy/AdvReac Type Severity Reaction Status Date / Time No Known Allergies Allergy Verified 03/07/25 06:20 Family History Mother H/O heart valve replacement with bioprosthetic valve Surgical History Hx of colonoscopy with polypectomy History of tricuspid valve repair (05/10/19) History of mitral valve repair (05/10/19) History of right heart catheterization (06/16/18) H/O right and left heart catheterization (02/10/17) Social History Smoking Status: Former smoker how long ago did patient quit smokin alcohol intake: current alcohol intake frequency: a few times a month details: Social on weekends substance use type: does not use caffeine: Yes Type: coffee Number of servings: 2 ROS Constitutional Constitutional: Denies chills, fever(s), frequent falls, lethargy or weakness Eyes Eyes: Denies blind spots, change in vision or loss of vision ENT HEENT: Denies bleeding gums, hoarseness or sore throat Cardiovascular Cardiovascular: Denies abdominal pain, bluish discoloration of hand/feet, chest pain with activity, claudication, cold extremities, cyanosis, dyspnea on exertion, erythema on extremities, irregular heart rhythm, leg edema, leg ulcers, numbness in extremities or weakness in extremities Respiratory/Chest Respiratory/Chest: Denies cough, excessive phlegm production, shortness of breath at rest, shortness of breath with exertion or wheezing Gastrointestinal Gastrointestinal: Denies anorexia, change in stool character, constipation, diarrhea, melena or rectal bleeding Genitourinary Genitourinary: Denies dysuria or hematuria Musculoskeletal Musculoskeletal: Denies abnormal gait Integumentary Integumentary: Reports other Details: ; Denies erythema, non-healing lesions or wounds Neurologic Neurologic: Denies abnormal speech, focal weakness, headache(s), loss of vision, numbness, paresthesias or sensory deficit Hematologic/Lymphatic Hematologic/Lymphatic: Denies easy bleeding, easy bruising or lymphadenopathy Vital Signs Vital Signs Vital Signs: 03/07/25 06:22 03/07/25 06:22 03/07/25 06:22 Temperature 98.2 F Temperature Source Temporal Pulse Rate 68 Respiratory Rate 16 Respiratory Pattern Normal Blood Pressure 137/90 H Blood Pressure Mean 105 Blood Pressure Source Monitor Blood Pressure Position Semi-Fowlers Blood Pressure Location Left Arm Baseline BP 137/90 Pulse Ox 97 Oxygen Delivery Method Room Air 03/07/25 06:44 Temperature 98.2 F Temperature Source Pulse Rate 68 Respiratory Rate 16 Respiratory Pattern Blood Pressure 137/90 H Blood Pressure Mean Blood Pressure Source Blood Pressure Position Blood Pressure Location Baseline BP Pulse Ox 97 Oxygen Delivery Method Weight Weight: 168 lb 3.403 oz Body Mass Index (BMI) 22.1 Physical Exam Const alert, oriented x3, no apparent distress and healthy appearing General Appearance: cooperative; Negative for combative or lethargic Orientation / Consciousness: awake Exam Limitations: no limitations HEENT Head and Scalp: normocephalic and atraumatic Eyes EOMs intact bilaterally General Eye: normal appearance of both eyes Neck full ROM, no lymphadenopathy and thyroid normal General: trachea midline; Negative for lymphadenopathy or tenderness Thyroid: thyroid normal Resp normal respiratory effort and no use of accessory muscles Effort and Inspection: Negative for labored, stridor or audible wheezes Cardio regular rate and regular rhythm Back/Spine Cervical Spine: cervical ROM normal Extremity full ROM, normal capillary refill and no clubbing, cyanosis or edema Skin no rashes or lesions noted and no wounds Neuro oriented x3, CN's II-XII intact bilaterally, no focal motor deficits and no sensory deficits noted Psych thought process normal, cooperative, affect normal, speech normal and activity/motor behavior normal Results Lab / Micro Data 03/01/25 13:06 03/01/25 13:06 Assessment & Plan Assessment/Plan (1) Varicose veins of upper extremity: PLAN: -will excise in conjunction with cyst removal
[2025-03-07] MEDS: Cefazolin 1 GM/5 ML Vial 2 GM IV (07:27)
--- NOTE | 2025-03-07 07:30 | VE_PTH ---
PATIENT: KEESHA BOSE LOC: [facility] [place] U#:[id number] AGE/SX: 74/M ROOM: RE03/07/[address]: Dr. Praveen Joel MD : [id number] BED: DIS: 03/07/2025 SPEC #: [id number] RECD: 03/07/25 09:40 STATUS: CHRISS REAshkan #: [id number] MARGAUX: 03/07/25 07:[address]: Praveen Joel DEPT: SURGICAL PATHOLOGY RECD BY: Jose Raul Mclain ENTERED: 03/07/25 11:30 SP TYPE: VEIN(S) OTHR DR: MD Dr. Red Alfred MD Tissues: A - Vein, NOS Procedures: Surgery Specimen Level III HEADER OPERATION: Excision, sebaceous cyst anterior side neck PRE-OP DIAGNOSIS: Nodule of neck, varicose veins of neck TISSUE SUBMITTED: A- Varicose vein and sebaceous cyst MICROSCOPIC DIAGNOSIS A. Skin and soft tissue, neck, varicose vein and sebaceous cyst, excision: - Skin with dilated follicular infundibulum and telangiectatic vascular spaces (A1). - Fibroadipose tissue containing dilated muscular vein(s) consistent with varicosity (A2). MICROSCOPIC DESCRIPTION Slides are reviewed. GROSS DESCRIPTION A. Received in formalin labeled with the patient's name and date of . Designated as varicose vein and sebaceous cyst is a 2.5 x 0.9 cm wilson-pink wrinkled portion of skin, devoid of orientation excised to a maximum depth of 1.7 cm; with 2 additional portions of wilson-pink to red rubbery tissue, one of which has an undesignated suture, measuring 1.1 x 0.6 x 0.2 cm and 1.0 x 0.7 x 0.3 cm. Sectioning reveals a 0.4 x 0.4 x 0.2 cm possible cyst wall within one of the rubbery tissue fragments. Remainder of the cut surfaces range from wilson-pink to red and rubbery. Warp Trucker sections are submitted in 2 cassettes as follows: A1: SkinA2: Tissue fragments, including possible cyst wall KS 03/07/2025 CPT:78688f0
[2025-03-07] MEDS: Lidocaine 1% (5 ml sdv) 5 ML Vial IV (07:34)
[2025-03-07] MEDS: fentaNYL 100 MCG/2 ML Ampul IV (07:34)
[2025-03-07] MEDS: Bupiv/Epi 0.25% 30 ML Vial (08:55)
--- NOTE | 2025-03-07 09:19 | EX.PCM.DISCH ---
Discharge Instructions Diet Discharge Diet: No restrictions Activity May shower in (days): 2 Lifting Restrictions: do not lift > 20 lbs for 2 weeks Additional Activity Instructions:: do not submerge incisions for 2 weeks Dressing / Incision Call your doctor if your incision/area has: Sudden Increased Bleeding, Increased Pain/ Swelling, Increased Redness and Foul Smelling Discharge Remove Dressing in: 2 days Cleanse incision/area with: Soap & Water Follow Up Care Test Results: Test results from this visit will be discussed in further detail at your follow-up appointment, if applicable. Discharge Plan Admission Attending Provider: Praveen Joel Primary Care Provider: Carlitos Johnson Consulting Providers: Red Crouch Print Language: Kiswahili Discharge Orders/Prescriptions Prescriptions: New oxycodone 5 mg tablet 5 mg PO Q8H PRN (Reason: pain) 1 Days Qty: 3 0RF Continued aspirin [Adult Aspirin Regimen] 81 mg tablet,delayed release (DR/EC) 81 mg PO .QOD ipratropium bromide 42 mcg (0.06 %) spray,non-aerosol 2 spray intranasal DAILY Patient Comments: [NO ORIGINAL SIG] amoxicillin 500 mg capsule 500 mg PO ONCE PRN (Reason: prior to dental work) Rx Instructions: 500 mg orally 4 capsules (2 grams) 1 hour prior to dental appointment; sulfacetamide sodium 10 % cleanser 1 applic topical QDAY cyanocobalamin (vitamin B-12) 500 MCG tablet 500 mcg PO DAILY@0800 Patient Comments: SUPPLEMENT multivitamin 1 EACH tablet 1 ea PO DAILY Patient Comments: SUPPLEMENT cholecalciferol (vitamin D3) 1,000 UNIT tablet 1,000 unit PO DAILY Patient Comments: SUPPLEMENT biotin 1 mg tablet 5,000 mcg PO DAILY Patient Comments: SUPPLEMENT Referrals / Follow Up: Carlitos Johnson MD [Primary Care Provider, Family Practice] Disposition Disposition (needs filled in before D/C Order can be placed): Home, Self Care
--- NOTE | 2025-03-07 09:30 | PCM.POST.ANE ---
Anesthesia: Postop Eval I Current Vital Signs Temperature: 97.1 F Pulse Rate: 54 Blood Pressure: 142/80 Respiratory Rate: 20 Pulse Ox: 96 Assessment Airway patent: Yes Spontaneous unlabored respirations: Yes nausea: No Vomiting: No Anesthesia Complication: No Fluid Hydration Crystalloid volume administer (ml): 800 Total IV fluid infused: 800 Progress Note Anesthesia document: Postop Eval 1 completed: Yes
--- NOTE | 2025-03-07 09:54 | POSTOPAN2_ITS ---
Anesthesia Postop Eval I Sum Postop Eval Completion status Anesthesia document: Postop Eval 1 completed: Yes Anesthesia Postop Eval I Summary Anesthesia Postop Eval I Summary: Anesthesia Postop Eval I: Assessment Summary Airway patent Yes 03/07/25 09:36 SERVICE UNIT OPERATOR.CSIR Spontaneous unlabored Yes 03/07/25 09:36 SERVICE UNIT OPERATOR.CSIR respirations Mental status nausea No 03/07/25 09:36 SERVICE UNIT OPERATOR.CSIR Vomiting No 03/07/25 09:36 SERVICE UNIT OPERATOR.CSIR Anesthesia Postop Eval I: Fluid Summary Crystalloid volume administer 800 03/07/25 09:36 SERVICE UNIT OPERATOR.CSIR (ml) Colloids volume administered ( ml) Blood Product volume administered (ml) Total IV fluid infused 800 03/07/25 09:36 SERVICE UNIT OPERATOR.CSIR Anesthesia Postop Eval I: Summary Notes Anesthesia Complication No 03/07/25 09:36 SERVICE UNIT OPERATOR.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
--- NOTE | 2025-03-07 09:54 | PCM.POSTANE2 ---
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
--- NOTE | 2025-03-07 15:29 | PCM.OPRPT ---
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: No Type of Anesthesia: General RN Documented Start/Stop Times: Operation Date: 03/07/25 07:30 Case Time Into Pre-Op 03/07/25 05:57 Out of Pre-Op 03/07/25 07:25 Anesthesia Start 03/07/25 07:27 Into Room 03/07/25 07:27 Procedure Start 03/07/25 07:54 Procedure End 03/07/25 09:15 Anesthesia End 03/07/25 09:23 Out of Room 03/07/25 09:23 Into Recovery 03/07/25 09:26 Into Phase II Recovery 03/07/25 09:46 Out of Recovery 03/07/25 09:46 Out of Phase II 03/07/25 10:26 Procedure Start Time: 07:55 Procedure Stop Time: 09:15 Select all DRAINS/GRAFTS/IMPLANTS that apply: None Estimated Blood Loss: 9 Specimen collected: Yes Description of specimen(s) removed: Varicose veins, cyst Description of surgery: HPI: Patient is a 74-year-old male who has recurrence of extensive varicose veins of the neck that he previously been excised. He also has a painful cyst on the left aspect of his neck which general surgery intends to excise. He is taken now for excision of the varicose veins in conjunction with cyst removal by Dr. Joel. Given the location of the varicose veins and inability to place compression garments it is expected that larger incisions with ligation of the feeding branches will be required and additionally the scar tissue and depth of the veins imperative to the muscle layer and or simple phlebectomy. Description of procedure: On obtaining informed consent and verification correct patient procedure site the patient was taken to the operating where he was placed under general anesthesia. He was then positioned prepped and draped in usual sterile fashion time was performed. An ellipse incision was made over the bundle of the also adjacent to the sebaceous cyst. Bovie was used to dissect through subcutaneous tissue with significant scar encountered including involvement of the platysma muscle. Multiple varicosities were identified and ligated as they entered into the bundle. Given the scar involvement of the platysma then a section of this was excised along with the varicosities as well as the sebaceous cyst. Next a transverse incision was made over the lateral aspect of the right side of the neck where an enlarged varicosity was present. Bovie was used to dissect down through subcutaneous tissue and hand-held retractors put in position. The platysma was then divided and a very large cluster of varicosities was encountered. Branches entering into this cluster were then ligated with silk ties and the cluster excised. Finally an oblique incision was made anterior to the sternocleidomastoid and Bovie used to dissect down through the subcutaneous tissue to the platysma. The platysma was then divided and again an extensive network of large veins were encountered. Multiple branches into this confluence were ligated and the cluster excised. The incision was then inspected for hemostasis and closed with 3-0 Vicryl, 4-0 Monocryl, 4-0 Vicryl for the skin. Dermabond was then applied and the patient was awake from anesthesia taken recovery room with anticipated discharge to home. Surgical Findings: See above Complications Complications: No
== END 2025-03-07 10:27 | disposition home or self-care (01) ==
LOC: SDC 05:54 → AC 05:55
PROVIDERS: Surgery Trauma Surgery; PCP Family Medicine; Referring Provider Surgery; Visit Provider Surgery
PROC: (CPT 11420; principal; 2025-03-07 07:20)
DX: L72.3 Sebaceous cyst (principal); I86.8 Varicose veins of other specified sites; R52 Pain, unspecified; I34.0 Nonrheumatic mitral (valve) insufficiency; I34.1 Nonrheumatic mitral (valve) prolapse; I35.1 Nonrheumatic aortic (valve) insufficiency; I36.1 Nonrheumatic tricuspid (valve) insufficiency; Z95.2 Presence of prosthetic heart valve; Z79.82 Long term (current) use of aspirin; Z87.891 Personal history of nicotine dependence
CPT/HCPCS: 11420; 37799; 36415; 80048; 85027; 88304; 93005; J2405

== ENCOUNTER 2025-03-29 10:10 | Outpatient (CLI) | payer MEDICARE, OTHER, SELFPAY ==
[2019-08-06 15:31] VITALS: BMI 21.3
[2025-03-29 11:51] LABS: Cholesterol 227 mg/dL (<=200); Glucose 85 mg/dL (70-99); Low Density Lipoprotein Calc. 146 mg/dL; PSA,Total - Annual Screen 2.25 ng/mL (0.02-4.00); Triglycerides 126 mg/dL; Very Low Density Lipoprotein 25 mg/dL (5-40); cholesterol:hdl ratio screen 3.86
== END 2025-03-29 23:59 | disposition home or self-care (01) ==
LOC: LAB 10:11
PROVIDERS: PCP Family Medicine; Referring Provider Family Medicine; Visit Provider Family Medicine
DX: Z00.00 Encounter for general adult medical examination without abnormal findings (principal); Z12.5 Encounter for screening for malignant neoplasm of prostate; E78.00 Pure hypercholesterolemia, unspecified
CPT/HCPCS: 36415; 80061; 82947; 84153; G0103